=== PATIENT | female | born 1940 | race Caucasian/White ===

== ENCOUNTER 2017-02-05 21:58 | Inpatient (IN) | payer OTHER, MEDICARE ==
--- NOTE | 2017-02-06 01:03 | PDOC ---
History of Present Illness - General Chief Complaint: Cold Symptoms Stated Complaint: FEVER Time Seen by Provider: 02/06/17 00:54 - History of Present Illness Initial Comments: 02/06/17 01:03 CHIEF COMPLAINT: fever, cough HISTORY OF PRESENT ILLNESS: 76 yo F with hx of of ALS, spinal stenosis, HTN, HLD , atrial fibrillation (on Eliquis), s/p aortic valve replacement (bovine valve, 06/07), presents to ED with fever and cough x "a couple weeks but it's getting better." Patient reports that she was sent to ED by her emergency preparedness manager Dr. Villatoro due to her complaints of fever. Patient reports weakness, headache, and "my neck feels stiff." She also reports new immobility of b/l arms secondary to worsening ALS. PAST MEDICAL HISTORY: Denies past medical history FAMILY HISTORY: Denies SOCIAL HISTORY: Lives at home with daughter. Denies tobacco, alcohol, illicit drug use. SURGICAL HISTORY: Denies ALLERGIES: No known drug allergies REVIEW OF SYSTEMS General/Constitutional: Fever at home today, [id number]. Weakness x "a few days." HEENT: Denies change in vision. Denies ear pain or discharge. Denies sore throat. Cardiovascular: Denies chest pain or shortness of breath. Respiratory: Cough x "a couple weeks." Denies wheezing, or hemoptysis. Gastrointestinal: Denies nausea, vomiting, diarrhea. Genitourinary: Denies dysuria, frequency, or change in urination. Musculoskeletal: "I can't move." Skin: Denies rash or easy bruising. Neurologic:Headache today. Denies vertigo, loss of consciousness, or loss of sensation. PHYSICAL EXAM General Appearance: Lying flat, immobile in stretcher. Appropriately dressed. No apparent distress. HEENT: Flushed cheeks. EOMI, PERRLA, normal ENT inspection, normal voice, TMs normal, pharynx normal. No conjunctival pallor. No photophobia, scleral icterus. Neck: No nuchal rigidity. Trachea midline. No tenderness, carotid bruit, stridor , lymphadenopathy, or thyromegaly. Respiratory/Chest: Minimal wheezing to R upper lobe. No chest tenderness, respiratory distress, accessory muscle use. No crackles, rales, rhonchi, stridor , dullness Cardiovascular: RRR. S1, S2. Gastrointestinal/Abdominal: Normal bowel sounds. Abdomen soft, non-distended. No tenderness or rebound tenderness. No organomegaly, pulsatile mass, guarding , hernia, hepatomegaly, splenomegaly. Musculoskeletal/Extremities: Limited mobility to b/l lower extremities and complete immobility to upper extremities b/l secondary to ALS. Integumentary: Appropriate color, dry, warm. No cyanosis, erythema, jaundice or rash Neurologic: nub card tender II-XII intact. Fully oriented, alert. Appropriate mood/affect. Motor strength 5/5. No appreciable EOM palsy, facial droop or sensory deficit. Past History - Past Medical History Allergies/Adverse Reactions: Allergies Allergy/AdvReac Type Severity Reaction Status Date / Time No Known Drug Allergies Allergy Verified 02/05/17 22:07 Home Medications: Ambulatory Orders Amiodarone HCl [Cordarone -] 200 mg PO ASDIR 12/27/15 Apixaban [Eliquis] 5 mg PO BID 12/27/15 Metoprolol Tartrate 50 mg PO BID 12/27/15 Losartan Potassium 100 mg PO DAILY 02/06/17 Anemia: No Asthma: No Cancer: No Cardiac Disorders: Yes (aortic stenosis, VALVE REPLACEMENT, AFIB) CVA: No COPD: No CHF: No Dementia: No Diabetes: No GI Disorders: Yes (HEMORRHOIDS,DIVERTICULOSIS,) Disorders: No HTN: Yes Hypercholesterolemia: Yes Liver Disease: No Seizures: No Thyroid Disease: No Other medical history: ALS - Surgical History Abdominal Surgery: No Appendectomy: No Cardiac Surgery: Yes (Aortic valve replacement) Cholecystectomy: Yes Lung Surgery: No Neurologic Surgery: No Orthopedic Surgery: No - Immunization History Immunization Up to Date: No - Suicide/Smoking/Psychosocial Hx Smoking History: Never smoked Have you smoked in the past 12 months: No Number of Cigarettes Smoked Daily: 0 If you are a former smoker, when did you quit?: 45 YRS AGO Cigars Per Day: 0 Information on smoking cessation initiated: No Hx Alcohol Use: No Drug/Substance Use Hx: No Substance Use Type: None Hx Substance Use Treatment: No *Physical Exam - Vital Signs Last Vital Signs Temp Pulse Resp BP Pulse Ox 98.8 F 95 H 20 148/102 98 02/05/17 22:08 02/05/17 22:08 02/05/17 22:08 02/05/17 22:08 02/05/17 22:08 ED Treatment Course - LABORATORY CBC & Chemistry Diagram: 02/06/17 01:26 02/06/17 01:26 Medical Decision Making - Medical Decision Making 02/06/17 04:10 76 yo F with hx of of ALS, spinal stenosis, HTN, HLD, atrial fibrillation (on Eliquis), s/p aortic valve replacement (bovine valve, 06/07), presents to ED with fever and cough. VS remarkable for rectal temp of 100.0F and HR of 95. -EKG -CBC, CMP, lactic acid, card profile, trop -CXR CXR with patchy infiltrates to perihilar regions, more prominent on R side. Suspicious for pneumonia. WBC 11.4 Bilirubin 2.3 Patient requires inpatient admission for treatment of pneumonia as she is currently immobile. Will require IV antibiotics and likely need chest PT. Will cover with Levaquin 750 mg IVPB Patient's PCP is Dr. Hammond. 02/06/17 06:[address] Alston covering for PCP Manish. Per Dr. Alston, will admit to hospitalist service with their group as pulm consult. Will also place consults for Zenia/Ramirez for ID and Lien for neuro. Discussed case with hospitalist Resident MD Gallegos, who accepts patient to med/ surg for inpatient services. *DC/Admit/Observation/Transfer Diagnosis at time of Disposition: Pneumonia Qualifiers: Pneumonia type: due to unspecified organism Laterality: bilateral Lung location : unspecified part of lung Qualified Code(s): J18.9 - Pneumonia, unspecified organism - Discharge Dispostion Admit: Yes
[2017-02-06] MEDS ORDERED: SODIUM CHLORIDE 0.9% 1000 ML INFUS.BAG IV PRN (01:07)
[2017-02-06 01:35] LABS: BASOPHIL 0.3 % (0-2.0); EOSINOPHIL 0.1 % (0-4.5); MCHC 33.1 g/dl (32.0-36.0); MEAN CELL VOLUME 90.5 fl (80-96); NEUTROPHILS 76.6 % (42.8-82.8); PLATELET COUNT 183 K/MM3 (134-434); RDW 14.5 % (11.6-15.6); WHITE BLOOD COUNT 11.4 K/mm3 (4.0-10.0)
[2017-02-06 01:47] LABS: INR 1.26 (0.82-1.09); PROTHROMBIN TIME (PATIENT) 14.2 SEC (9.98-11.88)
[2017-02-06 01:49] LABS: ACTIVATED PTT 32.1 SECONDS (26.9-34.4)
[2017-02-06 01:57] LABS: ALBUMIN 3.3 g/dl (3.4-5.0); ANION GAP 12 (8-16); BILIRUBIN,TOTAL 2.3 mg/dL (0.2-1.0); CALCIUM 8.1 mg/dL (8.5-10.1); CO2 21 mmol/L (21-32); CREATININE 0.6 mg/dL (0.55-1.02); GLUCOSE,RANDOM 139 mg/dL (74-106); SGOT/AST 45 U/L (15-37); SGPT/ALT 49 U/L (12-78); TOT PROT 6.4 g/dl (6.4-8.2)
[2017-02-06 02:00] LABS: ALK PHOS 84 U/L (45-117); CPK 57 IU/L (26-192); TROPONIN I < 0.02 ng/ml (0.00-0.05)
[2017-02-06] MEDS ORDERED: LEVOFLOXACIN 750 MG IVPB 150 ML IVPB ONE ×2 (02:11→02:26)
--- NOTE | 2017-02-06 02:19 | PDOC ---
*Physical Exam - Vital Signs Last Vital Signs Temp Pulse Resp BP Pulse Ox 98.8 F 95 H 20 148/102 98 02/05/17 22:08 02/05/17 22:08 02/05/17 22:08 02/05/17 22:08 02/05/17 22:08 ED Treatment Course - LABORATORY CBC & Chemistry Diagram: 02/06/17 01:26 02/06/17 01:26 - ADDITIONAL ORDERS Additional order review: Laboratory Results 02/06/17 02/06/17 02/06/17 01:26 01:26 01:26 PT with INR 14.20 H INR 1.26 H PTT (Actin FS) 32.1 Sodium 139 Potassium 3.6 Chloride 106 Carbon Dioxide 21 Anion Gap 12 BUN 12 Creatinine 0.6 Creat Clearance w eGFR > 60 Random Glucose 139 H Lactic Acid 1.8 Calcium 8.1 L Total Bilirubin 2.3 H D AST 45 H D ALT 49 D Alkaline Phosphatase 84 Creatine Kinase 57 Troponin I < 0.02 Total Protein 6.4 Albumin 3.3 L D 02/06/17 01:12 Influenza Types A,B Antigen (JERONIMO) - Final Nasopharyngeal Swab - Final 02/06/17 01:26 RBC 4.67 MCV 90.5 MCHC 33.1 RDW 14.5 MPV 8.0 Neutrophils % 76.6 Lymphocytes % 14.3 D Monocytes % 8.7 Eosinophils % 0.1 Basophils % 0.3 Medical Decision Making - Medical Decision Making 02/06/17 02:18 agree with care from TRENA Garduno *DC/Admit/Observation/Transfer Diagnosis at time of Disposition: Pneumonia
[2017-02-06] MEDS ORDERED: ACETAMINOPHEN 1000 MG/100 ML VIAL (NON FORMULARY) IVPB ONE (02:26)
[2017-02-06] MEDS ORDERED: METOPROLOL TARTRATE 50 MG TABLET (FP) ONE (02:27)
[2017-02-06] MEDS ORDERED: APIXABAN 5 MG TABLET PO STA (02:28)
[2017-02-06] MEDS ORDERED: METOPROLOL TARTRATE 50 MG TABLET (FP) PO ONE (02:29)
[2017-02-06 02:55] LABS: URINE APPEARANCE SLCLOUDY; URINE BILIRUBIN NEGATIVE (NEGATIVE); URINE BLOOD 2+ (NEGATIVE); URINE COLOR YELLOW; URINE GLUCOSE (UA) NEGATIVE (NEGATIVE); URINE KETONE NEGATIVE (NEGATIVE); URINE NITRITE NEGATIVE (NEGATIVE); URINE PROTEIN NEGATIVE (NEGATIVE); URINE UROBILINOGEN NEGATIVE mg/dL (0.2-1.0)
[2017-02-06 03:02] LABS: URINE BACTERIA MANY /hpf (NONE SEEN); URINE MUCUS RARE; URINE RBC 4 /hpf (0-3); URINE WBC 14 /hpf (3-5)
[2017-02-06] MEDS ORDERED: ACETAMINOPHEN INJECTION 100 ML IVPB ONE (03:26)
[2017-02-06] MEDS ORDERED: ACETAMINOPHEN 325 MG TABLET (FP) PO PRN (07:57)
[2017-02-06] MEDS ORDERED: AMIODARONE HCL 200 MG TABLET (FP) PO SCH (08:15)
[2017-02-06] MEDS: LOSARTAN POTASSIUM 100 MG TABLET PO SCH (09:33)
[2017-02-06] MEDS: METOPROLOL TARTRATE 50 MG TABLET (FP) PO SCH ×2 (09:34→21:52)
[2017-02-06 09:43] LABS: URINE LEUK ESTERASE TRACE (NEGATIVE)
--- NOTE | 2017-02-06 09:53 | PN ---
Progress Note, Physician Chief Complaint: ID 76 year old female ALS lives at home S/P AVR 2015 presents for fever 102 and productive couph for about week Denies SOB no travel pets unusual exposures. Sees Dr Joselito Ernandez cardiology at [facility]. Last dental work 5 months ago. - Current Medication List Current Medications: Active Medications Acetaminophen (Tylenol -) 650 mg PO Q4H PRN PRN Reason: FEVER OR PAIN Amiodarone HCl (Cordarone -) 200 mg PO ASDIR CHLOÉ Apixaban (Eliquis -) 5 mg PO BID CHLOÉ Losartan Potassium (Losartan Potassium) 100 mg PO DAILY [facility] Last Admin: 02/06/17 09:33 Dose: Not Given Metoprolol Tartrate (Lopressor -) 50 mg PO BID [facility] Last Admin: 02/06/17 09:34 Dose: Not Given Sodium Chloride (Normal Saline -) 1,000 ml IV Q20M PRN PRN Reason: MAP<65mm Hg OR SBP <90 - Objective Vital Signs: Vital Signs Temperature 98.6 F 02/06/17 07:27 Pulse Rate 73 02/06/17 07:27 Respiratory Rate 16 02/06/17 07:27 Blood Pressure 106/64 02/06/17 07:27 O2 Sat by Pulse Oximetry (%) 96 02/06/17 07:27 Constitutional: Yes: Well Nourished, No Distress Eyes: No: Conjunctiva Clear HENT: Yes: WNL, Atraumatic Neck: Yes: WNL, Supple Cardiovascular: Yes: Murmur, S1, S2 Respiratory: Yes: WNL, Regular, CTA Bilaterally. No: Rales, Rhonchi Gastrointestinal: Yes: Soft. No: Tenderness, Epigastrium Edema: No Labs: INR, PTT INR 1.26 (0.82-1.09) H 02/06/17 01:26 Problem List - Problems (1) Fever Code(s): R50.9 - FEVER, UNSPECIFIED (2) Pneumonia Code(s): J18.9 - PNEUMONIA, UNSPECIFIED ORGANISM Qualifiers: Pneumonia type: due to unspecified organism Laterality: bilateral Lung location: unspecified part of lung Qualified Code(s): J18.9 - Pneumonia , unspecified organism; J18.9 - Pneumonia, unspecified organism (3) History of prosthetic aortic valve Code(s): Z95.2 - PRESENCE OF PROSTHETIC HEART VALVE Assessment/Plan Laboratory Tests 02/06/17 02/06/17 02/06/17 01:26 01:26 02:30 WBC 11.4 H D Hgb 14.0 Hct 42.3 Plt Count 183 Lactic Acid 1.8 Ur Leukocyte Esterase Trace H Urine Bacteria Many Assessment Fever couph ? acute bronchitis vs early PNA Issues of QT discussed re Levoflox Pyuria noted Plan Blood cultures x 2 urine c/s CRP Empiric Ceftriaxone 2 grs daily Zenia BABCOCK
[2017-02-06] MEDS ORDERED: APIXABAN 5 MG TABLET PO SCH (10:00)
[2017-02-06] MEDS ORDERED: AMIODARONE HCL 200 MG TABLET (FP) ONE (10:33)
[2017-02-06] MEDS ORDERED: CEFTRIAXONE 100 ML IVPB ONE (10:33)
[2017-02-06] MEDS: CEFTRIAXONE 2 GM in DEXTROSE 5%-WATER - 100 ML IVPB SCH (10:35)
[2017-02-06] MEDS: AMIODARONE HCL 200 MG TABLET (FP) PO SCH (10:36)
--- NOTE | 2017-02-06 10:37 | HP ---
CHIEF COMPLAINT: fever PCP: HISTORY OF PRESENT ILLNESS: This is a 76 year old female with a significant past medical history of ALS, atrial fibrillation (on eliquis), aortic valve replacement (05/06), who presents to the emergency room with fever 102F, and a productive cough with yellow sputum production x 1 week. Darshan RUIZ, n, v, chest pain, hemoptoysis, palpitations, sob, abdominal pain, dysuria, hematuria. She does admit to one day of loose stools last week that has resolved. Ms. Llamas lives at home with her daughter. She has an aide to help her with adls. She can walk on her own, although unable to lift/move bilateral upper extremities due to ALS. Patient did admit to to neck stiffness, this is not new for her, it comes and goes and she attributes it to her ALS. ER course was notable for: Patient was tachycardic with low grade temp and leukocytosis; CXR was with low inspiratory effort Recent Travel: PAST MEDICAL HISTORY: PAST SURGICAL HISTORY: Social History: Smoking: Alcohol: Drugs: Family History: Allergies No Known Drug Allergies Allergy (Verified 02/05/17 22:07) HOME MEDICATIONS: Home Medications Medication Instructions Recorded Amiodarone HCl [Cordarone -] 200 mg PO ASDIR 12/27/15 Apixaban [Eliquis] 5 mg PO BID 12/27/15 Metoprolol Tartrate 50 mg PO BID 12/27/15 Losartan Potassium 100 mg PO DAILY 02/06/17 REVIEW OF SYSTEMS CONSTITUTIONAL: Absent: fever, chills, diaphoresis, generalized weakness, malaise, loss of appetite, weight change HEENT: Absent: rhinorrhea, nasal congestion, throat pain, throat swelling, difficulty swallowing, mouth swelling, ear pain, eye pain, visual changes CARDIOVASCULAR: Absent: chest pain, syncope, palpitations, irregular heart rate, lightheadedness , peripheral edema RESPIRATORY: Absent: cough, shortness of breath, dyspnea with exertion, orthopnea, wheezing, stridor, hemoptysis GASTROINTESTINAL: Absent: abdominal pain, abdominal distension, nausea, vomiting, diarrhea, constipation, melena, hematochezia GENITOURINARY: Absent: dysuria, frequency, urgency, hesitancy, hematuria, flank pain, genital pain MUSCULOSKELETAL: Absent: myalgia, arthralgia, joint swelling, back pain, neck pain SKIN: Absent: rash, itching, pallor HEMATOLOGIC/IMMUNOLOGIC: Absent: easy bleeding, easy bruising, lymphadenopathy, frequent infections ENDOCRINE: Absent: unexplained weight gain, unexplained weight loss, heat intolerance, cold intolerance NEUROLOGIC: Absent: headache, focal weakness or paresthesias, dizziness, unsteady gait, seizure, mental status changes, bladder or bowel incontinence PSYCHIATRIC: Absent: anxiety, depression, suicidal or homicidal ideation, hallucinations. PHYSICAL EXAMINATION Vital Signs - 24 hr 02/06/17 07:27 Temperature 98.6 F Pulse Rate [ 73 Left] Respiratory 16 Rate Blood Pressure 106/64 [Right Arm] O2 Sat by Pulse 96 Oximetry (%) GENERAL: Awake, alert, and fully oriented, in no acute distress; laying in bed;. HEAD: Normal with no signs of trauma. EYES: Pupils equal, round and reactive to light, extraocular movements intact, sclera anicteric, conjunctiva clear. No lid lag. EARS, NOSE, THROAT: Ears normal, nares patent, oropharynx clear without exudates. Moist mucous membranes. NECK: Normal range of motion, supple without lymphadenopathy, JVD, or masses. no stiffness; kernig negative LUNGS: Breath sounds equal, clear to auscultation bilaterally. No wheezes, and mild LLL crackles. No accessory muscle use. HEART: Regular rate and rhythm, normal S1 and S2 with II/ aortic murmur no radiation, rub or gallop. ABDOMEN: Soft, nontender, not distended, normoactive bowel sounds, no guarding, no rebound, no masses. No hepatomegaly or splenomegaly. MUSCULOSKELETAL: Normal range of motion at all joints. No bony deformities or tenderness. No CVA tenderness. UPPER EXTREMITIES: 2+ pulses, warm, well-perfused. No cyanosis. No clubbing. No peripheral edema. Unable to lift bilateral UE LOWER EXTREMITIES: 2+ pulses, warm, well-perfused. No calf tenderness. No peripheral edema. NEUROLOGICAL: Cranial nerves II-XII intact; shoulder shrug weak Normal speech. AAox3 -no facial droop or asymmetry -Motor: strength/flotation operator of BL upper extremities 0/5; 5/5 strength b/l LE; -Sensory: intact BL UE and LE -Reflexes:Biceps/triceps/brachioradialis 0 reflexes; patellar/achilles 2+ -gait not observed PSYCHIATRIC: Cooperative. Good eye contact. Appropriate mood and affect. SKIN: Warm, dry, normal turgor, fungal rash under left breast noted, normal capillary refill. CBC, BMP 02/06/17 01:26 02/06/17 01:26 Current Medications Generic Name Dose Route Start Last Admin Trade Name Freq PRN Reason Stop Dose Admin Acetaminophen 650 mg 02/06/17 07:57 Tylenol - PO Q4H PRN FEVER OR PAIN Amiodarone HCl 200 mg 02/06/17 10:30 02/06/17 10:36 Cordarone - PO 200 mg DAILY CHLOÉ Administration Apixaban 5 mg 02/06/17 12:00 Eliquis - PO BID CHLOÉ Ceftriaxone Sodium 2 gm/ 100 mls @ 200 mls/hr 02/06/17 11:00 02/06/17 10:35 Dextrose IVPB 200 mls/hr DAILY CHLOÉ Administration Losartan Potassium 100 mg 02/06/17 10:00 02/06/17 09:33 Losartan Potassium PO Not Given DAILY CHLOÉ Metoprolol Tartrate 50 mg 02/06/17 10:00 02/06/17 09:34 Lopressor - PO Not Given BID CHLOÉ Nystatin 1 applic 02/06/17 11:00 Nystop Powder - TP DAILY [facility] ASSESSMENT/PLAN: This is a 76 year old female with a past medical history of atrial fibrillation , ALS, aortic valve replacement, who presented with fever and cough. #sepsis secondary to possible pneumonia; vs bronchitis -IVF, blood cultures, urine antigens for pneumonia and legionella -ceftriaxone 2gm IVPD q daily -aspiration precautions -incentive spirometry -appreciate ID and pulmonary #atrial fibrillation on eliquis -cont eliquis 5mg po bid; will give at 12pm and 12am due to previous dose the night before given late; can give earlier by one hr each day to get back to normal regimen. -rate controlled #HTN: -hold morning dose for now due to hypotension -trend bp -cont home meds as above when adequate #fungal rash under left breast -apply nystatin powder to affected area qd #elevated bilirubin; no current likely current etiology; po -this is chronic -will get direct bili -trend lfts FEN: Fluids: po Electrolytes: wnl Diet:low sodium/reg depending on the bp VTE prophylaxis: on ac Disposiiton: IV antibiotics ; reeval for improvement; med surg Problem List - Problem (1) ALS (amyotrophic lateral sclerosis) Code(s): G12.21 - AMYOTROPHIC LATERAL SCLEROSIS (2) Atrial fibrillation Code(s): I48.91 - UNSPECIFIED ATRIAL FIBRILLATION (3) Fever Code(s): R50.9 - FEVER, UNSPECIFIED (4) History of prosthetic aortic valve Code(s): Z95.2 - PRESENCE OF PROSTHETIC HEART VALVE (5) Pneumonia Code(s): J18.9 - PNEUMONIA, UNSPECIFIED ORGANISM Qualifiers: Pneumonia type: due to unspecified organism Laterality: bilateral Lung location: unspecified part of lung Qualified Code(s): J18.9 - Pneumonia , unspecified organism; J18.9 - Pneumonia, unspecified organism Visit type - Emergency Visit Emergency Visit: Yes ED Registration Date: 02/06/17 Care time: The patient presented to the Emergency Department on the above date and was hospitalized for further evaluation of their emergent condition. - New Patient This patient is new to me today: Yes Date on this admission: 02/06/17 - Critical Care Critical Care patient: No
--- NOTE | 2017-02-06 10:48 | CONS ---
DATE OF CONSULTATION: HISTORY: This is a 76-year-old woman who lives at home with known diagnosis of ALS who presents to the emergency room for a [id number] of productive cough. She was also noted to have fever to 102 on admission. She denied any shaking chills, shortness of breath, hemoptysis, abdominal pain, or urinary complaints. In addition to her ALS, she has a history of an aortic valve replacement at [facility] with a bovine valve in May 2015. She is followed by Dr. Joselito Ernandez, her lead radiologic technologist at [place], who advised her to come to the hospital when she notified him that she had fever. She lives at home. Has no history of exposure to pets or persons with known communicable illness. She has not traveled. She has no history of substance abuse or HIV risk factors. PAST MEDICAL HISTORY: Includes ALS, hypertension, hyperlipidemia, atrial fibrillation, aortic valve replacement. MEDICATIONS: Include amiodarone, Eliquis, metoprolol, losartan. ALLERGIES: None known. SOCIAL HISTORY: Nonsmoker. No history of alcohol or substance abuse. FAMILY HISTORY: Reviewed and noncontributory. REVIEW OF SYSTEMS: Respiratory: Productive cough with sputum. No hemoptysis. Cardiac: No chest pain or palpitations. Positive prosthetic aortic valve. Gastrointestinal: No nausea, vomiting, diarrhea, weight loss. Genitourinary: No dysuria, hematuria, urinary frequency. PHYSICAL EXAMINATION: General: She is a pleasant, alert woman in no acute distress. Vital Signs: Temperature now 98.6, pulse 73, blood pressure 106/64, respirations 16. HEENT: Reveal no conjunctival petechia. Sclerae anicteric. Neck: Supple with no adenopathy. Lungs: Clear to auscultation. Heart: S1, S2. Regular rhythm with a 1/6 to 2/6 systolic murmur heard at the lower sternal border. Abdomen: Soft and nontender without hepatosplenomegaly. Extremities: Without clubbing, cyanosis, or edema. Genitourinary: Reveals an indwelling Claros catheter. LABORATORY DATA: White count 11.4, hemoglobin 14, platelets 183 with a normal differential, BUN 12, creatinine 0.6. Liver enzymes: Bilirubin 2.3. Remainder of enzymes within normal limits. Lactic acid 1.8. Urinalysis with 14 WBCs, 4 RBCs, trace leukocyte esterase. Chest x-ray was reviewed and shows no acute infiltrate seen. ASSESSMENT: A 76-year-old female with amyotrophic lateral sclerosis alert and oriented with background history of prosthetic aortic valve 2016 who presents with what appears to be a respiratory illness with cough and fever. No obvious physical findings or x-ray findings to suggest pneumonia so possibility of acute bronchitis considered. PLAN: At this point, we will not treat her for prostatic valve endocarditis but instead treat her for respiratory pathogens. We will treat with 2 g of ceftriaxone daily pending blood and urine cultures. Obtain a CRP and hopefully she can be switched to oral antibiotics, possibly Ceftin, over the next 48-72 hours. ADDIE MEJIA M.D. [id number]
--- NOTE | 2017-02-06 11:56 | CON.PULM ---
Consult Consult Specialty:: PULMONARY Referred by:: TRENA Garduno Reason for Consultation:: pneumonia - History of Present Illness Chief Complaint: fever History of Present Illness: 76yo female with h/o HTN, atrial fibrillation on anticoagulation, s/p bio-AVR, ALS who presents with fevers x 1 day. She reports a cough productive of yellow sputum for the past week. No chest pain or palpitations. No wheezes. No nausea, vomiting or diarrhea. No sick contacts or recent travel. She does not get the flu shot. She is ambulatory, denies dysuria or hematuria. Febrile to 102 upon presentation. She denies any h/o asthma/COPD, is a never smoker. - History Source History Provided By: Patient, Medical Record Limitations to Obtaining History: No Limitations - Past Medical History Cardio/Vascular: Yes: HTN, Hyperlipdemia - Past Surgical History Past Surgical History: Yes: Cholecystectomy - Alcohol/Substance Use Hx Alcohol Use: No - Smoking History Smoking history: Never smoked Have you smoked in the past 12 months: No Aproximately how many cigarettes per day: 0 If you are a former smoker, when did you quit?: 45 YRS AGO Home Medications - Allergies Allergies/Adverse Reactions: Allergies Allergy/AdvReac Type Severity Reaction Status Date / Time No Known Drug Allergies Allergy Verified 02/05/17 22:07 - Home Medications Home Medications: Ambulatory Orders Amiodarone HCl [Cordarone -] 200 mg PO ASDIR 12/27/15 Apixaban [Eliquis] 5 mg PO BID 12/27/15 Metoprolol Tartrate 50 mg PO BID 12/27/15 Losartan Potassium 100 mg PO DAILY 02/06/17 Review of Systems - Review of Systems Constitutional: reports: Chills, Fever, Weakness Eyes: denies: Recent Change in Vision HENT: denies: Nasal Congestion, Throat Pain Neck: denies: Stiffness, Tenderness Cardiovascular: denies: Chest Pain, Edema, Shortness of Breath Respiratory: reports: Cough. denies: Hemoptysis, Wheezing Gastrointestinal: denies: Abdominal Pain, Diarrhea, Nausea, Vomiting Genitourinary: denies: Dysuria, Hematuria Neurological: denies: Dizziness, Headache Endocrine: denies: Unexplained Weight Loss Physical Exam Vital Sings: Vital Signs Temperature 98.2 F 02/06/17 10:27 Pulse Rate 98 H 02/06/17 10:27 Respiratory Rate 16 02/06/17 10:27 Blood Pressure 109/48 02/06/17 10:27 O2 Sat by Pulse Oximetry (%) 96 02/06/17 10:27 Constitutional: Yes: Calm Eyes: Yes: Conjunctiva Clear, EOM Intact HENT: Yes: Atraumatic, Normocephalic Neck: Yes: Supple, Trachea Midline Cardiovascular: Yes: Regular Rate and Rhythm Respiratory: Yes: Regular, Diminished (decreased breath sounds at the bases) ...Clubbing: No Gastrointestinal: Yes: Normal Bowel Sounds, Soft. No: Tenderness Edema: No Neurological: Yes: Alert, Oriented Imaging - Results Chest X-ray: Report Reviewed, Image Reviewed (bibasilar infiltrates vs atelectasis) Problem List - Problems (1) Pneumonia Code(s): J18.9 - PNEUMONIA, UNSPECIFIED ORGANISM Qualifiers: Pneumonia type: due to unspecified organism Laterality: bilateral Lung location: unspecified part of lung Qualified Code(s): J18.9 - Pneumonia , unspecified organism; J18.9 - Pneumonia, unspecified organism (2) UTI (urinary tract infection) Code(s): N39.0 - URINARY TRACT INFECTION, SITE NOT SPECIFIED (3) Atrial fibrillation Code(s): I48.91 - UNSPECIFIED ATRIAL FIBRILLATION (4) HTN (hypertension) Code(s): I10 - ESSENTIAL (PRIMARY) HYPERTENSION Qualifiers: Hypertension type: essential hypertension Qualified Code(s): I10 - Essential (primary) hypertension; I10 - Essential (primary) hypertension; I10 - Essential (primary) hypertension (5) ALS (amyotrophic lateral sclerosis) Code(s): G12.21 - AMYOTROPHIC LATERAL SCLEROSIS Assessment/Plan r/o Pneumonia r/o UTI HTN Atrial Fibrillation s/p bio-AVR ALS - ID eval appreciated, continue antibiotics - f/u cultures - IVF - aspiration precautions - repeat CXR in AM - rate controlled - continue anticoagulation Thank you for this consult Joselito Conner MD
--- NOTE | 2017-02-06 12:58 | EKG ---
Test Reason : Blood Pressure : / mmHG Vent. Rate : 090 BPM Atrial Rate : 090 BPM P-R Int : 192 ms QRS Dur : 084 ms QT Int : 350 ms P-R-T Axes : 068 012 069 degrees QTc Int : 428 ms POOR DATA QUALITY, INTERPRETATION MAY BE ADVERSELY AFFECTED NORMAL SINUS RHYTHM NONSPECIFIC ST AND T WAVE ABNORMALITY ABNORMAL ECG WHEN COMPARED WITH ECG OF 01-MAR-2015 16:37, NO SIGNIFICANT CHANGE WAS FOUND Confirmed by PHIL ZAMORA MD ([id number]) on 02/06/2017 12:57:48 PM Referred By: Confirmed By:PHIL ZAMORA MD
[2017-02-06] MEDS: NYSTATIN POWDER 100,000 UNITS/GM - 15 GM TOPICAL POWDER TP SCH (13:01)
--- NOTE | 2017-02-06 13:07 | PN ---
Teaching Attending Note Name of Resident: Leslie Rainey ATTENDING PHYSICIAN STATEMENT I saw and evaluated the patient. I reviewed the resident's note and discussed the case with the resident. I agree with the resident's findings and plan as documented. SUBJECTIVE: CC: fever and cough HPI: 76 y/o unfortunate lady with h/o HTN, A fib on eliquis , HLP, recent diagnosis of ALS, spinal stenosis, and Severe s/p Bovine valve replacement who presented with fever and sputum production x 1 week she reported fever 101 at home withcough and greenish sputum production . she denies SOB or chest pain. has no chills. has no ABd pain , N?V or dysuria . has no diarrhea ( one episode of soft stool last week) . denies photophobia , RUIZ or neck rigidity ( she has chronic neck pain ) OBJECTIVE: NAD , pleasant, cooperative , AAOx3 , no neck rigidity No facial droop, MMM, no JVD , no LAP in neck CV: RRR, 2/6 SM at RUSB, and 3/6 SM at LUSB. No radiation to carotids. Lungs ; L base crackles Ext: no edema , or erythema ABd: soft, NT, ND , NL BS . Neuro: No facial droop, EOMI, round equal pupils, Uvula and tongue at mid line . nl facial sensation . Strength : LUE: 0/5 at level of shoulder shrug, shoulder flexion, biceps , triceps, and wrist flexion and extension . slight movement of some hand fingers ( 2/5) RUE : 0/5 at level of shoulder shrug, shoulder flexion, biceps , triceps, and wrist flexion and extension . slight movement of some hand fingers ( 2/5) RLE: 3/5 hip flexion. 3/5 knee flexion and extension , 5/5 ankle dorsiflexion and plantar flexion . LLE: 4/5 hip flexion. 3/5 knee flexion and extension , 5/5 ankle dorsiflexion and plantar flexion Sensation to light touch intact Reflexes : 1+ R knee jerk, 0 L knee jerk, 0 biceps b/l ASSESSMENT AND PLAN: 76 y/o unfortunate lady with h/o HTN, A fib on eliquis , HLP, recent diagnosis of ALS, spinal stenosis, and Severe s/p Bovine valve replacement who presented with fever and sputum production x 1 week 1- fever, sepsis ( fever 101, and tachycardia ) . could be due to PNA ( fever , sputum and crackles on R base , with no infiltrate on Cxray). other possibility could be bronchitis . UTI is a possibility . No meningeal signs - Ceftriaxone ( avoid levaquin due to prolonged QTc ) - follow blood and urine cx - repeat cxray in am - check Urien legionella and pneumococcal - if condition worses, might need a chest CT 2- H/o ALS: chronic, no change in condition - Neuro was consulted in ER 3- H/O A fib: in sinus rhythm now - cont eliquis, q 12 h - cont BB - cont amiodarone 4- HTN: cont BB and ARB 5- Chronically elevated Bili: - will fractionate . - follow LFTs - if needed , will get US HLOC
[2017-02-06] MEDS: APIXABAN 5 MG TABLET PO SCH ×2 (14:54→22:49)
[2017-02-06 17:46] VITALS: BMI 34.9
[2017-02-06] MEDS ORDERED: PT OWN MED DRAWER 7, Y5N ONE (21:49)
--- NOTE | 2017-02-07 08:09 | PN ---
Physical Exam: SUBJECTIVE: Patient seen and examined OBJECTIVE: Vital Signs Period Temp Pulse Resp BP Sys/Lorenzo Pulse Ox Last 24 Hr 98 F-98.8 F 82-98 16-21 105-149/48-78 96-97 GENERAL: The patient is awake, alert, and fully oriented EYES: sclera anicteric, conjunctiva clear. ENT: oropharynx clear without exudates, moist mucous membranes. LUNGS: Fine crackles L lung base HEART: Regular rate and rhythm, S1, S2, grade 3/6 systolic murmur LUSB, non radiating, grade 2/6 systolic murmur RUSB non radiating to carotids ABDOMEN: Obese, Soft, nontender, nondistended, normoactive bowel sounds EXTREMITIES: Mild bilateral pitting pedal edema, 2+ DP pulses, warm NEUROLOGICAL: No facial droop, symmetric face. No tongue or uvula deviation. Shoulder shrug 4/5. Muscle power upper limbs bilaterally 0/5, hyporeflexia, bilateral upper limbs. Lower limbs plantar flexion and extension 5/5 bilaterally. RLE hip flexion 3/5, LLE hip flexion 4/5. Bilateral pedal edema. PSYCH: Normal mood, normal affect. Laboratory Results - last 24 hr 02/06/17 02/06/17 07:15 11:20 C-Reactive Protein 15.5 H Blood Type B POSITIVE Antibody Screen Negative Blood culture- no growth- prelim Urine Ag pending CXR- Better inspiration, previous OHS, no sign of a discrete infiltrate Active Medications Generic Name Dose Route Start Last Admin Trade Name Freq PRN Reason Stop Dose Admin Acetaminophen 650 mg 02/06/17 07:57 Tylenol - PO Q4H PRN FEVER OR PAIN Amiodarone HCl 200 mg 02/06/17 10:30 02/06/17 10:36 Cordarone - PO 200 mg DAILY CHLOÉ Administration Apixaban 5 mg 02/06/17 12:00 02/06/17 22:49 Eliquis - PO 5 mg BID CHLOÉ Administration Ceftriaxone Sodium 2 gm/ 100 mls @ 200 mls/hr 02/06/17 11:00 02/06/17 10:35 Dextrose IVPB 200 mls/hr DAILY CHLOÉ Administration Losartan Potassium 100 mg 02/06/17 10:00 02/06/17 09:33 Losartan Potassium PO Not Given DAILY CHLOÉ Metoprolol Tartrate 50 mg 02/06/17 10:00 02/06/17 21:52 Lopressor - PO 50 mg BID CHLOÉ Administration Nystatin 1 applic 02/06/17 11:00 02/06/17 13:01 Nystop Powder - TP 1 applic DAILY CHLOÉ Administration ASSESSMENT/PLAN: This is a 76 year old female with a past medical history of atrial fibrillation , ALS, aortic valve replacement, who presented with fever and cough and was admiitted for PNA #sepsis secondary to pneumonia -Patient had a Tmax-101, tachycardia and PNA -IVF, - blood cultures- no growth prelim - urine antigens for pneumonia and legionella- pending - Day 2 antibiotics-ceftriaxone 2gm IVPD q daily -aspiration precautions -incentive spirometry - ID- Dr Knutson -pulmonary- - CXR-02/06/17-Congestive changes with weak inspiration -CXR- 02/07/17- Better inspiration, previous OHS (obesity hypoventilation syndrome), no sign of a discrete infiltrate _ #atrial fibrillation on eliquis -cont eliquis 5mg po bid; - will give at 11am and 11pm due to previous dose the night before given late; -Next order to alvarez will be in the am for 10.00am and 10.00pm - can give earlier by one hr each day to get back to normal regimen. -To confirm amiodarone dose- patient received 100mg today not 200mg daily -rate controlled #HTN: -trend bp- -cont home meds -Metoprolol 50mg PO bid -Losartan 100mg bid #Hypokalemia KCL PO 40meq bid Recheck K at 10pm #Constipation Colace 100mg tids PRN #fungal rash under left breast -apply nystatin powder to affected area qd #elevated bilirubin; no current likely current etiology; po -this is chronic -will get direct bili -trend lfts FEN: Fluids: po Electrolytes: wnl Diet:low sodium/reg depending on the bp VTE prophylaxis: on eliquis Disposition: med surg Visit type - Emergency Visit Emergency Visit: Yes ED Registration Date: 02/06/17 Care time: The patient presented to the Emergency Department on the above date and was hospitalized for further evaluation of their emergent condition. - New Patient This patient is new to me today: Yes Date on this admission: 02/07/17 - Critical Care Critical Care patient: No - Discharge Referral Referred to [facility] Med P.C.: No
[2017-02-07 08:42] LABS: BASOPHIL 0.4 % (0-2.0); EOSINOPHIL 0.5 % (0-4.5); MCHC 33.8 g/dl (32.0-36.0); MEAN CELL VOLUME 88.8 fl (80-96); MEAN PLT VOLUME 8.2 fl (7.5-11.1); NEUTROPHILS 74.9 % (42.8-82.8); PLATELET COUNT 151 K/MM3 (134-434); RDW 14.2 % (11.6-15.6); WHITE BLOOD COUNT 6.8 K/mm3 (4.0-10.0)
[2017-02-07 08:52] LABS: ALBUMIN 2.6 g/dl (3.4-5.0); ANION GAP 11 (8-16); BILIRUBIN,TOTAL 1.3 mg/dL (0.2-1.0); CALCIUM 7.7 mg/dL (8.5-10.1); CO2 24 mmol/L (21-32); CREATININE 0.4 mg/dL (0.55-1.02); GLUCOSE,RANDOM 98 mg/dL (74-106); PHOSPHOROUS 2.5 mg/dL (2.5-4.9); SGOT/AST 84 U/L (15-37); SGPT/ALT 112 U/L (12-78); TOT PROT 5.2 g/dl (6.4-8.2)
[2017-02-07 08:53] LABS: ALK PHOS 96 U/L (45-117)
[2017-02-07 09:20] LABS: INR 1.53 (0.82-1.09); PROTHROMBIN TIME (PATIENT) 17.3 SEC (9.98-11.88)
[2017-02-07] MEDS: CEFTRIAXONE 2 GM in DEXTROSE 5%-WATER - 100 ML IVPB SCH ×2 (10:58→11:41)
[2017-02-07] MEDS: APIXABAN 5 MG TABLET PO SCH ×2 (10:59→21:17)
[2017-02-07] MEDS: METOPROLOL TARTRATE 50 MG TABLET (FP) PO SCH ×2 (10:59→21:17)
[2017-02-07] MEDS: LOSARTAN POTASSIUM 100 MG TABLET PO SCH (11:00)
[2017-02-07] MEDS ORDERED: APIXABAN 5 MG TABLET PO ONE (11:00)
[2017-02-07] MEDS: POTASSIUM CHLORIDE TABS 20 MEQ TABLET.ER (FP) PO SCH ×2 (11:00→21:17)
[2017-02-07] MEDS: NYSTATIN POWDER 100,000 UNITS/GM - 15 GM TOPICAL POWDER TP SCH (11:01)
[2017-02-07] MEDS: AMIODARONE HCL 200 MG TABLET (FP) PO SCH ×2 (11:32→11:53)
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
--- NOTE | 2017-02-07 12:27 | PN ---
Progress Note (short form) - Note Progress Note: feels better wants to keep albert in as she is unable to get to the bathroom on her own +cough Vital Signs Period Temp Pulse Resp BP Sys/Lorenzo Pulse Ox Last 24 Hr 98 F-98.8 F 82-94 16-21 116-149/59-78 96-97 cor-rrr lungs clear abd soft,nt ext no edema +albert CBC, BMP 02/07/17 06:00 02/07/17 06:00 Microbiology 02/06/17 07:15 Urine - Urine Clean Catch Urine Culture - Preliminary Lactose Fermenting Neg Bacilli 02/07/17 00:00 Urine For Antigen Detection Legionella Antigen - Final 02/07/17 00:00 Urine For Antigen Detection Streptococcus pneumoniae Antigen (M - Final 02/06/17 01:26 Blood - Peripheral Venous Blood Culture - Preliminary NO GROWTH OBTAINED AFTER 24 HOURS, INCUBATION TO CONTINUE FOR 4 DAYS. 02/06/17 01:26 Blood - Peripheral Venous Blood Culture - Preliminary NO GROWTH OBTAINED AFTER 24 HOURS, INCUBATION TO CONTINUE FOR 4 DAYS. 02/06/17 01:12 Nasopharyngeal Swab Influenza Types A,B Antigen (JERONIMO) - Final 02/06/17 01:12 Nasopharyngeal Swab - Final a/p fever resolved UTI bronchitis continue ceftriaxone for now f/u cultures abnl lfts- consider RUQ US possible ALS bioprosthetic AVR
--- NOTE | 2017-02-07 12:34 | PN ---
Progress Note (short form) - Note Progress Note: PULMONARY VSS/AFEBRILE APPEARS COMFORTABLE OFF O2 NOT DYSPNEIC ANICTERIC CLEAR BREATH SOUNDS S1S2 BS+ B/L FLACCID UPPER EXTREMITIES LABS/MEDS/MICRO REVIEWED r/o UTI HTN Atrial Fibrillation s/p bio-AVR ALS - continue antibiotics - f/u cultures - IVF - aspiration precautions - cxr insp/exhahation - bedside ray/nif/peak flow - rate controlled - continue anticoagulation Girish BROUSSARD MD
[2017-02-07] MEDS ORDERED: PT OWN MED DRAWER 7, Y5N ONE ×2 (14:47→15:51)
--- NOTE | 2017-02-07 15:21 | PN ---
Teaching Attending Note Name of Resident: Autumn Gill ATTENDING PHYSICIAN STATEMENT I saw and evaluated the patient. I reviewed the resident's note and discussed the case with the resident. I agree with the resident's findings and plan as documented. SUBJECTIVE: no fever or chills. has no abd pain . breathing is better , still with productive cough . no more fever OBJECTIVE: NAD, pleasant, cooperative , AAOx3 , no neck rigidity No facial droop, MMM, no JVD , no LAP in neck CV: RRR, 2/6 SM at RUSB, and 3/6 SM at LUSB. No radiation to carotids. Lungs; L base crackles Ext: no edema , or erythema Neuro: No facial droop, EOMI, round equal pupils, Uvula and tongue at mid line . nl facial sensation . NAD , pleasant, cooperative , AAOx3 , no neck rigidity No facial droop, MMM, no JVD , no LAP in neck CV: RRR, 2/6 SM at RUSB, and 3/6 SM at LUSB. No radiation to carotids. Lungs ; L base crackles Ext: no edema , or erythema ABd: soft, NT, ND , NL BS . Neuro: No facial droop, EOMI, round equal pupils, Uvula and tongue at mid line . nl facial sensation . Strength : LUE: 0/5 at level of shoulder shrug, shoulder flexion, biceps , triceps, and wrist flexion and extension . slight movement of some hand fingers RUE : 0/5 at level of shoulder shrug, shoulder flexion, biceps , triceps, and wrist flexion and extension . slight movement of some hand fingers RLE: 3/5 hip flexion. 3/5 knee flexion and extension , 5/5 ankle dorsiflexion and plantar flexion . LLE: 4/5 hip flexion. 3/5 knee flexion and extension , 5/5 ankle dorsiflexion and plantar flexion Sensation to light touch intact Reflexes : 1+ R knee jerk, 0 L knee jerk, 0 biceps b/l ASSESSMENT AND PLAN: 76 y/o unfortunate lady with h/o HTN, A fib on eliquis , HLP, recent diagnosis of ALS, spinal stenosis, and Severe s/p Bovine valve replacement who presented with fever and sputum production x 1 week 1- FEver : due to UTI and possible PNA vs acute bronchitis Urine cx is growing lactose fermentinf G- Rods .resp sx are better - cont CTX - urine legionella and pneumococcal antigen Neg - follow final urine cx 2-h/o LAS: Neuro note reviewed. Possible alternative diagnosis - order MRI of c spine - order : UPEP, SPEP, ESR, CRP, PFTS, cxray, immunoglobuline, ZENOBIA , RF, and anti GM1 - will try to obtain records 3- H/O A fib: in sinus rhythm now - cont eliquis, q 12 h - cont BB - cont amiodarone 4- HTN: cont BB and ARB 5- Chronically elevated Bili: improved. ALt, AST increased probably due to Abx - US HLOC
--- NOTE | 2017-02-08 08:56 | PN ---
Physical Exam: SUBJECTIVE: Patient seen and examined generally feels well. unable to sleep well last night due to hospital setting. cough has improved since admission, feels better since admission. OBJECTIVE: Vital Signs Period Temp Pulse Resp BP Sys/Lorenzo Pulse Ox Last 24 Hr 97.8 F-98.5 F 78-84 18-18 122-134/62-70 95-97 GENERAL: The patient is awake, alert, and fully oriented EYES: uli, eomi ENT: oropharynx clear without exudates, moist mucous membranes., no LAD LUNGS: CTAB HEART: RRR, +systolic murmur, well-healing sternal scar BREAST: rash with erythema under b/l breasts with nystatin powder applied ABDOMEN: Obese, Soft, NT/BD EXTREMITIES: nonpitting b/l edema LE upto midshin, 2+ DP pulses, warm NEUROLOGICAL: symmtrical face, sensation b/l is equal, flaccid b/l ue.b/l dorsi/ plantar flexion 5/5. gait with 2 person assist is stable with short steps. Laboratory Results - last 24 hr 02/07/17 02/07/17 02/07/17 06:00 06:00 06:00 PT with INR 17.30 H INR 1.53 H Sodium 144 Potassium 3.1 L Chloride 109 H Carbon Dioxide 24 Anion Gap 11 BUN 10 Creatinine 0.4 L D Creat Clearance w eGFR > 60 Random Glucose 98 D Calcium 7.7 L Phosphorus 2.5 Magnesium 2.0 Total Bilirubin 1.3 H D Direct Bilirubin 0.4 H AST 84 H D ALT 112 H D Alkaline Phosphatase 96 C-Reactive Protein Total Protein 5.2 L Albumin 2.6 L D 02/07/17 02/07/17 15:30 19:30 PT with INR INR Sodium Potassium 3.9 D Chloride Carbon Dioxide Anion Gap BUN Creatinine Creat Clearance w eGFR Random Glucose Calcium Phosphorus Magnesium Total Bilirubin Direct Bilirubin AST ALT Alkaline Phosphatase C-Reactive Protein 15.6 H D Total Protein Albumin Active Medications Generic Name Dose Route Start Last Admin Trade Name Freq PRN Reason Stop Dose Admin Acetaminophen 650 mg 02/06/17 07:57 Tylenol - PO Q4H PRN FEVER OR PAIN Amiodarone HCl 100 mg 02/07/17 11:46 02/07/17 11:53 Cordarone - PO 100 mg DAILY CHLOÉ Administration Apixaban 5 mg 02/07/17 22:00 02/07/17 21:17 Eliquis - PO 5 mg BID CHLOÉ Administration Ceftriaxone Sodium 2 gm/ 100 mls @ 200 mls/hr 02/06/17 11:00 02/07/17 11:41 Dextrose IVPB 200 mls/hr DAILY CHLOÉ Administration Losartan Potassium 100 mg 02/06/17 10:00 02/07/17 11:00 Losartan Potassium PO 100 mg DAILY CHLOÉ Administration Metoprolol Tartrate 50 mg 02/06/17 10:00 02/07/17 21:17 Lopressor - PO 50 mg BID CHLOÉ Administration Nystatin 1 applic 02/06/17 11:00 02/07/17 11:01 Nystop Powder - TP 1 applic DAILY CHLOÉ Administration Potassium Chloride 40 meq 02/07/17 10:45 02/07/17 21:17 K-Dur - PO 40 meq BID CHLOÉ Administration ASSESSMENT/PLAN: 76 year old woman with ALS, afib on eliquis, bioprosthetic aortic valve, HTN, wo is being treated for UTI and bronchitis. - cleared by pulm and ID for dc home - discussed PT eval of 40 steps with patient, pt declined SNF or rehab placement , she receives at home PT twice a week and has a home health aide, she requests to go home. - pt has albert in place at her request because she does not have a one to one in the hospital for personal care, it will need to be dc'd and void prior to discharge #Sepsis resolved due to UTI- e.coli /bronchitis -ceftriaxone 2gm IVPD q daily (02-06-02/08) - convert to po antibiotics ceftin po 500mg BID for 7 days, tomorrow will be day one (02/09-02/15) #ALS - evaluated by Dr. Emmanuel: suspicious for alternate diagnosis. labs pending, MRI read today, discussed with Dr. Cohen for neurosurgical evaluation. he will see later today - discussed findings with daughter and patient, they are in agreement to wait for Dr. Cohen's assessment. If no further in-hospital intervention is needed, they are ready to be discharged today. - physical therapy #Afib on eliquis; currently in sinus - eliquis 5mg po bid - lopressor 50mg po bid - amiodarone 100mg po daily #HTN: - losartan 100mg po daily #Rash under breasts -apply nystatin powder to affected area daily - daughter requests nystatin at discharge #Abnormal LFT's - suspicious for cefriaxone side effect -this is chronic - U/s negative for liver pathology DVT: on eliquis diet: Na controlled Dispo: pending eval can be discharged today Visit type - Emergency Visit Emergency Visit: No - New Patient This patient is new to me today: Yes Date on this admission: 02/08/17 - Critical Care Critical Care patient: No
[2017-02-08 08:58] LABS: ANION GAP 8 (8-16); CO2 25 mmol/L (21-32)
[2017-02-08 09:05] LABS: ALBUMIN 2.8 g/dl (3.4-5.0); ALK PHOS 106 U/L (45-117); BILIRUBIN,TOTAL 1.3 mg/dL (0.2-1.0); CALCIUM 8.1 mg/dL (8.5-10.1); CREATININE 0.5 mg/dL (0.55-1.02); GLUCOSE,RANDOM 98 mg/dL (74-106); MAGNESIUM 2.2 mg/dL (1.8-2.4); PHOSPHOROUS 2.8 mg/dL (2.5-4.9); SGOT/AST 61 U/L (15-37); SGPT/ALT 111 U/L (12-78); TOT PROT 5.7 g/dl (6.4-8.2)
[2017-02-08] MEDS ORDERED: PT OWN MED DRAWER 7, Y5N ONE (09:19)
[2017-02-08] MEDS: POTASSIUM CHLORIDE TABS 20 MEQ TABLET.ER (FP) PO SCH ×2 (09:28→21:18)
[2017-02-08] MEDS: AMIODARONE HCL 200 MG TABLET (FP) PO SCH (09:29)
[2017-02-08] MEDS: APIXABAN 5 MG TABLET PO SCH ×2 (09:30→21:18)
[2017-02-08] MEDS: METOPROLOL TARTRATE 50 MG TABLET (FP) PO SCH ×2 (09:30→21:18)
[2017-02-08] MEDS: NYSTATIN POWDER 100,000 UNITS/GM - 15 GM TOPICAL POWDER TP SCH (09:31)
[2017-02-08] MEDS: LOSARTAN POTASSIUM 100 MG TABLET PO SCH (09:31)
--- NOTE | 2017-02-08 11:00 | PN ---
Progress Note, Physician History of Present Illness: OOB in chair Reports less cough Temps down Afebrile WBC WNL Claros catheter in place - Current Medication List Current Medications: Active Medications Acetaminophen (Tylenol -) 650 mg PO Q4H PRN PRN Reason: FEVER OR PAIN Amiodarone HCl (Cordarone -) 100 mg PO DAILY [facility] Last Admin: 02/08/17 09:29 Dose: 100 mg Apixaban (Eliquis -) 5 mg PO BID [facility] Last Admin: 02/08/17 09:30 Dose: 5 mg Ceftriaxone Sodium 2 gm/ (Dextrose) 100 mls @ 200 mls/hr IVPB DAILY [facility] Last Admin: 02/07/17 11:41 Dose: 200 mls/hr Losartan Potassium (Losartan Potassium) 100 mg PO DAILY [facility] Last Admin: 02/08/17 09:31 Dose: 100 mg Metoprolol Tartrate (Lopressor -) 50 mg PO BID [facility] Last Admin: 02/08/17 09:30 Dose: 50 mg Nystatin (Nystop Powder -) 1 applic TP DAILY [facility] Last Admin: 02/08/17 09:31 Dose: 1 applic Potassium Chloride (K-Dur -) 40 meq PO BID [facility] Last Admin: 02/08/17 09:28 Dose: 40 meq - Objective Vital Signs: Vital Signs Temperature 98 F 02/08/17 04:53 Pulse Rate 91 H 02/08/17 09:00 Respiratory Rate 18 02/08/17 09:00 Blood Pressure 121/77 02/08/17 09:00 O2 Sat by Pulse Oximetry (%) 97 02/08/17 09:00 Constitutional: Yes: No Distress Eyes: Yes: Conjunctiva Clear Cardiovascular: Yes: Regular Rate and Rhythm, Murmur, S1, S2 Respiratory: Yes: Diminished Gastrointestinal: Yes: Normal Bowel Sounds, Soft, Abdomen, Obese. No: Tenderness Labs: CBC, BMP 02/07/17 06:00 02/08/17 07:30 INR, PTT INR 1.53 (0.82-1.09) H 02/07/17 06:00 Assessment/Plan Bronchitis + Urine c/s E coli S/P AVR ALS Substitute po ceftin 500mg bid x 7d
[2017-02-08] MEDS: CEFTRIAXONE 2 GM in DEXTROSE 5%-WATER - 100 ML IVPB SCH (11:09)
--- NOTE | 2017-02-08 11:29 | PN ---
Progress Note (short form) - Note Progress Note: PULMONARY VSS/AFEBRILE APPEARS COMFORTABLE OFF O2 NOT DYSPNEIC/SUBJECTIVE IMPROVEMENT ANICTERIC CLEAR BREATH SOUNDS S1S2 BS+ B/L FLACCID UPPER EXTREMITIES LABS/MEDS/MICRO REVIEWED PEAK FLOW 240L/M NIF/BEDSIDE RADU PENDING INSP/EXP CXR REVEAL NL EXCURSION OF DIAPHRAGMS UTI HTN Atrial Fibrillation s/p bio-AVR ALS NO OBJECTION TO CONTINUING TREATMENT AN OUTPATIENT CAN HAVE RADU AND RESP MUSCLE TESTING OUTPATIENT Girish BROUSSARD MD
--- NOTE | 2017-02-08 14:08 | PN ---
Teaching Attending Note Name of Resident: Kira Handley ATTENDING PHYSICIAN STATEMENT I saw and evaluated the patient. I reviewed the resident's note and discussed the case with the resident. I agree with the resident's findings and plan as documented. SUBJECTIVE: No fever or chills. has no abd pain , no SOB. still has mild cough. OBJECTIVE: NAD, pleasant, cooperative , AAOx3 No facial droop, MMM, no JVD CV: RRR, 2/6 SM at RUSB, and 3/6 SM at LUSB. No radiation to carotids. Lungs; L base crackles Ext: no edema , or erythema Neuro: No facial droop, EOMI, round equal pupils, Uvula and tongue at mid line . nl facial sensation . Strength: LUE: 0/5 at level of shoulder shrug, shoulder flexion, biceps , triceps, and wrist flexion and extension. slight movement of thumb. RUE: 0/5 at level of shoulder shrug, shoulder flexion, biceps , triceps, and wrist flexion and extension. slight movement of some hand fingers. RLE: 3/5 hip flexion. 3/5 knee flexion and extension , 5/5 ankle dorsiflexion and plantar flexion. LLE: 4/5 hip flexion. 3/5 knee flexion and extension , 5/5 ankle dorsiflexion and plantar flexion. Sensation to light touch intact Reflexes : 1+ R knee jerk, 0 L knee jerk, 0 biceps b/l ASSESSMENT AND PLAN: 76 y/o unfortunate lady with h/o HTN, A fib on eliquis , HLP, recent diagnosis of ALS, spinal stenosis, and Severe s/p Bovine valve replacement who presented with fever and sputum production x 1 week 1- Fever: due to UTI and possible PNA vs acute bronchitis Urine cx reviewed, shepherd sensitive E coli. - change to ceftin to cover both infections. appreciate ID input 2- Upper extremity weakness with H/o ALS: stable neuro exam MRI of spine, reviewed. - Dr. Nguyen notified. - Dr. Cohen consulted and notified. - follow : UPEP, SPEP, CRP, PFTS, immunoglobuline, ZENOBIA , RF, and anti GM1 - d/w patient the possibility to follow with Dr. Emmanuel as out pt , to finish work up started here, but she would like to follow with her neurologist. also d/ w her the need to get old records for neuro review, but she declined. 3- H/O A fib: in sinus rhythm now - cont eliquis, q 12 h - cont BB - cont amiodarone 4- HTN: cont BB and ARB 5- Chronically elevated Bili: improved. ALt, AST increased probably due to Abx - US with no obstruction , possible chronic liver disease. f/u as out pt HLOC
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
--- NOTE | 2017-02-09 04:34 | DS ---
Physical Exam: SUBJECTIVE: Patient seen and examined generally feels well. unable to sleep well last night due to hospital setting. cough has improved since admission, feels better since admission. OBJECTIVE: Vital Signs Period Temp Pulse Resp BP Sys/Lorenzo Pulse Ox Last 24 Hr 97.8 F-98.5 F 78-84 18-18 122-134/62-70 95-97 GENERAL: The patient is awake, alert, and fully oriented EYES: uli, eomi ENT: oropharynx clear without exudates, moist mucous membranes., no LAD LUNGS: CTAB HEART: RRR, +systolic murmur, well-healing sternal scar BREAST: rash with erythema under b/l breasts with nystatin powder applied ABDOMEN: Obese, Soft, NT/BD EXTREMITIES: nonpitting b/l edema LE upto midshin, 2+ DP pulses, warm NEUROLOGICAL: symmtrical face, sensation b/l is equal, flaccid b/l ue.b/l dorsi/ plantar flexion 5/5. gait with 2 person assist is stable with short steps. Laboratory Results - last 24 hr 02/07/17 02/07/17 02/07/17 06:00 06:00 06:00 PT with INR 17.30 H INR 1.53 H Sodium 144 Potassium 3.1 L Chloride 109 H Carbon Dioxide 24 Anion Gap 11 BUN 10 Creatinine 0.4 L D Creat Clearance w eGFR > 60 Random Glucose 98 D Calcium 7.7 L Phosphorus 2.5 Magnesium 2.0 Total Bilirubin 1.3 H D Direct Bilirubin 0.4 H AST 84 H D ALT 112 H D Alkaline Phosphatase 96 C-Reactive Protein Total Protein 5.2 L Albumin 2.6 L D 02/07/17 02/07/17 15:30 19:30 PT with INR INR Sodium Potassium 3.9 D Chloride Carbon Dioxide Anion Gap BUN Creatinine Creat Clearance w eGFR Random Glucose Calcium Phosphorus Magnesium Total Bilirubin Direct Bilirubin AST ALT Alkaline Phosphatase C-Reactive Protein 15.6 H D Total Protein Albumin Active Medications Generic Name Dose Route Start Last Admin Trade Name Freq PRN Reason Stop Dose Admin Acetaminophen 650 mg 02/06/17 07:57 Tylenol - PO Q4H PRN FEVER OR PAIN Amiodarone HCl 100 mg 02/07/17 11:46 02/07/17 11:53 Cordarone - PO 100 mg DAILY CHLOÉ Administration Apixaban 5 mg 02/07/17 22:00 02/07/17 21:17 Eliquis - PO 5 mg BID CHLOÉ Administration Ceftriaxone Sodium 2 gm/ 100 mls @ 200 mls/hr 02/06/17 11:00 02/07/17 11:41 Dextrose IVPB 200 mls/hr DAILY CHLOÉ Administration Losartan Potassium 100 mg 02/06/17 10:00 02/07/17 11:00 Losartan Potassium PO 100 mg DAILY CHLOÉ Administration Metoprolol Tartrate 50 mg 02/06/17 10:00 02/07/17 21:17 Lopressor - PO 50 mg BID CHLOÉ Administration Nystatin 1 applic 02/06/17 11:00 02/07/17 11:01 Nystop Powder - TP 1 applic DAILY CHLOÉ Administration Potassium Chloride 40 meq 02/07/17 10:45 02/07/17 21:17 K-Dur - PO 40 meq BID CHLOÉ Administration Laboratory Tests 02/07/17 02/07/17 02/08/17 15:40 15:45 07:30 Globulin Pending Albumin/Globulin Ratio Pending Dirnv-7-Rfmofosbx Pending Vqlma-0-Sqkurdqax (%) Pending Cdemg-2-Cistzxsix Pending Hzith-3-Ljofnrnrm (%) Pending Beta Globulins Pending Beta Globulins (%) Pending Gamma Globulins Pending Gamma Globulins (%) Pending M-John % Pending Urine Total Protein Pending Urine PEP Interpret Pending IgG Pending IgA Pending IgM Pending IgE Pending YVES M-John Pending Rheumatoid Arth Biomark Pending ZENOBIA Screen Pending Asialo GM1 IgG Ab Pending Asialo GM1 IgM Ab Pending Lyme Screen IgG & IgM Pending Ref Test Comments Pending Microbiology 02/06/17 01:26 Blood - Peripheral Venous Blood Culture - Preliminary NO GROWTH OBTAINED AFTER 72 HOURS, INCUBATION TO CONTINUE FOR 2 DAYS. 02/06/17 01:26 Blood - Peripheral Venous Blood Culture - Preliminary NO GROWTH OBTAINED AFTER 72 HOURS, INCUBATION TO CONTINUE FOR 2 DAYS. 02/06/17 07:15 Urine - Urine Clean Catch Urine Culture - Final Escherichia Coli 02/07/17 00:00 Urine For Antigen Detection Legionella Antigen - Final - NEGATIVE 02/07/17 00:00 Urine For Antigen Detection Streptococcus pneumoniae Antigen (M - Final - NEGATIVE 02/06/17 01:12 Nasopharyngeal Swab Influenza Types A,B Antigen (JERONIMO) - Final - NEGATIVE 02/07 Chest xray: The heart size is within normal limits. Median sternotomy sutures are present. No acute infiltrates or pleural effusions are present. There are increased interstitial markings throughout the lung hartman consistent with chronic lung disease. The inspiration and expiration films obtained demonstrate adequate diaphragmatic motion. Liver Ultrasound: IMPRESSION: Heterogeneous echotexture to the liver but no focal lesions identified. Status post cholecystectomy. MRI impression: Impression: 1. Mild curvature of the cervical thoracic junction convex to the left, mild anterior spondylolisthesis of C7 on T1, T1 on T2, and T2 on T3. Hemangiomas of C7 and T4, degenerative disc disease with anterior osteophytes, and disc protrusions at T1-2 and T2-3, 2. Mild central disc protrusions at C3-4 , C4-5, and C5-C6 and mild disc protrusion to the right of midline at C6-7. 3. Productive changes of the joints of Luschka and facet joint degenerative changes are causing mild left neural foraminal narrowing at C3-4, mild left and moderate right neural foraminal narrowing at C5-6, and moderate left neural foraminal narrowing at C6-7. 4. Left paraspinal soft tissue process in the left anterolateral prevertebral region in the posterior oropharynx unchanged compared to the previous MRI and likely represents a lipoma. 5. Possible lipomatous lesion seen to the right of T3 and T4 which is unchanged compared to the previous MRI however is of uncertain significance and if clinically warranted for further evaluation post gadolinium images could be obtained. HOSPITAL COURSE: Date of Admission:02/06/17 Date of Discharge: 02/09/17 ASSESSMENT/PLAN: 76 year old woman with ALS, afib on eliquis, bioprosthetic aortic valve, HTN, who presented with fever, weakness and cough and was found to have UTI and bronchitis. She was treated with ceftriaxone 2gm IVPB q daily (02-06-02/08) and will need to take oral ceftin po 500mg BID for 7 days (02/09-02/15) to complete the 10-day course of antibiotics. She was evaluated by Dr. Emmanuel (Neurology) who made the following suggestions : IMP: Progressive motor neuronopathy. Very unusual presentation for Classical ALS with arm involvement >>>>legs , and absence of Bulbar or upper motor neuron (UMN) signs. 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 Check CK, SPEP, IPEP, Quantitative immunoglobulins, ESR, CRP, ZENOBIA, RF, Lyme. Anti-GM1 antibody. MRI of Cerival spine. PFT's to include inspiratory and expiratory forces. Inhalation and exhilation chest X-Rays for diaphragmatic excursion. Available labs and imaging outlined above. Pending labs can be obtained by Dr. Ernandez and Dr. Babb through medical records. She was also seen by Dr. Cohen (Neurosurgery) regarding the MRI findings who met with the family and felt no neurosurgical intervention indicated nor recommended. Daughter requested C collar Rx, understanding that muscle atrophy from chronic collar use could further weaken neck muscular control due to disuse. Dr. Cohen provided a prescription for the collar. Physical therapy evaluation showed patient to make it to 40 steps, pt declined SNF or rehab placement, she receives at home PT twice a week and has a home health aide, she requests to go home. Minutes to complete discharge: 46 Discharge Summary Reason For Visit: IMMOBILITY PNEUMONIA Current Active Problems Fever (Acute) Pneumonia (Acute) UTI (urinary tract infection) (Acute) ALS (amyotrophic lateral sclerosis) (Chronic) History of prosthetic aortic valve (Chronic) Condition: Improved - Instructions Diet, Activity, Other Instructions: Please see with your strap setter, Dr. Ernandez and your neurologist Dr. Babb for post-hospital follow-up in one week. There are labs still pending from your hospital stay, your doctors can call [facility] ( medical records ) next week to see if they are available, . To complete the antibiotic duration for your infections, Ceftin 500mg by 1 tablet by mouth twice daily for 7 days. If you develop worsening chest pain, difficulty breathing or any new or persisting symptoms, please return to the hospital. You always can follow with Dr. Emmanuel if you want Referrals: gennaro babb [Other] - 2 Weeks Joselito Ernandez [Non Staff, Medical] - 1 Week Clint Cohen MD [Staff Physician] - 3 Weeks Disposition: VNS/HOME HEALTH CARE - Home Medications Comprehensive Discharge Medication List: Ambulatory Orders Amiodarone HCl [Cordarone -] 100 mg PO ASDIR 12/27/15 Apixaban [Eliquis] 5 mg PO BID 12/27/15 Metoprolol Tartrate 50 mg PO BID 12/27/15 Losartan Potassium 100 mg PO DAILY 02/06/17 Cefuroxime Axetil [Ceftin -] 500 mg PO BID #14 tablet 02/08/17 Nystatin Powder [Nystop Powder -] 1 applic TP DAILY #1 bottle 02/08/17 This patient is new to me today: Yes Date on this admission: 02/08/17 Emergency Visit: No Critical Care patient: No - Discharge Referral Referred to [facility] Med P.C.: No
--- NOTE | 2017-02-09 09:36 | CONS ---
DATE OF CONSULTATION: 02/08/2017 CHIEF COMPLAINT: Neck pain and truncal weakness. HISTORY OF PRESENT ILLNESS: The patient is a 76-year-old right-handed female with history of ALS diagnosed 1-1/2 years ago, atrial fibrillation, on chronic anticoagulation and aortic valve replacement, who presented with fever and a productive cough up to 1-week duration. She was treated for pneumonia after being hospitalized. The patient denied any headache, nausea or vomiting. She does have weakness of the bilateral upper extremities secondary to ALS, which has been stable for about the past year. She has mild lower extremity weakness, but that not progressed. She has no swallowing difficulty. She has an occasional problem with ambulating because of her poor neck posture and truncal. The daughter was at bedside through the consultation and provided some of the history. PAST MEDICAL HISTORY: Significant for ALS, aortic valve replacement, recent pneumonia, and atrial fibrillation (on chronic anticoagulation). MEDICATIONS: Currently include Tylenol, losartan, amiodarone, Ceftin, Eliquis, Lopressor, nystatin power, and potassium chloride replacement. ALLERGIES: There is no known drug allergy. FAMILY HISTORY: Noncontributory. SOCIAL HISTORY: She does not smoke or drink. She lives at home with her daughter. She is retired. REVIEW OF SYSTEMS: Otherwise negative for other major constitutional, head and neck, cardiovascular, pulmonary, gastrointestinal, genitourinary, endocrinological, neurological or psychological problems except for the above. PHYSICAL EXAMINATION: General: She is awake and alert. She is sitting up in a chair. Her daughter was at bedside. Vitals: Temperature 98.3, blood pressure 101/80, pulse rate 85. Oxygen saturation 97% on room air. HEENT: Examination shows her to be normocephalic, atraumatic, anicteric. Neck: Supple, but with slight tenderness to palpation posteriorly. Flexion is 45 degrees. Neck extension is 20 degrees. Heart: Coronary examination demonstrated an irregular rhythm. Respiratory: Lungs are clear bilaterally. Abdomen: Obese but benign. Extremities: Edema of bilateral lower extremities, which is chronic by report. Distal pulses are difficult to appreciate in the lower extremities as a result. Neurologic: She is awake, alert, oriented x3. Her speech is normal. There are no signs of dysarthria. Cranial nerve examination is intact except for mild fasciculation of her tongue. Motor examination 4/5 strength in bilateral lower extremities except for the right iliopsoas, which is 4-/5. Upper extremity strength is 1/5 in general, and she is flaccid. Sensory examination is intact to light touch and vibratory sensation. Deep tendon reflexes are hyporeflexic throughout. There is no pathological long tract sign. Gait was not tested for safety reasons. DIAGNOSTIC STUDIES: Laboratory examination showed white blood cell count initially to be 11.4; it is now 6.8. ESR is 49. INR is 1.53. Serum sodium is 143 and potassium is 3.8. BUN 9, creatinine 0.5. C-reactive protein was 15.6. Urinalysis shows trace leukocyte esterase; there are 4 RBCs and 14 WBCs. Urine culture demonstrated E. coli sensitive to cephalosporin. Blood cultures were negative. Legionella and Strep pneumococcal antigen were both negative. MRI of the cervical spine was compared to the MRI from 2011. It demonstrated multilevel spondylosis and mild degenerative disk disease. There are hemangiomas of the C7 and T4 vertebral bodies. There are broad-based disk bulges at C5-C6 and C6-C7, with uncovertebral joint hypertrophy. There is mild thecal sac impingement. There is no spinal cord impingement. There is mild proximal foraminal stenosis , most noticeable at C5-C6, right greater than left, and at C6-C7, left greater than right. There is myelomalacia and edema of the spinal cord. IMPRESSION: 1. Bilateral upper extremity weakness secondary to amyotrophic lateral sclerosis. 2. Moderate cervical spondylosis and degenerative disk disease with no signs or symptoms of spinal cord impingement. 3. Recent pneumonia. 4. Atrial fibrillation, on chronic anticoagulation. 5. Status post aortic valve replacement with tissue valve. RECOMMENDATIONS: The patient presents with pneumonia and has been treated. She also has a concurrent urinary tract infection with E. coli. Her neurological status has been stable for about 1 year, according to the patient and the daughter. Her cervical spine condition appears also to have progressed very slightly for the past 6 years. There is no spinal cord impingement and no neurosurgical intervention is indicated or recommended. The patient's daughter did request a rigid cervical collar on behalf of the patient. That will be helpful in helping control the pain, but will further weaken the postural control of the neck as well as the truncal musculature, unfortunately. That is a consequence the patient may suffer from. A prescription will be left for the patient prior to her discharge. The C-spine MRI findings were discussed with the patient and daughter at bedside. All questions were answered. Iftikhar MATTSON/[id number] MTDD
[2017-02-09 09:37] VITALS: BP 129/54; PULSE 91; TEMP 97.4
[2017-02-09] MEDS ORDERED: CEFUROXIME AXETIL 500 MG TABLET PO SCH (10:00)
[2017-02-09] MEDS: POTASSIUM CHLORIDE TABS 20 MEQ TABLET.ER (FP) PO SCH (10:56)
[2017-02-09] MEDS: APIXABAN 5 MG TABLET PO SCH (10:56)
[2017-02-09] MEDS: AMIODARONE HCL 200 MG TABLET (FP) PO SCH (10:56)
[2017-02-09] MEDS: LOSARTAN POTASSIUM 100 MG TABLET PO SCH (10:57)
[2017-02-09] MEDS: METOPROLOL TARTRATE 50 MG TABLET (FP) PO SCH (10:57)
[2017-02-09] MEDS: NYSTATIN POWDER 100,000 UNITS/GM - 15 GM TOPICAL POWDER TP SCH (10:58)
--- NOTE | 2017-02-09 12:22 | PN ---
Progress Note (short form) - Note Progress Note: Subjective: nopain , stillhas some cough , no OSB . feels better Objective: Vital Signs: Last Vital Signs Temp Pulse Resp BP Pulse Ox 97.4 F L 91 H 20 129/54 97 02/09/17 09:36 02/09/17 09:36 02/09/17 09:36 02/09/17 09:36 02/08/17 21:00 Laboratory Results - last 24 hr 02/08/17 07:30 ESR 49 H Physical Exam: NAD, pleasant, cooperative , AAOx3 No facial droop, MMM, no JVD CV: RRR, 2/6 SM at RUSB, and 3/6 SM at LUSB. No radiation to carotids. Lungs; R base crackles today Ext: no edema , or erythema Neuro: No facial droop, EOMI, round equal pupils, Uvula and tongue at mid line . nl facial sensation . Strength: LUE: 0/5 at level of shoulder shrug, shoulder flexion, biceps , triceps, and wrist flexion and extension. slight movement of thumb. RUE: 0/5 at level of shoulder shrug, shoulder flexion, biceps , triceps, and wrist flexion and extension. slight movement of some hand fingers. RLE: 3/5 hip flexion. 3/5 knee flexion and extension , 5/5 ankle dorsiflexion and plantar flexion. LLE: 4/5 hip flexion. 3/5 knee flexion and extension , 5/5 ankle dorsiflexion and plantar flexion. Sensation to light touch intact Reflexes : 1+ R knee jerk, 0 L knee jerk, 0 biceps b/l ASSESSMENT AND PLAN: 76 y/o unfortunate lady with h/o HTN, A fib on eliquis , HLP, recent diagnosis of ALS, spinal stenosis, and Severe s/p Bovine valve replacement who presented with fever and sputum production x 1 week 1- Fever: due to UTI and possible PNA vs acute bronchitis Urine cx with shepherd sensitive E coli. - cont cefuroxime after dc x 1 week 2- Upper extremity weakness with H/o ALS: stable neuro exam MRI of spine, was reviewed, by neuro and neuro Sx . No surgical intervention was indicated .patient prefers to follow with her own Neurologist . A disk was printed for her , rest of pending labs to be obtained by neuro (UPEP, SPEP, PFTS , immunoglobuline, ZENOBIA , RF, and anti GM1). a prescription fro a colar was given per her wishes 3- H/O A fib: in sinus rhythm now - cont eliquis, q 12 h - cont BB - cont amiodarone 4- HTN: cont BB and ARB 5- Chronically elevated Bili: improved. ALt, AST increased probably due to Abx - US with no obstruction , possible chronic liver disease. f/u as out pt Home today . aid will be available , so daughter agreed to dc Visit type - Emergency Visit Emergency Visit: Yes ED Registration Date: 02/06/17 Care time: The patient presented to the Emergency Department on the above date and was hospitalized for further evaluation of their emergent condition. - New Patient This patient is new to me today: No - Critical Care Critical Care patient: No - Discharge Referral Referred to [facility] Med P.C.: No
[2017-02-10 00:06] LABS: IGG IMMUNOGLOBULIN 647 mg/dL (700-1600); IGM IMMUNOGLOBULIN 106 mg/dL (26-217); IMMUNOGLOBULIN E 6 IU/mL (0-100)
[2017-02-11 00:09] LABS: ALBUMIN 2.8 g/dL (2.9-4.4); GLOBULIN, TOTAL 2.7 g/dL (2.2-3.9); M-SPIKE Not Observed g/dL (Not Observed); TOTAL PROTEIN 5.5 g/dL (6.0-8.5)
[2017-02-12 16:18] LABS: IgG P18 Absent (.); IgG P23 Absent (.); IgG P28 Absent (.); IgG P30 Absent (.); IgG P39 Absent (.); IgG P41 Present (.); IgG P45 Absent (.); IgG P58 Present (.); IgG P66 Absent (.); IgG P93 Absent (.); IgM P23 Absent (.); IgM P39 Absent (.); IgM P41 Absent (.); LYME IGM WB INTERPRE Negative (.)
== END 2017-02-09 13:59 | disposition home health service (06) | DRG 689 ==
LOC: JER 21:58 → JERBED 02-06 04:13 → UNDOADMIN 02-06 04:50 → J6S 02-06 18:00
PROVIDERS: ADMIT Internal Medicine Pulmonary Disease; ATTEND Internal Medicine
DX: N39.0 Urinary tract infection, site not specified (principal); J18.9 Pneumonia, unspecified organism; G12.21 Amyotrophic lateral sclerosis; I10 Essential (primary) hypertension; E78.5 Hyperlipidemia, unspecified; I48.91 Unspecified atrial fibrillation; Z79.01 Long term (current) use of anticoagulants; Z95.3 Presence of xenogenic heart valve; Z87.891 Personal history of nicotine dependence; R21 Rash and other nonspecific skin eruption; E80.6 Other disorders of bilirubin metabolism; E87.6 Hypokalemia; K59.00 Constipation, unspecified; M48.00 Spinal stenosis, site unspecified; B96.29 Other Escherichia coli [E. coli] as the cause of diseases classified elsewhere
CPT/HCPCS: 36415; 71010-TC; 72141-TC; 76705-TC; 80053; 81003; 81015; 82248; 82550; 82784; 82785; 83516; 83605; 83735; 84100; 84132; 84155; 84156; 84157; 84165; 84484; 85025; 85610; 85651; 85730; 86038; 86140; 86431; 86618; 86850; 86900; 86901; 87040; 87086; 87186; 87804; 87899; 93005; 93010; 94010; 94150; 97116-GP; 97161-GP; 99285-25

== ENCOUNTER 2017-06-02 10:39 | Inpatient (IN) | payer OTHER, MEDICARE ==
--- NOTE | 2017-06-02 11:21 | PDOC ---
History of Present Illness - General History Source: Patient Exam Limitations: No Limitations - History of Present Illness Initial Comments: 06/02/17 12:31 Pt is a 67 yo F with a PMHx of ALS, Spinal stenosis, HTN, HLD, Atrial Fibrillation (on Eliquis), s/p Aortic valve replacement (bovine valve, 06/07) who presents to the ED with lower extremity weakness. As per daughter, patients LE weakness has progressively worsened (R greater than L) over the past month secondary to ALS. Today, aide assisted patient to bathroom however suddenly lost strength in R leg. Aid assisted her down to the floor. Patient denies any injury, pain, head trauma or LOC. Since the incident, the patient has not attempted to stand and presents to the ED for further evaluation. Patient denies chest pain, headache or dizziness. Patient denies fever, chills, abdominal pain, nausea, vomit, diarrhea or constipation. Patient denies dysuria, frequency, urgency or hematuria. Patient denies sick contacts or recent travel. Allergies: NKA Past surgical history: Cholecystectomy and AVR Social history: Former smoker (quit 45 yrs ago) PCP: Dr. Hammond <Jackelin Mahan - Last Filed: 06/02/17 18:32> - General History Source: Patient Exam Limitations: No Limitations <Mónica Sotelo - Last Filed: 06/02/17 19:10> - General Stated Complaint: FALL Time Seen by Provider: 06/02/17 10:56 Past History <Jackelin Mahan - Last Filed: 06/02/17 18:32> - Past Medical History Anemia: No Asthma: No Cancer: No Cardiac Disorders: Yes (aortic stenosis, VALVE REPLACEMENT, AFIB) CVA: No COPD: No CHF: No Dementia: No Diabetes: No GI Disorders: Yes (HEMORRHOIDS,DIVERTICULOSIS,) Disorders: No HTN: Yes Hypercholesterolemia: Yes Liver Disease: No Seizures: No Thyroid Disease: No - Surgical History Abdominal Surgery: No Appendectomy: No Cardiac Surgery: Yes (Aortic valve replacement) Cholecystectomy: Yes Lung Surgery: No Neurologic Surgery: No Orthopedic Surgery: No - Immunization History Immunization Up to Date: No - Suicide/Smoking/Psychosocial Hx Smoking History: Never smoked Have you smoked in the past 12 months: No Number of Cigarettes Smoked Daily: 0 If you are a former smoker, when did you quit?: 45 YRS AGO Cigars Per Day: 0 Hx Alcohol Use: No Drug/Substance Use Hx: No Substance Use Type: None Hx Substance Use Treatment: No <Mónica Sotelo - Last Filed: 06/02/17 19:10> - Past Medical History Allergies/Adverse Reactions: Allergies Allergy/AdvReac Type Severity Reaction Status Date / Time No Known Drug Allergies Allergy Verified 06/02/17 11:23 Home Medications: Ambulatory Orders Amiodarone HCl [Cordarone -] 100 mg PO ASDIR 12/27/15 Apixaban [Eliquis] 5 mg PO BID 12/27/15 Metoprolol Tartrate 50 mg PO BID 12/27/15 Losartan Potassium 100 mg PO DAILY 02/06/17 Cefuroxime Axetil [Ceftin -] 500 mg PO BID #14 tablet 02/08/17 Nystatin Powder [Nystop Powder -] 1 applic TP DAILY #1 bottle 02/08/17 Review of Systems - Review of Systems Able to Perform ROS?: Yes Comments:: 06/02/17 12:38 GENERAL/CONSTITUTIONAL: No fever or chills. No weakness. HEAD, EYES, EARS, NOSE AND THROAT: No change in vision. No ear pain or discharge. No sore throat. GASTROINTESTINAL: No nausea, vomiting, diarrhea or constipation. GENITOURINARY: No dysuria, frequency, or change in urination. CARDIOVASCULAR: No chest pain or shortness of breath. RESPIRATORY: No cough, wheezing, or hemoptysis. MUSCULOSKELETAL: No joint or muscle swelling or pain. No neck or back pain. SKIN: No rash NEUROLOGIC: +Weakness to upper and lower extremities. No headache, vertigo, loss of consciousness, or change in strength/sensation. ENDOCRINE: No increased thirst. No abnormal weight change. HEMATOLOGIC/LYMPHATIC: No anemia, easy bleeding, or history of blood clots. ALLERGIC/IMMUNOLOGIC: No hives or skin allergy. <Jackelin Mahan - Last Filed: 06/02/17 18:32> *Physical Exam - Vital Signs Last Vital Signs Temp Pulse Resp BP Pulse Ox 97.7 F 68 15 137/87 98 06/02/17 11:05 06/02/17 11:55 06/02/17 11:55 06/02/17 11:55 06/02/17 11:05 <Jackelin Mahan - Last Filed: 06/02/17 18:32> - Physical Exam Comments: GENERAL: Awake, alert, and fully oriented, in no acute distress HEAD: No signs of trauma EYES: PERRLA, EOMI, sclera anicteric, conjunctiva clear ENT: Auricles normal inspection, hearing grossly normal, nares patent, oropharynx clear without exudates. Moist mucosa NECK: Normal ROM, supple, no lymphadenopathy, JVD, or masses LUNGS: Breath sounds equal, clear to auscultation bilaterally. No wheezes, and no crackles HEART: Regular rate and rhythm, normal S1 and S2, no murmurs, rubs or gallops ABDOMEN: Soft, nontender, normoactive bowel sounds. No guarding, no rebound. No masses EXTREMITIES: R knee no tenderness, no ecchymosis, no signs of trauma. Limited ROM due to weakness. No edema. No clubbing or cyanosis. No cords, erythema, or tenderness NEUROLOGICAL: Cranial nerves II through XII grossly intact. Normal speech. Strength 0/5 to BUE. L hip 3/5, R hip 1/5. Plantar flexion 5/5 B/L. SKIN: Warm, Dry, normal turgor, no rashes or lesions noted. <Mónica Sotelo - Last Filed: 06/02/17 19:10> Heart Score/ECG Review - ECG Impressions Comment:: EKG 13:37- sinus rhythm 68 bpm with 1st degree AV block <Mónica Sotelo - Last Filed: 06/02/17 19:10> ED Treatment Course - LABORATORY CBC & Chemistry Diagram: 06/02/17 13:13 06/02/17 13:13 <Jackelin Mahan - Last Filed: 06/02/17 18:32> - LABORATORY CBC & Chemistry Diagram: 06/02/17 13:13 06/02/17 13:13 <Mónica Sotelo - Last Filed: 06/02/17 19:10> Medical Decision Making - Medical Decision Making 06/02/17 17:43 Manish ortiz via phone answering service. Awaiting call back. <Jackelin Mahan - Last Filed: 06/02/17 18:32> - Medical Decision Making 06/02/17 18:25 Case d/w Dr. Manish, patient's primary. As per daughter, patient could ambulate with assistance up until today, where she suddenly lost the ability to bear weight on the R leg. She has been unable to ambulate since then. Daughter is concerned that she can no longer assist with ambulation under these circumstances. She has been approved for 24 hr care by medicaid, and was pending the home visit, services were supposed to start in 2 weeks. I have consulted case management to see if it is possible to get services started sooner. As per Dr. Hammond, I will admit to hospitalist service. <Mónica Sotelo - Last Filed: 06/02/17 19:10> *DC/Admit/Observation/Transfer - Attestations Scribe Attestion: 06/02/17 12:34 Documentation prepared by Jackelin Mahan, acting as medical lab tech instructor for Mónica Sotelo MD <Jackelin Mahan - Last Filed: 06/02/17 18:32> - Discharge Dispostion Admit: Yes <Mónica Sotelo - Last Filed: 06/02/17 19:10> Diagnosis at time of Disposition: ALS (amyotrophic lateral sclerosis), Right leg weakness - Discharge Dispostion Condition at time of disposition: Stable - Referrals Referrals: Jeremy Hammond MD [Primary Care Provider] - - Patient Instructions - Post Discharge Activity
[2017-06-02 13:26] LABS: BASO % 0.5 % (0-2.0); EOS % 0.3 % (0-4.5); HEMATOCRIT 41.3 % (32.4-45.2); HEMOGLOBIN 13.6 GM/dL (10.7-15.3); MCH 28.4 pg (25.7-33.7); MCHC 32.8 g/dl (32.0-36.0); MEAN CELL VOLUME 86.6 fl (80-96); MEAN PLT VOLUME 7.8 fl (7.5-11.1); MONO % 6.3 % (3.8-10.2); NEUT % 75.9 % (42.8-82.8); PLATELET COUNT 201 K/MM3 (134-434); RBC 4.77 M/mm3 (3.60-5.2); RDW 15.4 % (11.6-15.6); WHITE BLOOD COUNT 9.2 K/mm3 (4.0-10.0)
[2017-06-02 13:49] LABS: ALBUMIN 3.4 g/dl (3.4-5.0); ANION GAP 9 (8-16); BILIRUBIN,TOTAL 1.1 mg/dL (0.2-1.0); BLOOD UREA NITROGEN 14 mg/dL (7-18); CALCIUM 8.8 mg/dL (8.5-10.1); CHLORIDE 108 mmol/L (98-107); CO2 24 mmol/L (21-32); CREATININE 0.6 mg/dL (0.55-1.02); GLUCOSE,RANDOM 103 mg/dL (74-106); POTASSIUM 3.9 mmol/L (3.5-5.1); SGOT/AST 20 U/L (15-37); SGPT/ALT 24 U/L (12-78); SODIUM 141 mmol/L (136-145); TOT PROT 6.9 g/dl (6.4-8.2)
[2017-06-02 13:51] LABS: ALK PHOS 94 U/L (45-117)
[2017-06-02 17:04] LABS: URINE APPEARANCE CLEAR; URINE BILIRUBIN NEGATIVE (NEGATIVE); URINE BLOOD NEGATIVE (NEGATIVE); URINE COLOR LTYELLOW; URINE GLUCOSE (UA) NEGATIVE (NEGATIVE); URINE KETONE NEGATIVE (NEGATIVE); URINE LEUK ESTERASE NEGATIVE (NEGATIVE); URINE NITRITE NEGATIVE (NEGATIVE); URINE PROTEIN NEGATIVE (NEGATIVE); URINE UROBILINOGEN NEGATIVE mg/dL (0.2-1.0)
--- NOTE | 2017-06-02 19:15 | PN ---
Teaching Attending Note Name of Resident: Noe Grajeda ATTENDING PHYSICIAN STATEMENT I saw and evaluated the patient. I reviewed the resident's note and discussed the case with the resident. I agree with the resident's findings and plan as documented. SUBJECTIVE: 76 yo F with hx. of htn, A-Fib on Eliquis, Hld, Spinal Stenosis, Severe s/p Bovine Aortic Valve, Paraplegic UE who presents with with lower extremity weakness, progressivly worsening R>l. Aid was walking her to the bathroom, when she felt weak in the right leg, Notes that she buckled to her knees, but her daughter was holding her. Denies any prior headaches, dizziness, or lightheadedness. States the right leg has been progressivly getting weak. Denies any fevers or chills. No current shortness of breath, Chest Pain or pressure. OBJECTIVE: Physical: VS: Vital Signs Period Temp Pulse Resp BP Sys/Lorenzo Pulse Ox Last 24 Hr 97.7 F 68-69 15-18 137-148/72-87 98 GEN: NAD, resting in bed, AA0X3 HEENT: NCAT, PERRL, oral mucosa moist CARD: RRR S1, S2 RESP: CTAB ABD: Nsx4, NTD to palpation EXT: Bilateral UE unable to move. MS +3/5 RLE, 4/5 LLE, Pulses intact, NEURO: CN II-XII intact, MS as above, unable to assess reflexes, arms flaccid at sides. CBCD WBC 9.2 K/mm3 (4.0-10.0) D 06/02/17 13:13 RBC 4.77 M/mm3 (3.60-5.2) D 06/02/17 13:13 Hgb 13.6 GM/dL (10.7-15.3) D 06/02/17 13:13 Hct 41.3 % (32.4-45.2) D 06/02/17 13:13 MCV 86.6 fl (80-96) 06/02/17 13:13 MCHC 32.8 g/dl (32.0-36.0) 06/02/17 13:13 RDW 15.4 % (11.6-15.6) 06/02/17 13:13 Plt Count 201 K/MM3 (134-434) D 06/02/17 13:13 MPV 7.8 fl (7.5-11.1) 06/02/17 13:13 CMP Sodium 141 mmol/L (136-145) 06/02/17 13:13 Potassium 3.9 mmol/L (3.5-5.1) 06/02/17 13:13 Chloride 108 mmol/L (98-107) H 06/02/17 13:13 Carbon Dioxide 24 mmol/L (21-32) 06/02/17 13:13 Anion Gap 9 (8-16) 06/02/17 13:13 BUN 14 mg/dL (7-18) 06/02/17 13:13 Creatinine 0.6 mg/dL (0.55-1.02) 06/02/17 13:13 Creat Clearance w eGFR > 60 (>60) 06/02/17 13:13 Random Glucose 103 mg/dL (74-106) 06/02/17 13:13 Calcium 8.8 mg/dL (8.5-10.1) 06/02/17 13:13 Total Bilirubin 1.1 mg/dL (0.2-1.0) H 06/02/17 13:13 AST 20 U/L (15-37) 06/02/17 13:13 ALT 24 U/L (12-78) 06/02/17 13:13 Alkaline Phosphatase 94 U/L (45-117) 06/02/17 13:13 Total Protein 6.9 g/dl (6.4-8.2) 06/02/17 13:13 Albumin 3.4 g/dl (3.4-5.0) 06/02/17 13:13 CARDIAC ENZYMES Creatine Kinase 90 IU/L (26-192) 06/02/17 13:13 Troponin I < 0.02 ng/ml (0.00-0.05) 06/02/17 13:13 Ambulatory Orders Amiodarone HCl [Cordarone -] 100 mg PO ASDIR 12/27/15 Apixaban [Eliquis] 5 mg PO BID 12/27/15 Metoprolol Tartrate 50 mg PO BID 12/27/15 Losartan Potassium 100 mg PO DAILY 02/06/17 Cefuroxime Axetil [Ceftin -] 500 mg PO BID #14 tablet 02/08/17 Nystatin Powder [Nystop Powder -] 1 applic TP DAILY #1 bottle 02/08/17 ASSESSMENT AND PLAN: 76 yo F with hx. of htn, A-Fib on Eliquis, Hld, Spinal Stenosis, Severe s/p Bovine Aortic Valve, ALS (recently dx'd)who presents with LE weakness that has now Progressed 1.) LE Weakness in Setting of ALS? Multifocal Motor Neuropathy - Neuro - B12/Folate - PT/OT - SW Consult, for home help 2.) A-Fib - Rate Controlled - C/W Metoprolol/Amio - C/W Eliquis 3.) HTN - C/W Losartan 4.) Dvt Ppx - On Eliquis Place in Med-Sx
--- NOTE | 2017-06-02 20:24 | HP ---
CHIEF COMPLAINT: PCP: Dr. Mckinney ([facility]), Dr. Hammond HISTORY OF PRESENT ILLNESS: The patient is a 76 yo f w/ PMH ALS, afib on eliquis, HLD who comes into the ED after falling at home. Patient states that she was on her way to the bathroom this evening with the assistance of her daughter when her right leg "gave out" from under her. Her daughter lowered her to the ground slowly, then called EMS for assistance. Patient denies chest pain, SOB, palpitations, dizziness or loss of consciousness. ER course was notable for: (1) troponin negative x1 (2) CT head negative (3) EKG NSR Recent Travel: none PAST MEDICAL HISTORY: ALS HLD HTN PAST SURGICAL HISTORY: Cholecystectomy Aortic valve replacement Social History: Smoking: quit 45 years ago Alcohol: none Drugs: none Family History: non-contributory Allergies No Known Drug Allergies Allergy (Verified 06/02/17 11:23) HOME MEDICATIONS: Home Medications Medication Instructions Recorded Amiodarone HCl [Cordarone -] 100 mg PO ASDIR 12/27/15 Apixaban [Eliquis] 5 mg PO BID 12/27/15 Metoprolol Tartrate 50 mg PO BID 12/27/15 Losartan Potassium 100 mg PO DAILY 02/06/17 Cefuroxime Axetil [Ceftin -] 500 mg PO BID #14 tablet 02/08/17 Nystatin Powder [Nystop Powder -] 1 applic TP DAILY #1 bottle 02/08/17 REVIEW OF SYSTEMS CONSTITUTIONAL: Absent: fever, chills, diaphoresis, generalized weakness, malaise, loss of appetite, weight change HEENT: Absent: rhinorrhea, nasal congestion, throat pain, throat swelling, difficulty swallowing, mouth swelling, ear pain, eye pain, visual changes CARDIOVASCULAR: Absent: chest pain, syncope, palpitations, irregular heart rate, lightheadedness , peripheral edema RESPIRATORY: Absent: cough, shortness of breath, dyspnea with exertion, orthopnea, wheezing, stridor, hemoptysis GASTROINTESTINAL: Absent: abdominal pain, abdominal distension, nausea, vomiting, diarrhea, constipation, melena, hematochezia GENITOURINARY: Absent: dysuria, frequency, urgency, hesitancy, hematuria, flank pain, genital pain MUSCULOSKELETAL: Absent: myalgia, arthralgia, joint swelling, back pain, neck pain SKIN: Absent: rash, itching, pallor HEMATOLOGIC/IMMUNOLOGIC: Absent: easy bleeding, easy bruising, lymphadenopathy, frequent infections ENDOCRINE: Absent: unexplained weight gain, unexplained weight loss, heat intolerance, cold intolerance NEUROLOGIC: Absent: headache, dizziness, seizure, mental status changes, bladder or bowel incontinence PSYCHIATRIC: Absent: anxiety, depression, suicidal or homicidal ideation, hallucinations. PHYSICAL EXAMINATION Vital Signs - 24 hr 06/02/17 06/02/17 11:05 11:55 Temperature 97.7 F Pulse Rate 69 Pulse Rate [ 68 Left Radial] Respiratory 18 15 Rate Blood Pressure 148/72 Blood Pressure 137/87 [Right] O2 Sat by Pulse 98 Oximetry (%) GENERAL: Awake, alert, and fully oriented, in no acute distress. HEAD: Normal with no signs of trauma. EYES: Pupils equal, round and reactive to light, extraocular movements intact, sclera anicteric, conjunctiva clear. No lid lag. LUNGS: Breath sounds equal, clear to auscultation bilaterally. No wheezes, and no crackles. No accessory muscle use. HEART: Regular rate and rhythm, normal S1 and S2 without murmur, rub or gallop. ABDOMEN: Soft, nontender, not distended, normoactive bowel sounds, no guarding, no rebound, no masses. No hepatomegaly or splenomegaly. UPPER EXTREMITIES: 2+ pulses, warm, well-perfused. No cyanosis. No clubbing. No peripheral edema. LOWER EXTREMITIES: 2+ pulses, warm, well-perfused. No calf tenderness. No peripheral edema. NEUROLOGICAL: Cranial nerves II-X intact. Normal speech. SKIN: Warm, dry, normal turgor, no rashes or lesions noted, normal capillary refill. Laboratory Results - last 24 hr 06/02/17 06/02/17 06/02/17 13:13 13:13 17:20 WBC 9.2 D RBC 4.77 D Hgb 13.6 D Hct 41.3 D MCV 86.6 MCH 28.4 MCHC 32.8 RDW 15.4 Plt Count 201 D MPV 7.8 Neutrophils % 75.9 Lymphocytes % 17.0 Monocytes % 6.3 Eosinophils % 0.3 Basophils % 0.5 Sodium 141 Potassium 3.9 Chloride 108 H Carbon Dioxide 24 Anion Gap 9 BUN 14 Creatinine 0.6 Creat Clearance w eGFR > 60 Random Glucose 103 Calcium 8.8 Total Bilirubin 1.1 H AST 20 ALT 24 Alkaline Phosphatase 94 Creatine Kinase 90 Troponin I < 0.02 Total Protein 6.9 Albumin 3.4 Urine Color Ltyellow Urine Appearance Clear Urine pH 5.0 Ur Specific [place] 1.009 Urine Protein Negative Urine Glucose (UA) Negative Urine Ketones Negative Urine Blood Negative Urine Nitrite Negative Urine Bilirubin Negative Urine Urobilinogen Negative Ur Leukocyte Esterase Negative Imaging: CXR: Since the prior study of 02/07/2017, again noted is evidence of median sternotomy with prominent mediastinum and there may be some new atelectatic change in the retrocardiac area. Correlation recommended. Head CT: IMPRESSION: No acute intracranial hemorrhage or acute calvarial fracture. No intracranial mass effects or hydrocephalus. No definite interval change from 12/27/2015 CTA. EKG: NSR, no st segment changes noted ASSESSMENT/PLAN: Patient is a 76 yo who comes into the ED s/p fall at home. Patient has progressive weakness likely secondary to progression of her ALS #LE weakness likely 2/2 progressing ALS -Neuro consulted- Lien -Vit B12/Folate levels -PT ordered -trop negative x1; will rpt now, then in AM #Afib -Currently rate controlled -C/W metoprolol -C/W amiodarone -c/w Eliquis #HTN -currently normotensive -c/w losartan #FEN -No fluids indicated at this time -lytes WNL, will monitor -Full diet #Prophylaxis -DVT: currently on eliquis -GI: not indicated at this time #Dispo -admit to med-surg Problem List - Problem (1) Right leg weakness Code(s): R29.898 - OTH SYMPTOMS AND SIGNS INVOLVING THE MUSCULOSKELETAL SYSTEM (2) ALS (amyotrophic lateral sclerosis) Code(s): G12.21 - AMYOTROPHIC LATERAL SCLEROSIS Visit type - Emergency Visit Emergency Visit: Yes ED Registration Date: 06/02/17 Care time: The patient presented to the Emergency Department on the above date and was hospitalized for further evaluation of their emergent condition. - New Patient This patient is new to me today: Yes Date on this admission: 06/02/17 - Critical Care Critical Care patient: No
[2017-06-02] MEDS ORDERED: AMIODARONE HCL 200 MG TABLET (FP) PO SCH (20:30)
--- NOTE | 2017-06-02 20:39 | HP ---
CHIEF COMPLAINT: R leg weakness PCP: Dr. Hammond HISTORY OF PRESENT ILLNESS: 76 y/o F w/sig PMH ALS (has b/l UE paralysis), Spinal stenosis, HTN, HLD, Atrial Fibrillation (on Eliquis), s/p Aortic bovine valve replacement (2016) presents to the ER after having sudden loss of function in R leg today. She had noticed progressive worsening of her R leg over the last month but today as she was being helped to the bathroom by her daughter she collapsed (was brought down slowly by daughter) due to R leg weakness. She denies any head trauma, CP, SOB, light-headedness, dizziness, palpitations, URI symptoms. According to daughter she did not notice any facial droop or speech slurring or any change in mental status. Pt has not seen her neurologist in 1 year because she feels it is not necessary there is no treatment available to her. ER course was notable for: (1) Head CT, CXR (2) (3) PAST MEDICAL HISTORY: ALS, Spinal stenosis, HTN, HLD, Atrial Fibrillation (on Eliquis), s/p Aortic valve replacement (bovine 06/07) PAST SURGICAL HISTORY: Cholecystectomy, AVR Social History: Smoking: quit 45 years ago Alcohol: denies Drugs: denies Family History: n-c Allergies No Known Drug Allergies Allergy (Verified 06/02/17 11:23) HOME MEDICATIONS: Home Medications Medication Instructions Recorded Amiodarone HCl [Cordarone -] 100 mg PO ASDIR 12/27/15 Apixaban [Eliquis] 5 mg PO BID 12/27/15 Metoprolol Tartrate 50 mg PO BID 12/27/15 Losartan Potassium 100 mg PO DAILY 02/06/17 Cefuroxime Axetil [Ceftin -] 500 mg PO BID #14 tablet 02/08/17 Nystatin Powder [Nystop Powder -] 1 applic TP DAILY #1 bottle 02/08/17 REVIEW OF SYSTEMS CONSTITUTIONAL: Absent: fever, chills HEENT: Absent: rhinorrhea CARDIOVASCULAR: Absent: chest pain, syncope, palpitations, irregular heart rate, lightheadedness , peripheral edema RESPIRATORY: Absent: cough, shortness of breath GASTROINTESTINAL: Absent: abdominal pain GENITOURINARY: Absent: dysuria MUSCULOSKELETAL: + R leg weakness NEUROLOGIC: +unsteady gait Absent: headache, dizziness PHYSICAL EXAMINATION Vital Signs - 24 hr 06/02/17 06/02/17 11:05 11:55 Temperature 97.7 F Pulse Rate 69 Pulse Rate [ 68 Left Radial] Respiratory 18 15 Rate Blood Pressure 148/72 Blood Pressure 137/87 [Right] O2 Sat by Pulse 98 Oximetry (%) GENERAL: Awake, alert, and fully oriented, in no acute distress. HEAD: Normal with no signs of trauma. EYES: extraocular movements intact, sclera anicteric, conjunctiva clear. EARS, NOSE, THROAT: Ears normal, nares patent LUNGS: Breath sounds equal, clear to auscultation bilaterally. HEART: Regular rate and rhythm, normal S1 and S2 ABDOMEN: Soft, nontender, not distended, normoactive bowel sounds. MUSCULOSKELETAL: b/l UE paralysis; RLE can only plantar flex, decreased ROM otherwise. LLE can bend at knee approx 30 degrees, can plantar and dorsiflex LLE foot. LOWER EXTREMITIES: warm, well-perfused. No peripheral edema. NEUROLOGICAL: Normal speech. Sensation to light touch intact in face, b/l LE. PSYCHIATRIC: Cooperative. Good eye contact. Appropriate mood and affect. SKIN: Warm, dry Laboratory Results - last 24 hr 06/02/17 06/02/17 06/02/17 13:13 13:13 17:20 WBC 9.2 D RBC 4.77 D Hgb 13.6 D Hct 41.3 D MCV 86.6 MCH 28.4 MCHC 32.8 RDW 15.4 Plt Count 201 D MPV 7.8 Neutrophils % 75.9 Lymphocytes % 17.0 Monocytes % 6.3 Eosinophils % 0.3 Basophils % 0.5 Sodium 141 Potassium 3.9 Chloride 108 H Carbon Dioxide 24 Anion Gap 9 BUN 14 Creatinine 0.6 Creat Clearance w eGFR > 60 Random Glucose 103 Calcium 8.8 Total Bilirubin 1.1 H AST 20 ALT 24 Alkaline Phosphatase 94 Creatine Kinase 90 Troponin I < 0.02 Total Protein 6.9 Albumin 3.4 Urine Color Ltyellow Urine Appearance Clear Urine pH 5.0 Ur Specific [place] 1.009 Urine Protein Negative Urine Glucose (UA) Negative Urine Ketones Negative Urine Blood Negative Urine Nitrite Negative Urine Bilirubin Negative Urine Urobilinogen Negative Ur Leukocyte Esterase Negative Imaging: CXR: Since the prior study of 02/07/2017, again noted is evidence of median sternotomy with prominent mediastinum and there may be some new atelectatic change in the retrocardiac area. Correlation recommended. Head CT: IMPRESSION: No acute intracranial hemorrhage or acute calvarial fracture. No intracranial mass effects or hydrocephalus. No definite interval change from 12/27/2015 CTA. EKG: NSR, no st segment changes noted ASSESSMENT/PLAN: 76 y/o F w/sig PMH ALS (has b/l UE paralysis), Spinal stenosis, HTN, HLD, Atrial Fibrillation (on Eliquis), s/p Aortic bovine valve replacement (2016) presents to the ER after having sudden loss of function in R leg today. -RLE weakness likely secondary to progressive ALS -Neuro consulted -PT -check folate, B12 -Hx of Afib -in NSR as per EKG currently -c/w amio and eliquis for AC -HTN -c/w losartan -DVT ppx -pt currently on eliquis -Dispo: Admit to m/s Visit type - Emergency Visit Emergency Visit: Yes ED Registration Date: 06/02/17 Care time: The patient presented to the Emergency Department on the above date and was hospitalized for further evaluation of their emergent condition. - New Patient This patient is new to me today: Yes Date on this admission: 06/02/17 - Critical Care Critical Care patient: No
[2017-06-02] MEDS ORDERED: METOPROLOL TARTRATE 50 MG TABLET (FP) ONE (22:23)
[2017-06-02] MEDS: METOPROLOL TARTRATE 50 MG TABLET (FP) PO SCH (22:58)
[2017-06-02] MEDS: APIXABAN 5 MG TABLET PO SCH (22:58)
[2017-06-03 02:54] VITALS: BMI 35.1
[2017-06-03 07:29] LABS: BASO % 0.4 % (0-2.0); EOS % 0.4 % (0-4.5); HEMATOCRIT 37.9 % (32.4-45.2); HEMOGLOBIN 12.6 GM/dL (10.7-15.3); LYMPH % 32.3 % (8-40); MCH 28.4 pg (25.7-33.7); MCHC 33.2 g/dl (32.0-36.0); MEAN CELL VOLUME 85.5 fl (80-96); MEAN PLT VOLUME 7.8 fl (7.5-11.1); NEUT % 58.9 % (42.8-82.8); PLATELET COUNT 178 K/MM3 (134-434); RBC 4.43 M/mm3 (3.60-5.2); RDW 15.4 % (11.6-15.6); WHITE BLOOD COUNT 6.2 K/mm3 (4.0-10.0)
[2017-06-03 07:56] LABS: CHLORIDE 110 mmol/L (98-107); POTASSIUM 3.7 mmol/L (3.5-5.1); SODIUM 139 mmol/L (136-145)
[2017-06-03 08:08] LABS: ALK PHOS 82 U/L (45-117); ANION GAP 5 (8-16); BILIRUBIN,TOTAL 1.3 mg/dL (0.2-1.0); BLOOD UREA NITROGEN 12 mg/dL (7-18); CALCIUM 8.1 mg/dL (8.5-10.1); CO2 24 mmol/L (21-32); CREATININE 0.6 mg/dL (0.55-1.02); GLUCOSE,RANDOM 93 mg/dL (74-106); MAGNESIUM 1.9 mg/dL (1.8-2.4); PHOSPHOROUS 3.5 mg/dL (2.5-4.9); SGOT/AST 15 U/L (15-37); SGPT/ALT 21 U/L (12-78)
[2017-06-03 08:14] LABS: INR 1.34 (0.82-1.09); PROTHROMBIN TIME (PATIENT) 15.1 SEC (9.98-11.88)
[2017-06-03 08:16] LABS: ACTIVATED PTT 29.1 SECONDS (26.9-34.4)
[2017-06-03] MEDS ORDERED: PT OWN MED DRAWER 7, Y5N ONE (09:39)
[2017-06-03] MEDS ORDERED: LOSARTAN POTASSIUM 100 MG TABLET PO SCH (10:00)
[2017-06-03] MEDS: METOPROLOL TARTRATE 50 MG TABLET (FP) PO SCH ×2 (11:17→21:32)
[2017-06-03] MEDS: LOSARTAN POTASSIUM 50 MG TABLET (FP) PO SCH (11:18)
[2017-06-03] MEDS: AMIODARONE HCL 200 MG TABLET (FP) PO SCH (11:26)
[2017-06-03] MEDS: APIXABAN 5 MG TABLET PO SCH ×2 (11:26→21:32)
--- NOTE | 2017-06-03 12:30 | CON.PULM ---
Consult Consult Specialty:: Pulmonary Reason for Consultation:: Abnormal CXR - History of Present Illness History of Present Illness: 76 y.o. F with pmh of ALS, afib on eliquis, spinal stenosis, Aortic bovine valve replacement, and HLD who comes into the ED after falling at home 2/2 to sudden loss of function in R leg. Patient has had worsening of right leg function over last month and collapsed yesterday while walking to the bathroom. Patient states she was helped to the floor and had a soft fall. Patient denies head trauma, CP, SOB, light-headedness, dizziness, palpitations. Patient denies cough, sob, difficulty breathing, wheezing, hemoptysis. Patient has not received Flu or pneumonia vaccines (Does not want) - History Source History Provided By: Patient Limitations to Obtaining History: No Limitations - Past Medical History Cardio/Vascular: Yes: HTN, Hyperlipdemia - Past Surgical History Past Surgical History: Yes: Cholecystectomy - Alcohol/Substance Use Hx Alcohol Use: No - Smoking History Smoking history: Former smoker Have you smoked in the past 12 months: No Aproximately how many cigarettes per day: 0 If you are a former smoker, when did you quit?: 45 YRS AGO <Robi Parikh - Last Filed: 06/03/17 12:39> Home Medications <Robi Parikh - Last Filed: 06/03/17 12:39> <Loc Arguello - Last Filed: 06/03/17 14:32> - Allergies Allergies/Adverse Reactions: Allergies Allergy/AdvReac Type Severity Reaction Status Date / Time No Known Drug Allergies Allergy Verified 06/02/17 11:23 - Home Medications Home Medications: Ambulatory Orders Amiodarone HCl [Cordarone -] 100 mg PO ASDIR 12/27/15 Apixaban [Eliquis] 5 mg PO BID 12/27/15 Metoprolol Tartrate 50 mg PO BID 12/27/15 Losartan Potassium 100 mg PO DAILY 02/06/17 Cefuroxime Axetil [Ceftin -] 500 mg PO BID #14 tablet 02/08/17 Nystatin Powder [Nystop Powder -] 1 applic TP DAILY #1 bottle 02/08/17 Review of Systems - Review of Systems Constitutional: denies: Chills, Fever Eyes: reports: No Symptoms HENT: reports: No Symptoms Neck: reports: No Symptoms Cardiovascular: reports: No Symptoms Respiratory: reports: No Symptoms Gastrointestinal: reports: No Symptoms Neurological: reports: Unsteady Gait, Weakness (Right leg) <Robi Parikh - Last Filed: 06/03/17 12:39> Physical Exam Vital Sings: Vital Signs Temperature 98.9 F 06/03/17 02:39 Pulse Rate 72 06/03/17 02:39 Respiratory Rate 18 06/03/17 02:39 Blood Pressure 126/66 06/03/17 02:39 O2 Sat by Pulse Oximetry (%) 96 06/03/17 02:39 GENERAL: Awake, alert, and fully oriented, in no acute distress. HEAD: Normal with no signs of trauma. EYES: Extraocular movements intact, sclera anicteric, conjunctiva clear. EARS, NOSE, THROAT: Ears normal, nares patent LUNGS: Breath sounds equal, clear to auscultation bilaterally. HEART: Regular rate and rhythm, normal S1 and S2 ABDOMEN: Soft, nontender, not distended, normoactive bowel sounds. MUSCULOSKELETAL: Bilateral upper extremity paralysis, RLE +plantar flexion. Decreased dorsal flexion (3/5), Decresed right hip strength (4/5), LLE (5/5 strength) LOWER EXTREMITIES: warm, well-perfused. No peripheral edema. NEUROLOGICAL: Normal speech. Sensation to light touch intact in face, b/l LE. PSYCHIATRIC: Cooperative. Good eye contact. Appropriate mood and affect. SKIN: Warm, dry Labs: CBC, [facility] 06/03/17 06:00 06/03/17 06:00 <Robi Parikh - Last Filed: 06/03/17 12:39> Vital Sings: Vital Signs Temperature 97.9 F 06/03/17 13:41 Pulse Rate 74 06/03/17 13:41 Respiratory Rate 20 06/03/17 13:41 Blood Pressure 122/55 06/03/17 13:41 O2 Sat by Pulse Oximetry (%) 96 06/03/17 02:39 Labs: CBC, BMP 06/03/17 06:00 06/03/17 06:00 <Loc Arguello - Last Filed: 06/03/17 14:32> Assessment/Plan 76 y.o. F with pmh of ALS, afib on eliquis, spinal stenosis, Aortic bovine valve replacement, and HLD who comes into the ED after falling at home 2/2 to sudden loss of function in R leg found to have abnormal CXR #Abnormal CXR, RLL interstitial disease -Outpatient PFTs -O2 as needed -Nebs prn -Recommend immunizations <Robi Parikh - Last Filed: 06/03/17 12:39> IMP: No new or acute findings on CXR (may be a slight component of atelectasis). On review of old CXRs, there are chronic bases at the lung bases. No clinical indication for infectious process. PLAN: Monitor off ABX Incentive Spirometry as able PT VTE prophylaxis Will follow Dr Arguello <Loc Arguello - Last Filed: 06/03/17 14:32>
--- NOTE | 2017-06-03 15:18 | PN ---
Physical Exam: SUBJECTIVE: Patient seen and examined at bedside. No current complaints. Seen with daughter at bedside. OBJECTIVE: Vital Signs Period Temp Pulse Resp BP Sys/Lorenzo Pulse Ox Last 24 Hr 97.9 F-98.9 F 72-83 16-20 107-126/52-66 95-96 GENERAL: The patient is awake, alert, and fully oriented, in no acute distress. HEAD: Normal with no signs of trauma. EYES: PERRL, extraocular movements intact, sclera anicteric, conjunctiva clear. No ptosis. ENT: Ears normal, nares patent, oropharynx clear without exudates, moist mucous membranes. NECK: restricted ROM on neck rotation, more to the R than the left. LUNGS: Breath sounds equal, clear to auscultation bilaterally, no wheezes, no crackles, no accessory muscle use. HEART: Regular rate and rhythm, S1, S2, systolic murmur noted on exam ABDOMEN: obese, Soft, nontender, nondistended, normoactive bowel sounds, no guarding, no rebound, no hepatosplenomegaly, no masses. EXTREMITIES: 2+ pulses, warm, well-perfused, no edema. R leg significantly larger than the left NEUROLOGICAL: CN II-X and XII intact, CN XI not intact. 0/5 motor strength in b/ l upper extremities. L thigh 2/5 strength in hip flexion, 2/5 in knee flexion, 5 /5 in foot dorsiflextion. RLE 1/5 in hip flexion, 1/5 in knee flexion, 2/5 in foot dorsiflexion. PSYCH: Normal mood, normal affect. SKIN: Warm, dry, normal turgor, no rashes or lesions noted Laboratory Results - last 24 hr 06/02/17 06/02/17 06/03/17 17:20 21:50 06:00 WBC 6.2 D RBC 4.43 Hgb 12.6 Hct 37.9 MCV 85.5 MCH 28.4 MCHC 33.2 RDW 15.4 Plt Count 178 MPV 7.8 Neutrophils % 58.9 D Lymphocytes % 32.3 D Monocytes % 8.0 Eosinophils % 0.4 Basophils % 0.4 PT with INR INR PTT (Actin FS) Sodium Potassium Chloride Carbon Dioxide Anion Gap BUN Creatinine Creat Clearance w eGFR Random Glucose Calcium Phosphorus Magnesium Total Bilirubin AST ALT Alkaline Phosphatase Troponin I < 0.02 Total Protein Albumin Urine Color Ltyellow Urine Appearance Clear Urine pH 5.0 Ur Specific [place] 1.009 Urine Protein Negative Urine Glucose (UA) Negative Urine Ketones Negative Urine Blood Negative Urine Nitrite Negative Urine Bilirubin Negative Urine Urobilinogen Negative Ur Leukocyte Esterase Negative 06/03/17 06/03/17 06:00 06:00 WBC RBC Hgb Hct MCV MCH MCHC RDW Plt Count MPV Neutrophils % Lymphocytes % Monocytes % Eosinophils % Basophils % PT with INR 15.10 H INR 1.34 H PTT (Actin FS) 29.1 Sodium 139 Potassium 3.7 Chloride 110 H Carbon Dioxide 24 Anion Gap 5 L BUN 12 Creatinine 0.6 Creat Clearance w eGFR > 60 Random Glucose 93 Calcium 8.1 L Phosphorus 3.5 Magnesium 1.9 Total Bilirubin 1.3 H AST 15 ALT 21 Alkaline Phosphatase 82 Troponin I < 0.02 Total Protein 6.0 L Albumin 3.0 L Urine Color Urine Appearance Urine pH Ur Specific [place] Urine Protein Urine Glucose (UA) Urine Ketones Urine Blood Urine Nitrite Urine Bilirubin Urine Urobilinogen Ur Leukocyte Esterase Active Medications Generic Name Dose Route Start Last Admin Trade Name Freq PRN Reason Stop Dose Admin Amiodarone HCl 100 mg 06/03/17 10:00 06/03/17 11:26 Cordarone - PO 100 mg DAILY CHLOÉ Administration Apixaban 5 mg 06/02/17 22:00 06/03/17 11:26 Eliquis - PO 5 mg BID CHLOÉ Administration Losartan Potassium 100 mg 06/03/17 11:00 06/03/17 11:18 Cozaar - PO 100 mg DAILY CHLOÉ Administration Metoprolol Tartrate 50 mg 06/02/17 22:00 06/03/17 11:17 Lopressor - PO 50 mg BID CHLOÉ Administration ASSESSMENT/PLAN: 76 year old female with a past medical history of ALS, atrial fibrillation, admitted to the hospital for progressive weakness 2/2 ALS #Progressive Weakness: likely ALS progression -appreciate neurology consultation Dr. Emmanuel -physical therapy -for MRI purposes, patient had valve replaced in 2016 with "cow valve" according to her #Atrial Fibrillation: rate controlled -continue metoprolol tartrate 50 PO BID -continue eliquis 5mg PO BID -continue amiodarone 100mg PO QD #Hypertension: controlled -continue losartan 100mg PO QD #FEN: no standing fluids replete lytes in AM regular diet #Prophylaxis: -Pt is on eliquis #Disposition: -continue to monitor on med-surg -dispo planning Visit type - Emergency Visit Emergency Visit: No - New Patient This patient is new to me today: No - Critical Care Critical Care patient: No
--- NOTE | 2017-06-03 16:31 | PN ---
Teaching Attending Note Name of Resident: Vincenzo Graham ATTENDING PHYSICIAN STATEMENT I saw and evaluated the patient. I reviewed the resident's note and discussed the case with the resident. I agree with the resident's findings and plan as documented. SUBJECTIVE: no fever or chills. has progressive weakness of LE. no difficulty swallowing , no slurred speech. did not pass out but ripped while walking and was lowered to the floor OBJECTIVE: NAD,AAOx3 MMM, no JVD CV: RRR, 2/6 SM at RUSB, and 3/6 SM at LUSB. Lungs; CTAB Ext: no edema , or erythema ( R LE circumference > L , chronic at base line per pt ) . unstagable ulcer on R heel Neuro: No facial droop, EOMI, round equal pupils, tongue at mid line . nl facial sensation . sensation to light touch intact all over the body Strength: LUE: 0/5 at level of shoulder shrug, shoulder flexion, biceps , triceps, and wrist flexion and extension. not able to move fingers RUE: 0/5 at level of shoulder shrug, shoulder flexion, biceps , triceps, and wrist flexion and extension. not able to move fingers RLE: 1/5 hip flexion. 2/5 knee flexion and extension , 2-3/5 ankle dorsiflexion and 3-4 plantar flexion. LLE: 3/5 hip flexion. 2/5 knee flexion and extension , 5/5 ankle dorsiflexion and plantar flexion. Reflexes : 0 R knee jerk, 0 L knee jerk, 0 biceps b/l ASSESSMENT AND PLAN: 76 y/o unfortunate lady with h/o HTN, A fib on eliquis , HLP, ALS, spinal stenosis, and Severe s/p Bovine valve replacement who presented from home after a mechanical fall and progressive weakness. 1- Progressive weakness. diagnosed with ALS by out patient neurologist. - daughter to provide his number fro records. - neuro exam is worse compared to last admission . probably due to disease progression - w/u last admission included Neg lyme western blot , MRI of C spine with hemangiomas in C and T cord, disc bulge and facet joint etiology. Nl Joan, No M spike . - to be seen by neurpo - Physical therapy - PFTS as outpt - no compromise of speech/swallow /breathing 2- H/O A fib: - cont eliquis , metoprolol and amiodarone 3- HTN: cont BB and losartan dispo : SW to arrange prolonged VNS /aid services
--- NOTE | 2017-06-03 16:46 | EKG ---
Test Reason : Blood Pressure : / mmHG Vent. Rate : 068 BPM Atrial Rate : 068 BPM P-R Int : 226 ms QRS Dur : 080 ms QT Int : 406 ms P-R-T Axes : 075 010 050 degrees QTc Int : 431 ms SINUS RHYTHM WITH 1ST DEGREE A-V BLOCK OTHERWISE NORMAL ECG WHEN COMPARED WITH ECG OF 06-FEB-2017 01:34, CA INTERVAL HAS INCREASED Confirmed by MD Quita, Celestine ([id number]) on 06/03/2017 4:46:04 PM Referred By: Confirmed By:Celestine Devlin MD
--- NOTE | 2017-06-03 18:35 | CONSULT ---
Consult - text type - Consultation Consultation Note: NEUROLOGY CONSULTATION is greatly appreciated: Events reviewed and patient examined with her daughter, Marlee, at the bedside who ides with the history. Please also review my note from last January's hospitalization. PMH sig for HTN, ASHD, AFib on apixaban, amiodarone, metoprolol, and losartan. Patient and her daughter reiterate that her deterioration has continued to occur in a stepwise fashion with multiple, sudden increases in weakness "including yesterday when she suddenly developed increased weakness in the right leg" which buckled after many months of stable neurological functioning. Still no problem, whatsoever, with speech and swallowing in spite of the development of a floppy head and weakness of head turning. Hasn't been to the [facility] in more than 1 1/2 years. Last fall blood work showed a marked elevation in CRP (15.5 mg %) and a moderate elevation in ESR. Now CK= 90 IU EXAM: MS/Speech: Normal CN II-XII normal aside from neck flexion and extension. Normal tongue mov'ts and gag. No tongue atrophy or fasiculations. Motor: No arm or hand mov'ts but NO OBVIOUS ATROPHY and no fasiculations. Areflexic in the arms. Elevates both legs against gravity. Left knee ext 5/5. Left ankle DF, PF, Inv. and ever are 5/5. Right knee ext 5/5. Right ankle DF/Eversion are 3/5 BUT inversion and plantar flexion are 5/5. Areflexic in the legs. Downgoing toes. 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 The absence of atrophy in paralyzed muscles suggests a predominantly demyelinating process. Yesterday's deterioration suggests a new Right Peroneal mononeuropathy. SUGGEST: Check CRP, ESR, ZENOBIA, RF, Lyme, SSA, SSB, SPEP, IPEP, Quantitative immunoglobulins and light chains. Anti-GM1 antibody. Review prior EMG/NCS Update EMG/NCS now of the right arm and leg with segmental peroneal conductions. I would also strongly recommend LP under Fluroscopic guidance for CSF protein and oligoclonal bands. PM&R evaluation and Rx after EMG/NCS Thank you very much, Erick Emmanuel MD
--- NOTE | 2017-06-04 07:46 | PN ---
<Vincenzo Graham - Last Filed: 06/04/17 07:48> Physical Exam: SUBJECTIVE: Patient seen and examined at bedside. Patient denies any new complaints. Overnight nurse reported patient had pain on the dorsum of her R foot, which resolved after they raised the foot on a pillow. Patient has a albert in place. OBJECTIVE: Vital Signs Period Temp Pulse Resp BP Sys/Lorenzo Pulse Ox Last 24 Hr 97.6 F-98.2 F 70-86 20-20 110-125/55-66 96-96 GENERAL: The patient is awake, alert, and fully oriented, in no acute distress. HEAD: Normal with no signs of trauma. EYES: PERRL, extraocular movements intact, sclera anicteric, conjunctiva clear. No ptosis. ENT: Ears normal, nares patent, oropharynx clear without exudates, moist mucous membranes. NECK: restricted ROM on neck rotation, more to the R than the left. LUNGS: Breath sounds equal, clear to auscultation bilaterally, no wheezes, no crackles, no accessory muscle use. HEART: Regular rate and rhythm, S1, S2, systolic murmur noted on exam ABDOMEN: obese, Soft, nontender, nondistended, normoactive bowel sounds, no guarding, no rebound, no hepatosplenomegaly, no masses. EXTREMITIES: 2+ pulses, warm, well-perfused, no edema. R leg significantly larger than the left NEUROLOGICAL: CN II-X and XII intact, CN XI not intact. 0/5 motor strength in b/ l upper extremities. L thigh 2/5 strength in hip flexion, 2/5 in knee flexion, 5 /5 in foot dorsiflextion. RLE 1/5 in hip flexion, 1/5 in knee flexion, 2/5 in foot dorsiflexion. PSYCH: Normal mood, normal affect. UA: albert in place - day 2 SKIN: Warm, dry, normal turgor, no rashes or lesions noted Laboratory Results - last 24 hr 06/03/17 06/03/17 06/03/17 06:00 06:00 06:00 WBC 6.2 D RBC 4.43 Hgb 12.6 Hct 37.9 MCV 85.5 MCH 28.4 MCHC 33.2 RDW 15.4 Plt Count 178 MPV 7.8 Neutrophils % 58.9 D Lymphocytes % 32.3 D Monocytes % 8.0 Eosinophils % 0.4 Basophils % 0.4 PT with INR 15.10 H INR 1.34 H PTT (Actin FS) 29.1 Sodium 139 Potassium 3.7 Chloride 110 H Carbon Dioxide 24 Anion Gap 5 L BUN 12 Creatinine 0.6 Creat Clearance w eGFR > 60 Random Glucose 93 Calcium 8.1 L Phosphorus 3.5 Magnesium 1.9 Total Bilirubin 1.3 H AST 15 ALT 21 Alkaline Phosphatase 82 Troponin I < 0.02 Total Protein 6.0 L Albumin 3.0 L Active Medications Generic Name Dose Route Start Last Admin Trade Name Freq PRN Reason Stop Dose Admin Amiodarone HCl 100 mg 06/03/17 10:00 06/03/17 11:26 Cordarone - PO 100 mg DAILY HCLOÉ Administration Apixaban 5 mg 06/02/17 22:00 06/03/17 21:32 Eliquis - PO 5 mg BID CHLOÉ Administration Losartan Potassium 100 mg 06/03/17 11:00 06/03/17 11:18 Cozaar - PO 100 mg DAILY CHLOÉ Administration Metoprolol Tartrate 50 mg 06/02/17 22:00 06/03/17 21:32 Lopressor - PO 50 mg BID CHLOÉ Administration ASSESSMENT/PLAN: 76 year old female with a past medical history of ALS, atrial fibrillation, admitted to the hospital for evaluation of progressive weakness #Progressive Weakness: unlikely ALS per Dr. Emmanuel as it is more peripheral, predominantly motor weakness--> more similar to a demyelinating neuropathy -appreciate neurology consultation Dr. Emmanuel -CRP, ESR, ZENOBIA, RF, Lyme, SSA, SSB, SPEP, IPEP, immunoglobulins, Anti-GM1 -PMR consult Dr. Dumas for EMG/NCS and now of R arm and leg -physical therapy -for MRI purposes, patient had valve replaced in 2016 with "cow valve" according to her #Atrial Fibrillation: rate controlled -continue metoprolol tartrate 50 PO BID -continue eliquis 5mg PO BID -continue amiodarone 100mg PO QD #Hypertension: controlled -continue losartan 100mg PO QD #FEN: no standing fluids replete lytes in AM regular diet #Prophylaxis: -Pt is on eliquis #Disposition: -continue to monitor on med-surg -dispo planning Visit type - Emergency Visit Emergency Visit: No - New Patient This patient is new to me today: No - Critical Care Critical Care patient: No <Becca Melgoza - Last Filed: 06/04/17 15:26> Physical Exam: Agree with the resident's note. Discussed with Dr. Emmanuel, as per discussion patient needs further w/u since patient does not typical ALS presentation. Also will Discuss with the family the possibilty of LP.
[2017-06-04 08:28] LABS: ANION GAP 9 (8-16); BLOOD UREA NITROGEN 15 mg/dL (7-18); CALCIUM 8.4 mg/dL (8.5-10.1); CHLORIDE 107 mmol/L (98-107); CO2 25 mmol/L (21-32); CREATININE 0.6 mg/dL (0.55-1.02); GLUCOSE,RANDOM 95 mg/dL (74-106); MAGNESIUM 1.8 mg/dL (1.8-2.4); PHOSPHOROUS 3.3 mg/dL (2.5-4.9); POTASSIUM 3.7 mmol/L (3.5-5.1); SODIUM 141 mmol/L (136-145)
--- NOTE | 2017-06-04 08:50 | PN ---
Teaching Attending Note Name of Resident: Vincenzo Graham ATTENDING PHYSICIAN STATEMENT I saw and evaluated the patient. I reviewed the resident's note and discussed the case with the resident. I agree with the resident's findings and plan as documented. SUBJECTIVE: OBJECTIVE: Vital Signs Temperature 98.0 F 06/04/17 06:05 Pulse Rate 70 06/04/17 06:05 Respiratory Rate 20 06/04/17 06:05 Blood Pressure 125/66 06/04/17 06:05 O2 Sat by Pulse Oximetry (%) 96 06/03/17 21:00 CBCD WBC 6.2 K/mm3 (4.0-10.0) D 06/03/17 06:00 RBC 4.43 M/mm3 (3.60-5.2) 06/03/17 06:00 Hgb 12.6 GM/dL (10.7-15.3) 06/03/17 06:00 Hct 37.9 % (32.4-45.2) 06/03/17 06:00 MCV 85.5 fl (80-96) 06/03/17 06:00 MCHC 33.2 g/dl (32.0-36.0) 06/03/17 06:00 RDW 15.4 % (11.6-15.6) 06/03/17 06:00 Plt Count 178 K/MM3 (134-434) 06/03/17 06:00 MPV 7.8 fl (7.5-11.1) 06/03/17 06:00 CMP Sodium 139 mmol/L (136-145) 06/03/17 06:00 Potassium 3.7 mmol/L (3.5-5.1) 06/03/17 06:00 Chloride 110 mmol/L (98-107) H 06/03/17 06:00 Carbon Dioxide 24 mmol/L (21-32) 06/03/17 06:00 Anion Gap 5 (8-16) L 06/03/17 06:00 BUN 12 mg/dL (7-18) 06/03/17 06:00 Creatinine 0.6 mg/dL (0.55-1.02) 06/03/17 06:00 Creat Clearance w eGFR > 60 (>60) 06/03/17 06:00 Random Glucose 93 mg/dL (74-106) 06/03/17 06:00 Calcium 8.1 mg/dL (8.5-10.1) L 06/03/17 06:00 Total Bilirubin 1.3 mg/dL (0.2-1.0) H 06/03/17 06:00 AST 15 U/L (15-37) 06/03/17 06:00 ALT 21 U/L (12-78) 06/03/17 06:00 Alkaline Phosphatase 82 U/L (45-117) 06/03/17 06:00 Total Protein 6.0 g/dl (6.4-8.2) L 06/03/17 06:00 Albumin 3.0 g/dl (3.4-5.0) L 06/03/17 06:00 CARDIAC ENZYMES Creatine Kinase 90 IU/L (26-192) 06/02/17 13:13 Troponin I < 0.02 ng/ml (0.00-0.05) 06/03/17 06:00 Current Medications Generic Name Dose Route Start Last Admin Trade Name Freq PRN Reason Stop Dose Admin Amiodarone HCl 100 mg 06/03/17 10:00 06/03/17 11:26 Cordarone - PO 100 mg DAILY CHLOÉ Administration Apixaban 5 mg 06/02/17 22:00 06/03/17 21:32 Eliquis - PO 5 mg BID CHLOÉ Administration Losartan Potassium 100 mg 06/03/17 11:00 06/03/17 11:18 Cozaar - PO 100 mg DAILY CHLOÉ Administration Metoprolol Tartrate 50 mg 06/02/17 22:00 06/03/17 21:32 Lopressor - PO 50 mg BID CHLOÉ Administration NAD,AAOx3 MMM, no JVD CV: RRR, 2/6 SM at RUSB, and 3/6 SM at LUSB. Lungs; CTAB Ext: no edema , or erythema ( R LE circumference > L , chronic at base line per pt ) . unstagable ulcer on R heel Neuro: No facial droop, EOMI, round equal pupils, tongue at mid line . nl facial sensation . sensation to light touch intact all over the body Strength: LUE: 0/5 at level of shoulder shrug, shoulder flexion, biceps , triceps, and wrist flexion and extension. not able to move fingers RUE: 0/5 at level of shoulder shrug, shoulder flexion, biceps , triceps, and wrist flexion and extension. not able to move fingers RLE: 1/5 hip flexion. 2/5 knee flexion and extension , 2-3/5 ankle dorsiflexion and 3-4 plantar flexion. LLE: 3/5 hip flexion. 2/5 knee flexion and extension , 5/5 ankle dorsiflexion and plantar flexion. Reflexes : 0 R knee jerk, 0 L knee jerk, 0 biceps b/l ASSESSMENT AND PLAN: 76 y/o unfortunate lady with h/o HTN, A fib on eliquis , HLP, ALS, spinal stenosis, and Severe s/p Bovine valve replacement who presented from home after a mechanical fall and progressive weakness. # Progressive weakness. diagnosed with ALS by out patient neurologist. - daughter to provide his number for records. - neuro exam is worse compared to last admission . probably due to disease progression - w/u last admission included Neg lyme western blot , MRI of C spine with hemangiomas in C and T cord, disc bulge and facet joint etiology. Nl Joan, No M spike . - to be seen by neurpo - Physical therapy - PFTS as outpt - no compromise of speech/swallow /breathing # H/O A fib: cont eliquis , metoprolol and amiodarone # HTN: cont BB and losartan dispo : SW to arrange prolonged VNS /aid services
[2017-06-04] MEDS ORDERED: POTASSIUM CHLORIDE TABS 20 MEQ TABLET.ER (FP) PO ONE (08:57)
[2017-06-04 09:18] LABS: HEMATOCRIT 40.8 % (32.4-45.2); HEMOGLOBIN 13.4 GM/dL (10.7-15.3); MCH 28.3 pg (25.7-33.7); MCHC 32.9 g/dl (32.0-36.0); MEAN CELL VOLUME 86.1 fl (80-96); MEAN PLT VOLUME 8.2 fl (7.5-11.1); PLATELET COUNT 165 K/MM3 (134-434); RBC 4.74 M/mm3 (3.60-5.2); RDW 15.5 % (11.6-15.6); WHITE BLOOD COUNT 10.9 K/mm3 (4.0-10.0)
[2017-06-04] MEDS: METOPROLOL TARTRATE 50 MG TABLET (FP) PO SCH ×2 (10:26→21:10)
[2017-06-04] MEDS: LOSARTAN POTASSIUM 50 MG TABLET (FP) PO SCH (10:26)
[2017-06-04] MEDS: AMIODARONE HCL 200 MG TABLET (FP) PO SCH (10:26)
[2017-06-04] MEDS: APIXABAN 5 MG TABLET PO SCH ×2 (10:27→21:09)
--- NOTE | 2017-06-04 15:06 | CONS ---
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 Patient has had progressive symptoms over the last 1-1/2 to 2 years starting with her upper limbs. Her upper limbs have progressed to the point where she can move her distal left upper limb only with strength of 1/5 but otherwise has flaccid paralysis of both upper limbs. She was able to ambulate with a forward-flexed posture and 1- to 2-person assist for short distances. Again, she has undergone multiple EMGs, 2 of which were reviewed, 1 dated May 18, 2015, and the other dated July 22, 2016, including workup at [facility]. Per the family, a diagnosis of mononeuropathy multiplex was considered at one point, but for the most part she has been told she has ALS despite having very few to no fasciculations noted on her electrodiagnostic studies or observed. Patient again recently had her right leg give out on her and was lowered to the floor. She did not suffer any injuries but was brought to [facility] for further evaluation. She underwent a CT of the head which showed no acute intracranial pathology and no change from December 27, 2015. She also underwent blood work which showed WBCs 9.2, hemoglobin 13.6, platelet count 201, slightly elevated INR of 1.34. Her chemistry was normal, sodium 141, potassium 3.9, chloride 108, BUN 14, creatinine 0.6. Repeat blood work was stable. Her albumin, however, is slightly low at 3.0 as of June 03. Patient had an ultrasound of the right lower extremity which showed no evidence of deep venous thrombosis, but she states during last night she started to get tingling and now some pain distally in her lower limbs. She was noted by Neurology on admission to have no upper motor neuron signs and also some weakness in right dorsiflexion and eversion of the foot but otherwise fairly good motor power in the lower extremities. Patient herself feels very weak in her lower extremities. Other than the tingling, she has no sensory symptoms in her upper limbs. She has no difficulty swallowing or chewing and no speech abnormality. Again, she can move just the distal aspect of her left upper limb but for the most part is plegic in the upper extremities. REVIEW OF PAST MEDICAL AND SURGICAL HISTORY: Again, a history of ALS, hyperlipidemia, hypertension, atrial fibrillation, on Eliquis, cholecystectomy and aortic valve replacement. SOCIAL HISTORY: Lives with her daughter. Again, was ambulating short distances. She lives in a single-level home and has a home health aide 12 hours, 7 days a week. CURRENT FUNCTION: Bedrest. REVIEW OF SYSTEMS: No lightheadedness, dizziness. No blurry vision, dull vision. No nausea, vomiting, difficulty swallowing, difficulty chewing. No speech abnormalities. No dysarthria. No word-finding difficulties. No chest pain, shortness of breath. No fever, chills. No bowel, bladder complaints and she does feel weak in the lower extremities, some tingling in her lower extremities and pain involving the distal aspect of her right more than left lower extremity which is new. She has very little movement in the upper extremities but no sensory symptoms. No skin rash, but she apparently was noted to have discoloration at her distal right heel and has a bandage on at this time. PHYSICAL EXAMINATION:General: Very friendly elderly woman seen lying in bed. She is in no acute distress. She is awake, alert and fully cooperative. HEENT: She is normocephalic and atraumatic. Extraocular muscles appear intact. Neck: She has difficulty controlling her neck as her head flops. Extremities: There is some edema in the distal lower extremities. No isolated calf tenderness, but she is diffusely tender in the right more than the left foot with some right heel discoloration. Neuromuscular: She is awake, alert, fully oriented x3. Cranial nerves II-XII are grossly intact. She has decreased tone throughout the upper extremities with just 1/5 movement in her pinky and thumb as well as slight ability to move her arm, again mostly distally at 1/5. She has atrophy of the upper extremities distally but little to no atrophy in the lower extremities. It is difficult to examine her distal lower extremities at this time because she has so much pain when she moves her feet but much better strength at least to antigravity in the distal lower extremities compared to the upper extremities, again somewhat limited by pain. She has normal sensation to pinprick and light touch throughout the upper and lower extremities and patient is areflexic. Toes appear downgoing. Results of EMG, nerve conduction studies: Please refer to report for details. Patient's studies of the right upper and right lower extremity were compared to previous studies dated July 22, 2016, and May 18, 2015. OVERALL IMPRESSION: 1. 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 2. No slowing or conduction block at the right fibular head but cannot rule out concurrent peroneal neuropathy with no response of the right superficial peroneal sensory, although this was notably absent on previous study, July 22, 2016. Patient's amplitude to the right tibialis anterior is low but only 20% lower than previous study and patient has normal sural sensory study. 3. Probable some degree of right carpal tunnel syndrome with delayed sensory distal latency of the median nerve at the wrist of the right upper extremity compared to normal radial distal latency at the wrist. 4. Deficits in mobility and activities of daily living. 5. 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 PLAN/SUGGESTION: 1. Patient to follow up with Dr. Emmanuel. 2. Compared to previous study, July 22, 2016, some loss of right peroneal motor amplitude to the tibialis anterior was noted, about 20%. 3. Compared to previous study, May 18, 2015, significant loss of motor amplitude much more than sensory amplitude in the right upper and right lower limb nerve conduction with much more abundant muscle membrane instability but no fasciculations. 4. Physical therapy once pain controlled. 5. Skin precaution. 6. DVT prophylaxis. Patient is already on Eliquis. No further DVT prophylaxis needed. 7. Monitor heel wound. 8. Monitor blood work. 9. Monitor bowels. Thank you very much for this referral. ANAMARIA ALSTON M.D. [id number]
[2017-06-05 06:06] LABS: IGA IMMUNOGLOBULIN 267 mg/dL (64-422); IGM IMMUNOGLOBULIN 106 mg/dL (26-217)
[2017-06-05 07:35] LABS: HEMATOCRIT 37.6 % (32.4-45.2); HEMOGLOBIN 12.4 GM/dL (10.7-15.3); MCH 28.2 pg (25.7-33.7); MEAN CELL VOLUME 85.6 fl (80-96); MEAN PLT VOLUME 8.3 fl (7.5-11.1); PLATELET COUNT 165 K/MM3 (134-434); RDW 15.5 % (11.6-15.6); WHITE BLOOD COUNT 7.7 K/mm3 (4.0-10.0)
[2017-06-05 07:56] LABS: CHLORIDE 106 mmol/L (98-107); SODIUM 139 mmol/L (136-145)
[2017-06-05 08:00] LABS: ANION GAP 8 (8-16); BLOOD UREA NITROGEN 14 mg/dL (7-18); CALCIUM 8.2 mg/dL (8.5-10.1); CO2 25 mmol/L (21-32); CREATININE 0.5 mg/dL (0.55-1.02); GLUCOSE,RANDOM 116 mg/dL (74-106)
[2017-06-05] MEDS: APIXABAN 5 MG TABLET PO SCH (11:02)
[2017-06-05] MEDS ORDERED: PT OWN MED DRAWER 7, Y5N ONE (11:37)
[2017-06-05] MEDS: LOSARTAN POTASSIUM 50 MG TABLET (FP) PO SCH (11:40)
[2017-06-05] MEDS: AMIODARONE HCL 200 MG TABLET (FP) PO SCH (11:41)
[2017-06-05] MEDS: METOPROLOL TARTRATE 50 MG TABLET (FP) PO SCH ×2 (11:41→21:45)
--- NOTE | 2017-06-05 12:04 | PN ---
Progress Note (short form) - Note Progress Note: Resting in NAD on RA. No acute events overnight. No CP or SOB. GENERAL: Awake, alert, no acute distress. HEAD: Normal with no signs of trauma. EYES: Extraocular movements intact, sclera anicteric, conjunctiva clear. EARS, NOSE, THROAT: Ears normal, nares patent LUNGS: Breath sounds equal, clear to auscultation bilaterally. HEART: Regular rate and rhythm, normal S1 and S2 ABDOMEN: Soft, nontender, not distended, normoactive bowel sounds. MUSCULOSKELETAL: Bilateral upper extremity paralysis, RLE +plantar flexion. Decreased dorsal flexion (3/5), Decresed right hip strength (4/5), LLE (5/5 strength) LOWER EXTREMITIES: warm, well-perfused. No peripheral edema. NEUROLOGICAL: Normal speech. Sensation to light touch intact in face, b/l LE. PSYCHIATRIC: Cooperative. Good eye contact. Appropriate mood and affect. SKIN: Warm, dry Labs: Laboratory Results - last 24 hr 06/04/17 06/04/17 06/04/17 06:00 06:00 08:50 WBC RBC Hgb Hct MCV MCH MCHC RDW Plt Count MPV Sodium Potassium Chloride Carbon Dioxide Anion Gap BUN Creatinine Random Glucose Calcium C-Reactive Protein 3.8 H TSH 2.79 Free T4 1.43 IgG 939 IgA 267 IgM 106 Rheumatoid Factor < 10.0 Rheumatoid Arth Biomark < 10.0 06/04/17 06/05/17 06/05/17 08:50 06:00 06:00 WBC 7.7 RBC 4.40 Hgb 12.4 Hct 37.6 MCV 85.6 MCH 28.2 MCHC 33.0 RDW 15.5 Plt Count 165 MPV 8.3 Sodium 139 Potassium 4.0 Chloride 106 Carbon Dioxide 25 Anion Gap 8 BUN 14 Creatinine 0.5 L Random Glucose 116 H Calcium 8.2 L C-Reactive Protein TSH Free T4 IgG 943 IgA IgM Rheumatoid Factor Rheumatoid Arth Biomark Assessment/Plan 76 y.o. F with pmh of ALS, afib on eliquis, spinal stenosis, Aortic bovine valve replacement, and HLD who comes into the ED after falling at home 2/2 to sudden loss of function in R leg Chronic changes on CXR +/- minimal atelectasis PLAN: Monitor off ABX Incentive Spirometry as able PT VTE prophylaxis D/C planning to SNF in progress Dr Arguello
[2017-06-05] MEDS ORDERED: POLYETHYLENE GLYCOL 3350 119 GM BTL PO SCH (14:45)
--- NOTE | 2017-06-05 15:06 | PN ---
<Vincenzo Graham - Last Filed: 06/05/17 15:07> Physical Exam: SUBJECTIVE: Patient seen and examined at bedside. Patient states she has some mild pain continued from yesterday on the dorsum of her R foot. Denies chest pain, SOB, nausea, vomiting, diarrhea. OBJECTIVE: Vital Signs Period Temp Pulse Resp BP Sys/Lorenzo Pulse Ox Last 24 Hr 97 F-98.4 F 71-96 18-20 110-153/58-81 96 GENERAL: The patient is awake, alert, and fully oriented, in no acute distress. HEAD: Normal with no signs of trauma. EYES: PERRL, extraocular movements intact, sclera anicteric, conjunctiva clear. No ptosis. ENT: Ears normal, nares patent, oropharynx clear without exudates, moist mucous membranes. NECK: restricted ROM on neck rotation, more to the R than the left. LUNGS: Breath sounds equal, clear to auscultation bilaterally, no wheezes, no crackles, no accessory muscle use. HEART: Regular rate and rhythm, S1, S2, systolic murmur noted on exam ABDOMEN: obese, Soft, nontender, nondistended, normoactive bowel sounds, no guarding, no rebound, no hepatosplenomegaly, no masses. EXTREMITIES: 2+ pulses, warm, well-perfused, no edema. R leg significantly larger than the left NEUROLOGICAL: CN II-X and XII intact, CN XI not intact. 0/5 motor strength in b/ l upper extremities. L thigh 2/5 strength in hip flexion, 2/5 in knee flexion, 5 /5 in foot dorsiflextion. RLE 1/5 in hip flexion, 1/5 in knee flexion, 2/5 in foot dorsiflexion. PSYCH: Normal mood, normal affect. UA: albert in place - day 3 SKIN: Warm, dry, normal turgor, no rashes or lesions noted Laboratory Results - last 24 hr 06/04/17 06/04/17 06/04/17 06:00 08:50 08:50 WBC RBC Hgb Hct MCV MCH MCHC RDW Plt Count MPV Sodium Potassium Chloride Carbon Dioxide Anion Gap BUN Creatinine Random Glucose Calcium TSH 2.79 Free T4 1.43 IgG 939 943 IgA 267 IgM 106 Rheumatoid Arth Biomark < 10.0 06/05/17 06/05/17 06:00 06:00 WBC 7.7 RBC 4.40 Hgb 12.4 Hct 37.6 MCV 85.6 MCH 28.2 MCHC 33.0 RDW 15.5 Plt Count 165 MPV 8.3 Sodium 139 Potassium 4.0 Chloride 106 Carbon Dioxide 25 Anion Gap 8 BUN 14 Creatinine 0.5 L Random Glucose 116 H Calcium 8.2 L TSH Free T4 IgG IgA IgM Rheumatoid Arth Biomark Active Medications Generic Name Dose Route Start Last Admin Trade Name Fernando PRN Reason Stop Dose Admin Amiodarone HCl 100 mg 06/05/17 10:00 06/05/17 11:41 Cordarone - PO 100 mg Q2D [facility] Administration Apixaban 5 mg 06/02/17 22:00 06/05/17 11:02 Eliquis - PO Not Given BID [facility] Losartan Potassium 100 mg 06/03/17 11:00 06/05/17 11:40 Cozaar - PO 100 mg DAILY [facility] Administration Metoprolol Tartrate 50 mg 06/02/17 22:00 06/05/17 11:41 Lopressor - PO 50 mg BID [facility] Administration Polyethylene Glycol 17 gm 06/05/17 14:45 Miralax (For Daily Use) - PO DAILY [facility] ASSESSMENT/PLAN: 76 year old female with a past medical history of ALS, atrial fibrillation, admitted to the hospital for evaluation of progressive weakness #Progressive Weakness: unlikely ALS per Dr. Emmanuel as it is more peripheral, predominantly motor weakness--> more similar to a demyelinating neuropathy -appreciate neurology consultation Dr. Emmanuel -f/u CRP, ESR, ZENOBIA, RF, Lyme, SSA, SSB, SPEP, IPEP, immunoglobulins, Anti-GM1 -PMR consult Dr. 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 Family refuses albert removal. Discussed the risks of prolonged albetr placement with family, including risk of catheter association infection. Family understood the risks and even so, refused to have albert removed, despite patient capable of urinating spontaneously. #Atrial Fibrillation: rate controlled -continue metoprolol tartrate 50 PO BID -continue eliquis 5mg PO BID -continue amiodarone 100mg PO QD #Hypertension: controlled -continue losartan 100mg PO QD #FEN: no standing fluids replete lytes in AM regular diet #Prophylaxis: -Pt is on eliquis #Disposition: -continue to monitor on med-surg -dispo planning Visit type - Emergency Visit Emergency Visit: No - New Patient This patient is new to me today: No - Critical Care Critical Care patient: No <Becca Melgoza - Last Filed: 06/05/17 21:44> Physical Exam: Patient seen and examined with the resident. Discussed with , will order LP US guided ; as per Dr. Emmanuel , will need CSF for Protein, Glucose, VDRL, Cell counts, differential, Cultures, Gram stain, AFP, mariza ink, IgG, Oligoclonal bands and serum for oligoclonal bands. OK to D/C once stable post LP, will review the results and discuss with the patient.
--- NOTE | 2017-06-05 16:47 | PN ---
Progress Note (short form) - Note Progress Note: NEUROLOGY FOLLOW-UP: Events reviewed and discussed with Dr. CROW. Dr. Dumas's consult and electrodiagnostic study reviewed and greatly appreciated. 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 Unusual features for ALS include the absence of fasiculations and normal motor unit morphology (as opposed to more typical giant motor units). Patient agrees to LP by Dr. Alfaro under X Ray guidance. Please send CSF for: Protein, Glucose, VDRL Cell counts, differential Cultures, Gram stain, AFP, mariza ink IgG Oligoclonal bands. Please send serum for oligoclonal bands. OK to D/C once stable after the LP. I will review the CSF results and outstanding labs when they become available. Thank you very much, Erick Emmanuel MD
[2017-06-05] MEDS: POLYETHYLENE GLYCOL 3350 119 GM BTL PO SCH (21:45)
[2017-06-06] MEDS: POLYETHYLENE GLYCOL 3350 119 GM BTL PO SCH ×2 (10:26→22:01)
[2017-06-06] MEDS: METOPROLOL TARTRATE 50 MG TABLET (FP) PO SCH ×2 (13:14→21:37)
[2017-06-06] MEDS: LOSARTAN POTASSIUM 50 MG TABLET (FP) PO SCH ×2 (13:14→15:58)
[2017-06-06 14:50] LABS: CSF APPEARANCE CLEAR; CSF COLOR COLORLESS
--- NOTE | 2017-06-06 15:32 | DS ---
Physical Exam: SUBJECTIVE: Patient seen and examined at bedside. Patient has reduced pain in her dorsum of the right foot. Otherwise, no overnight events and no complaints. Patient had a bowel movement after an enema this morning. Patient is clinically stable. She is tolerating oral diet. She is having bowel movements OBJECTIVE: Vital Signs Period Temp Pulse Resp BP Sys/Lorenzo Pulse Ox Last 24 Hr 98 F-98.7 F 84-95 20-20 113-132/60-68 98-98 PHYSICAL EXAM GENERAL: The patient is awake, alert, and fully oriented, in no acute distress. HEAD: Normal with no signs of trauma. EYES: PERRL, extraocular movements intact, sclera anicteric, conjunctiva clear. No ptosis. ENT: Ears normal, nares patent, oropharynx clear without exudates, moist mucous membranes. NECK: restricted ROM on neck rotation, more to the R than the left. LUNGS: Breath sounds equal, clear to auscultation bilaterally, no wheezes, no crackles, no accessory muscle use. HEART: Regular rate and rhythm, S1, S2, systolic murmur noted on exam ABDOMEN: obese, Soft, nontender, nondistended, normoactive bowel sounds, no guarding, no rebound, no hepatosplenomegaly, no masses. EXTREMITIES: 2+ pulses, warm, well-perfused, no edema. R leg significantly larger than the left NEUROLOGICAL: CN II-X and XII intact, CN XI not intact. 0/5 motor strength in b/ l upper extremities. L thigh 2/5 strength in hip flexion, 2/5 in knee flexion, 5 /5 in foot dorsiflextion. RLE 1/5 in hip flexion, 1/5 in knee flexion, 2/5 in foot dorsiflexion. PSYCH: Normal mood, normal affect. UA: albert in place - day 3 SKIN: Warm, dry, normal turgor, no rashes or lesions noted LABS Laboratory Results - last 24 hr 06/04/17 06/06/17 06/06/17 08:50 06:12 12:15 Other Cells # Cancelled CSF Appearance Cancelled CSF Color Cancelled CSF WBC Cancelled CSF RBC Cancelled CSF Neutrophils Cancelled CSF Lymphocytes Cancelled CSF Monocytes Cancelled CSF Eosinophils Cancelled CSF Basophils Cancelled CSF Macrophages Cancelled CSF Plasma Cells Cancelled CSF Diff Comment Cancelled CSF Comment Cancelled CSF Glucose CSF Total Protein CSF Toxoplasma IgG Ab Cancelled ZENOBIA Screen Negative 06/06/17 06/06/17 06/06/17 12:15 12:15 14:15 Other Cells # CSF Appearance Clear CSF Color Colorless CSF WBC 2 CSF RBC 23.00 CSF Neutrophils No Result Required. CSF Lymphocytes CSF Monocytes CSF Eosinophils CSF Basophils CSF Macrophages CSF Plasma Cells CSF Diff Comment CSF Comment CSF Glucose 80 CSF Total Protein 54 H CSF Toxoplasma IgG Ab ZENOBIA Screen IMAGING: CT Brain 06/02: No acute intracranial hemorrhage or acute calvarial fracture. No intracranial mass effects or hydrocephalus. No definite interval change from 10/2015 CTA. CXR 06/02: Since the prior study of 02/07/2017, again noted is evidence of median sternotomy with prominent mediastinum and there may be some new atelectatic change in the retrocardiac area. Correlation recommended. US duplex R leg 06/03: No DVT is identified involving the right leg. Please see above. HOSPITAL COURSE: Date of Admission:06/04/17 76 year old female with a past medical history of alleged ALS, atrial fibrillation, arrived to the hospital s/p her R leg buckling under her while ambulating. She has a history of progressive weakness previously attributed to ALS. Patient admitted to the hospital for evaluation of progressive weakness. In the ED, patient had a albert placed due to immobility. Patient's family has since adamantly refused albert removal every day of admission, understanding the risks of catheter associated UTIs. Neurology was consulted- as per Dr. Emmanuel, patient may have more of a peripheral, predominantly motor weakness similar to a demyelinating neuropathy. Patient had numerous labs drawn: -CRP, ESR, ZENOBIA, RF, Lyme, SSA, SSB, SPEP, IPEP, immunoglobulins, Anti-GM1 Dr. 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 No slowing or conduction block at fibular head but cannot rule out concurrent peroneal neuropathy with no response in R superficial peroneal sensory but nearly normal sural sensory. 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 Patient got a lumbar puncture to test CSF for Protein, Glucose, VDRL, Cell counts, differential,Cultures, Gram stain, AFP, mariza ink, IgG, and Oligoclonal bands. Oligoclonal bands from serum were also sent. Patient was cleared by neurology for discharge once these tests were done. Results can be followed as an outpatient. Patient was discharged on 06/06/17 to SNF with instructions to follow with Dr. Emmanuel as an outpatient. Date of Discharge: 06/06/17 Minutes to complete discharge: 35 <Vincenzo Graham - Last Filed: 06/06/17 15:51> Physical Exam: Agree with the resident's note. Patient will folow up with neurologist once the labs are bck. CBCD WBC 7.7 K/mm3 (4.0-10.0) 06/05/17 06:00 RBC 4.40 M/mm3 (3.60-5.2) 06/05/17 06:00 Hgb 12.4 GM/dL (10.7-15.3) 06/05/17 06:00 Hct 37.6 % (32.4-45.2) 06/05/17 06:00 MCV 85.6 fl (80-96) 06/05/17 06:00 MCHC 33.0 g/dl (32.0-36.0) 06/05/17 06:00 RDW 15.5 % (11.6-15.6) 06/05/17 06:00 Plt Count 165 K/MM3 (134-434) 06/05/17 06:00 MPV 8.3 fl (7.5-11.1) 06/05/17 06:00 CMP Sodium 139 mmol/L (136-145) 06/05/17 06:00 Potassium 4.0 mmol/L (3.5-5.1) 06/05/17 06:00 Chloride 106 mmol/L (98-107) 06/05/17 06:00 Carbon Dioxide 25 mmol/L (21-32) 06/05/17 06:00 Anion Gap 8 (8-16) 06/05/17 06:00 BUN 14 mg/dL (7-18) 06/05/17 06:00 Creatinine 0.5 mg/dL (0.55-1.02) L 06/05/17 06:00 Creat Clearance w eGFR > 60 (>60) 06/03/17 06:00 Random Glucose 116 mg/dL (74-106) H 06/05/17 06:00 Calcium 8.2 mg/dL (8.5-10.1) L 06/05/17 06:00 Total Bilirubin 1.3 mg/dL (0.2-1.0) H 06/03/17 06:00 AST 15 U/L (15-37) 06/03/17 06:00 ALT 21 U/L (12-78) 06/03/17 06:00 Alkaline Phosphatase 82 U/L (45-117) 06/03/17 06:00 Total Protein 6.0 g/dl (6.4-8.2) L 06/03/17 06:00 Albumin 3.0 g/dl (3.4-5.0) L 06/03/17 06:00 CARDIAC ENZYMES Creatine Kinase 90 IU/L (26-192) 06/02/17 13:13 Troponin I < 0.02 ng/ml (0.00-0.05) 06/03/17 06:00 Current Medications Generic Name Dose Route Start Last Admin Trade Name Freq PRN Reason Stop Dose Admin Amiodarone HCl 100 mg 06/05/17 10:00 06/05/17 11:41 Cordarone - PO 100 mg Q2D [facility] Administration Apixaban 5 mg 06/02/17 22:00 06/05/17 11:02 Eliquis - PO Not Given BID [facility] Losartan Potassium 100 mg 06/03/17 11:00 06/06/17 15:58 Cozaar - PO 100 mg DAILY [facility] Administration Metoprolol Tartrate 50 mg 06/02/17 22:00 06/06/17 13:14 Lopressor - PO Not Given BID [facility] Polyethylene Glycol 17 gm 06/05/17 22:00 06/06/17 10:26 Miralax (For Daily Use) - PO Not Given BID [facility] Home Medications Medication Instructions Recorded Amiodarone HCl [Cordarone -] 100 mg PO ASDIR 12/27/15 Apixaban [Eliquis] 5 mg PO BID 12/27/15 Metoprolol Tartrate 50 mg PO BID 12/27/15 Losartan Potassium 100 mg PO DAILY 02/06/17 Cefuroxime Axetil [Ceftin -] 500 mg PO BID #14 tablet 02/08/17 Nystatin Powder [Nystop Powder -] 1 applic TP DAILY #1 bottle 02/08/17 <Becca Melgoza - Last Filed: 06/06/17 16:14> Discharge Summary Reason For Visit: AMYOTROOPHIC LATERAL SCLEROSIS Current Active Problems Right leg weakness (Acute) ALS (amyotrophic lateral sclerosis) (Chronic) - Home Medications Comprehensive Discharge Medication List: Ambulatory Orders Amiodarone HCl [Cordarone -] 100 mg PO ASDIR 12/27/15 Apixaban [Eliquis] 5 mg PO BID 12/27/15 Metoprolol Tartrate 50 mg PO BID 12/27/15 Losartan Potassium 100 mg PO DAILY 02/06/17 Cefuroxime Axetil [Ceftin -] 500 mg PO BID #14 tablet 02/08/17 Nystatin Powder [Nystop Powder -] 1 applic TP DAILY #1 bottle 02/08/17 <Vincenzo Graham - Last Filed: 06/06/17 15:51> Current Active Problems Right leg weakness (Acute) ALS (amyotrophic lateral sclerosis) (Chronic) - Home Medications Comprehensive Discharge Medication List: Ambulatory Orders Amiodarone HCl [Cordarone -] 100 mg PO ASDIR 12/27/15 Apixaban [Eliquis] 5 mg PO BID 12/27/15 Metoprolol Tartrate 50 mg PO BID 12/27/15 Losartan Potassium 100 mg PO DAILY 02/06/17 Cefuroxime Axetil [Ceftin -] 500 mg PO BID #14 tablet 02/08/17 Nystatin Powder [Nystop Powder -] 1 applic TP DAILY #1 bottle 02/08/17 <Becca Melgoza - Last Filed: 06/06/17 16:14> Condition: Stable - Instructions Diet, Activity, Other Instructions: You were admitted to the hospital for progressive neurological weakness. You were worked for immunologic and rheumatologic causes for the disease. You had both blood tests and cerebrospinal fluid tests performed to determine the etiology. You will need to follow with the neurologist Dr. Emmanuel when the results return. Medical Recommendations: -Please make an appointment with Dr. Emmanuel (Neurology) within 2 weeks of discharge -Please make an appointment with your primary care physician within 1 week of discharge, Dr. Hammond If you experience further significant weakness, fall, instability, please return to the emergency department. Referrals: Jeremy Hammond MD [Primary Care Provider] - 1 Week Erick Emmanuel MD [Staff Physician] - 1 Week Disposition: [facility] This patient is new to me today: No Emergency Visit: No Critical Care patient: No - Discharge Referral [facility]erred to [facility] Med P.C.: No <Vincenzo Graham - Last Filed: 06/06/17 15:51>
[2017-06-06] MEDS ORDERED: METOPROLOL TARTRATE 50 MG TABLET (FP) PO ONE (19:45)
--- NOTE | 2017-06-07 11:34 | PN ---
Progress Note (short form) - Note Progress Note: Resting in NAD on RA. No acute events overnight. No CP or SOB. Intake & Output 06/04/17 06/05/17 06/06/17 06/07/17 23:59 23:59 23:59 23:59 Intake Total 1200 520 540 240 Output Total 1150 1500 700 Balance 50 -980 -160 240 Last Vital Signs Temp Pulse Resp BP Pulse Ox 97.9 F 76 18 97/50 96 06/07/17 06:34 06/07/17 06:34 06/07/17 06:34 06/07/17 06:34 06/06/17 21:00 Active Medications Amiodarone HCl (Cordarone -) 100 mg PO Q2D [facility] Last Admin: 06/05/17 11:41 Dose: 100 mg Apixaban (Eliquis -) 5 mg PO BID [facility] Last Admin: 06/05/17 11:02 Dose: Not Given Losartan Potassium (Cozaar -) 100 mg PO DAILY [facility] Last Admin: 06/06/17 15:58 Dose: 100 mg Metoprolol Tartrate (Lopressor -) 50 mg PO BID [facility] Last Admin: 06/06/17 21:37 Dose: Not Given Polyethylene Glycol (Miralax (For Daily Use) -) 17 gm PO BID [facility] Last Admin: 06/06/17 22:01 Dose: 17 gm GENERAL: Awake, alert, no acute distress. HEAD: Normal with no signs of trauma. EYES: Extraocular movements intact, sclera anicteric, conjunctiva clear. EARS, NOSE, THROAT: Ears normal, nares patent LUNGS: Breath sounds equal, clear to auscultation bilaterally. HEART: Regular rate and rhythm, normal S1 and S2 ABDOMEN: Soft, nontender, not distended, normoactive bowel sounds. MUSCULOSKELETAL: Bilateral upper extremity paralysis, RLE +plantar flexion. Decreased dorsal flexion (3/5), Decresed right hip strength (4/5), LLE (5/5 strength) LOWER EXTREMITIES: warm, well-perfused. No peripheral edema. NEUROLOGICAL: Normal speech. Sensation to light touch intact in face, b/l LE. PSYCHIATRIC: Cooperative. Good eye contact. Appropriate mood and affect. SKIN: Warm, dry Labs: Laboratory Results - last 24 hr 06/04/17 06/06/17 06/06/17 08:50 06:12 12:15 Other Cells # Cancelled CSF Appearance Cancelled CSF Color Cancelled CSF WBC Cancelled CSF RBC Cancelled CSF Neutrophils Cancelled CSF Lymphocytes Cancelled CSF Monocytes Cancelled CSF Eosinophils Cancelled CSF Basophils Cancelled CSF Macrophages Cancelled CSF Plasma Cells Cancelled CSF Diff Comment Cancelled CSF Comment Cancelled CSF Glucose CSF Total Protein CSF Toxoplasma IgG Ab Cancelled Lyme Screen IgG & IgM 1.65 H Lyme IgM (Western Blot) Negative 06/06/17 06/06/17 06/06/17 12:15 12:15 14:15 Other Cells # CSF Appearance Clear CSF Color Colorless CSF WBC 2 CSF RBC 23.00 CSF Neutrophils No Result Required. CSF Lymphocytes CSF Monocytes CSF Eosinophils CSF Basophils CSF Macrophages CSF Plasma Cells CSF Diff Comment CSF Comment CSF Glucose 80 CSF Total Protein 54 H CSF Toxoplasma IgG Ab Lyme Screen IgG & IgM Lyme IgM (Western Blot) Assessment/Plan 76 y.o. F with pmh of ALS, afib on eliquis, spinal stenosis, Aortic bovine valve replacement, and HLD who comes into the ED after falling at home 2/2 to sudden loss of function in R leg Chronic changes on CXR +/- minimal atelectasis PLAN: Off ABX PT VTE prophylaxis D/C planning to SNF in progress Dr Arguello
--- NOTE | 2017-06-07 12:13 | EKG ---
Test Reason : Blood Pressure : / mmHG Vent. Rate : 105 BPM Atrial Rate : 105 BPM P-R Int : 212 ms QRS Dur : 082 ms QT Int : 334 ms P-R-T Axes : 066 026 056 degrees QTc Int : 441 ms SINUS TACHYCARDIA WITH 1ST DEGREE A-V BLOCK WITH PREMATURE ATRIAL COMPLEXES OTHERWISE NORMAL ECG WHEN COMPARED WITH ECG OF 02-JUN-2017 13:35, PREMATURE ATRIAL COMPLEXES ARE NOW PRESENT VENT. RATE HAS INCREASED BY 37 BPM Confirmed by PHIL ZAMORA MD ([id number]) on 06/07/2017 12:13:15 PM Referred By: Confirmed By:PHIL ZAMORA MD
[2017-06-07] MEDS: METOPROLOL TARTRATE 50 MG TABLET (FP) PO SCH ×2 (12:31→22:50)
[2017-06-07] MEDS ORDERED: PT OWN MED DRAWER 7, Y5N ONE ×2 (12:47→20:40)
[2017-06-07] MEDS: AMIODARONE HCL 200 MG TABLET (FP) PO SCH (12:52)
[2017-06-07] MEDS: LOSARTAN POTASSIUM 50 MG TABLET (FP) PO SCH (12:52)
[2017-06-07] MEDS: POLYETHYLENE GLYCOL 3350 119 GM BTL PO SCH ×2 (12:54→22:50)
[2017-06-07] MEDS: APIXABAN 5 MG TABLET PO SCH ×2 (12:54→22:50)
--- NOTE | 2017-06-07 22:20 | PN ---
Physical Exam: SUBJECTIVE: Patient seen and examined Patient is feeling better with no acute distress. OBJECTIVE: Vital Signs Temperature 98.1 F 06/07/17 18:00 Pulse Rate 99 H 06/07/17 18:00 Respiratory Rate 18 06/07/17 18:00 Blood Pressure 128/62 06/07/17 18:00 O2 Sat by Pulse Oximetry (%) 96 06/06/17 21:00 GENERAL: The patient is awake, alert, and fully oriented, in no acute distress, very pleasant lady. HEAD: Normal with no signs of trauma. EYES: PERRL, extraocular movements intact, sclera anicteric, conjunctiva clear. ENT: Ears normal, oropharynx clear without exudates, moist mucous membranes. NECK: restricted ROM of the neck . LUNGS: Breath sounds equal, clear to auscultation bilaterally, no wheezes, no crackles, no accessory muscle use. HEART: Regular rate and rhythm, S1, S2 positive, SHEKHAR 2/6 ABDOMEN: obese, Soft, nontender, nondistended, normoactive bowel sounds, no guarding, no rebound, no masses. EXTREMITIES: 2+ pulses, warm, well-perfused, no edema. NEUROLOGICAL: CN II-X and XII intact, CN XI not intact. 0/5 motor strength in b/ l upper extremities. L thigh 2/5 strength in hip flexion, 2/5 in knee flexion, 5 /5 in foot dorsiflextion. RLE 1/5 in hip flexion, 1/5 in knee flexion, 2/5 in foot dorsiflexion. PSYCH: Normal mood, normal affect. SKIN: Warm, dry, normal turgor, no rashes or lesions noted Active Medications Generic Name Dose Route Start Last Admin Trade Name Freq PRN Reason Stop Dose Admin Amiodarone HCl 100 mg 06/05/17 10:00 06/07/17 12:52 Cordarone - PO 100 mg Q2D [facility] Administration Apixaban 5 mg 06/02/17 22:00 06/07/17 12:54 Eliquis - PO 5 mg BID [facility] Administration Losartan Potassium 100 mg 06/03/17 11:00 06/07/17 12:52 Cozaar - PO 100 mg DAILY [facility] Administration Metoprolol Tartrate 50 mg 06/02/17 22:00 06/07/17 12:31 Lopressor - PO Not Given BID [facility] Polyethylene Glycol 17 gm 06/05/17 22:00 06/07/17 12:54 Miralax (For Daily Use) - PO 17 gm BID [facility] Administration Home Medications Medication Instructions Recorded Amiodarone HCl [Cordarone -] 100 mg PO ASDIR 12/27/15 Apixaban [Eliquis] 5 mg PO BID 12/27/15 Metoprolol Tartrate 50 mg PO BID 12/27/15 Losartan Potassium 100 mg PO DAILY 02/06/17 Cefuroxime Axetil [Ceftin -] 500 mg PO BID #14 tablet 02/08/17 Nystatin Powder [Nystop Powder -] 1 applic TP DAILY #1 bottle 02/08/17 ASSESSMENT/PLAN: 76 year old female with a past medical history of ALS, atrial fibrillation, admitted to the hospital for evaluation of progressive weakness #Progressive Weakness: unlikely ALS as per Dr. Emmanuel as it is more peripheral , predominantly motor weakness--> more similar to a demyelinating neuropathy appreciate neurology consultation Dr. Emmanuel. f/u CRP, ESR, ZENOBIA, RF, Lyme, SSA , SSB, SPEP, IPEP, immunoglobulins, Anti-GM1 still pending physical therapy continue. #Atrial Fibrillation: rate controlled on metoprolol tartrate , eliquis 5mg PO BID, amiodarone #Hypertension: controlled continue losartan #DVT Px: eliquis waiting for bed availibility Visit type - Emergency Visit Emergency Visit: Yes ED Registration Date: 06/04/17 Care time: The patient presented to the Emergency Department on the above date and was hospitalized for further evaluation of their emergent condition. - New Patient This patient is new to me today: No - Critical Care Critical Care patient: No - Discharge Referral Referred to [facility] Med P.C.: No
[2017-06-08] MEDS: POLYETHYLENE GLYCOL 3350 119 GM BTL PO SCH ×3 (10:16→21:37)
[2017-06-08] MEDS: LOSARTAN POTASSIUM 50 MG TABLET (FP) PO SCH (10:16)
[2017-06-08] MEDS: APIXABAN 5 MG TABLET PO SCH ×2 (10:16→21:28)
[2017-06-08] MEDS: METOPROLOL TARTRATE 50 MG TABLET (FP) PO SCH ×2 (10:16→21:28)
--- NOTE | 2017-06-08 10:17 | PN ---
Physical Exam: SUBJECTIVE: Patient seen and examined She has no complains, comfortable, lying in bed. OBJECTIVE: Vital Signs Temperature 97.8 F 06/08/17 10:13 Pulse Rate 85 06/08/17 10:13 Respiratory Rate 18 06/08/17 10:13 Blood Pressure 107/62 06/08/17 10:13 O2 Sat by Pulse Oximetry (%) 99 06/07/17 23:20 GENERAL: The patient is awake, alert, and fully oriented, in no acute distress, very pleasant lady. HEAD: Normal with no signs of trauma. EYES: PERRL, extraocular movements intact, sclera anicteric, conjunctiva clear. ENT: Ears normal, oropharynx clear without exudates, moist mucous membranes. NECK: restricted ROM of the neck . LUNGS: Breath sounds equal, clear to auscultation bilaterally, no wheezes, no crackles, no accessory muscle use. HEART: Regular rate and rhythm, S1, S2 positive, SHEKHAR 2/6 ABDOMEN: obese, Soft, nontender, nondistended, normoactive bowel sounds, no guarding, no rebound, no masses. EXTREMITIES: 2+ pulses, warm, well-perfused, no edema. NEUROLOGICAL: CN II-X and XII intact, CN XI not intact. 0/5 motor strength in b/ l upper extremities. L thigh 2/5 strength in hip flexion, 2/5 in knee flexion, 5 /5 in foot dorsiflextion. RLE 1/5 in hip flexion, 1/5 in knee flexion, 2/5 in foot dorsiflexion. PSYCH: Normal mood, normal affect. SKIN: Warm, dry, normal turgor, no rashes or lesions noted Active Medications Generic Name Dose Route Start Last Admin Trade Name Freq PRN Reason Stop Dose Admin Amiodarone HCl 100 mg 06/05/17 10:00 06/07/17 12:52 Cordarone - PO 100 mg Q2D CHLOÉ Administration Apixaban 5 mg 06/02/17 22:00 06/07/17 22:50 Eliquis - PO 5 mg BID CHLOÉ Administration Losartan Potassium 100 mg 06/03/17 11:00 06/07/17 12:52 Cozaar - PO 100 mg DAILY CHLOÉ Administration Metoprolol Tartrate 50 mg 06/02/17 22:00 06/07/17 22:50 Lopressor - PO 50 mg BID CHLOÉ Administration Polyethylene Glycol 17 gm 06/05/17 22:00 06/07/17 22:50 Miralax (For Daily Use) - PO 17 gm BID CHLOÉ Administration Home Medications Medication Instructions Recorded Amiodarone HCl [Cordarone -] 100 mg PO ASDIR 12/27/15 Apixaban [Eliquis] 5 mg PO BID 12/27/15 Metoprolol Tartrate 50 mg PO BID 12/27/15 Losartan Potassium 100 mg PO DAILY 02/06/17 Cefuroxime Axetil [Ceftin -] 500 mg PO BID #14 tablet 02/08/17 Nystatin Powder [Nystop Powder -] 1 applic TP DAILY #1 bottle 02/08/17 ASSESSMENT/PLAN: Patient is 76 year old female with a past medical history of ALS, atrial fibrillation, admitted to the hospital for evaluation of progressive weakness #Progressive Weakness: unlikely ALS as per Dr. Emmanuel as it is more peripheral , predominantly motor weakness--> more similar to a demyelinating neuropathy. f /u CRP, ESR, ZENOBIA, RF, Lyme, SSA, SSB, SPEP, IPEP, immunoglobulins, Anti-GM1 still pending , continue physical therapy . #Atrial Fibrillation: rate controlled on metoprolol tartrate , eliquis 5mg PO BID, amiodarone #Hypertension: controlled continue losartan #DVT Px: eliquis waiting for rehab bed Visit type - Emergency Visit Emergency Visit: Yes ED Registration Date: 06/04/17 Care time: The patient presented to the Emergency Department on the above date and was hospitalized for further evaluation of their emergent condition. - New Patient This patient is new to me today: No - Critical Care Critical Care patient: No - Discharge Referral Referred to [facility] No
--- NOTE | 2017-06-08 11:28 | PN ---
Progress Note (short form) - Note Progress Note: Resting in NAD on RA. No acute events overnight. No CP or SOB. Intake & Output 06/04/17 06/05/17 06/06/17 06/07/17 23:59 23:59 23:59 23:59 Intake Total 1200 520 540 240 Output Total 1150 1500 700 Balance 50 -980 -160 240 Last Vital Signs Temp Pulse Resp BP Pulse Ox 97.9 F 76 18 97/50 96 06/07/17 06:34 06/07/17 06:34 06/07/17 06:34 06/07/17 06:34 06/06/17 21:00 Active Medications Amiodarone HCl (Cordarone -) 100 mg PO Q2D [facility] Last Admin: 06/05/17 11:41 Dose: 100 mg Apixaban (Eliquis -) 5 mg PO BID [facility] Last Admin: 06/05/17 11:02 Dose: Not Given Losartan Potassium (Cozaar -) 100 mg PO DAILY [facility] Last Admin: 06/06/17 15:58 Dose: 100 mg Metoprolol Tartrate (Lopressor -) 50 mg PO BID [facility] Last Admin: 06/06/17 21:37 Dose: Not Given Polyethylene Glycol (Miralax (For Daily Use) -) 17 gm PO BID [facility] Last Admin: 06/06/17 22:01 Dose: 17 gm GENERAL: Awake, alert, no acute distress. HEAD: Normal with no signs of trauma. EYES: Extraocular movements intact, sclera anicteric, conjunctiva clear. EARS, NOSE, THROAT: Ears normal, nares patent LUNGS: Breath sounds equal, clear to auscultation bilaterally. HEART: Regular rate and rhythm, normal S1 and S2 ABDOMEN: Soft, nontender, not distended, normoactive bowel sounds. MUSCULOSKELETAL: Bilateral upper extremity paralysis, RLE +plantar flexion. Decreased dorsal flexion (3/5), Decresed right hip strength (4/5), LLE (5/5 strength) LOWER EXTREMITIES: warm, well-perfused. No peripheral edema. NEUROLOGICAL: Normal speech. Sensation to light touch intact in face, b/l LE. PSYCHIATRIC: Cooperative. Good eye contact. Appropriate mood and affect. SKIN: Warm, dry Labs: Laboratory Results - last 24 hr 06/04/17 06/06/17 06/06/17 08:50 06:12 12:15 Other Cells # Cancelled CSF Appearance Cancelled CSF Color Cancelled CSF WBC Cancelled CSF RBC Cancelled CSF Neutrophils Cancelled CSF Lymphocytes Cancelled CSF Monocytes Cancelled CSF Eosinophils Cancelled CSF Basophils Cancelled CSF Macrophages Cancelled CSF Plasma Cells Cancelled CSF Diff Comment Cancelled CSF Comment Cancelled CSF Glucose CSF Total Protein CSF Toxoplasma IgG Ab Cancelled Lyme Screen IgG & IgM 1.65 H Lyme IgM (Western Blot) Negative 06/06/17 06/06/17 06/06/17 12:15 12:15 14:15 Other Cells # CSF Appearance Clear CSF Color Colorless CSF WBC 2 CSF RBC 23.00 CSF Neutrophils No Result Required. CSF Lymphocytes CSF Monocytes CSF Eosinophils CSF Basophils CSF Macrophages CSF Plasma Cells CSF Diff Comment CSF Comment CSF Glucose 80 CSF Total Protein 54 H CSF Toxoplasma IgG Ab Lyme Screen IgG & IgM Lyme IgM (Western Blot) Assessment/Plan 76 y.o. F with pmh of ALS, afib on eliquis, spinal stenosis, Aortic bovine valve replacement, and HLD who comes into the ED after falling at home 2/2 to sudden loss of function in R leg Chronic changes on CXR +/- minimal atelectasis PLAN: Off ABX PT VTE prophylaxis D/C planning to SNF in progress Dr Arguello
[2017-06-09] MEDS: LOSARTAN POTASSIUM 50 MG TABLET (FP) PO SCH (09:48)
[2017-06-09] MEDS: APIXABAN 5 MG TABLET PO SCH (09:49)
[2017-06-09] MEDS: METOPROLOL TARTRATE 50 MG TABLET (FP) PO SCH (09:49)
[2017-06-09] MEDS: AMIODARONE HCL 200 MG TABLET (FP) PO SCH (09:49)
[2017-06-09] MEDS: POLYETHYLENE GLYCOL 3350 119 GM BTL PO SCH (09:55)
[2017-06-09 15:10] VITALS: BP 125/72; PULSE 72; TEMP 98.1
--- NOTE | 2017-06-09 16:22 | DS ---
Physical Exam: SUBJECTIVE: Patient seen and examined Patient is comfortable with no acute distress. OBJECTIVE: Vital Signs Temperature 98.1 F 06/09/17 15:06 Pulse Rate 72 06/09/17 15:06 Respiratory Rate 20 06/09/17 15:06 Blood Pressure 125/72 06/09/17 15:06 O2 Sat by Pulse Oximetry (%) 97 06/08/17 21:00 PHYSICAL EXAM GENERAL: The patient is awake, alert, and fully oriented, in no acute distress. HEAD: Normal with no signs of trauma. EYES: PERRL, extraocular movements intact, sclera anicteric, conjunctiva clear. No ptosis. ENT: Ears normal, nares patent, oropharynx clear without exudates, moist mucous membranes. NECK: restricted ROM on neck rotation, more to the R than the left. LUNGS: Breath sounds equal, clear to auscultation bilaterally, no wheezes, no crackles, no accessory muscle use. HEART: Regular rate and rhythm, S1, S2, systolic murmur noted on exam ABDOMEN: obese, Soft, nontender, nondistended, normoactive bowel sounds, no guarding, no rebound, no hepatosplenomegaly, no masses. EXTREMITIES: 2+ pulses, warm, well-perfused, no edema. R leg significantly larger than the left NEUROLOGICAL: CN II-X and XII intact, CN XI not intact. 0/5 motor strength in b/ l upper extremities. L thigh 2/5 strength in hip flexion, 2/5 in knee flexion, 5 /5 in foot dorsiflextion. RLE 1/5 in hip flexion, 1/5 in knee flexion, 2/5 in foot dorsiflexion. PSYCH: Normal mood, normal affect. UA: albert in place - day 3 SKIN: Warm, dry, normal turgor, no rashes or lesions noted LABS CBCD WBC 7.7 K/mm3 (4.0-10.0) 06/05/17 06:00 RBC 4.40 M/mm3 (3.60-5.2) 06/05/17 06:00 Hgb 12.4 GM/dL (10.7-15.3) 06/05/17 06:00 Hct 37.6 % (32.4-45.2) 06/05/17 06:00 MCV 85.6 fl (80-96) 06/05/17 06:00 MCHC 33.0 g/dl (32.0-36.0) 06/05/17 06:00 RDW 15.5 % (11.6-15.6) 06/05/17 06:00 Plt Count 165 K/MM3 (134-434) 06/05/17 06:00 MPV 8.3 fl (7.5-11.1) 06/05/17 06:00 CMP Sodium 139 mmol/L (136-145) 06/05/17 06:00 Potassium 4.0 mmol/L (3.5-5.1) 06/05/17 06:00 Chloride 106 mmol/L (98-107) 06/05/17 06:00 Carbon Dioxide 25 mmol/L (21-32) 06/05/17 06:00 Anion Gap 8 (8-16) 06/05/17 06:00 BUN 14 mg/dL (7-18) 06/05/17 06:00 Creatinine 0.5 mg/dL (0.55-1.02) L 06/05/17 06:00 Creat Clearance w eGFR > 60 (>60) 06/03/17 06:00 Random Glucose 116 mg/dL (74-106) H 06/05/17 06:00 Calcium 8.2 mg/dL (8.5-10.1) L 06/05/17 06:00 Total Bilirubin 1.3 mg/dL (0.2-1.0) H 06/03/17 06:00 AST 15 U/L (15-37) 06/03/17 06:00 ALT 21 U/L (12-78) 06/03/17 06:00 Alkaline Phosphatase 82 U/L (45-117) 06/03/17 06:00 Total Protein 6.0 g/dl (6.4-8.2) L 06/03/17 06:00 Albumin 3.0 g/dl (3.4-5.0) L 06/03/17 06:00 CARDIAC ENZYMES Creatine Kinase 90 IU/L (26-192) 06/02/17 13:13 Troponin I < 0.02 ng/ml (0.00-0.05) 06/03/17 06:00 Current Medications Generic Name Dose Route Start Last Admin Trade Name Freq PRN Reason Stop Dose Admin Amiodarone HCl 100 mg 06/05/17 10:00 06/09/17 09:49 Cordarone - PO 100 mg Q2D CHLOÉ Administration Apixaban 5 mg 06/02/17 22:00 06/09/17 09:49 Eliquis - PO 5 mg BID CHLOÉ Administration Losartan Potassium 100 mg 06/03/17 11:00 06/09/17 09:48 Cozaar - PO 100 mg DAILY CHLOÉ Administration Metoprolol Tartrate 50 mg 06/02/17 22:00 06/09/17 09:49 Lopressor - PO 50 mg BID CHLOÉ Administration Polyethylene Glycol 17 gm 06/05/17 22:00 06/09/17 09:55 Miralax (For Daily Use) - PO Not Given BID [facility] Home Medications Medication Instructions Recorded Amiodarone HCl [Cordarone -] 100 mg PO ASDIR 12/27/15 Apixaban [Eliquis] 5 mg PO BID 12/27/15 Metoprolol Tartrate 50 mg PO BID 12/27/15 Losartan Potassium 100 mg PO DAILY 02/06/17 Cefuroxime Axetil [Ceftin -] 500 mg PO BID #14 tablet 02/08/17 Nystatin Powder [Nystop Powder -] 1 applic TP DAILY #1 bottle 02/08/17 Laboratory Tests 06/04/17 06/04/17 06/05/17 06:00 08:50 10:10 CSF Appearance CSF Color CSF WBC CSF RBC CSF Neutrophils CSF Glucose CSF Total Protein CSF Myelin Basic Protein Ser Oligoclonal Bands CSF VDRL CSF Lyme Disease DNA CSF CMV IgG Ab IgG 939 IgA 267 IgM 106 IgE Pending YVES M-John Pending Rheumatoid Factor < 10.0 Rheumatoid Arth Biomark < 10.0 ZENOBIA Screen Negative Asialo GM1 IgG Ab Pending Asialo GM1 IgM Ab Pending GD1a IgG Antibody Pending GD1a IgM Antibody Pending GD1b IgG Antibody Pending GD1b IgM Antibody Pending Lyme Screen IgG & IgM 1.65 H Lyme IgM (Western Blot) Negative Toxoplasma IgG Ab Toxoplasma IgG Quant Toxoplasma Comment Serology Comments Pending 06/06/17 06/06/17 06/06/17 06:12 12:15 12:15 CSF Appearance CSF Color CSF WBC CSF RBC CSF Neutrophils CSF Glucose 80 CSF Total Protein CSF Myelin Basic Protein Pending Ser Oligoclonal Bands Pending CSF VDRL Pending CSF Lyme Disease DNA Pending CSF CMV IgG Ab Pending IgG IgA IgM IgE YVES M-John Rheumatoid Factor Rheumatoid Arth Biomark ZENOBIA Screen Asialo GM1 IgG Ab Asialo GM1 IgM Ab GD1a IgG Antibody GD1a IgM Antibody GD1b IgG Antibody GD1b IgM Antibody Lyme Screen IgG & IgM Lyme IgM (Western Blot) Toxoplasma IgG Ab Pending Toxoplasma IgG Quant Pending Toxoplasma Comment Pending Serology Comments 06/06/17 06/06/17 12:15 14:15 CSF Appearance Clear CSF Color Colorless CSF WBC 2 CSF RBC 23.00 CSF Neutrophils No Result Required. CSF Glucose CSF Total Protein 54 H CSF Myelin Basic Protein Ser Oligoclonal Bands CSF VDRL CSF Lyme Disease DNA CSF CMV IgG Ab IgG IgA IgM IgE YVES M-John Rheumatoid Factor Rheumatoid Arth Biomark ZENOBIA Screen Asialo GM1 IgG Ab Asialo GM1 IgM Ab GD1a IgG Antibody GD1a IgM Antibody GD1b IgG Antibody GD1b IgM Antibody Lyme Screen IgG & IgM Lyme IgM (Western Blot) Toxoplasma IgG Ab Toxoplasma IgG Quant Toxoplasma Comment Serology Comments IMAGING: CT Brain 06/02: No acute intracranial hemorrhage or acute calvarial fracture. No intracranial mass effects or hydrocephalus. No definite interval change from 10/2015 CTA. CXR 06/02: Since the prior study of 02/07/2017, again noted is evidence of median sternotomy with prominent mediastinum and there may be some new atelectatic change in the retrocardiac area. Correlation recommended. US duplex R leg 06/03: No DVT is identified involving the right leg. Please see above. Hospital course: Date of Admission:06/04/17 Date of Discharge: 06/09/17 Patient is a 76 year old female with a past medical history of alleged ALS, atrial fibrillation, arrived to the hospital s/p her R leg buckling under her while ambulating. She has a history of progressive weakness previously attributed to ALS. Patient admitted to the hospital for evaluation of progressive weakness. In the ED, patient had a albert placed due to immobility. Patient's family has since adamantly refused albert removal every day of admission, understanding the risks of catheter associated UTIs. Neurology was consulted- as per Dr. Emmanuel, patient may have more of a peripheral, predominantly motor weakness similar to a demyelinating neuropathy. Patient had numerous labs drawn: -CRP, ESR, ZENOBIA, RF, Lyme, SSA, SSB, SPEP, IPEP, immunoglobulins, Anti-GM1 Dr. 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 No slowing or conduction block at fibular head but cannot rule out concurrent peroneal neuropathy with no response in R superficial peroneal sensory but nearly normal sural sensory. 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 Patient got a lumbar puncture to test CSF for Protein, Glucose, VDRL, Cell counts, differential,Cultures, Gram stain, AFP, mariza ink, IgG, and Oligoclonal bands. Oligoclonal bands from serum were also sent. Patient was cleared by neurology for discharge once these tests were done. Results can be followed as an outpatient. Patient was discharged on 06/09/17 to SNF with instructions to follow with Dr. Emmanuel as an outpatient. Minutes to complete discharge: 40 Discharge Summary Reason For Visit: AMYOTROOPHIC LATERAL SCLEROSIS Current Active Problems Right leg weakness (Acute) ALS (amyotrophic lateral sclerosis) (Chronic) Condition: Stable - Instructions Diet, Activity, Other Instructions: You were admitted to the hospital for progressive neurological weakness. You were worked for immunologic and rheumatologic causes for the disease. You had both blood tests and cerebrospinal fluid tests performed to determine the etiology. You will need to follow with the neurologist Dr. Emmanuel when the results return. Medical Recommendations: -Please make an appointment with Dr. Emmanuel (Neurology) within 1 week of discharge -Please make an appointment with your primary care physician within 1 week of discharge, Dr. Hammond If you experience further significant weakness, fall, instability, please return to the emergency department. Referrals: Jeremy Hammond MD [Primary Care Provider] - 1 Week Erick Emmanuel MD [Staff Physician] - 1 Week Disposition: [facility] F[facility]ILITY - Home Medications Comprehensive Discharge Medication List: Ambulatory Orders Amiodarone HCl [Cordarone -] 100 mg PO ASDIR 12/27/15 Apixaban [Eliquis] 5 mg PO BID 12/27/15 Metoprolol Tartrate 50 mg PO BID 12/27/15 Losartan Potassium 100 mg PO DAILY 02/06/17 Cefuroxime Axetil [Ceftin -] 500 mg PO BID #14 tablet 02/08/17 Nystatin Powder [Nystop Powder -] 1 applic TP DAILY #1 bottle 02/08/17 This patient is new to me today: No Emergency Visit: Yes ED Registration Date: 06/04/17 Care time: The patient presented to the Emergency Department on the above date and was hospitalized for further evaluation of their emergent condition. Critical Care patient: No - Discharge Referral Referred to [facility] No
[2017-06-12 00:11] LABS: MYELIN BASIC PROTEIN,CSF 3.8 ng/mL (0.0-1.2)
[2017-06-12 16:25] LABS: CMV IgG CSF < 0.20 U/mL (.)
== END 2017-06-09 17:45 | DRG 74 ==
LOC: JER 10:39 → JERBED 18:52 → J7W 06-03 02:18 → OBSVTOIN 06-04 18:39
PROVIDERS: ADMIT Internal Medicine; ATTEND Internal Medicine
PROC: 009U3ZX Drainage of Spinal Canal, Percutaneous Approach, Diagnostic (ICD-10-PCS; principal; 2017-06-06)
DX: G57.91 Unspecified mononeuropathy of right lower limb (principal); G12.21 Amyotrophic lateral sclerosis; J98.11 Atelectasis; I48.91 Unspecified atrial fibrillation; I10 Essential (primary) hypertension; E78.5 Hyperlipidemia, unspecified; M48.00 Spinal stenosis, site unspecified; Z87.891 Personal history of nicotine dependence
CPT/HCPCS: 36415; 62272; 70450-TC; 71045-TC-FY; 80048; 80053; 81003; 82550; 82784; 82785; 82945; 83516; 83520; 83735; 83873; 83916; 84100; 84155; 84157; 84165; 84439; 84443; 84484; 85025; 85027; 85610; 85651; 85730; 86038; 86140; 86431; 86592; 86618; 86644; 86777; 86778; 87070; 87086; 87205; 87476; 87529; 89050; 93005; 93010; 93971-TC; 97116-GP; 97161-GP; 99285-25; G0378

== ENCOUNTER 2017-12-28 08:32 | Inpatient (IN) | payer OTHER, MEDICARE ==
--- NOTE | 2017-12-28 08:43 | PDOC ---
History of Present Illness - General Chief Complaint: Weakness Stated Complaint: IV PORT REPLACEMENT - History of Present Illness Initial Comments: 12/28/17 08:38 76 yo f w/ PMH HTN, HLD, ALS (wheelchair and bed bound), and A-fib on eliquis who presents to ED for progressive dysphagia, and weakness. Here for admission for port placement for IVIG therapy. Patient daughter at bedside to assist in report. Per daughter patient has been in respite care for the past two weeks for general decline in motor tasks, swallowing, and worsening ALS progression. discharged from respite care today. Patient was sent to ED for Port placement in order to receive IVIG immunosupressive therapy in late stage ALS treatment. Per daughter patient has been having difficulty with swallowing over the past two weeks, with choking, and gagging on liquids and solids. She has baseline motor function in distal lower extremities, and absent motor function in upper extremities. Last BM yesterday without difficulty or BPR. Patient denies N/V, F,C, CP, SOB, urinary complaints, abdominal pain, diarrhea, constipation, lightheadedness, sensory changes. PMHx: as noted above Surgical: Aortic valve replacement, Cholecystectomy ROS: as noted SHx: Smoking Cessation 45 years ago Allergies: NKDA Past History - Past Medical History Allergies/Adverse Reactions: Allergies Allergy/AdvReac Type Severity Reaction Status Date / Time No Known Drug Allergies Allergy Verified 12/28/17 08:36 Home Medications: Ambulatory Orders Acetaminophen [Tylenol -] 500 mg PO Q4H 12/28/17 Apixaban [Eliquis] 5 mg PO BID 12/28/17 Docusate Sodium [Colace -] 240 mg PO DAILY 12/28/17 Losartan Potassium 50 mg PO DAILY 12/28/17 Metoprolol Tartrate 50 mg PO DAILY 12/28/17 Anemia: No Asthma: No Cancer: No Cardiac Disorders: Yes (aortic stenosis, VALVE REPLACEMENT, AFIB) CVA: No COPD: No CHF: No Dementia: No Diabetes: No GI Disorders: Yes (HEMORRHOIDS,DIVERTICULOSIS,) Disorders: No HTN: Yes Hypercholesterolemia: Yes Liver Disease: No Seizures: No Thyroid Disease: No - Surgical History Abdominal Surgery: No Appendectomy: No Cardiac Surgery: Yes (Aortic valve replacement) Cholecystectomy: Yes Lung Surgery: No Neurologic Surgery: No Orthopedic Surgery: No - Immunization History Immunization Up to Date: No - Suicide/Smoking/Psychosocial Hx Smoking History: Former smoker Have you smoked in the past 12 months: No Number of Cigarettes Smoked Daily: 0 If you are a former smoker, when did you quit?: 45 YRS AGO Cigars Per Day: 0 Hx Alcohol Use: No Drug/Substance Use Hx: No Substance Use Type: None Hx Substance Use Treatment: No Review of Systems - Review of Systems Comments:: 12/28/17 08:43 GENERAL/CONSTITUTIONAL: No fever or chills. No weakness. HEAD, EYES, EARS, NOSE AND THROAT: + Difficulty swallowing. No change in vision. No ear pain or discharge. No sore throat. CARDIOVASCULAR: No chest pain or shortness of breath RESPIRATORY: No cough, wheezing, or hemoptysis. GASTROINTESTINAL: No nausea, vomiting, diarrhea or constipation. GENITOURINARY: No dysuria, frequency, or change in urination. MUSCULOSKELETAL: No joint or muscle swelling or pain. No neck or back pain. SKIN: No rash NEUROLOGIC: + Change in strength. No headache, vertigo, loss of consciousness, or change in sensation. ENDOCRINE: No increased thirst. No abnormal weight change HEMATOLOGIC/LYMPHATIC: No anemia, easy bleeding, or history of blood clots. ALLERGIC/IMMUNOLOGIC: No hives or skin allergy. *Physical Exam - Physical Exam Comments: 12/28/17 08:43 GENERAL: Awake, alert, and fully oriented, in no acute distress HEAD: No signs of trauma, normocephalic, atraumatic EYES: PERRLA, EOMI, sclera anicteric, conjunctiva clear ENT: Hearing grossly normal, nares patent, oropharynx clear without exudates. Moist mucosa NECK: Normal ROM, supple, no lymphadenopathy, JVD, or masses LUNGS: No distress, speaks full sentences, clear to auscultation bilaterally HEART: Regular rate and rhythm, normal S1 and S2, no murmurs, rubs or gallops, peripheral pulses normal and equal bilaterally. ABDOMEN: Soft, nontender, normoactive bowel sounds. No guarding, no rebound. No masses. Neg CVA ttp. EXTREMITIES : BL 1 + pitting edmea. DP, and PT pulses intact and symmetric. Normal inspection, Normal range of motion. No clubbing or cyanosis. NEUROLOGICAL: Cranial nerves II through XII grossly intact. Normal speech. BL UE 0/5, BL LE 1/5. Sensation intact. SKIN: Warm, Dry, normal turgor, no rashes or lesions noted ED Treatment Course - LABORATORY CBC & Chemistry Diagram: 12/28/17 09:30 12/28/17 09:30 Medical Decision Making - Medical Decision Making 12/28/17 08:45 76 yo f w/ PMH HTN, HLD, ALS (wheelchair and bed bound), A-fib on eliquis who presents to ED with progressive dysphagia, and weakness. Patient referred to ED following discharge from respite care by PMD for admission for IV Port placement in order to receive immunotherapy/IVIG. VSS, AF. Patient with likely transfer dysphagia 2/2 neuromuscular disease. ED Course: CBC,CMP EKG, CXR 12/28/17 08:50 12/28/17 10:34 CBC,CMP: Unremarkable CXR: No acute pathology 12/28/17 10:35 Patient admitted to med/surg Dr. Hammond. Consult placed to Lien Mcgill Kozicky *DC/Admit/Observation/Transfer Diagnosis at time of Disposition: Weakness Dysphagia Qualifiers: Dysphagia type: unspecified Qualified Code(s): R13.10 - Dysphagia, unspecified - Discharge Dispostion Condition at time of disposition: Stable Decision to Admit order: Yes - Referrals Referrals: Jeremy Hammond MD [Primary Care Provider] - - Patient Instructions - Post Discharge Activity
--- NOTE | 2017-12-28 08:48 | PDOC ---
Attending Attestation - Resident Resident Name: George Wills - ED Attending Attestation I have performed the following: I have examined & evaluated the patient, The case was reviewed & discussed with the resident, I agree w/resident's findings & plan, Exceptions are as noted - HPI HPI: 12/28/17 09:39 77yo female with hx of ALS presents from Respit care for admission for IVIG - Physicial Exam PE: 12/28/17 09:42 Gen: awake, bedbound, nad heart: +s1s2 irreg irreg lungs: cta b/l abd: soft, nt/nd +bs ext: able to move shoulder girdle, wiggles toes, at baseline neuromsk function neuro: at baseline MS and neuromuscular function - Medical Decision Making 12/28/17 08:48 I, Dr. Doreen Glasgow, DO, attest that this document has been prepared under my direction and personally reviewed by me in its entirety. I further attest, that it accurately reflects all work, treatment, procedures and medical decision -making performed by me. 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 Prieto -[facility] Dr. Royal Adams -Neuro: Dr. Randolph -also with constipation which is new and worsening -no f/c, no cp/sob, no abd pain, no n/v -pt able to move shoulder girdle and wiggle LE -paresthesias to LE -will send labs, will discuss with Dr. Prieto 12/28/17 10:[address] Prieto who requests admission to Dr. Dent - states he will talk with noel, requests consult to rivera randolph patel and himself 12/28/17 10:[address] Dent who accepts pt to service Heart Score/ECG Review - ECG Intrepretation Comment:: 12/28/17 09:37 afib at 99, nl axis, pvc, no acute st/t wave findings
[2017-12-28 09:45] LABS: BASO % 1.1 % (0-2.0); EOS % 0.4 % (0-4.5); HEMATOCRIT 49.7 % (32.4-45.2); HEMOGLOBIN 16.7 GM/dL (10.7-15.3); LYMPH % 30.9 % (8-40); MCH 28.9 pg (25.7-33.7); MCHC 33.6 g/dl (32.0-36.0); MEAN PLT VOLUME 8.5 fl (7.5-11.1); MONO % 8.5 % (3.8-10.2); NEUT % 59.1 % (42.8-82.8); PLATELET COUNT 180 K/MM3 (134-434); RBC 5.78 M/mm3 (3.60-5.2); RDW 15.1 % (11.6-15.6); WHITE BLOOD COUNT 4.9 K/mm3 (4.0-10.0)
[2017-12-28 10:00] LABS: INR 1.44 (0.83-1.09); PROTHROMBIN TIME (PATIENT) 16.3 SEC (9.7-13.0)
[2017-12-28 10:05] LABS: ALBUMIN 3.3 g/dl (3.4-5.0); ANION GAP 11 MMOL/L (8-16); BLOOD UREA NITROGEN 7 mg/dL (7-18); CALCIUM 8.9 mg/dL (8.5-10.1); CHLORIDE 105 mmol/L (98-107); CO2 25 mmol/L (21-32); GLUCOSE,RANDOM 109 mg/dL (74-106); POTASSIUM 3.9 mmol/L (3.5-5.1); SODIUM 141 mmol/L (136-145)
[2017-12-28 10:07] LABS: CREATININE 0.3 mg/dL (0.55-1.02); SGOT/AST 18 U/L (15-37); SGPT/ALT 17 U/L (12-78)
[2017-12-28 10:08] LABS: ALK PHOS 75 U/L (45-117); BILIRUBIN,TOTAL 1.2 mg/dL (0.2-1.0); TOT PROT 6.6 g/dl (6.4-8.2)
--- NOTE | 2017-12-28 12:08 | HP ---
Admitting History and Physical - Admission History of Present Illness: 76 yo f w/ PMH HTN, HLD, ALS (wheelchair and bed bound), and A-fib on eliquis who presents to ED for progressive dysphagia, and weakness. Here for admission for port placement for IVIG therapy. Patient daughters at bedside. Per daughter patient has been in respite care for the past two weeks for general decline in motor tasks, swallowing, and worsening ALS progression. discharged from respite care today. Patient was sent to ED for Port placement in order to receive IVIG immunosupressive therapy and possible steroids in late stage ALS treatment. Per daughter patient has been having difficulty with swallowing over the past two weeks, with choking, and gagging on liquids and solids. 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 NEUROPATHY) Cardiovascular: Yes: AFIB, HTN, Hyperlipdemia - Past Surgical History Past Surgical History: Yes: Cholecystectomy, Valve Replacement (AORTIC) - Smoking History Smoking history: Former smoker Have you smoked in the past 12 months: No Aproximately how many cigarettes per day: 0 If you are a former smoker, when did you quit?: 45 YRS AGO - Alcohol/Substance Use Hx Alcohol Use: No Home Medications - Allergies Allergies/Adverse Reactions: Allergies Allergy/AdvReac Type Severity Reaction Status Date / Time No Known Drug Allergies Allergy Verified 12/28/17 08:36 - Home Medications Home Medications: Ambulatory Orders Acetaminophen [Tylenol -] 500 mg PO Q4H 12/28/17 Apixaban [Eliquis] 5 mg PO BID 12/28/17 Docusate Sodium [Colace -] 240 mg PO DAILY 12/28/17 Losartan Potassium 50 mg PO DAILY 12/28/17 Metoprolol Tartrate 50 mg PO DAILY 12/28/17 Review of Systems - Review of Systems Constitutional: reports: Weakness HENT: reports: Difficult Swallowing Cardiovascular: denies: Chest Pain Gastrointestinal: denies: Abdominal Pain Neurological: reports: Pre-Existing Deficit, Weakness, Other (PROGRESSIVE WEAKNES) Physical Examination Vital Signs: Vital Signs Temperature 97.4 F L 12/28/17 08:37 Pulse Rate 59 L 12/28/17 08:37 Respiratory Rate 16 12/28/17 08:37 Blood Pressure 118/77 12/28/17 08:37 O2 Sat by Pulse Oximetry (%) 97 12/28/17 09:53 Cardiovascular: Yes: Pulse Irregular, S1, S2 Respiratory: Yes: Regular, CTA Bilaterally Gastrointestinal: Yes: Normal Bowel Sounds, Soft Edema: Yes Edema: LLE: Trace, RLE: Trace Neurological: Yes: Alert, Oriented, Pre-Existing Deficit, Weakness, Other ( UNABLE TO MOVE EXTREMETIES SOME MOVEMENT OF SHOULDERS--LIMITED) Labs: CBC, BMP 12/28/17 09:30 12/28/17 09:30 Problem List - Problems (1) ALS (amyotrophic lateral sclerosis) Assessment/Plan: AND AUTOIMMUNE NEUROPATHY FOR LINE PLACEMENT FOR IVIG AND POSSIBLE IV STEROIDS NEUROLOGY CONSULT Code(s): G12.21 - AMYOTROPHIC LATERAL SCLEROSIS (2) Dysphagia Assessment/Plan: -SWALLOW EVAL Code(s): R13.10 - DYSPHAGIA, UNSPECIFIED Qualifiers: Dysphagia type: unspecified Qualified Code(s): R13.10 - Dysphagia, unspecified (3) HTN (hypertension) Assessment/Plan: Vital Signs Temp 97.4 F L 12/28/17 08:37 Pulse 59 L 12/28/17 08:37 Resp 16 12/28/17 08:37 BP 118/77 12/28/17 08:37 Pulse Ox 97 12/28/17 09:53 Code(s): I10 - ESSENTIAL (PRIMARY) HYPERTENSION Qualifiers: Hypertension type: essential hypertension Qualified Code(s): I10 - Essential (primary) hypertension (4) Atrial fibrillation Assessment/Plan: -ELIQUIS--HOLD FOR PROCEDURE -METOPROLOL -EKG Code(s): I48.91 - UNSPECIFIED ATRIAL FIBRILLATION
[2017-12-28] MEDS ORDERED: METOPROLOL TARTRATE 50 MG TABLET (FP) PO SCH (12:15)
[2017-12-28 13:01] LABS: URINE APPEARANCE CLOUDY; URINE BILIRUBIN NEGATIVE (<2.0 mg/dL); URINE COLOR YELLOW; URINE GLUCOSE (UA) NEGATIVE (NEGATIVE); URINE KETONE NEGATIVE (NEGATIVE); URINE NITRITE POSITIVE (NEGATIVE); URINE PROTEIN NEGATIVE (NEGATIVE); URINE UROBILINOGEN NEGATIVE mg/dL (0.2-1.0)
[2017-12-28 13:03] LABS: URINE LEUK ESTERASE 2+ (NEGATIVE)
[2017-12-28] MEDS: ACETAMINOPHEN 500 MG TABLET (FP) PO SCH ×3 (13:11→20:35)
[2017-12-28 13:18] LABS: URINE BACTERIA RARE /hpf (NONE SEEN)
--- NOTE | 2017-12-28 15:46 | CON.PULM ---
Consult Consult Specialty:: PULMONARY Referred by:: AYDEE Reason for Consultation:: RISK FOR ASPIRATION PNEUMONIA - History of Present Illness Chief Complaint: DIFFICULTY SWALLOWING History of Present Illness: 76 yo f w/ PMH HTN, HLD, ALS (wheelchair and bed bound), and A-fib on eliquis who presents to ED for progressive dysphagia, and weakness. Here for admission for port placement for IVIG therapy. Patient daughter at bedside to assist in report. Per daughter patient has been in respite care for the past two weeks for general decline in motor tasks, swallowing, and worsening ALS progression. discharged from respite care today. Patient was sent to ED for Port placement in order to receive IVIG immunosupressive therapy in late stage ALS treatment. Per daughter patient has been having difficulty with swallowing over the past two weeks, with choking, and gagging on liquids and solids. She has baseline motor function in distal lower extremities, and absent motor function in upper extremities. Last BM yesterday without difficulty or BPR. 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 NEUROPATHY) Cardio/Vascular: Yes: AFIB, HTN, Hyperlipdemia - Past Surgical History Past Surgical History: Yes: Cholecystectomy, Valve Replacement (AORTIC) - Alcohol/Substance Use Hx Alcohol Use: No - Smoking History Smoking history: Former smoker Have you smoked in the past 12 months: No Aproximately how many cigarettes per day: 0 If you are a former smoker, when did you quit?: 45 YRS AGO - Social History Usual Living Arrangement: With Child ADL: Family Assistance Place of : [facility] History of Recent Travel: No Home Medications - Allergies Allergies/Adverse Reactions: Allergies Allergy/AdvReac Type Severity Reaction Status Date / Time No Known Drug Allergies Allergy Verified 12/28/17 08:36 - Home Medications Home Medications: Ambulatory Orders Acetaminophen [Tylenol -] 1,000 mg PO Q8H PRN 12/28/17 Apixaban [Eliquis] 5 mg PO BID 12/28/17 Docusate Sodium [Colace -] 240 mg PO DAILY 12/28/17 Losartan Potassium 50 mg PO DAILY 12/28/17 Metoprolol Tartrate 50 mg PO BID 12/28/17 Family Disease History - Family Disease History Family History: Unremarkable Review of Systems - Review of Systems Constitutional: reports: Unintentional Wgt. Loss Eyes: reports: No Symptoms HENT: reports: Difficult Swallowing Neck: reports: Decreased ROM Cardiovascular: reports: No Symptoms Respiratory: reports: Cough Gastrointestinal: reports: Constipation Genitourinary: reports: No Symptoms Breasts: reports: No Symptoms Reported Musculoskeletal: reports: Muscle Weakness Neurological: reports: Pre-Existing Deficit Endocrine: reports: No Symptoms Hematology/Lymphatic: reports: No Symptoms Psychiatric: reports: Depression Physical Exam Vital Sings: Vital Signs Temperature 97.8 F 12/28/17 13:07 Pulse Rate 85 12/28/17 13:07 Respiratory Rate 18 12/28/17 13:07 Blood Pressure 105/68 12/28/17 13:07 O2 Sat by Pulse Oximetry (%) 95 12/28/17 13:07 Constitutional: Yes: Calm Eyes: Yes: Conjunctiva Clear HENT: Yes: Normocephalic Neck: Yes: Trachea Midline Cardiovascular: Yes: Regular Rate and Rhythm Respiratory: Yes: Diminished (AT BASES) Gastrointestinal: Yes: Abdomen, Obese Edema: LUE: 1+, RUE: 1+, LLE: 1+, RLE: 1+ Integumentary: Yes: WNL Neurological: Yes: Alert, Pre-Existing Deficit, Weakness ...Motor Strength: LUE, LLE, RUE, RLE ( 0/4 UPPER 1/4 LOWER) Labs: CBC, BMP 12/28/17 09:30 12/28/17 09:30 REST REVIEWED Imaging - Results X-ray: Report Reviewed, Image Reviewed Problem List - Problems (1) Dysphagia Code(s): R13.10 - DYSPHAGIA, UNSPECIFIED Qualifiers: Dysphagia type: unspecified Qualified Code(s): R13.10 - Dysphagia, unspecified (2) Weakness Code(s): R53.1 - WEAKNESS (3) Aortic stenosis Code(s): Q25.3 - SUPRAVALVULAR AORTIC STENOSIS (4) HTN (hypertension) Code(s): I10 - ESSENTIAL (PRIMARY) HYPERTENSION Qualifiers: Hypertension type: essential hypertension Qualified Code(s): I10 - Essential (primary) hypertension (5) ALS (amyotrophic lateral sclerosis) Code(s): G12.21 - AMYOTROPHIC LATERAL SCLEROSIS (6) History of prosthetic aortic valve Code(s): Z95.2 - PRESENCE OF PROSTHETIC HEART VALVE (7) Atrial fibrillation Code(s): I48.91 - UNSPECIFIED ATRIAL FIBRILLATION Assessment/Plan A DEFINITIVE NEUROMUSCULAR DIAGNOSIS HAS YET TO BE NAMED PER FAMILY PREVIOUS IVIG WITH MINIMAL BENEFIT PROGRESSIVE MUSCLE WEAKNESS CONTINUES MINIMAL TO MODERATE DYSHAGIA NOTED PATIENT IS ADMITTED TO EVALUATE SWALLOW AND CONSIDERATION FOR PEG TUBE PLACEMENT /CHRONIC CONSTIPATION PORT PLACEMENT FOR IVIG NEURO RE-EVAL FAMILY WANTS PATIENT HOME AFTER HOSPITAL STAY. Girish BROUSSARD MD
[2017-12-28] MEDS ORDERED: APIXABAN 5 MG TABLET PO SCH (22:00)
[2017-12-29] MEDS: ACETAMINOPHEN 500 MG TABLET (FP) PO SCH ×6 (00:24→21:20)
--- NOTE | 2017-12-29 09:22 | CONSULT ---
Consult - text type - Consultation Consultation Note: Neurology History of Present Illness: Covering for Dr. Emmanuel 76 yo f w/ PMH HTN, HLD, ALS (wheelchair and bed bound), and A-fib on eliquis who presents to ED for progressive dysphagia, and weakness. Reportedly here for admission for port placement for IVIG therapy.Reportedly with general decline in motor tasks, swallowing, and worsening ALS progression. Reportedly with similar admissions previously and would get IVIG immunosupressive therapy and possible steroids. Seems ALS has progressive to include dysphagia. 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 NEUROPATHY) Cardiovascular: Yes: AFIB, HTN, Hyperlipdemia - Past Surgical History Past Surgical History: Yes: Cholecystectomy, Valve Replacement (AORTIC) - Smoking History Smoking history: Former smoker Have you smoked in the past 12 months: No Aproximately how many cigarettes per day: 0 If you are a former smoker, when did you quit?: 45 YRS AGO - Alcohol/Substance Use Hx Alcohol Use: No Home Medications - Allergies Allergies/Adverse Reactions: Allergies Allergy/AdvReac Type Severity Reaction Status Date / Time No Known Drug Allergies Allergy Verified 12/28/17 08:36 - Home Medications Home Medications: Ambulatory Orders Acetaminophen [Tylenol -] 500 mg PO Q4H 12/28/17 Apixaban [Eliquis] 5 mg PO BID 12/28/17 Docusate Sodium [Colace -] 240 mg PO DAILY 12/28/17 Losartan Potassium 50 mg PO DAILY 12/28/17 Metoprolol Tartrate 50 mg PO DAILY 12/28/17 Review of Systems - Review of Systems Constitutional: reports: Weakness HENT: reports: Difficult Swallowing Cardiovascular: denies: Chest Pain Gastrointestinal: denies: Abdominal Pain Neurological: reports: Pre-Existing Deficit, Weakness, Other (PROGRESSIVE WEAKNES) Physical Examination Vital Signs: Vital Signs Temperature 97.4 F L 12/28/17 08:37 Pulse Rate 59 L 12/28/17 08:37 Respiratory Rate 16 12/28/17 08:37 Blood Pressure 118/77 12/28/17 08:37 O2 Sat by Pulse Oximetry (%) 97 12/28/17 09:53 Cardiovascular: Yes: Pulse Irregular, S1, S2 Respiratory: Yes: Regular, CTA Bilaterally Gastrointestinal: Yes: Normal Bowel Sounds, Soft Edema: Yes Edema: LLE: Trace, RLE: Trace Neurological: Awake, alert, communicative, follows commands, 1/5 in LE, 0-1/5 in UE, sensory intact to PP, gait deferred CBCD WBC 4.9 K/mm3 (4.0-10.0) 12/28/17 09:30 RBC 5.78 M/mm3 (3.60-5.2) H 12/28/17 09:30 Hgb 16.7 GM/dL (10.7-15.3) H 12/28/17 09:30 Hct 49.7 % (32.4-45.2) H D 12/28/17 09:30 MCV 86.0 fl (80-96) 12/28/17 09:30 MCHC 33.6 g/dl (32.0-36.0) 12/28/17 09:30 RDW 15.1 % (11.6-15.6) 12/28/17 09:30 Plt Count 180 K/MM3 (134-434) 12/28/17 09:30 MPV 8.5 fl (7.5-11.1) 12/28/17 09:30 CMP Sodium 141 mmol/L (136-145) 12/28/17 09:30 Potassium 3.9 mmol/L (3.5-5.1) 12/28/17 09:30 Chloride 105 mmol/L (98-107) 12/28/17 09:30 Carbon Dioxide 25 mmol/L (21-32) 12/28/17 09:30 Anion Gap 11 MMOL/L (8-16) 12/28/17 09:30 BUN 7 mg/dL (7-18) 12/28/17 09:30 Creatinine 0.3 mg/dL (0.55-1.02) L 12/28/17 09:30 Creat Clearance w eGFR > 60 (>60) 12/28/17 09:30 Random Glucose 109 mg/dL (74-106) H 12/28/17 09:30 Calcium 8.9 mg/dL (8.5-10.1) 12/28/17 09:30 Total Bilirubin 1.2 mg/dL (0.2-1.0) H 12/28/17 09:30 AST 18 U/L (15-37) 12/28/17 09:30 ALT 17 U/L (12-78) 12/28/17 09:30 Alkaline Phosphatase 75 U/L (45-117) 12/28/17 09:30 Total Protein 6.6 g/dl (6.4-8.2) 12/28/17 09:30 Albumin 3.3 g/dl (3.4-5.0) L 12/28/17 09:30 Plan 76 yo f w/ PMH HTN, HLD, ALS (wheelchair and bed bound), and A-fib on eliquis who presents to ED for progressive dysphagia, and weakness. Reportedly here for admission for port placement for IVIG therapy.Reportedly with general decline in motor tasks, swallowing, and worsening ALS progression. Reportedly with similar admissions previously and would get IVIG immunosupressive therapy and possible steroids. Seems ALS has progressive to include dysphagia. Would continue with this mgmt though unclear if will yield any benefit consider chronic progressive decline. Speech/swallow eval. PT as tolerated. Monitor BP, maintain normotensive range. On Eliquis for Afib, likely to be held if having procedure.
[2017-12-29] MEDS: LOSARTAN POTASSIUM 50 MG TABLET (FP) PO SCH (09:47)
[2017-12-29] MEDS: DOCUSATE SODIUM 100 MG CAPSULE (FP) PO SCH (09:47)
--- NOTE | 2017-12-29 10:13 | CONSULT ---
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 NEUROPATHY) Cardiovascular: Yes: AFIB, HTN, Hyperlipdemia - Past Surgical History Past Surgical History: Yes: Cholecystectomy, Valve Replacement (AORTIC) - Smoking History Smoking history: Former smoker Have you smoked in the past 12 months: No Aproximately how many cigarettes per day: 0 If you are a former smoker, when did you quit?: 45 YRS AGO - Alcohol/Substance Use Hx Alcohol Use: No - Social History ADL: Family Assistance History of Recent Travel: No History - Admission Reason For Visit: AMYOTROPHIC LAATERAL SCLEROSIS - Hearing Hearing: Normal Hearing Aide: No Speech Evaluation - Communication Primary Language: NORWEGI[place] Communication: Yes: Within Normal Limits Oral Expression Ability: Yes: No Impairment - Speech Production Apraxia: No Able to Make Needs Known: Yes: WNL Intelligibility: Yes: WNL - Speech Characteristics Voice Loudness: Normal Voice Pitch: Yes: Normal Voice Phonatory-based Quality: Yes: Normal Speech Pattern: Normal Nasal Resonance: Normal Articulation: Yes: Precise Dysfluency: Yes: Tonic Rate of Speech: Intact Voice Comment: WNL with adequate vocal quality - Language/Auditory Comprehension Follows: Yes: 1 Stage Simple Commands (WFL), 2 Stage Simple Commands (WFL within physical ability), Complex Commands (difficult secondary to reduced motor skills. WFL cognitively) Observation: Able to respond to yes/no queries: Yes, Yes/No Confusion: No, Comprehends Conversational Speech: Yes, Benefits from Slow Speech: No, Benefits from Repetiton: No - Language/Verbal Expression Able to Respond to Simple Queries: Yes: WNL Able to Communicate Wants and Needs: Yes: WNL Functional Communication Status: Yes: WNL Aware of Errors: Yes Attempts to Correct Errors: Yes Use of Gestures: No Written Expression: pt unable secondary to reduced motor skills. 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 Memory: Yes: WNL Short Term Memory: Yes: WNL - Swallow Evaluation/Bedside Assessment Current Nutritional Intake: NPO Oral Secretions: Yes: WFL Tracheostomy Present: No Patient on Ventilator: No Dentition: Yes: Adequate Facial Symmetry at Rest: Symmetrical Facial Symmetry on Retraction: Symmetrical Facial Movement: Controlled Sensation: Normal Facial Comment: WFL for speech and swallowing purposes Jaw Position: Closed at Rest Against Resistance Opening: Normal Against Resistance Closing: Normal Pucker Lips: Normal Smile: Normal Lips, Comment: WFL for speech and swallowing purposes Lingual Movement: Normal Lingual Speed of Movement: Normal Lingual Movement Strgth Against Opposition: Normal Lingual Movement Characteristics: Normal Lingual Comment: WFL for speech and swallowing purposes Soft Palate Description: Normal Color, Normal Arch Hard Palate Description: Normal Color, Normal Arch Gag Reflex: Weak Bite Reflex: Present Laryngeal Elevation: WFL Laryngeal Movement: Able to Palpate Needs Assistance: Yes Rate of Intake: Slow/Holding Bolus Size: Small Sensation: Bite Reflex Labial Seal: WFL Chewing: WFL Oral Prep Time: WFL A-P Transit: WFL Timing of Swallow: WFL Odynophagia: Pharyngeal Coughing/Throat Clear: No Change in Voice: No Other Findings/Remarks: 77 yo female seen at bedside by CHUCKING MACHINE SET UP OPERATOR for swallow eval to r/o dysphagia. Pt presents as verbal, A&Ox3 cooperative. PMH includes ALS with reduced movement of all extremities, sudden decrease in swallow (past month) skills, A-fib, and HTN. Daughter present for this session and served as historian. Pt requires total assistance for ADL and eating. Pt has reduced airway protection, with weak cough but vocal quality is WNL. Pt reports that she prefers soft solids now secondary to fear of choking. Pt given po trials of puree and soft chewable solids with total assistance revealed good acceptance, increased mastication with good bolus formation. Pharyngeal swallow appears timely with no evidence of aspiration at this time. PO trials of thin liquids via cup and straw were unremarkable for dysphagia and / or aspiration at this time. Dr Valderrama also attended this session and spoke with pt and daughter re: PEG for nutritional support and medication. Recommendations - Speech Evaluation, Impression/Plan Impression: 77 year old female presents with mild to moderate s/s of alejandro- pharyngeal dysphagia with no evidence of aspiration at this time. Speech is WFL Alf Goals: tolerate the least restrictive diet w/o s/s of dysphagia. Short Term Goals: tolerate puree and thin liquids with out s/s of dysphagia Recommended Frequency for Therapy: Follow Up PRN - Dysphagia Impressions/Plan Swallowing Skills: Impaired Dysphagia Impressions: Minimal Impairment, Risk of Aspiration *Silent aspiration: cannot be R/O at bedside Dysphagia Treatment Plan: Small Bites, Safe Rate, 1/2 tsp. at a time, Elevate HOB during feed, Other (offer liquids for every 1-2 bites of solids for liquid washdown.) Dysphagia Evaluation Summary: Trial puree and thin liquids with total assistance as tolerated. Crush meds with applesauce and/or pureed. Observe standard aspiration precautions. Results given verbally to frankie, cant gang sawyer Angela and Dr. Valderrama. CHUCKING MACHINE SET UP OPERATOR to follow up for diet tolerance and possible upgrade to minced diet. Recommendations: GI Consult (secondary to PEG placement.) - Recommendations Diet Consistency: Dysphagia Pureed Medication Administration: Crushed with applesauce Liquids: Thin Liquids
--- NOTE | 2017-12-29 10:35 | EKG ---
Test Reason : Blood Pressure : / mmHG Vent. Rate : 099 BPM Atrial Rate : 340 BPM P-R Int : 000 ms QRS Dur : 080 ms QT Int : 340 ms P-R-T Axes : 000 038 078 degrees QTc Int : 436 ms ATRIAL FLUTTER WITH VARIABLE A-V BLOCK WITH PREMATURE VENTRICULAR OR ABERRANTLY CONDUCTED COMPLEXES ABNORMAL ECG WHEN COMPARED WITH ECG OF 06-JUN-2017 19:17, ATRIAL FLUTTER HAS REPLACED SINUS RHYTHM Confirmed by GAGAN BABCOCK, PABLO ([id number]) on 12/29/2017 10:35:13 AM Referred By: Confirmed By:PABLO FARAH MD
--- NOTE | 2017-12-29 11:28 | PN ---
Progress Note (short form) - Note Progress Note: PULMONARY Bedside swallow eval without signs of aspiration. Still feels very anxious about swallowing solid foods. Vital Signs Period Temp Pulse Resp BP Sys/Lorenzo Pulse Ox Last 24 Hr 97.8 F-98.7 F 85-114 18-20 105-128/68-90 94-97 Gen: NAD at rest Heart: tachycardic, irregular Lung: decreased breath sounds at the bases Abd: soft, nontender Ext: no edema CBC, BMP 12/28/17 09:30 12/28/17 09:30 Active Medications Acetaminophen (Tylenol -) 500 mg PO Q4H [facility] Last Admin: 12/29/17 09:47 Dose: 500 mg Apixaban (Eliquis -) 5 mg PO BID [facility] Docusate Sodium (Colace -) 300 mg PO DAILY [facility] Last Admin: 12/29/17 09:47 Dose: 300 mg Losartan Potassium (Cozaar -) 50 mg PO DAILY [facility] Last Admin: 12/29/17 09:47 Dose: 50 mg Metoprolol Tartrate (Lopressor -) 50 mg PO DAILY [facility] Last Admin: 12/28/17 13:10 Dose: Not Given A/P ALS Atrial Fibrillation HTN Hyperlipidemia Constipation - rate control - holding anticoagulation for possible port placement - GI eval, pt and family wondering if her neurologic disease contributing to her constipation - aspiration precautions - DVT prophylaxis
--- NOTE | 2017-12-29 11:45 | CONSULT ---
Consultation: REQUESTING PROVIDER: CONSULT REQUEST: We have been asked to medically evaluate this patient for IVIG therapy. HISTORY OF PRESENT ILLNESS: Patient is able to provide history, two daughters at bed side assisted with the history. Patient is a 76 year old female with a history of ALS (hasn't had definitive diagnosis) with worsening symptoms-mainly difficulty swallowing since a week. As per the patient, she started having motor symptoms about 27 months ago, has been worsening since. Has been following up with Dr. Emmanuel as outpatient. Also reports last bowel movement was 4 days ago (has noticed in decreasing bowel movements, never had any h/o constipation). Has been quadriplegic for the past year. Bladder habit normal. Due to dysphagia, fears to choking hence has limited her food intake to thin liquids. Daughter mentions that she received IVIG at home for 4 months (last dose 2 months ago). PAST MEDICAL HISTORY: ALS (hasn't had definitive diagnosis); Atrial fibrillation s/p failed cardioversion now on Eliquis; HTN PAST SURGICAL HISTORY:Cholecystectomy ;Aortic valve replacement; Bunectomy Social History: Lives with her daughter at home. Smoking: quit 45 years ago Alcohol: none Drugs: none Family History: non-contributory ALLERGIES: NKDA REVIEW OF SYSTEMS: CONSTITUTIONAL: Absent: fever, chills, diaphoresis, generalized weakness, malaise, loss of appetite, weight change HEENT: Absent: rhinorrhea, nasal congestion, throat pain, throat swelling, difficulty swallowing, mouth swelling, ear pain, eye pain, visual changes CARDIOVASCULAR: Absent: chest pain, syncope, palpitations, irregular heart rate, lightheadedness , peripheral edema RESPIRATORY: Absent: cough, shortness of breath, dyspnea with exertion, orthopnea, wheezing, stridor, hemoptysis GASTROINTESTINAL: Absent: abdominal pain, abdominal distension, nausea, vomiting, diarrhea, constipation, melena, hematochezia GENITOURINARY: Absent: dysuria, frequency, urgency, hesitancy, hematuria, flank pain, genital pain MUSCULOSKELETAL: Absent: myalgia, arthralgia, joint swelling, back pain, neck pain SKIN: Absent: rash, itching, pallor HEMATOLOGIC/IMMUNOLOGIC: Absent: easy bleeding, easy bruising, lymphadenopathy, frequent infections ENDOCRINE: Absent: unexplained weight gain, unexplained weight loss, heat intolerance, cold intolerance NEUROLOGIC: Absent: headache, focal weakness or paresthesias, dizziness, unsteady gait, seizure, mental status changes, bladder or bowel incontinence PSYCHIATRIC: Absent: anxiety, depression, suicidal or homicidal ideation, hallucinations. PHYSICAL EXAMINATION Vital Signs - 24 hr 12/28/17 12/28/17 12/28/17 13:07 18:33 19:36 Temperature 97.8 F 98.6 F Pulse Rate Pulse Rate [ 85 114 H Apical] Respiratory 18 18 Rate Blood Pressure Blood Pressure 105/68 128/89 [Right Arm] O2 Sat by Pulse 95 94 L 97 Oximetry (%) 12/28/17 12/28/17 12/29/17 22:00 22:05 06:14 Temperature 98.7 F 98.2 F Pulse Rate 90 95 H Pulse Rate [ Apical] Respiratory 18 20 Rate Blood Pressure 122/74 122/73 Blood Pressure [Right Arm] O2 Sat by Pulse 96 Oximetry (%) 12/29/17 10:00 Temperature 97.8 F Pulse Rate 100 H Pulse Rate [ Apical] Respiratory 20 Rate Blood Pressure 120/90 Blood Pressure [Right Arm] O2 Sat by Pulse 96 Oximetry (%) GENERAL: Elderly female, lying in bed, Awake, alert, and fully oriented, in no acute distress. HEAD: Normal with no signs of trauma. EYES: EOM intact, no pallor or icterus. EARS, NOSE, THROAT: Ears normal. Moist mucous membranes. NECK: Supple. LUNGS: Breath sounds equal, clear to auscultation bilaterally. No wheezes, and no crackles. No accessory muscle use. HEART: Irregularly irregular rate and rhythm, normal S1 and S2 without murmur. ABDOMEN: Soft, nontender, no organomegaly. NEUROLOGICAL: No facial droop, EOM intact, pupils b/l equal and reacting to light. Sensation intact. Tongue midline. Normal speech. Power: Left Upper Ext: 0/5 Right Upper Ext: 0/5 Right lower ext: 1/5 only able to wiggle toes Left lower ext: 2/5 able to lift the foot PSYCHIATRIC: Cooperative. Good eye contact. Appropriate mood and affect. SKIN: Warm, dry, normal turgor, no rashes or lesions noted. Laboratory Results - last 24 hr 12/28/17 12/28/17 12/28/17 09:30 12:35 12:45 Sodium 141 Potassium 3.9 Chloride 105 Carbon Dioxide 25 Anion Gap 11 BUN 7 Creatinine 0.3 L Creat Clearance w eGFR > 60 Random Glucose 109 H Calcium 8.9 Total Bilirubin 1.2 H AST 18 ALT 17 Alkaline Phosphatase 75 Total Protein 6.6 Albumin 3.3 L TSH 3.53 Cancelled Free T4 1.36 Cancelled Urine Color Yellow Urine Appearance Cloudy Urine pH 5.0 Ur Specific [place]cox 1.010 Urine Protein Negative Urine Glucose (UA) Negative Urine Ketones Negative Urine Blood 1+ H Urine Nitrite Positive Urine Bilirubin Negative Urine Urobilinogen Negative Ur Leukocyte Esterase 2+ H Urine WBC (Auto) 43 Urine RBC (Auto) <1 Urine Bacteria Rare Active Medications Generic Name Dose Route Start Last Admin Trade Name Freq PRN Reason Stop Dose Admin Acetaminophen 500 mg 12/28/17 12:15 12/29/17 09:47 Tylenol - PO 500 mg Q4H CHLOÉ Administration Apixaban 5 mg 12/28/17 22:00 Eliquis - PO BID CHLOÉ Docusate Sodium 300 mg 12/29/17 10:00 12/29/17 09:47 Colace - PO 300 mg DAILY CHLOÉ Administration Losartan Potassium 50 mg 12/29/17 10:00 12/29/17 09:47 Cozaar - PO 50 mg DAILY CHLOÉ Administration Metoprolol Tartrate 50 mg 12/29/17 12:15 Lopressor - PO DAILY CHLOÉ Patient is a 76 year old female with a history of ALS (hasn't had definitive diagnosis) with worsening symptoms-mainly difficulty swallowing since a week. ASSESSMENT Worsening ALS Hypertension Atrial fibrillation on eliquis PLAN: Worsening ALS As per the note, she is here at [facility] for IVIG. Discussed with Dr. Vega regarding the IVIG, as per neurology. IVIG can be given peripherally as well if it is for a short period of time. Plan explained to the patient and family. They verbalized understanding. Case discussed with Dr. Mtz. Dispo: We will continue to follow the patient. Thank you for this consultative opportunity.
[2017-12-29] MEDS: METOPROLOL TARTRATE 50 MG TABLET (FP) PO SCH (12:17)
--- NOTE | 2017-12-29 14:53 | CON.GI ---
Consult Consult Specialty:: Gastroenterology Referred by:: Dr. Dent Reason for Consultation:: Dysphagia - History of Present Illness Chief Complaint: Not eating adequately History of Present Illness: 77F presents with c/o not eating adequately. She denies any trouble with swallowing thin liquids. Her problem with solids is that she is afraid to swallow them and becomes too fatigued to chew adequately. She has never had anything get stuck or had to regurgitate. Her daughters tell me that she is eating minimal amounts for breakfast and lunch and skips lunch. She was seen by the swallowing therapist who found no oropharyngeal problems or any propensity to aspirate. She has a neuromuscular disorder which she tells me is felt to be autoimmune and has denied a unified diagnosis despite having sought at least 7 opinions. She was diagnosed as ALS by some of the consultants. She has failed to respond to IVIG. She lost the ability to ambulate 5 months ago. She has constipation since this disorder began. Her daughters are at the bedside and provided much of the data. She did have a colonoscopy with Dr Greenwood in 2013 which led to removal of hyperplastic descending and transverse colon polyps and which revealed diverticulosis and a lipomatous ileocecal valve. 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: Other (ALS type AUTOIMMUNE NEUROPATHY) Cardio/Vascular: Yes: AFIB, Aortic Stenosis (s/p bovine AVR 05/06 [facility] [place]), HTN, Hyperlipdemia Gastrointestinal: Yes: Constipation, Diverticulosis, Other (hyperplastic colon polyps) Hepatobiliary: Yes: Cholelithiasis (s/p lap choly) Psych: Yes: Anxiety - Past Surgical History Past Surgical History: Yes: Cholecystectomy, Colonoscopy (colon polyps removed 2013), Valve Replacement (bovine AVR 05/06) - Alcohol/Substance Use Hx Alcohol Use: No History of Substance Use: reports: None - Smoking History Smoking history: Former smoker Have you smoked in the past 12 months: No Aproximately how many cigarettes per day: 0 If you are a former smoker, when did you quit?: 45 YRS AGO - Social History Usual Living Arrangement: With Child ADL: Family Assistance Place of : [facility] History of Recent Travel: No Home Medications - Allergies Allergies/Adverse Reactions: Allergies Allergy/AdvReac Type Severity Reaction Status Date / Time No Known Drug Allergies Allergy Verified 12/28/17 08:36 - Home Medications Home Medications: Ambulatory Orders Acetaminophen [Tylenol -] 1,000 mg PO Q8H PRN 12/28/17 Apixaban [Eliquis] 5 mg PO BID 12/28/17 Docusate Sodium [Colace -] 240 mg PO DAILY 12/28/17 Losartan Potassium 50 mg PO DAILY 12/28/17 Metoprolol Tartrate 50 mg PO BID 12/28/17 Family Disease History - Family Disease History Family Disease History: Diabetes: Sister (COPD), CA: Mother ( 90 cholangiocarcinoma), Other: Father ( 67 COPD) Review of Systems - Review of Systems Constitutional: reports: Lethargy, Loss of Appetite, Unintentional Wgt. Loss, Weakness Eyes: reports: Blind Spots HENT: reports: Difficult Swallowing (due to insufficient chewing) Neck: reports: No Symptoms Cardiovascular: reports: No Symptoms Respiratory: reports: No Symptoms Gastrointestinal: reports: Constipation Physical Exam-GI Vital Signs: Vital Signs Temperature 97.8 F 12/29/17 10:00 Pulse Rate 100 H 12/29/17 10:00 Respiratory Rate 20 12/29/17 10:00 Blood Pressure 120/90 12/29/17 10:00 O2 Sat by Pulse Oximetry (%) 96 12/29/17 10:00 CBC,CMP WBC 4.9 K/mm3 (4.0-10.0) 12/28/17 09:30 RBC 5.78 M/mm3 (3.60-5.2) H 12/28/17 09:30 Hgb 16.7 GM/dL (10.7-15.3) H 12/28/17 09:30 Hct 49.7 % (32.4-45.2) H D 12/28/17 09:30 MCV 86.0 fl (80-96) 12/28/17 09:30 MCH 28.9 pg (25.7-33.7) 12/28/17 09:30 MCHC 33.6 g/dl (32.0-36.0) 12/28/17 09:30 RDW 15.1 % (11.6-15.6) 12/28/17 09:30 Plt Count 180 K/MM3 (134-434) 12/28/17 09:30 MPV 8.5 fl (7.5-11.1) 12/28/17 09:30 Absolute Neuts (auto) 2.9 K/mm3 (1.5-8.0) 12/28/17 09:30 Neutrophils % 59.1 % (42.8-82.8) 12/28/17 09:30 Lymphocytes % 30.9 % (8-40) 12/28/17 09:30 Monocytes % 8.5 % (3.8-10.2) 12/28/17 09:30 Eosinophils % 0.4 % (0-4.5) 12/28/17 09:30 Basophils % 1.1 % (0-2.0) 12/28/17 09:30 Nucleated RBC % 0 % (0-0) 12/28/17 09:30 Sodium 141 mmol/L (136-145) 12/28/17 09:30 Potassium 3.9 mmol/L (3.5-5.1) 12/28/17 09:30 Chloride 105 mmol/L (98-107) 12/28/17 09:30 Carbon Dioxide 25 mmol/L (21-32) 12/28/17 09:30 Anion Gap 11 MMOL/L (8-16) 12/28/17 09:30 BUN 7 mg/dL (7-18) 12/28/17 09:30 Creatinine 0.3 mg/dL (0.55-1.02) L 12/28/17 09:30 Creat Clearance w eGFR > 60 (>60) 12/28/17 09:30 Random Glucose 109 mg/dL (74-106) H 12/28/17 09:30 Calcium 8.9 mg/dL (8.5-10.1) 12/28/17 09:30 Total Bilirubin 1.2 mg/dL (0.2-1.0) H 12/28/17 09:30 AST 18 U/L (15-37) 12/28/17 09:30 ALT 17 U/L (12-78) 12/28/17 09:30 Alkaline Phosphatase 75 U/L (45-117) 12/28/17 09:30 Total Protein 6.6 g/dl (6.4-8.2) 12/28/17 09:30 Albumin 3.3 g/dl (3.4-5.0) L 12/28/17 09:30 TSH Cancelled 12/28/17 12:45 Free T4 Cancelled 12/28/17 12:45 Current Medications Generic Name Dose Route Start Last Admin Trade Name Fernando PRN Reason Stop Dose Admin Acetaminophen 500 mg 12/28/17 12:15 12/29/17 14:26 Tylenol - PO Not Given Q4H CHLOÉ Apixaban 5 mg 12/28/17 22:00 Eliquis - PO BID CHLOÉ Docusate Sodium 300 mg 12/29/17 10:00 12/29/17 09:47 Colace - PO 300 mg DAILY CHLOÉ Administration Losartan Potassium 50 mg 12/29/17 10:00 12/29/17 09:47 Cozaar - PO 50 mg DAILY CHLOÉ Administration Metoprolol Tartrate 50 mg 12/29/17 12:15 12/29/17 12:17 Lopressor - PO 50 mg DAILY CHLOÉ Administration Constitutional: Yes: Anxious Eyes: Yes: Conjunctiva Clear HENT: Yes: Normocephalic Neck: Yes: Trachea Midline Cardiovascular: Yes: Regular Rate and Rhythm, Other (healed median sternotomy incision) Respiratory: Yes: CTA Bilaterally Gastrointestinal Inspection: Yes: Scars (healed lap choly incisions) ...Auscultate: Yes: Normoactive Bowel Sounds ...Palpate: Yes: Soft, Other (nontender) ...Rectal Exam: Yes: Guaiac Negative (full of semihard brown feces) Neurological: Yes: Alert, Oriented Labs: CBC, BMP 12/28/17 09:30 12/28/17 09:30 INR, PTT INR 1.44 (0.83-1.09) H 12/28/17 09:30 Problem List - Problems (1) Dysphagia Assessment/Plan: Teena does not appear to have oropharyngeal or esophageal dysphagia. Her problem appears to be the challenge of chewing adequately. I explained to her and her daughters that she has not reached the stage where she needs a feeding tube. I have advised a chopped diet to minimize her chewing ( puree is not appealing to her) and emphasized the need to prioritize the healthier and more nutritious foods before eating the starches. I suspect that there is a component of depression and perhaps a mood elevating drug would help to stimulate her appetite. In response to the daughters questions I did discuss the risks of the PEG procedure, in particular the need for anesthesia and risks of compromising her airway with the endoscope. If a feeding tube is needed it may be best to have IR place it. Code(s): R13.10 - DYSPHAGIA, UNSPECIFIED Qualifiers: Dysphagia type: oral phase Qualified Code(s): R13.11 - Dysphagia, oral phase (2) Constipation by delayed colonic transit Assessment/Plan: I advised increasing the fiber in Teena's diet by chopping up fruit, vegetables and legumes and also advised Miralax BID. Code(s): K59.01 - SLOW TRANSIT CONSTIPATION (3) Colon polyp, hyperplastic Code(s): K63.5 - POLYP OF COLON Qualifiers: Colon location: descending Qualified Code(s): K63.5 - Polyp of colon (4) Diverticulosis Code(s): K57.90 - DVRTCLOS OF INTEST, PART UNSP, W/O PERF OR ABSCESS W/O BLEED Qualifiers: Diverticulosis site: diverticulosis of large intestine (5) ALS (amyotrophic lateral sclerosis) Code(s): G12.21 - AMYOTROPHIC LATERAL SCLEROSIS (6) History of prosthetic aortic valve Code(s): Z95.2 - PRESENCE OF PROSTHETIC HEART VALVE (7) Atrial fibrillation Code(s): I48.91 - UNSPECIFIED ATRIAL FIBRILLATION Assessment/Plan Chopped diet Miralax
--- NOTE | 2017-12-29 15:15 | PN ---
Progress Note, Physician Chief Complaint: EVENTS NOTED AND REVIEWED PATIENT IN BED H/O ALS AND DYSPHAGIA DAUGHTER BEDSIDE WITH COMPLETE MEDICAL HISTORY - Current Medication List Current Medications: Active Medications Acetaminophen (Tylenol -) 500 mg PO Q4H [facility] Last Admin: 12/29/17 14:26 Dose: Not Given Apixaban (Eliquis -) 5 mg PO BID [facility] Docusate Sodium (Colace -) 300 mg PO DAILY [facility] Last Admin: 12/29/17 09:47 Dose: 300 mg Losartan Potassium (Cozaar -) 50 mg PO DAILY [facility] Last Admin: 12/29/17 09:47 Dose: 50 mg Metoprolol Tartrate (Lopressor -) 50 mg PO DAILY [facility] Last Admin: 12/29/17 12:17 Dose: 50 mg - Objective Vital Signs: Vital Signs Temperature 97.8 F 12/29/17 10:00 Pulse Rate 100 H 12/29/17 10:00 Respiratory Rate 20 12/29/17 10:00 Blood Pressure 120/90 12/29/17 10:00 O2 Sat by Pulse Oximetry (%) 96 12/29/17 10:00 Constitutional: Yes: Mild Distress Eyes: Yes: WNL HENT: Yes: WNL Neck: Yes: WNL Cardiovascular: Yes: Pulse Irregular Respiratory: Yes: WNL Gastrointestinal: Yes: WNL Genitourinary: Yes: Incontinence Musculoskeletal: Yes: Muscle Weakness Extremities: Yes: Other Edema: Yes Edema: LLE: Trace, RLE: Trace Peripheral Pulses WNL: Yes Integumentary: Yes: WNL Wound/Incision: Yes: Open to air Neurological: Yes: Loss of Sensation, Pre-Existing Deficit, Weakness, Other ...Motor Strength: LUE, LLE, RUE, RLE Psychiatric: Yes: WNL Labs: CBC, BMP 12/28/17 09:30 12/28/17 09:30 INR, PTT INR 1.44 (0.83-1.09) H 12/28/17 09:30 Problem List - Problems (1) Dysphagia Code(s): R13.10 - DYSPHAGIA, UNSPECIFIED Qualifiers: Dysphagia type: unspecified Qualified Code(s): R13.10 - Dysphagia, unspecified (2) Weakness Code(s): R53.1 - WEAKNESS (3) Aortic stenosis Code(s): Q25.3 - SUPRAVALVULAR AORTIC STENOSIS (4) HTN (hypertension) Code(s): I10 - ESSENTIAL (PRIMARY) HYPERTENSION Qualifiers: Hypertension type: essential hypertension Qualified Code(s): I10 - Essential (primary) hypertension (5) ALS (amyotrophic lateral sclerosis) Code(s): G12.21 - AMYOTROPHIC LATERAL SCLEROSIS (6) History of prosthetic aortic valve Code(s): Z95.2 - PRESENCE OF PROSTHETIC HEART VALVE (7) Atrial fibrillation Code(s): I48.91 - UNSPECIFIED ATRIAL FIBRILLATION Assessment/Plan SCHEDULING IV ACCESS WITH DR CHRIS SOTO SX DR ALEJANDRO/JB TO COORDINATE IV IMMUNOGLOBULIN THERAPY DVT PROPHYLAXIS AND AFIB AC ELIQUIS SWALLOW EVAL AND POSSIBLE GTUBE FOR DYSPHAGIA PT EVAL OOB TO CHAIR
[2017-12-29 16:42] LABS: HEMATOCRIT 45.3 % (32.4-45.2); HEMOGLOBIN 15.2 GM/dL (10.7-15.3); MCH 29.1 pg (25.7-33.7); MCHC 33.7 g/dl (32.0-36.0); MEAN CELL VOLUME 86.4 fl (80-96); MEAN PLT VOLUME 8.7 fl (7.5-11.1); PLATELET COUNT 190 K/MM3 (134-434); RBC 5.24 M/mm3 (3.60-5.2); RDW 15.1 % (11.6-15.6); WHITE BLOOD COUNT 5.7 K/mm3 (4.0-10.0)
[2017-12-29 17:16] LABS: INR 1.07 (0.83-1.09); PROTHROMBIN TIME (PATIENT) 12.1 SEC (9.7-13.0)
[2017-12-29 17:19] LABS: ACTIVATED PTT 31.6 SECONDS (25.2-36.5)
[2017-12-29] MEDS ORDERED: ACETAMINOPHEN 325 MG TABLET (FP) PO PRN (20:09)
[2017-12-29] MEDS ORDERED: diphenhydrAMINE HCL 25 MG CAPSULE (FP) PO PRN (20:10)
--- NOTE | 2017-12-29 23:00 | CONSULT ---
Consult - text type - Consultation Consultation Note: Patient sen and examined 76 yo f w/ PMH HTN, HLD, ALS (wheelchair and bed bound), and A-fib on eliquis who presents to ED for progressive dysphagia, and weakness. Here for admission for port placement for IVIG therapy. Per daughter patient has been having difficulty with swallowing over the past two weeks, with choking, and gagging on liquids and solids. She has baseline motor function in distal lower extremities, and absent motor function in upper extremities. Patient denies N/V, F,C, CP, SOB, urinary complaints, abdominal pain, diarrhea, constipation, lightheadedness, sensory changes. PMHx: as noted above Surgical: Aortic valve replacement, Cholecystectomy SHx: Smoking Cessation 45 years ago Allergies: NKDA Allergies/Adverse Reactions: Allergies Allergy/AdvReac Type Severity Reaction Status Date / Time No Known Drug Allergies Allergy Verified 12/28/17 08:36 Home Medications: Ambulatory Orders Acetaminophen [Tylenol -] 500 mg PO Q4H 12/28/17 Apixaban [Eliquis] 5 mg PO BID 12/28/17 Docusate Sodium [Colace -] 240 mg PO DAILY 12/28/17 Losartan Potassium 50 mg PO DAILY 12/28/17 Metoprolol Tartrate 50 mg PO DAILY 12/28/17 PMH Cardiac Disorders: Yes (aortic stenosis, VALVE REPLACEMENT, AFIB) HTN: Yes Hypercholesterolemia: Yes ? ALS - Surgical History Cardiac Surgery: Yes (Aortic valve replacement) Cholecystectomy: Yes - Suicide/Smoking/Psychosocial Hx Smoking History: Former smoker Vital Signs Temperature 97.8 F 12/29/17 10:00 Pulse Rate 100 H 12/29/17 10:00 Respiratory Rate 20 12/29/17 10:00 Blood Pressure 120/90 12/29/17 10:00 O2 Sat by Pulse Oximetry (%) 96 12/29/17 10:00 HEENT-Nl Cor: RSR, No murmurs, No gallops Lungs: Clear to P&A Abd: Soft, Normal bowel sounds, No organomegaly Ext:No significant edema A/P 77 y/o female with presumed ALS, ? worsening dysphagia, here for possible PEG/ port placement for terminal supervisor IVIG discussed with covering neurologist IVIG could be given peripherally Would need to consider port placement if terminal supervisor IVIG is planned Awaiting final neurology recommendations prior to coordinating port/PEG [facility] on hold discussed with primary team
[2017-12-30] MEDS: ACETAMINOPHEN 500 MG TABLET (FP) PO SCH ×4 (01:22→12:49)
[2017-12-30 07:39] LABS: INR 1.04 (0.83-1.09); PROTHROMBIN TIME (PATIENT) 11.8 SEC (9.7-13.0)
[2017-12-30 07:41] LABS: HEMATOCRIT 47.2 % (32.4-45.2); HEMOGLOBIN 15.2 GM/dL (10.7-15.3); MCHC 32.2 g/dl (32.0-36.0); MEAN PLT VOLUME 8.6 fl (7.5-11.1); PLATELET COUNT 168 K/MM3 (134-434); RBC 5.43 M/mm3 (3.60-5.2); RDW 15.1 % (11.6-15.6); WHITE BLOOD COUNT 4.6 K/mm3 (4.0-10.0)
[2017-12-30 07:42] LABS: ACTIVATED PTT 30.8 SECONDS (25.2-36.5)
--- NOTE | 2017-12-30 08:43 | PN ---
Progress Note, Physician - Current Medication List Current Medications: Active Medications Acetaminophen (Tylenol -) 500 mg PO Q4H [facility] Last Admin: 12/30/17 05:41 Dose: Not Given Acetaminophen (Tylenol -) 650 mg PO DAILY PRN PRN Reason: IF NEEDED FOR IVIG RXN Apixaban (Eliquis -) 5 mg PO BID [facility] Diphenhydramine HCl (Benadryl -) 25 mg PO DAILY PRN PRN Reason: IF NEEDED FOR IVIG RXN Docusate Sodium (Colace -) 300 mg PO DAILY [facility] Last Admin: 12/29/17 09:47 Dose: 300 mg Immune Globulin (Gamunex-C) 60 gm in 600 mls @ 100 mls/hr IVPB DAILY [facility] Stop: 12/31/17 15:59 Losartan Potassium (Cozaar -) 50 mg PO DAILY [facility] Last Admin: 12/29/17 09:47 Dose: 50 mg Metoprolol Tartrate (Lopressor -) 50 mg PO DAILY [facility] Last Admin: 12/29/17 12:17 Dose: 50 mg - Objective Vital Signs: Vital Signs Temperature 97.7 F 12/30/17 06:00 Pulse Rate 122 H 12/30/17 06:00 Respiratory Rate 20 12/30/17 06:00 Blood Pressure 108/67 12/30/17 06:00 O2 Sat by Pulse Oximetry (%) 96 12/29/17 22:00 Cardiovascular: Yes: S1, S2 Respiratory: Yes: Regular, CTA Bilaterally Gastrointestinal: Yes: Normal Bowel Sounds, Soft Labs: CBC, BMP 12/30/17 06:20 12/28/17 09:30 INR, PTT INR 1.04 (0.83-1.09) 12/30/17 06:20 Fibrinogen 401.0 mg/dL (238-498) 12/30/17 06:20 Problem List - Problems (1) ALS (amyotrophic lateral sclerosis) Assessment/Plan: AND AUTOIMMUNE NEUROPATHY FOR LINE PLACEMENT FOR IVIG AND POSSIBLE IV STEROIDS NEUROLOGY CONSULT --D/W DR ZUÑIGA WILL START RX Code(s): G12.21 - AMYOTROPHIC LATERAL SCLEROSIS (2) Dysphagia Assessment/Plan: -SWALLOW EVAL Code(s): R13.10 - DYSPHAGIA, UNSPECIFIED Qualifiers: Dysphagia type: oral phase Qualified Code(s): R13.11 - Dysphagia, oral phase (3) HTN (hypertension) Assessment/Plan: Vital Signs Temp 97.4 F L 12/28/17 08:37 Pulse 59 L 12/28/17 08:37 Resp 16 12/28/17 08:37 BP 118/77 12/28/17 08:37 Pulse Ox 97 12/28/17 09:53 Code(s): I10 - ESSENTIAL (PRIMARY) HYPERTENSION Qualifiers: Hypertension type: essential hypertension Qualified Code(s): I10 - Essential (primary) hypertension (4) Atrial fibrillation Assessment/Plan: -ELIQUIS--resume -METOPROLOL -EKG Code(s): I48.91 - UNSPECIFIED ATRIAL FIBRILLATION
--- NOTE | 2017-12-30 09:15 | PN ---
Progress Note (short form) - Note Progress Note: Neurology History of Present Illness: Covering for Dr. Emmanuel 76 yo f w/ PMH HTN, HLD, ALS (wheelchair and bed bound), and A-fib on eliquis who presents to ED for progressive dysphagia, and weakness. Reportedly here for admission for IVIG therapy. Reportedly with general decline in motor tasks, swallowing, and worsening ALS progression. Reportedly with similar admissions previously and would get IVIG immunosupressive therapy and possible steroids. Seems ALS has progressive to include dysphagia. Discussed with Heme yesterday, also conferred with Dr. Emmanuel via messaging. IVIG started 60mg daily for 2 days. No need for port, can be peripherally placed. Being considered for PEG as well. GI consulted. Discussed with PCP last night as well. Active Medications Acetaminophen (Tylenol -) 500 mg PO Q4H [facility] Last Admin: 12/30/17 05:41 Dose: Not Given Acetaminophen (Tylenol -) 650 mg PO DAILY PRN PRN Reason: IF NEEDED FOR IVIG RXN Apixaban (Eliquis -) 5 mg PO BID [facility] Diphenhydramine HCl (Benadryl -) 25 mg PO DAILY PRN PRN Reason: IF NEEDED FOR IVIG RXN Docusate Sodium (Colace -) 300 mg PO DAILY [facility] Last Admin: 12/29/17 09:47 Dose: 300 mg Immune Globulin (Gamunex-C) 60 gm in 600 mls @ 100 mls/hr IVPB DAILY [facility] Stop: 12/31/17 15:59 Losartan Potassium (Cozaar -) 50 mg PO DAILY [facility] Last Admin: 12/29/17 09:47 Dose: 50 mg Metoprolol Tartrate (Lopressor -) 50 mg PO DAILY [facility] Last Admin: 12/29/17 12:17 Dose: 50 mg Physical Examination Vital Signs: Vital Signs Temperature 97.7 F 12/30/17 06:00 Pulse Rate 122 H 12/30/17 06:00 Respiratory Rate 20 12/30/17 06:00 Blood Pressure 108/67 12/30/17 06:00 O2 Sat by Pulse Oximetry (%) 96 12/29/17 22:00 Cardiovascular: Yes: Pulse Irregular, S1, S2 Respiratory: Yes: Regular, CTA Bilaterally Gastrointestinal: Yes: Normal Bowel Sounds, Soft Edema: Yes Edema: LLE: Trace, RLE: Trace Neurological: Awake, alert, communicative, follows commands, 1/5 in LE, 0-1/5 in UE, sensory intact to PP, gait deferred CBCD WBC 4.6 K/mm3 (4.0-10.0) 12/30/17 06:20 RBC 5.43 M/mm3 (3.60-5.2) H 12/30/17 06:20 Hgb 15.2 GM/dL (10.7-15.3) 12/30/17 06:20 Hct 47.2 % (32.4-45.2) H 12/30/17 06:20 MCV 87.0 fl (80-96) 12/30/17 06:20 MCHC 32.2 g/dl (32.0-36.0) 12/30/17 06:20 RDW 15.1 % (11.6-15.6) 12/30/17 06:20 Plt Count 168 K/MM3 (134-434) 12/30/17 06:20 MPV 8.6 fl (7.5-11.1) 12/30/17 06:20 CMP Sodium 141 mmol/L (136-145) 12/28/17 09:30 Potassium 3.9 mmol/L (3.5-5.1) 12/28/17 09:30 Chloride 105 mmol/L (98-107) 12/28/17 09:30 Carbon Dioxide 25 mmol/L (21-32) 12/28/17 09:30 Anion Gap 11 MMOL/L (8-16) 12/28/17 09:30 BUN 7 mg/dL (7-18) 12/28/17 09:30 Creatinine 0.3 mg/dL (0.55-1.02) L 12/28/17 09:30 Creat Clearance w eGFR > 60 (>60) 12/28/17 09:30 Random Glucose 109 mg/dL (74-106) H 12/28/17 09:30 Calcium 8.9 mg/dL (8.5-10.1) 12/28/17 09:30 Total Bilirubin 1.2 mg/dL (0.2-1.0) H 12/28/17 09:30 AST 18 U/L (15-37) 12/28/17 09:30 ALT 17 U/L (12-78) 12/28/17 09:30 Alkaline Phosphatase 75 U/L (45-117) 12/28/17 09:30 Total Protein 6.6 g/dl (6.4-8.2) 12/28/17 09:30 Albumin 3.3 g/dl (3.4-5.0) L 12/28/17 09:30 Plan 76 yo f w/ PMH HTN, HLD, ALS (wheelchair and bed bound), and A-fib on eliquis who presents to ED for progressive dysphagia, and weakness. Reportedly here for admission for port placement for IVIG therapy.Reportedly with general decline in motor tasks, swallowing, and worsening ALS progression. Reportedly with similar admissions previously and would get IVIG immunosupressive therapy and possible steroids. Seems ALS has progressive to include dysphagia. Would continue with this mgmt though unclear if will yield any benefit consider chronic progressive decline. Speech/swallow eval. PT as tolerated. Monitor BP, maintain normotensive range. On Eliquis for Afib. IVIG ordered, premedication with benadryl and tylenol ordered overnight if needed.
[2017-12-30] MEDS: DOCUSATE SODIUM 100 MG CAPSULE (FP) PO SCH (10:11)
[2017-12-30] MEDS: METOPROLOL TARTRATE 50 MG TABLET (FP) PO SCH (10:11)
[2017-12-30] MEDS: LOSARTAN POTASSIUM 50 MG TABLET (FP) PO SCH (10:11)
--- NOTE | 2017-12-30 10:43 | SPA.PREOP ---
- PRE-OP NOTE Dx: Progression of ALS Planned Procedure: Port placement Surgeon: Jewel Adams Consent: To be obtained by surgeon after risks, benefits and alternatives explained to the patient. Last Vital Signs Temp Pulse Resp BP Pulse Ox 97.7 F 122 H 20 108/67 96 12/30/17 06:00 12/30/17 06:00 12/30/17 06:00 12/30/17 06:00 12/29/17 22:00 Lab Results WBC 4.6 K/mm3 (4.0-10.0) 12/30/17 06:20 RBC 5.43 M/mm3 (3.60-5.2) H 12/30/17 06:20 Hgb 15.2 GM/dL (10.7-15.3) 12/30/17 06:20 Hct 47.2 % (32.4-45.2) H 12/30/17 06:20 MCV 87.0 fl (80-96) 12/30/17 06:20 MCHC 32.2 g/dl (32.0-36.0) 12/30/17 06:20 RDW 15.1 % (11.6-15.6) 12/30/17 06:20 Plt Count 168 K/MM3 (134-434) 12/30/17 06:20 Sodium 141 mmol/L (136-145) 12/28/17 09:30 Potassium 3.9 mmol/L (3.5-5.1) 12/28/17 09:30 Chloride 105 mmol/L (98-107) 12/28/17 09:30 Carbon Dioxide 25 mmol/L (21-32) 12/28/17 09:30 Anion Gap 11 MMOL/L (8-16) 12/28/17 09:30 BUN 7 mg/dL (7-18) 12/28/17 09:30 Creatinine 0.3 mg/dL (0.55-1.02) L 12/28/17 09:30 Random Glucose 109 mg/dL (74-106) H 12/28/17 09:30 Calcium 8.9 mg/dL (8.5-10.1) 12/28/17 09:30 Blood Type B POSITIVE 12/28/17 09:30 Antibody Screen Negative 12/28/17 09:30 INR 1.04 (0.83-1.09) 12/30/17 06:20 - ASSESSMENT/PLAN Problem List - Problems (1) ALS (amyotrophic lateral sclerosis) Assessment/Plan: 1. NPO after midnight except PO meds 2. GI/DVT PPX 3. Medical optimization / clearance 4. Hibiclens body wash Code(s): G12.21 - AMYOTROPHIC LATERAL SCLEROSIS Visit type - Case Type Case Type: ED Admission - New patient This patient is new to me today: Yes Date on this admission: 12/30/17
--- NOTE | 2017-12-30 11:54 | PN ---
Progress Note, Physician Chief Complaint: ALS - Current Medication List Current Medications: Active Medications Acetaminophen (Tylenol -) 500 mg PO Q4H [facility] Last Admin: 12/30/17 09:50 Dose: Not Given Acetaminophen (Tylenol -) 650 mg PO DAILY PRN PRN Reason: IF NEEDED FOR IVIG RXN Apixaban (Eliquis -) 5 mg PO BID [facility] Chlorhexidine Gluconate (Hibiclens For Decolonization -) 1 applic TP HS [facility] Diphenhydramine HCl (Benadryl -) 25 mg PO DAILY PRN PRN Reason: IF NEEDED FOR IVIG RXN Docusate Sodium (Colace -) 300 mg PO DAILY [facility] Last Admin: 12/30/17 10:11 Dose: 300 mg Immune Globulin (Gamunex-C) 60 gm in 600 mls @ 100 mls/hr IVPB DAILY [facility] Stop: 12/31/17 15:59 Losartan Potassium (Cozaar -) 50 mg PO DAILY [facility] Last Admin: 12/30/17 10:11 Dose: 50 mg Metoprolol Tartrate (Lopressor -) 50 mg PO DAILY [facility] Last Admin: 12/30/17 10:11 Dose: 50 mg - Objective Vital Signs: Vital Signs Temperature 97.9 F 12/30/17 09:04 Pulse Rate 88 12/30/17 09:04 Respiratory Rate 20 12/30/17 09:04 Blood Pressure 118/68 12/30/17 09:04 O2 Sat by Pulse Oximetry (%) 96 12/29/17 22:00 Constitutional: Yes: Well Nourished, No Distress, Calm Cardiovascular: Yes: Regular Rate and Rhythm Gastrointestinal: Yes: Normal Bowel Sounds, Soft Musculoskeletal: Yes: Muscle Weakness Neurological: Yes: Alert, Oriented Psychiatric: Yes: Alert, Oriented Labs: CBC, BMP 12/30/17 06:20 12/28/17 09:30 INR, PTT INR 1.04 (0.83-1.09) 12/30/17 06:20 Fibrinogen 401.0 mg/dL (238-498) 12/30/17 06:20 Problem List - Problems (1) Functional quadriplegia Code(s): R53.2 - FUNCTIONAL QUADRIPLEGIA (2) Motor neuron disease Assessment/Plan: -Neurology on board -IVIg monthly -[place] [place]s): G12.20 - MOTOR NEURON DISEASE, UNSPECIFIED (3) UTI (urinary tract infection) Assessment/Plan: -On IV abx UC: Microbiology 12/28/17 12:24 Urine - Urine [place] Urine Culture - Final Escherichia Coli Code(s): N39.0 - URINARY TRACT INFECTION, SITE NOT SPECIFIED (4) Atrial fibrillation Assessment/Plan: -Chronic -Restart eliquis when hempdynamicaly stable Code(s): I48.91 - UNSPECIFIED ATRIAL FIBRILLATION Assessment/Plan see problem list
[2017-12-30] MEDS ORDERED: CEFUROXIME AXETIL 500 MG TABLET PO SCH (12:00)
[2017-12-30 15:03] VITALS: BMI 30.6
[2017-12-30] MEDS: IMMUNE GLOB,GAM CAPRYLATE(IGG) 60 GM/600 ML VIA IVPB SCH (15:24)
[2017-12-30] MEDS ORDERED: diphenhydrAMINE HCL 25 MG CAPSULE (FP) PO PRN (16:11)
[2017-12-30] MEDS ORDERED: CEFTRIAXONE 1 GM in DEXTROSE 5%-WATER - 100 ML IVPB SCH (16:45)
--- NOTE | 2017-12-30 16:58 | PN ---
Progress Note, [employer] - Note Progress Note: 77 yo seem at bedside as follow up to swallow eval with recommendations for dysphagia puree and thin liquids. Pt is consuming about 50% of meal at this time. Reportedly scheduled for PEG procedure to assist with medication, nutritional support and hydration. Continue current diet as tolerated. Observe standard aspiration precautions. [employer] to follow up.
--- NOTE | 2017-12-30 18:01 | PN ---
Physical Exam: SUBJECTIVE: Patient seen and examined at bed side this morning. Denies chest pain, sob, cough, palpitation, abdominal pain, nausea or vomiting. Hasn't had Bowel movement since 5 days. No acute overnight events. OBJECTIVE: Vital Signs Period Temp Pulse Resp BP Sys/Lorenzo Pulse Ox Last 24 Hr 97.7 F-98.3 F 70-123 20-20 108-138/62-82 96-96 GENERAL: Elderly female, lying in bed, Awake, alert, and fully oriented, in no acute distress. HEAD: Normal with no signs of trauma. EYES: EOM intact, no pallor or icterus. EARS, NOSE, THROAT: Ears normal. Moist mucous membranes. NECK: Supple. LUNGS: Breath sounds equal, clear to auscultation bilaterally. No wheezes, and no crackles. No accessory muscle use. HEART: Irregularly irregular rate and rhythm, normal S1 and S2 without murmur. ABDOMEN: Soft, nontender, no organomegaly. NEUROLOGICAL: No facial droop, EOM intact, pupils b/l equal and reacting to light. Sensation intact. Tongue midline. Normal speech. Power: Left Upper Ext: 0/5 Right Upper Ext: 0/5 Right lower ext: 1/5 only able to wiggle toes Left lower ext: 2/5 able to lift the foot PSYCHIATRIC: Cooperative. Good eye contact. Appropriate mood and affect. SKIN: Warm, dry, normal turgor, no rashes or lesions noted. Laboratory Results - last 24 hr 12/30/17 12/30/17 12/30/17 06:20 06:20 06:20 WBC 4.6 RBC 5.43 H Hgb 15.2 Hct 47.2 H MCV 87.0 MCH 28.0 MCHC 32.2 RDW 15.1 Plt Count 168 MPV 8.6 PT with INR 11.80 INR 1.04 PTT (Actin FS) 30.8 Fibrinogen 401.0 Active Medications Generic Name Dose Route Start Last Admin Trade Name Freq PRN Reason Stop Dose Admin Acetaminophen 650 mg 12/30/17 16:10 Tylenol - PO Q4H PRN FEVER Chlorhexidine Gluconate 1 applic 12/30/17 22:00 Hibiclens For Decolonization - TP HS [facility] Diphenhydramine HCl 25 mg 12/30/17 16:11 Benadryl - PO DAILY PRN before IVIG treatment Docusate Sodium 300 mg 12/29/17 10:00 12/30/17 10:11 Colace - PO 300 mg DAILY [facility] Administration Heparin Sodium (Porcine) 5,000 unit 12/30/17 22:00 Heparin - SQ BID [facility] Immune Globulin 60 gm in 600 mls @ 100 mls/hr 12/30/17 10:00 12/30/17 15:24 Gamunex-C IVPB 12/31/17 15:59 84 mls/hr DAILY [facility] Administration Ceftriaxone Sodium 1 gm/ 50 mls @ 100 mls/hr 12/30/17 17:45 Dextrose IVPB DAILY [facility] Protocol Losartan Potassium 50 mg 12/29/17 10:00 12/30/17 10:11 Cozaar - PO 50 mg DAILY [facility] Administration Metoprolol Tartrate 50 mg 12/29/17 12:15 12/30/17 10:11 Lopressor - PO 50 mg DAILY [facility] Administration Patient is a 76 year old female with a history of ALS (hasn't had definitive diagnosis) with worsening symptoms-mainly difficulty swallowing since a week. ASSESSMENT Worsening ALS Hypertension Atrial fibrillation on eliquis PLAN: Worsening ALS As per the note, she is here at [facility] for IVIG. Discussed with Dr. Vega regarding the IVIG, as per neurology. IVIG can be given peripherally as well if it is for a short period of time. Plan explained to the patient and family. They verbalized understanding. Case discussed with Dr. Mtz. Dispo: We will continue to follow the patient. Thank you for this consultative opportunity. Visit type - Emergency Visit Emergency Visit: Yes ED Registration Date: 12/28/17 Care time: The patient presented to the Emergency Department on the above date and was hospitalized for further evaluation of their emergent condition. - New Patient This patient is new to me today: No - Critical Care Critical Care patient: No
--- NOTE | 2017-12-30 18:06 | PN ---
GI Progress Note Subjective: GI NOte: Has been trying chopped diet. She tells me that she has been eating about 50%. Encouraged to drink Ensure after meals. No dysphagia, choking or vomiting. - Objective Vital Signs: Vital Signs Temperature 97.7 F 12/30/17 15:45 Pulse Rate 123 H 12/30/17 15:45 Respiratory Rate 20 12/30/17 15:45 Blood Pressure 129/67 12/30/17 15:45 O2 Sat by Pulse Oximetry (%) 96 12/29/17 22:00 Laboratory Tests 12/28/17 09:30 Albumin 3.3 L Constitutional: No Distress ...Auscultate: Yes: Normoactive Bowel Sounds ...Palpate: Yes: Soft, Other (nontender) Labs: CBC, BMP 12/30/17 06:20 12/28/17 09:30 INR, PTT INR 1.04 (0.83-1.09) 12/30/17 06:20 Fibrinogen 401.0 mg/dL (238-498) 12/30/17 06:20 Problem List - Problems (1) Dysphagia Assessment/Plan: No dysphagia. Problem is ability to chew adequately due to her neurological condition. Will try to defer G tube insertion for as long as is possible which is Teena's wish. Will institute calorie count. Emphasized need to eat protein and the Ensure. Code(s): R13.10 - DYSPHAGIA, UNSPECIFIED Qualifiers: Qualified Code(s): R13.11 - Dysphagia, oral phase (2) Constipation by delayed colonic transit Code(s): K59.01 - SLOW TRANSIT CONSTIPATION (3) Colon polyp, hyperplastic Code(s): K63.5 - POLYP OF COLON Qualifiers: Qualified Code(s): K63.5 - Polyp of colon (4) Diverticulosis Code(s): K57.90 - DVRTCLOS OF INTEST, PART UNSP, W/O PERF OR ABSCESS W/O BLEED (5) ALS (amyotrophic lateral sclerosis) Code(s): G12.21 - AMYOTROPHIC LATERAL SCLEROSIS (6) History of prosthetic aortic valve Code(s): Z95.2 - PRESENCE OF PROSTHETIC HEART VALVE (7) Atrial fibrillation Code(s): I48.91 - UNSPECIFIED ATRIAL FIBRILLATION
[2017-12-30] MEDS: ACETAMINOPHEN 325 MG TABLET (FP) PO PRN (18:43)
[2017-12-30] MEDS: CEFTRIAXONE 1 GM in DEXTROSE 5%-WATER - 50 ML IVPB SCH (20:05)
[2017-12-30] MEDS ORDERED: DEXTROSE 5%-WATER - 50 ML IVPB ONE (20:06)
[2017-12-30] MEDS ORDERED: cefTRIAXone SODIUM 1 GM VIAL ONE (20:06)
[2017-12-30] MEDS: HEPARIN NA (PORCINE) 5,000 UNITS/ML 1ML VIAL SQ SCH (21:52)
[2017-12-30] MEDS: POLYETHYLENE GLYCOL 3350 119 GM BTL PO SCH (21:52)
[2017-12-31] MEDS: CHLORHEXIDINE GLUCONATE 4% CLEANSER FOR DECOLONIZATION TP SCH ×2 (02:14→22:27)
[2017-12-31] MEDS: POLYETHYLENE GLYCOL 3350 119 GM BTL PO SCH ×3 (06:22→22:28)
[2017-12-31 06:58] LABS: BASO % 1.4 % (0-2.0); EOS % 0.9 % (0-4.5); HEMATOCRIT 42.4 % (32.4-45.2); HEMOGLOBIN 14.2 GM/dL (10.7-15.3); LYMPH % 25.7 % (8-40); MCH 28.7 pg (25.7-33.7); MCHC 33.5 g/dl (32.0-36.0); MEAN CELL VOLUME 85.5 fl (80-96); MEAN PLT VOLUME 8.2 fl (7.5-11.1); PLATELET COUNT 122 K/MM3 (134-434); RBC 4.97 M/mm3 (3.60-5.2); RDW 14.9 % (11.6-15.6); WHITE BLOOD COUNT 2.1 K/mm3 (4.0-10.0)
[2017-12-31 08:01] LABS: CHLORIDE 105 mmol/L (98-107); POTASSIUM 3.9 mmol/L (3.5-5.1); SODIUM 138 mmol/L (136-145)
[2017-12-31 08:12] LABS: ALBUMIN 2.6 g/dl (3.4-5.0); ALK PHOS 57 U/L (45-117); ANION GAP 9 MMOL/L (8-16); BILIRUBIN,TOTAL 1.2 mg/dL (0.2-1.0); BLOOD UREA NITROGEN 13 mg/dL (7-18); CALCIUM 8.5 mg/dL (8.5-10.1); CO2 24 mmol/L (21-32); CREATININE 0.2 mg/dL (0.55-1.02); GLUCOSE,RANDOM 102 mg/dL (74-106); SGOT/AST 31 U/L (15-37); SGPT/ALT 23 U/L (12-78); TOT PROT 7.3 g/dl (6.4-8.2)
--- NOTE | 2017-12-31 09:18 | PN ---
Progress Note, Physician History of Present Illness: Events noted Port in am on IVIG - Current Medication List Current Medications: Active Medications Acetaminophen (Tylenol -) 650 mg PO Q4H PRN PRN Reason: FEVER Last Admin: 12/30/17 18:43 Dose: 650 mg Chlorhexidine Gluconate (Hibiclens For Decolonization -) 1 applic TP HS [facility] Last Admin: 12/31/17 02:14 Dose: Not Given Diphenhydramine HCl (Benadryl -) 25 mg PO DAILY PRN PRN Reason: before IVIG treatment Docusate Sodium (Colace -) 300 mg PO DAILY [facility] Last Admin: 12/30/17 10:11 Dose: 300 mg Heparin Sodium (Porcine) (Heparin -) 5,000 unit SQ BID [facility] Last Admin: 12/30/17 21:52 Dose: 5,000 unit Immune Globulin (Gamunex-C) 60 gm in 600 mls @ 100 mls/hr IVPB DAILY [facility] Stop: 12/31/17 15:59 Last Admin: 12/30/17 15:24 Dose: 84 mls/hr Ceftriaxone Sodium 1 gm/ (Dextrose) 50 mls @ 100 mls/hr IVPB DAILY [facility]; Protocol Last Admin: 12/30/17 20:05 Dose: 100 mls/hr Losartan Potassium (Cozaar -) 50 mg PO DAILY [facility] Last Admin: 12/30/17 10:11 Dose: 50 mg Metoprolol Tartrate (Lopressor -) 50 mg PO DAILY [facility] Last Admin: 12/30/17 10:11 Dose: 50 mg Polyethylene Glycol (Miralax (For Daily Use) -) 17 gm PO TID [facility] Last Admin: 12/31/17 06:22 Dose: 17 gm - Objective Vital Signs: Vital Signs Temperature 97.5 F L 12/31/17 06:26 Pulse Rate 108 H 12/31/17 06:26 Respiratory Rate 20 12/31/17 06:26 Blood Pressure 110/60 12/31/17 06:26 O2 Sat by Pulse Oximetry (%) 99 12/30/17 21:00 Cardiovascular: Yes: S1, S2 Respiratory: Yes: Regular, CTA Bilaterally Gastrointestinal: Yes: Normal Bowel Sounds, Soft Labs: CBC, BMP 12/31/17 06:15 12/31/17 06:15 INR, PTT INR 1.04 (0.83-1.09) 12/30/17 06:20 Fibrinogen 401.0 mg/dL (238-498) 12/30/17 06:20 Problem List - Problems (1) ALS (amyotrophic lateral sclerosis) Assessment/Plan: AND AUTOIMMUNE NEUROPATHY FOR LINE PLACEMENT FOR IVIG AND POSSIBLE IV STEROIDS NEUROLOGY CONSULT --D/W DR ZUÑIGA WILL START RX Code(s): G12.21 - AMYOTROPHIC LATERAL SCLEROSIS (2) Dysphagia Assessment/Plan: -SWALLOW EVAL -GI noted--will hold off on peg Code(s): R13.10 - DYSPHAGIA, UNSPECIFIED Qualifiers: Dysphagia type: oral phase Qualified Code(s): R13.11 - Dysphagia, oral phase (3) HTN (hypertension) Assessment/Plan: Monitor Vital Signs Period Temp Pulse Resp BP Sys/Lorenzo Pulse Ox Last 24 Hr 97.5 F-97.8 F 108-123 20-20 98-129/57-67 99 Code(s): I10 - ESSENTIAL (PRIMARY) HYPERTENSION Qualifiers: Hypertension type: essential hypertension Qualified Code(s): I10 - Essential (primary) hypertension (4) Atrial fibrillation Assessment/Plan: -ELIQUIS--resume -METOPROLOL -EKG Code(s): I48.91 - UNSPECIFIED ATRIAL FIBRILLATION (5) Leukopenia Assessment/Plan: -Hem on board -Follow labs Code(s): D72.819 - DECREASED WHITE BLOOD CELL COUNT, UNSPECIFIED
[2017-12-31] MEDS ORDERED: PT OWN MED DRAWER 7, Y5N ONE (10:15)
[2017-12-31] MEDS ORDERED: cefTRIAXone SODIUM 1 GM VIAL ONE (10:16)
[2017-12-31] MEDS ORDERED: DEXTROSE 5%-WATER - 50 ML IVPB ONE (10:16)
[2017-12-31] MEDS: HEPARIN NA (PORCINE) 5,000 UNITS/ML 1ML VIAL SQ SCH ×2 (10:21→22:25)
[2017-12-31] MEDS: METOPROLOL TARTRATE 50 MG TABLET (FP) PO SCH ×2 (10:21→22:27)
[2017-12-31] MEDS: DOCUSATE SODIUM 100 MG CAPSULE (FP) PO SCH (10:21)
[2017-12-31] MEDS: CEFTRIAXONE 1 GM in DEXTROSE 5%-WATER - 50 ML IVPB SCH (10:21)
[2017-12-31] MEDS: LOSARTAN POTASSIUM 50 MG TABLET (FP) PO SCH (10:21)
--- NOTE | 2017-12-31 11:51 | EKG ---
Test Reason : Blood Pressure : / mmHG Vent. Rate : 144 BPM Atrial Rate : 352 BPM P-R Int : 000 ms QRS Dur : 088 ms QT Int : 274 ms P-R-T Axes : 000 023 195 degrees QTc Int : 424 ms ATRIAL FLUTTER WITH VARIABLE A-V BLOCK NONSPECIFIC ST AND T WAVE ABNORMALITY ABNORMAL ECG WHEN COMPARED WITH ECG OF 28-DEC-2017 09:01, NONSPECIFIC T WAVE ABNORMALITY NOW EVIDENT IN INFERIOR LEADS NONSPECIFIC T WAVE ABNORMALITY NOW EVIDENT IN ANTEROLATERAL LEADS Confirmed by DEANDRE OBREGON MD ([id number]) on 12/31/2017 11:51:23 AM Referred By: MAGO HARTLEY DR Confirmed By:DEANDRE OBREGON MD
--- NOTE | 2017-12-31 12:33 | PN ---
Progress Note, [employer] - Note Progress Note: Per admission note: 76 yo f w/ PMH HTN, HLD, ALS (wheelchair and bed bound), and A-fib on eliquis who presents to ED for progressive dysphagia, and weakness. Here for admission for port placement for IVIG therapy. Patient daughters at bedside. Per daughter patient has been in respite care for the past two weeks for general decline in motor tasks, swallowing, and worsening ALS progression. discharged from respite care today. Patient was sent to ED for Port placement in order to receive IVIG immunosupressive therapy and possible steroids in late stage ALS treatment. Per daughter patient has been having difficulty with swallowing over the past two weeks, with choking, and gagging on liquids and solids. Case reviewed with GI. Dys chopped/thin liquid ordered. Selected Entries 12/29/17 12/30/17 12/30/17 19:07 06:00 09:04 Breakfast Lunch Supper 75% Temperature 97.7 F 97.9 F 12/30/17 12/30/17 12/30/17 11:51 15:45 22:08 Breakfast 50% Lunch 50% Supper Temperature 97.7 F 97.8 F 12/31/17 06:26 Breakfast Lunch Supper Temperature 97.5 F L Laboratory Tests 12/31/17 06:15 WBC 2.1 L Pt reports feel of choking. Daughters report pt choked once on pills, but that she chews indefinitely on soup and puree and spits out tiny pieces in her mouth. They deny any cognitive decline/dementia/h/o PNA/Bronchitis/choking on liquids.They say she has ongoing depression. She is hardly eating anything, although she premorbidly loved food. Daughters have had 6 consults regarding ALS , which has been questioned but is presumed at this point. No Bulbar symptoms at this time. Speech production is normal, with alejandro-peripheral cursory evaluation (-). No fasciculations, articulatory weakness or asymmetry, thrush. IMP: r/o depression adversely affecting po intake. 3 oz water test is negative. I suspect swallowing function is WNL with normal speech, no bulbar symptoms, good tolerance of water. REC: consider anti-depressant/appetite stimulant MBS to visualize swallowing function, with pt and daughters observing study and education on the results. Pt being transferred to telemetry presently-MBS when medically stable. Additionally, family educated on availability of computer, controlled by eye gaze, for use of environmental controls (tv,bed,lights, phone calls/skype, email writing,internet etc) Assess as out pt at [facility] for augmentative communication.
--- NOTE | 2017-12-31 14:45 | PATH ---
Surgical Pathology Report Patient Name: THIEN GARCIA [facility]. Rec. #: [id number] /Age/Gender: 1940 (Age: 77) / F Account: [id number] Location: [address] [place] [address] Taken: 12/29/2017 Received: 12/30/2017 Reported: 12/31/2017 Physicians: Bibi Ferrera M.D. Specimen(s) Received 2 GREEN TOPS Clinical History .ALS, polycythemia Final Diagnosis COMPREHENSIVE FLOW PANEL: INTERPRETATION: IN THE SAMPLE ANALYZED, THERE IS NO EVIDENCE OF B OR T-CELL PROLIFERATIVE DISORDERS OR INCREASE BLASTS. COMMENT: CORRELATION WITH MOLECULAR/FISH STUDIES (BCR/ABL1, JAK2, CALR) IS SUGGESTED IN ORDER TO ASSESS FOR PERIPHERAL BLOOD INVOLVEMENT BY A MYELOPROLIFERATIVE PROCESS. ADDITIONAL TESTS: CYTOGENETICS, FISH ELECTRONICALLY SIGNED BY: SARIAH SMITH Viability: 99% Phenotype: In the sample analyzed there is a mixed population of granulocytes, monocytes, and lymphoid cells. CD34+ myeloblasts are less than 0.1%. Granulocytes are 56% of total cells. Monocytes are 6% of total cells. There is no overt abnormal myeloid antigen expression. The B-cells (1.5% of total) appear polytypic. The T-cells (29% of total) show no shepherd T-cell antigenic deletion. COMPREHENSIVE FLOW PANEL performed and interpreted at [facility] [place], [place]. See [facility] report ([id number]) for details. Electronically Signed Kenneth Ontiveros M.D. Addendum Reported: 01/01/2018 Addendum Diagnosis MYELOPROLIFERATIVE NEOPLASM FISH PANEL performed and interpreted at [facility] [place], [place] ([id number]) shows the following: INTERPRETATION: No BCR/ABL1 t(9;22) translocation is detected. COMMENT: Correlation with cytogenetic study ([id number]) is recommended. One multiplex probe stain procedure was performed. See [facility] report ([id number]) for additional details. Kenneth Ontiveros M.D. Addendum Reported: 01/05/2018 Addendum Diagnosis JAK2 (V617F) MUTATION ANALYSIS BY PCR performed and interpreted at [facility] [place], [place] ([id number]) shows the following: RESULTS: Only the wild-type JAK2 sequence was detected. INTERPRETATION: Negative for JAK2 (V617F) Mutation. COMMENT: The acquired somatic V617F Jak2 mutation has been found in a majority of patients with Polycythemia Vera (PV) (>90%), and 30-50% of patients with either essential thrombocythemia (ET) and/or myelofibrosis (MF) according to literature. The mutation is not detected in normal individuals. However, a negative result does not exclude the presence of the V617F mutation at a level below the limit of detection for this assay. Final diagnosis requires correlation with other clinical and laboratory data. See [facility] report ([id number]) for additional details. Kenneth Ontiveros M.D. Addendum Reported: 01/06/2018 Addendum Diagnosis CYTOGENETIC KARYOTYPE ANALYSIS RESULTS: Tissue Culture Failure INTERPRETATION: This unstimulated peripheral blood specimen did not produce any analyzable metaphase cells and, therefore, chromosome analysis is not possible. A bone marrow aspirate, when clinically appropriate, is recommended. See [facility] report ([id number]) for additional details. Kenneth Ontiveros M.D. Addendum Reported: 01/06/2018 Addendum Diagnosis JAK2 Exon 12 & 13 Mutation Analysis performed and interpreted at [facility] [place], [place] ([id number]) shows the following: RESULTS: JAK2 Exon 12 Mutation: NOT DETECTED JAK2 Exon 13 Mutation: NOT DETECTED INTERPRETATION: Negative for JAK2 (Exon 12 & 13) Mutations. COMMENT: Several different JAK2 mutations have been described in exon 12 (and less commonly in exon 13) in cases of polycythemia cera that lack the V617F JAK2 mutation. JAK2 mutations are not detected in normal individuals. The presence of an Exon 12 or 13 mutation represents an acquired/somatic mutation associated with a hematopoietic neoplasm or possibly a rare normal sequence polymorphism. A negative result does not exclude the presence of an Exon 12 or 13 mutation at a level below the limit of detection for this assay. Correlation with clinical and morphologic features is recommended to interpret its significance. See [facility] report for additional details. Kenneth Ontiveros M.D. Addendum Reported: 01/09/2018 Addendum Diagnosis Calreticulin (CALR) performed and interpreted at [facility] [place], [place] ([id number]) shows the following: RESULTS: No mutation was detected in exon 9 of calreticulin gene (CALR) by PCR fragment analysis. INTERPRETATION: CALR MUTATION (exon 9): Not Detected. COMMENT: Among the JAK2 V617F negative MPNs, CALR mutations are detected in 67% of those with ET and 88% of those with PMF and are much less commonly seen in other hematopoietic neoplasms. CALR mutations are mutually exclusive with JAK2 or MPL mutations. CALR mutation testing also has prognostic value since CALR mutations are associated with longer survival and fewer thrombotic events as compared to JAK2 mutations. Mutations in CALR outside of this exon will not be detected by this assay. Absence of detectable CALR mutation does not exclude the diagnosis of essential thrombocythemia (ET) or primary myelofibrosis (PMF). See [facility] report ([id number]) for additional details. Kenneth Ontiveros M.D. Gross Description Received are 2 green top tubes of blood which are sent to [facility]. 12/30/2017 [facility]12/30/2017
[2017-12-31] MEDS: ACETAMINOPHEN 325 MG TABLET (FP) PO PRN (15:30)
[2017-12-31] MEDS: IMMUNE GLOB,GAM CAPRYLATE(IGG) 60 GM/600 ML VIA IVPB SCH (16:05)
[2017-12-31] MEDS ORDERED: LOSARTAN POTASSIUM 50 MG TABLET (FP) PO SCH (16:29)
[2017-12-31] MEDS ORDERED: METOPROLOL TARTRATE 50 MG TABLET (FP) PO SCH (16:30)
--- NOTE | 2017-12-31 16:37 | CON.CARD ---
Consult Consult Specialty:: Cardiology Referred by:: Dr. Dent Reason for Consultation:: tachycardia - History of Present Illness Chief Complaint: weakness and dysphagia History of Present Illness: 77 year old woman with pmh HTN, HLD, ALS (wheelchair and bed bound), A-fib on metoprolol and eliquis admitted with weakness fatigue, dysphagia planned for port placement for IVIG therapy. Pt noted to be tachycardic with afib with RVR. Noted to be on Lopressor daily dosing here but she takes BID at home confirmed by pts daughter. pt was seen and examined today in nad. denies chest pain, sob, or palpitations. 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) - Alcohol/Substance Use Hx Alcohol Use: No History of Substance Use: reports: None - Smoking History Smoking history: Former smoker Have you smoked in the past 12 months: No Aproximately how many cigarettes per day: 0 If you are a former smoker, when did you quit?: 45 YRS AGO - Social History Usual Living Arrangement: With Child ADL: Family Assistance History of Recent Travel: No Home Medications - Allergies Allergies/Adverse Reactions: Allergies Allergy/AdvReac Type Severity Reaction Status Date / Time No Known Drug Allergies Allergy Verified 12/28/17 08:36 - Home Medications Home Medications: Ambulatory Orders Acetaminophen [Tylenol -] 1,000 mg PO Q8H PRN 12/28/17 Apixaban [Eliquis] 5 mg PO BID 12/28/17 Docusate Sodium [Colace -] 240 mg PO DAILY 12/28/17 Losartan Potassium 50 mg PO DAILY 12/28/17 Metoprolol Tartrate 50 mg PO BID 12/28/17 Family Disease History - Family Disease History Family Disease History: Diabetes: Sister (COPD), CA: Mother ( 90 cholangiocarcinoma), Other: Father ( 67 COPD) Review of Systems - Review of Systems Constitutional: reports: Lethargy, Weakness. denies: No Symptoms, Chills, Diaphoresis, Fever, Loss of Appetite, Malaise, Night Sweats, Unintentional Wgt. Loss, Other Eyes: denies: No Symptoms, Blind Spots, Blurred Vision, Double Vision, Eye Pain , Floaters, Photophobia, Recent Change in Vision, Other HENT: reports: Difficult Swallowing. denies: No Symptoms, Ear Discharge, Ear Pain, Epistaxis, Gingival Bleeding, Hearing Loss, Mouth Swelling, Nasal Congestion, Ocular Prosthesis, Throat Pain, Toothache, Ringing in Ears, Other Neck: denies: No Symptoms, Decreased ROM, Lumps, Pain on Movement, Stiffness, Swollen Glands, Tenderness, Other Cardiovascular: denies: No Symptoms, Chest Pain, Edema, Palpitations, Shortness of Breath, Other Respiratory: denies: No Symptoms, Cough, Exercise Intolerance, Hemoptysis, Orthopnea, PND, Snoring, SOB, SOB on Exertion, Wheezing, Other Gastrointestinal: denies: No Symptoms, Abdominal Pain, Bloating, Constipation, Diarrhea, Dysphagia, Indigestion, Melena, Nausea, Rectal Bleeding, Vomiting, Vomiting Blood, Other Genitourinary: denies: No Symptoms, Burning, Discharge, Dysuria, Flank Pain, Frequency, Hematuria, Incontinence, Lesions, Menses, Pain, Testicular Mass, Testicular Pain, Testicular Swelling, Urgency, Vaginal Bleeding, Other Breasts: denies: No Symptoms Reported, See HPI, Breast Implants, Discharge from Nipple, Lumps, Pain, Skin Changes, Other Musculoskeletal: denies: No Symptoms, Back Pain, Crepitus, Decreased ROM, Extremity Pain, Joint Pain, Joint Swelling, Muscle Pain, Muscle Cramps, Muscle Weakness, Other Integumentary: denies: No Symptoms, Blister, Bruising, Change in Color, Eczema, Erythema, Incision, Lesions, Lump, Pallor, Pruritis, Rash, Wound, Other Neurological: reports: Pre-Existing Deficit, Weakness. denies: No Symptoms, Change in LOC, Change in Speech, Confusion, Dizziness, Headache, Incoordination , Numbness, Parasthesia, Seizure, Syncope, Tremors, Unsteady Gait, Other Endocrine: denies: No Symptoms, Excessive Sweating, Flushing, Increased Hunger, Increased Thirst, Intolerance to Cold, Intolerance to Heat, Unexplained Weight Gain, Unexplained Weight Loss, Other Hematology/Lymphatic: denies: No Symptoms, Easily Bruised, Excessive Bleeding, Swollen Glands, Other Psychiatric: denies: No Symptoms, Altered Sleep Pattern, Anxiety, Depression, Hallucinations, Panic, Paranoia, Suicidal, Other - Risk Factors Known Risk Factors: Yes: Physical Inactivity Vital Signs: Vital Signs Temperature 97.6 F 12/31/17 14:13 Pulse Rate 109 H 12/31/17 14:13 Respiratory Rate 18 12/31/17 14:13 Blood Pressure 99/37 12/31/17 14:13 O2 Sat by Pulse Oximetry (%) 99 12/31/17 09:00 Constitutional: Yes: No Distress, Calm Eyes: Yes: Conjunctiva Clear, EOM Intact, PERRL HENT: Yes: Atraumatic, Normocephalic Neck: Yes: Supple, Trachea Midline Respiratory: Yes: Regular, CTA Bilaterally. No: Rales, Rhonchi, Wheezes Gastrointestinal: Yes: Normal Bowel Sounds, Soft. No: Distention, Tenderness Cardiovascular: Yes: Tachycardia, Pulse Irregular. No: Regular Rate and Rhythm , Bradycardia, Gallop, Rub, Varicosities JVD: No Carotid Bruit: No PMI: Non-Displaced Heart Sounds: Yes: S1, S2. No: Split S2, S3, S4, Clicks, Gallop, Rub, Bruit Murmur: No: Systolic Murmur, Diastolic Murmur Musculoskeletal: Yes: Muscle Weakness Edema: Yes Edema: LLE: Trace, RLE: Trace Peripheral Pulses WNL: Yes Peripheral Pulses: 2+ Left Doralis Pedis, 2+ Right Dorsalis Pedis Neurological: Yes: Alert, Oriented, Pre-Existing Deficit, Weakness Psychiatric: Yes: Alert, Oriented - Other Data Labs, Other Data: CBC, BMP 12/31/17 06:15 12/31/17 06:15 INR, PTT INR 1.04 (0.83-1.09) 12/30/17 06:20 Fibrinogen 401.0 mg/dL (238-498) 12/30/17 06:20 ekg-afib 144bpm Imaging - Results Chest X-ray: Report Reviewed, Image Reviewed EKG: Report Reviewed, Image Reviewed Other: Report Reviewed, Image Reviewed (tele-AF with rvr) Assessment/Plan 77 year old woman with pmh HTN, HLD, ALS (wheelchair and bed bound), A-fib on metoprolol and eliquis admitted with weakness fatigue, dysphagia planned for port placement for IVIG therapy. Pt noted to be tachycardic with afib with RVR. Noted to be on Lopressor daily dosing here but she takes BID at home confirmed by pts daughter. Chronic AFib-with RVR -increase Lopressor to home dose of 50mg bid -if HR still above goal would uptitrate Lopressor as needed -if BP does not tolerate increase Lopressor dose would then stop Losartan to allow adequate BP room to increase Lopressor. -resume eliquis when safe to do so post procedure No other inpatient cardiac work up needed at this point. Please call with any additional questions.
[2018-01-01] MEDS: POLYETHYLENE GLYCOL 3350 119 GM BTL PO SCH ×3 (05:49→22:29)
[2018-01-01 06:25] LABS: BASO % 1.5 % (0-2.0); EOS % 1.3 % (0-4.5); HEMOGLOBIN 13.8 GM/dL (10.7-15.3); LYMPH % 30.3 % (8-40); MCH 28.8 pg (25.7-33.7); MCHC 33.6 g/dl (32.0-36.0); MEAN CELL VOLUME 85.7 fl (80-96); MONO % 14.2 % (3.8-10.2); NEUT % 52.7 % (42.8-82.8); PLATELET COUNT 121 K/MM3 (134-434); RBC 4.78 M/mm3 (3.60-5.2); RDW 14.9 % (11.6-15.6); WHITE BLOOD COUNT 2.2 K/mm3 (4.0-10.0)
[2018-01-01 07:05] LABS: CHLORIDE 104 mmol/L (98-107); POTASSIUM 4.3 mmol/L (3.5-5.1); SODIUM 136 mmol/L (136-145)
[2018-01-01 07:15] LABS: ALBUMIN 2.5 g/dl (3.4-5.0); ALK PHOS 63 U/L (45-117); ANION GAP 6 MMOL/L (8-16); BILIRUBIN,TOTAL 1.1 mg/dL (0.2-1.0); BLOOD UREA NITROGEN 14 mg/dL (7-18); CALCIUM 8.1 mg/dL (8.5-10.1); CO2 26 mmol/L (21-32); CREATININE 0.3 mg/dL (0.55-1.02); GLUCOSE,RANDOM 103 mg/dL (74-106); SGOT/AST 35 U/L (15-37); SGPT/ALT 26 U/L (13-61); TOT PROT 8.7 g/dl (6.4-8.2)
[2018-01-01] MEDS ORDERED: DEXTROSE 5%-WATER - 50 ML IVPB ONE (09:57)
[2018-01-01] MEDS ORDERED: cefTRIAXone SODIUM 1 GM VIAL ONE (09:57)
[2018-01-01] MEDS: DOCUSATE SODIUM 100 MG CAPSULE (FP) PO SCH (10:10)
[2018-01-01] MEDS: METOPROLOL TARTRATE 50 MG TABLET (FP) PO SCH ×2 (10:31→22:29)
[2018-01-01] MEDS: CEFTRIAXONE 1 GM in DEXTROSE 5%-WATER - 50 ML IVPB SCH (10:31)
[2018-01-01] MEDS: HEPARIN NA (PORCINE) 5,000 UNITS/ML 1ML VIAL SQ SCH (10:34)
--- NOTE | 2018-01-01 11:16 | PN ---
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 Pt tolerated scrambled eggs and hot cereal yesterday am. Pt and family would like MBS done before discharge. Suggest MBS on 01/02 if medically stable. Pt would like scrambled eggs and hot cereal for dinner.
--- NOTE | 2018-01-01 12:53 | PN ---
Progress Note (short form) - Note Progress Note: NEUROLOGY FOLLOW-UP: Dr. Vega's coverage consultation and follow-up are greatly appreciated. 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 When weakness spread to the right leg, about 2 years ago, it had the appearance of the sudden onset of footdrop due to peroneal mononeuropathy. Since CSF protein was slightly elevated we began IVIg Rx which the family believes is "helping her hold her head up." However, during the course to treatment weakness has spread to neck flexors, neck extensors and is progressing in both legs. Home infusion became difficult (September-October) due to access issues. Now patient notes some dysphagia for solids. Work-up in progress. Now, Pt is s/p IVIg 60 gm on 12/29 and 12/30 which were well tolerated via a right antebrachial IV. For portal placement later today. CANDICE: Obese. Neck supple. NEURO: Awake alert. MS/speech: Normal CN normal except neck flexion and extension are 2/5. Gag OK. No tongue atrophy No arm movements. Hip flexion 3/5 on the left and 2/5 on the right. Knee extension is 3 /5 B/L. Anle DF 0/5 on the right 3/5 on the left. Plantar flexion 4+/5 Areflexic. Plantars are silent Normal sensory except decreased vib and touch right foot. IMP: MND- Brachial amyotrophic Diplegia (progressing). Right peroneal mononeuropathy. Suggest: Proceed with portal placement for out patient IVIg. PT eval. Continue swallowing eval and Rx. Thank you very much, Erick Emmanuel MD
[2018-01-01] MEDS ORDERED: LIDOCAINE HCL 2% (20ML MULTI-DOSE VIAL) NR ONE ×2 (13:55→15:06)
[2018-01-01] MEDS ORDERED: MIDAZOLAM HCL 2 MG/2 ML SINGLE DOSE VIAL ONE (14:28)
[2018-01-01] MEDS ORDERED: ceFAZolin SODIUM 1 GM VIAL IVPB ONE (14:50)
[2018-01-01] MEDS ORDERED: LIDOCAINE HCL 2% (50ML VIAL) INF ONE (15:26)
--- NOTE | 2018-01-01 16:07 | OP ---
Operative Note - Note: Operative Date: 01/01/18 Pre-Operative Diagnosis: ALS, dyspagia Operation: Insertion of portacath Post-Operative Diagnosis: Same as Pre-op Surgeon: Jewel Adams Anesthesia: Fractional Estimated Blood Loss (mls): 50 Operative Report Dictated: Yes
[2018-01-01] MEDS ORDERED: diphenhydrAMINE HCL 25 MG CAPSULE (FP) PO PRN (16:34)
[2018-01-01] MEDS ORDERED: ACETAMINOPHEN 325 MG TABLET (FP) PO PRN (16:34)
--- NOTE | 2018-01-01 21:46 | PN ---
GI Progress Note Subjective: GI NOte: Teena has promised me that she will overcome her fear of swallowing an inadequately chewed food bolus tomorrow and eat more. She wants to stay on the chopped diet - Objective Vital Signs: Vital Signs Temperature 98 F 01/01/18 17:50 Pulse Rate 120 H 01/01/18 17:50 Respiratory Rate 20 01/01/18 17:50 Blood Pressure 128/84 01/01/18 17:50 O2 Sat by Pulse Oximetry (%) 96 01/01/18 17:55 Constitutional: Anxious ...Auscultate: Yes: Normoactive Bowel Sounds ...Palpate: Yes: Soft, Other (nontender) Labs: CBC, BMP 01/01/18 05:30 01/01/18 05:30 INR, PTT INR 1.04 (0.83-1.09) 12/30/17 06:20 Fibrinogen 401.0 mg/dL (238-498) 12/30/17 06:20 Problem List - Problems (1) Dysphagia Assessment/Plan: Hope to see Teena overcome the fear of swallowing an inadequately chewed food bolus. Calorie count in progress. Code(s): R13.10 - DYSPHAGIA, UNSPECIFIED Qualifiers: Dysphagia type: oral phase Qualified Code(s): R13.11 - Dysphagia, oral phase (2) Constipation by delayed colonic transit Code(s): K59.01 - SLOW TRANSIT CONSTIPATION (3) Colon polyp, hyperplastic Code(s): K63.5 - POLYP OF COLON Qualifiers: Colon location: descending Qualified Code(s): K63.5 - Polyp of colon (4) Diverticulosis Code(s): K57.90 - DVRTCLOS OF INTEST, PART UNSP, W/O PERF OR ABSCESS W/O BLEED Qualifiers: Diverticulosis site: diverticulosis of large intestine (5) ALS (amyotrophic lateral sclerosis) Code(s): G12.21 - AMYOTROPHIC LATERAL SCLEROSIS (6) History of prosthetic aortic valve Code(s): Z95.2 - PRESENCE OF PROSTHETIC HEART VALVE (7) Atrial fibrillation Code(s): I48.91 - UNSPECIFIED ATRIAL FIBRILLATION
--- NOTE | 2018-01-01 21:54 | PN ---
Progress Note, Physician Chief Complaint: ALS History of Present Illness: NAD Daughters at bedside Going for Portacath insertion to receive IVIg on monthly basis under Neurology care Some trouble swallowing, Seen by GI, no G tube recommended at this time Also seen by Speech pathology, MBS ordered - Current Medication List Current Medications: Active Medications Acetaminophen (Tylenol -) 650 mg PO Q4H PRN PRN Reason: FEVER Docusate Sodium (Colace -) 300 mg PO DAILY [facility] Heparin Sodium (Porcine) (Heparin -) 5,000 unit SQ BID [facility] Ceftriaxone Sodium 1 gm/ (Dextrose) 50 mls @ 100 mls/hr IVPB DAILY [facility]; Protocol Losartan Potassium (Cozaar -) 50 mg PO DAILY [facility] Metoprolol Tartrate (Lopressor -) 50 mg PO BID [facility] Polyethylene Glycol (Miralax (For Daily Use) -) 17 gm PO TID [facility] - Objective Vital Signs: Vital Signs Temperature 98 F 01/01/18 17:50 Pulse Rate 120 H 01/01/18 17:50 Respiratory Rate 20 01/01/18 17:50 Blood Pressure 128/84 01/01/18 17:50 O2 Sat by Pulse Oximetry (%) 96 01/01/18 17:55 Constitutional: Yes: Well Nourished, No Distress, Calm Cardiovascular: Yes: Regular Rate and Rhythm Respiratory: Yes: Regular Gastrointestinal: Yes: Normal Bowel Sounds, Soft Musculoskeletal: Yes: Muscle Weakness Neurological: Yes: Alert, Oriented Psychiatric: Yes: Alert, Oriented Labs: CBC, BMP 01/01/18 05:30 01/01/18 05:30 INR, PTT INR 1.04 (0.83-1.09) 12/30/17 06:20 Fibrinogen 401.0 mg/dL (238-498) 12/30/17 06:20 Problem List - Problems (1) Dysphagia Assessment/Plan: -Seen by Speech pathology -MBS for tomorrow -monitor for any aspiration Code(s): R13.10 - DYSPHAGIA, UNSPECIFIED Qualifiers: Dysphagia type: oral phase Qualified Code(s): R13.11 - Dysphagia, oral phase (2) Weakness Assessment/Plan: -Neurology on board -Receiving IVIg -talk about steroids? Code(s): R53.1 - WEAKNESS (3) UTI (urinary tract infection) Assessment/Plan: -On IV abx UC: Microbiology 09/09/18 12:24 Urine - Urine [facility]os Urine Culture - Final Escherichia Coli Code(s): N39.0 - URINARY TRACT INFECTION, SITE NOT SPECIFIED (4) Atrial fibrillation Assessment/Plan: -Chronic -Restart eliquis when hempdynamicaly stable Code(s): I48.91 - UNSPECIFIED ATRIAL FIBRILLATION (5) Motor neuron disease Assessment/Plan: -Neurology on board -IVIg monthly -[place] [place] Code(s): G12.20 - MOTOR NEURON DISEASE, UNSPECIFIED Assessment/Plan see problem list
[2018-01-01] MEDS ORDERED: HEPARIN NA (PORCINE) 5,000 UNITS/ML 1ML VIAL SQ SCH (22:00)
[2018-01-01] MEDS ORDERED: CHLORHEXIDINE GLUCONATE 4% CLEANSER FOR DECOLONIZATION TP SCH (22:00)
[2018-01-01] MEDS: APIXABAN 5 MG TABLET PO SCH (22:29)
[2018-01-02] MEDS: POLYETHYLENE GLYCOL 3350 119 GM BTL PO SCH ×4 (06:40→22:52)
[2018-01-02 06:55] LABS: BASO % 1.5 % (0-2.0); EOS % 0.7 % (0-4.5); HEMATOCRIT 39.9 % (32.4-45.2); HEMOGLOBIN 13.4 GM/dL (10.7-15.3); MCH 28.6 pg (25.7-33.7); MCHC 33.6 g/dl (32.0-36.0); MEAN CELL VOLUME 85.1 fl (80-96); MEAN PLT VOLUME 8.8 fl (7.5-11.1); MONO % 17.6 % (3.8-10.2); NEUT % 44.2 % (42.8-82.8); PLATELET COUNT 119 K/MM3 (134-434); RBC 4.69 M/mm3 (3.60-5.2); RDW 14.7 % (11.6-15.6); WHITE BLOOD COUNT 2.4 K/mm3 (4.0-10.0)
[2018-01-02 07:33] LABS: CHLORIDE 107 mmol/L (98-107); POTASSIUM 4.2 mmol/L (3.5-5.1); SODIUM 141 mmol/L (136-145)
[2018-01-02 07:38] LABS: ALBUMIN 2.6 g/dl (3.4-5.0); ALK PHOS 61 U/L (45-117); ANION GAP 9 MMOL/L (8-16); BILIRUBIN,TOTAL 1.3 mg/dL (0.2-1.0); BLOOD UREA NITROGEN 10 mg/dL (7-18); CALCIUM 8.3 mg/dL (8.5-10.1); CO2 25 mmol/L (21-32); CREATININE 0.2 mg/dL (0.55-1.3); GLUCOSE,RANDOM 99 mg/dL (74-106); SGOT/AST 22 U/L (15-37); SGPT/ALT 22 U/L (13-61); TOT PROT 7.8 g/dl (6.4-8.2)
--- NOTE | 2018-01-02 08:24 | PN ---
Progress Note (short form) - Note Progress Note: Anesthesia Post op Pt seen and examined S;Alert and awake comfortable O: Vital Signs Temperature 98.3 F 01/02/18 06:00 Pulse Rate 108 H 01/02/18 06:00 Respiratory Rate 01/02/18 06:00 Blood Pressure 121/73 01/02/18 06:00 O2 Sat by Pulse Oximetry (%) 96 01/01/18 21:00 CBC, BMP 01/02/18 05:30 01/02/18 05:30 A/P Current Active Problems Colon polyp, hyperplastic (Acute) Constipation by delayed colonic transit (Acute) Diverticulosis (Acute) Dysphagia (Acute) Leukopenia (Acute) Motor neuron disease (Acute) Weakness (Acute) s/p Portacath Placement Doing well post op Continue current care Vincenzo Soto MD
--- NOTE | 2018-01-02 10:04 | PN ---
Progress Note (short form) - Note Progress Note: surgery POD #1 Insertion of portacath patient seen and examined at bedside with no complaints. Patient denies any pain, fever, chills, N/V chest pain or SOB. She is tolerating her diet. Vital Signs Temp 98.3 F 01/02/18 06:00 Pulse 108 H 01/02/18 06:00 Resp 18 01/02/18 06:00 BP 121/73 01/02/18 06:00 Pulse Ox 96 01/01/18 21:00 Intake & Output 01/01/18 01/01/18 01/02/18 11:59 23:59 11:59 Intake Total 610 900 250 Output Total 700 350 Balance -90 550 250 Intake: IV 610 900 immune globulin ivpb 600 ringers lactate 200 saline lock 10 Oral 250 Output: Urine 700 350 Claros 700 200 Other: Voiding Method Indwelling Catheter Indwelling Catheter Bowel Movement Yes Yes # Bowel Movements 1 CBC, BMP 01/02/18 05:30 01/02/18 05:30 PE: A&Ox3, NAD unlabored resp on RA incision sites, c/d/i with steri strips, surrounding tissues intact with no active d/c, no tracking erythema or edema, port palpable. Problem List - Problems (1) Port-A-Cath in place Assessment/Plan: POD #1 portacath insertion doing well 1) Ok to use portacath. 2) Reconsult surgery PRN Code(s): Z95.828 - PRESENCE OF OTHER VASCULAR IMPLANTS AND GRAFTS
[2018-01-02] MEDS ORDERED: cefTRIAXone SODIUM 1 GM VIAL ONE (10:39)
[2018-01-02] MEDS ORDERED: DEXTROSE 5%-WATER - 50 ML IVPB ONE (10:40)
[2018-01-02] MEDS: LOSARTAN POTASSIUM 50 MG TABLET (FP) PO SCH (10:54)
[2018-01-02] MEDS: DOCUSATE SODIUM 100 MG CAPSULE (FP) PO SCH (10:54)
[2018-01-02] MEDS: METOPROLOL TARTRATE 50 MG TABLET (FP) PO SCH ×2 (10:54→22:52)
[2018-01-02] MEDS: CEFTRIAXONE 1 GM in DEXTROSE 5%-WATER - 50 ML IVPB SCH (10:55)
[2018-01-02] MEDS ORDERED: PT OWN MED DRAWER 7, Y5N ONE (10:57)
[2018-01-02] MEDS: APIXABAN 5 MG TABLET PO SCH ×2 (10:58→22:52)
--- NOTE | 2018-01-02 13:47 | DS ---
Physical Examination Vital Signs: Vital Signs Temperature 97.2 F L 01/02/18 10:50 Pulse Rate 121 H 01/02/18 10:50 Respiratory Rate 20 01/02/18 10:50 Blood Pressure 119/63 01/02/18 10:50 O2 Sat by Pulse Oximetry (%) 96 01/01/18 21:00 Constitutional: Yes: Calm Cardiovascular: Yes: Regular Rate and Rhythm, S1, S2 Respiratory: Yes: CTA Bilaterally Gastrointestinal: Yes: Normal Bowel Sounds, Soft Extremities: Yes: Other Edema: No Neurological: Yes: Alert, Oriented, Weakness (of extremties) Labs: CBC, BMP 01/02/18 05:30 01/02/18 05:30 Discharge Summary Reason For Visit: AMYOTROPHIC LAATERAL SCLEROSIS Current Active Problems Colon polyp, hyperplastic (Acute) Constipation by delayed colonic transit (Acute) Diverticulosis (Acute) Dysphagia (Acute) Leukopenia (Acute) Motor neuron disease (Acute) Port-A-Cath in place (Acute) Weakness (Acute) Hospital Course: - Admission History of Present Illness: 76 yo f w/ PMH HTN, HLD, ALS (wheelchair and bed bound), and A-fib on eliquis who presents to ED for progressive dysphagia, and weakness. Here for admission for port placement for IVIG therapy. Patient daughters at bedside. Per daughter patient has been in respite care for the past two weeks for general decline in motor tasks, swallowing, and worsening ALS progression. discharged from respite care today. Patient was sent to ED for Port placement in order to receive IVIG immunosupressive therapy and possible steroids in late stage ALS treatment. Per daughter patient has been having difficulty with swallowing over the past two weeks, with choking, and gagging on liquids and solids. 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 (ALS AND AUTOIMMUNE NEUROPATHY) Cardiovascular: Yes: AFIB, HTN, Hyperlipdemia - Past Surgical History Past Surgical History: Yes: Cholecystectomy, Valve Replacement (AORTIC) - Smoking History Smoking history: Former smoker Have you smoked in the past 12 months: No Aproximately how many cigarettes per day: 0 If you are a former smoker, when did you quit?: 45 YRS AGO patient seen in hospital cardiology and neurology got port placed for IVIG for outpatient home infusion company eliquis restarted for afib swallow kirsty alcantar getting barium swallow done weakness of extremites, needs help with ADLS Condition: Stable - Instructions Referrals: Jeremy Hammond MD [Primary Care Provider] - Disposition: VNS/HOME HEALTH CARE - Home Medications Comprehensive Discharge Medication List: Ambulatory Orders Acetaminophen [Tylenol -] 1,000 mg PO Q8H PRN 12/28/17 Apixaban [Eliquis] 5 mg PO BID 12/28/17 Docusate Sodium [Colace -] 240 mg PO DAILY 12/28/17 Losartan Potassium 50 mg PO DAILY 12/28/17 Metoprolol Tartrate 50 mg PO BID 12/28/17
--- NOTE | 2018-01-02 14:04 | PN ---
Progress Note (short form) - Note Progress Note: PULMONARY VSS/AFEBRILE NO COMPLAINTS ANICTERIC GOOD B/L BREATH SOUNDS S1S2 BS+ SOFT TRACE EDEMA B/L MEDS/NOTES/IMAGES REVIEWED NEURO CONSULT REVIEWED/DISCUSSED CASE WITH DR MUHAMMAD PRESENTLY UNDERGOING IVIG ACCESS PLACED E COLI UTI TREATED CONTINUE CURRENT TREATMENT NO EVIDENCE TO SUPPORT TRIAL OF STEROIDS Girish BROUSSARD MD Problem List - Problems (1) Dysphagia Code(s): R13.10 - DYSPHAGIA, UNSPECIFIED Qualifiers: Dysphagia type: oral phase Qualified Code(s): R13.11 - Dysphagia, oral phase (2) Weakness Code(s): R53.1 - WEAKNESS (3) Aortic stenosis Code(s): Q25.3 - SUPRAVALVULAR AORTIC STENOSIS (4) HTN (hypertension) Code(s): I10 - ESSENTIAL (PRIMARY) HYPERTENSION Qualifiers: Hypertension type: essential hypertension Qualified Code(s): I10 - Essential (primary) hypertension (5) ALS (amyotrophic lateral sclerosis) Code(s): G12.21 - AMYOTROPHIC LATERAL SCLEROSIS (6) History of prosthetic aortic valve Code(s): Z95.2 - PRESENCE OF PROSTHETIC HEART VALVE (7) Atrial fibrillation Code(s): I48.91 - UNSPECIFIED ATRIAL FIBRILLATION
--- NOTE | 2018-01-02 17:37 | PN ---
GI Progress Note Subjective: G NOte: Elated after seeing a normal swallowing MBS study. With confidence in swallowing restored she ate a quesadilla with vigor. Wants to stay on current diet - Objective Vital Signs: Vital Signs Temperature 98.3 F 01/02/18 14:57 Pulse Rate 122 H 01/02/18 14:57 Respiratory Rate 20 01/02/18 14:57 Blood Pressure 132/85 01/02/18 14:57 O2 Sat by Pulse Oximetry (%) 96 01/01/18 21:00 Constitutional: Calm ...Auscultate: Yes: Normoactive Bowel Sounds ...Palpate: Yes: Soft, Other (nontender) Labs: CBC, BMP 01/02/18 05:30 01/02/18 05:30 INR, PTT INR 1.04 (0.83-1.09) 12/30/17 06:20 Fibrinogen 401.0 mg/dL (238-498) 12/30/17 06:20 Problem List - Problems (1) Dysphagia Assessment/Plan: Normal MBS. Encouraged to eat more. Code(s): R13.10 - DYSPHAGIA, UNSPECIFIED Qualifiers: Qualified Code(s): R13.11 - Dysphagia, oral phase (2) Constipation by delayed colonic transit Code(s): K59.01 - SLOW TRANSIT CONSTIPATION (3) Colon polyp, hyperplastic Code(s): K63.5 - POLYP OF COLON Qualifiers: Qualified Code(s): K63.5 - Polyp of colon (4) Diverticulosis Code(s): K57.90 - DVRTCLOS OF INTEST, PART UNSP, W/O PERF OR ABSCESS W/O BLEED (5) ALS (amyotrophic lateral sclerosis) Code(s): G12.21 - AMYOTROPHIC LATERAL SCLEROSIS (6) History of prosthetic aortic valve Code(s): Z95.2 - PRESENCE OF PROSTHETIC HEART VALVE (7) Atrial fibrillation Code(s): I48.91 - UNSPECIFIED ATRIAL FIBRILLATION
--- NOTE | 2018-01-02 17:39 | PN ---
Progress Note, Physician Chief Complaint: Patient appears comfortable. She reports no palpitation, chest pain or SOB. History of Present Illness: 77 year old woman with pmh HTN, HLD, ALS (wheelchair and bed bound), A-fib on metoprolol and eliquis admitted with weakness fatigue, dysphagia planned for port placement for IVIG therapy. Pt noted to be tachycardic with afib with RVR. She had speech and swallow evaluation. - Current Medication List Current Medications: Active Medications Acetaminophen (Tylenol -) 650 mg PO Q4H PRN PRN Reason: FEVER Apixaban (Eliquis -) 5 mg PO BID [facility] Last Admin: 01/02/18 10:58 Dose: 5 mg Cephalexin HCl (Keflex -) 500 mg PO BID [facility] Stop: 01/09/18 21:59 Docusate Sodium (Colace -) 300 mg PO DAILY [facility] Last Admin: 01/02/18 10:54 Dose: 300 mg Ceftriaxone Sodium 1 gm/ (Dextrose) 50 mls @ 100 mls/hr IVPB DAILY [facility]; Protocol Last Admin: 01/02/18 10:55 Dose: 100 mls/hr Losartan Potassium (Cozaar -) 50 mg PO DAILY [facility] Last Admin: 01/02/18 10:54 Dose: 50 mg Metoprolol Tartrate (Lopressor -) 50 mg PO BID [facility] Last Admin: 01/02/18 10:54 Dose: 50 mg Polyethylene Glycol (Miralax (For Daily Use) -) 17 gm PO TID [facility] Last Admin: 01/02/18 15:48 Dose: 17 gm - Objective Vital Signs: Vital Signs Temperature 98.3 F 01/02/18 14:57 Pulse Rate 122 H 01/02/18 14:57 Respiratory Rate 20 01/02/18 14:57 Blood Pressure 132/85 01/02/18 14:57 O2 Sat by Pulse Oximetry (%) 96 01/01/18 21:00 General: Well developed. Obese. No acute distress. Head: Normocephalic. Atraumatic, Eyes: PERRLA, EOMI. Sclerae anicteric. Conjunctivae clear. Neck: Supple. No JVD. No bruits. Heart: Normal S1, S2: Irregularly irregular rhythm and tachycardia. No murmur. No gallop or rub. Lungs: Symmetrical air entry. Clear to auscultation. No crackle. No wheezing or rhonchi. Abdomen: Soft. Bowel sound positive. Non tender. No masses. Extremities: No edema. No clubbing or cyanosis. PD 2+, equal bilaterally. Neuro: Intact, no focal findings. AAO X3. Labs: CBC, BMP 01/02/18 05:30 01/02/18 05:30 INR, PTT INR 1.04 (0.83-1.09) 12/30/17 06:20 Fibrinogen 401.0 mg/dL (238-498) 12/30/17 06:20 Assessment/Plan 77 year old woman with pmh HTN, HLD, ALS (wheelchair and bed bound), A-fib on metoprolol and eliquis admitted with weakness fatigue, dysphagia planned for port placement for IVIG therapy. Pt noted to be tachycardic with afib with RVR. She had speech and swallow evaluation. Chronic AFib-with RVR -increase Lopressor to 100mg bid for better heart rate control. -if HR still above goal would add digoxin -if BP does not tolerate increase Lopressor dose would then stop Losartan to allow adequate BP room to increase Lopressor. -cont eliquis No other inpatient cardiac work up needed at this point. Please call with any additional questions.
[2018-01-02] MEDS: CEPHALEXIN MONOHYDRATE 500 MG CAPSULE (UD) PO SCH (22:52)
[2018-01-03] MEDS: POLYETHYLENE GLYCOL 3350 119 GM BTL PO SCH ×3 (05:59→21:52)
[2018-01-03] MEDS ORDERED: cefTRIAXone SODIUM 1 GM VIAL ONE (10:31)
[2018-01-03] MEDS ORDERED: DEXTROSE 5%-WATER - 50 ML IVPB ONE (10:32)
[2018-01-03] MEDS: LOSARTAN POTASSIUM 50 MG TABLET (FP) PO SCH (10:37)
[2018-01-03] MEDS: APIXABAN 5 MG TABLET PO SCH ×2 (10:37→21:52)
[2018-01-03] MEDS: DOCUSATE SODIUM 100 MG CAPSULE (FP) PO SCH (10:37)
[2018-01-03] MEDS: METOPROLOL TARTRATE 50 MG TABLET (FP) PO SCH ×2 (10:37→21:52)
[2018-01-03] MEDS: CEPHALEXIN MONOHYDRATE 500 MG CAPSULE (UD) PO SCH ×2 (10:37→21:52)
--- NOTE | 2018-01-03 12:12 | PN ---
Progress Note (short form) - Note Progress Note: Overall better. No acute events overnight. No CP or SOB. Intake & Output 12/31/17 01/01/18 01/02/18 01/03/18 23:59 23:59 23:59 23:59 Intake Total 790 1510 1050 100 Output Total 900 1050 600 400 Balance -110 460 450 -300 Last Vital Signs Temp Pulse Resp BP Pulse Ox 98.3 F 115 H 20 137/82 96 01/03/18 08:47 01/03/18 08:47 01/03/18 08:47 01/03/18 08:47 01/02/18 21:00 Active Medications Acetaminophen (Tylenol -) 650 mg PO Q4H PRN PRN Reason: FEVER Apixaban (Eliquis -) 5 mg PO BID [facility] Last Admin: 01/03/18 10:37 Dose: 5 mg Cephalexin HCl (Keflex -) 500 mg PO BID [facility] Stop: 01/09/18 21:59 Last Admin: 01/03/18 10:37 Dose: 500 mg Docusate Sodium (Colace -) 300 mg PO DAILY [facility] Last Admin: 01/03/18 10:37 Dose: Not Given Ceftriaxone Sodium 1 gm/ (Dextrose) 50 mls @ 100 mls/hr IVPB DAILY [facility]; Protocol Last Admin: 01/02/18 10:55 Dose: 100 mls/hr Losartan Potassium (Cozaar -) 50 mg PO DAILY [facility] Last Admin: 01/03/18 10:37 Dose: 50 mg Metoprolol Tartrate (Lopressor -) 50 mg PO BID [facility] Last Admin: 01/03/18 10:37 Dose: 50 mg Polyethylene Glycol (Miralax (For Daily Use) -) 17 gm PO TID [facility] Last Admin: 01/03/18 05:59 Dose: Not Given Gen: NAD at rest Heart: tachycardic, irregular Lung: decreased breath sounds at the bases Abd: soft, nontender Ext: no edema A/P ALS Atrial Fibrillation HTN Hyperlipidemia Constipation GI workup ongoing O2 as needed Eliquis Aspiration precautions Dr Arguello
[2018-01-03] MEDS: CEFTRIAXONE 1 GM in DEXTROSE 5%-WATER - 50 ML IVPB SCH (12:57)
--- NOTE | 2018-01-03 15:53 | PN ---
Progress Note, Physician Chief Complaint: AWAKE ALERT NAD - Current Medication List Current Medications: Active Medications Acetaminophen (Tylenol -) 650 mg PO Q4H PRN PRN Reason: FEVER Apixaban (Eliquis -) 5 mg PO BID [facility] Last Admin: 01/03/18 10:37 Dose: 5 mg Cephalexin HCl (Keflex -) 500 mg PO BID [facility] Stop: 01/09/18 21:59 Last Admin: 01/03/18 10:37 Dose: 500 mg Docusate Sodium (Colace -) 300 mg PO DAILY [facility] Last Admin: 01/03/18 10:37 Dose: Not Given Losartan Potassium (Cozaar -) 50 mg PO DAILY [facility] Last Admin: 01/03/18 10:37 Dose: 50 mg Metoprolol Tartrate (Lopressor -) 50 mg PO BID [facility] Last Admin: 01/03/18 10:37 Dose: 50 mg Polyethylene Glycol (Miralax (For Daily Use) -) 17 gm PO TID [facility] Last Admin: 01/03/18 14:23 Dose: Not Given - Objective Vital Signs: Vital Signs Temperature 98.4 F 01/03/18 14:22 Pulse Rate 122 H 01/03/18 14:22 Respiratory Rate 19 01/03/18 14:22 Blood Pressure 92/60 01/03/18 14:22 O2 Sat by Pulse Oximetry (%) 96 01/02/18 21:00 Constitutional: Yes: No Distress Eyes: Yes: WNL HENT: Yes: WNL Neck: Yes: WNL Cardiovascular: Yes: WNL Respiratory: Yes: WNL Gastrointestinal: Yes: WNL Genitourinary: Yes: Incontinence Musculoskeletal: Yes: Muscle Weakness Extremities: Yes: WNL Edema: Yes Edema: LLE: Trace, RLE: Trace Peripheral Pulses WNL: Yes Integumentary: Yes: WNL Wound/Incision: Yes: Clean/Dry Neurological: Yes: Loss of Sensation, Pre-Existing Deficit, Weakness ...Motor Strength: LLE, RLE Psychiatric: Yes: Other Labs: CBC, BMP 01/02/18 05:30 01/02/18 05:30 INR, PTT INR 1.04 (0.83-1.09) 12/30/17 06:20 Fibrinogen 401.0 mg/dL (238-498) 12/30/17 06:20 Problem List - Problems (1) Dysphagia Code(s): R13.10 - DYSPHAGIA, UNSPECIFIED Qualifiers: Dysphagia type: oral phase Qualified Code(s): R13.11 - Dysphagia, oral phase (2) Weakness Code(s): R53.1 - WEAKNESS (3) Aortic stenosis Code(s): Q25.3 - SUPRAVALVULAR AORTIC STENOSIS (4) HTN (hypertension) Code(s): I10 - ESSENTIAL (PRIMARY) HYPERTENSION Qualifiers: Hypertension type: essential hypertension Qualified Code(s): I10 - Essential (primary) hypertension (5) ALS (amyotrophic lateral sclerosis) Code(s): G12.21 - AMYOTROPHIC LATERAL SCLEROSIS (6) History of prosthetic aortic valve Code(s): Z95.2 - PRESENCE OF PROSTHETIC HEART VALVE (7) Atrial fibrillation Code(s): I48.91 - UNSPECIFIED ATRIAL FIBRILLATION Assessment/Plan PORT PLACED AWAITING DISCHARGE CONTINUE TO MONITOR VS AND LABS
[2018-01-03] MEDS ORDERED: PT OWN MED DRAWER 7, Y5N ONE (22:19)
[2018-01-04] MEDS: POLYETHYLENE GLYCOL 3350 119 GM BTL PO SCH ×3 (06:42→21:29)
[2018-01-04] MEDS: DOCUSATE SODIUM 100 MG CAPSULE (FP) PO SCH (10:51)
[2018-01-04] MEDS: CEPHALEXIN MONOHYDRATE 500 MG CAPSULE (UD) PO SCH ×2 (10:57→21:29)
[2018-01-04] MEDS: APIXABAN 5 MG TABLET PO SCH ×2 (10:57→21:29)
[2018-01-04] MEDS: METOPROLOL TARTRATE 50 MG TABLET (FP) PO SCH ×2 (10:57→21:29)
[2018-01-04] MEDS: LOSARTAN POTASSIUM 50 MG TABLET (FP) PO SCH (10:57)
--- NOTE | 2018-01-04 11:25 | PN ---
Progress Note, Physician Chief Complaint: AWAKE ALERT DENIES CHEST PAIN - Current Medication List Current Medications: Active Medications Acetaminophen (Tylenol -) 650 mg PO Q4H PRN PRN Reason: FEVER Apixaban (Eliquis -) 5 mg PO BID [facility] Last Admin: 01/04/18 10:57 Dose: 5 mg Cephalexin HCl (Keflex -) 500 mg PO BID [facility] Stop: 01/09/18 21:59 Last Admin: 01/04/18 10:57 Dose: 500 mg Docusate Sodium (Colace -) 300 mg PO DAILY [facility] Last Admin: 01/04/18 10:51 Dose: Not Given Losartan Potassium (Cozaar -) 50 mg PO DAILY [facility] Last Admin: 01/04/18 10:57 Dose: 50 mg Metoprolol Tartrate (Lopressor -) 50 mg PO BID [facility] Last Admin: 01/04/18 10:57 Dose: 50 mg Polyethylene Glycol (Miralax (For Daily Use) -) 17 gm PO TID [facility] Last Admin: 01/04/18 06:42 Dose: Not Given - Objective Vital Signs: Vital Signs Temperature 97.5 F L 01/04/18 06:00 Pulse Rate 107 H 01/04/18 06:00 Respiratory Rate 20 01/04/18 06:00 Blood Pressure 104/62 01/04/18 06:00 O2 Sat by Pulse Oximetry (%) 97 01/03/18 21:00 Constitutional: Yes: No Distress Eyes: Yes: WNL HENT: Yes: WNL Neck: Yes: WNL Cardiovascular: Yes: WNL Respiratory: Yes: On Nasal O2 Genitourinary: Yes: Incontinence Musculoskeletal: Yes: Muscle Weakness Extremities: Yes: Other Edema: Yes Edema: LLE: Trace, RLE: Trace Peripheral Pulses WNL: Yes Integumentary: Yes: WNL Wound/Incision: Yes: Clean/Dry Neurological: Yes: Pre-Existing Deficit, Weakness Psychiatric: Yes: WNL Labs: CBC, BMP 01/02/18 05:30 01/02/18 05:30 INR, PTT INR 1.04 (0.83-1.09) 12/30/17 06:20 Fibrinogen 401.0 mg/dL (238-498) 12/30/17 06:20 Problem List - Problems (1) Dysphagia Code(s): R13.10 - DYSPHAGIA, UNSPECIFIED Qualifiers: Dysphagia type: oral phase Qualified Code(s): R13.11 - Dysphagia, oral phase (2) Weakness Code(s): R53.1 - WEAKNESS (3) Aortic stenosis Code(s): Q25.3 - SUPRAVALVULAR AORTIC STENOSIS (4) HTN (hypertension) Code(s): I10 - ESSENTIAL (PRIMARY) HYPERTENSION Qualifiers: Hypertension type: essential hypertension Qualified Code(s): I10 - Essential (primary) hypertension (5) ALS (amyotrophic lateral sclerosis) Code(s): G12.21 - AMYOTROPHIC LATERAL SCLEROSIS (6) History of prosthetic aortic valve Code(s): Z95.2 - PRESENCE OF PROSTHETIC HEART VALVE (7) Atrial fibrillation Code(s): I48.91 - UNSPECIFIED ATRIAL FIBRILLATION Assessment/Plan PORT PLACED AWAITING DISCHARGE CONTINUE TO MONITOR VS AND LABS
--- NOTE | 2018-01-04 11:35 | PN ---
Progress Note (short form) - Note Progress Note: Overall better. No acute events overnight. No CP or SOB. Intake & Output 01/01/18 01/02/18 01/03/18 01/04/18 23:59 23:59 23:59 23:59 Intake Total 1510 1050 350 Output Total 9205 277 6347 300 Balance 460 450 -700 -300 Last Vital Signs Temp Pulse Resp BP Pulse Ox 97.5 F L 107 H 20 104/62 97 01/04/18 06:00 01/04/18 06:00 01/04/18 06:00 01/04/18 06:00 01/03/18 21:00 Active Medications Acetaminophen (Tylenol -) 650 mg PO Q4H PRN PRN Reason: FEVER Apixaban (Eliquis -) 5 mg PO BID [facility] Last Admin: 01/04/18 10:57 Dose: 5 mg Cephalexin HCl (Keflex -) 500 mg PO BID [facility] Stop: 01/09/18 21:59 Last Admin: 01/04/18 10:57 Dose: 500 mg Docusate Sodium (Colace -) 300 mg PO DAILY [facility] Last Admin: 01/04/18 10:51 Dose: Not Given Losartan Potassium (Cozaar -) 50 mg PO DAILY [facility] Last Admin: 01/04/18 10:57 Dose: 50 mg Metoprolol Tartrate (Lopressor -) 50 mg PO BID [facility] Last Admin: 01/04/18 10:57 Dose: 50 mg Polyethylene Glycol (Miralax (For Daily Use) -) 17 gm PO TID [facility] Last Admin: 01/04/18 06:42 Dose: Not Given Gen: NAD at rest Heart: irregular Lung: decreased breath sounds at the bases Abd: soft, nontender Ext: no edema A/P ALS Atrial Fibrillation HTN Hyperlipidemia Constipation GI workup ongoing O2 as needed Eliquis Aspiration precautions Dr Arguello
[2018-01-04] MEDS ORDERED: PT OWN MED DRAWER 7, Y5N ONE (21:00)
[2018-01-05] MEDS: POLYETHYLENE GLYCOL 3350 119 GM BTL PO SCH ×2 (06:13→14:10)
[2018-01-05] MEDS ORDERED: PT OWN MED DRAWER 7, Y5N ONE (09:31)
[2018-01-05] MEDS: APIXABAN 5 MG TABLET PO SCH (09:44)
[2018-01-05] MEDS: LOSARTAN POTASSIUM 50 MG TABLET (FP) PO SCH (09:44)
[2018-01-05] MEDS: CEPHALEXIN MONOHYDRATE 500 MG CAPSULE (UD) PO SCH (09:44)
[2018-01-05] MEDS: DOCUSATE SODIUM 100 MG CAPSULE (FP) PO SCH (09:44)
[2018-01-05] MEDS: METOPROLOL TARTRATE 50 MG TABLET (FP) PO SCH (09:44)
--- NOTE | 2018-01-05 11:51 | DS ---
Physical Examination Vital Signs: Vital Signs Temperature 97.5 F L 01/05/18 06:00 Pulse Rate 93 H 01/05/18 06:00 Respiratory Rate 20 01/05/18 06:00 Blood Pressure 111/72 01/05/18 06:00 O2 Sat by Pulse Oximetry (%) 96 01/04/18 21:00 Findings/Remarks: 76 yo f w/ PMH HTN, HLD, ALS (wheelchair and bed bound), and A-fib on eliquis who presents to ED for progressive dysphagia, and weakness. Here for admission for port placement for IVIG therapy. Patient daughters at bedside. Per daughter patient has been in respite care for the past two weeks for general decline in motor tasks, swallowing, and worsening ALS progression. discharged from respite care today. Patient was sent to ED for Port placement in order to receive IVIG immunosupressive therapy and possible steroids in late stage ALS treatment. Per daughter patient has been having difficulty with swallowing over the past two weeks, with choking, and gagging on liquids and solids. Constitutional: Yes: Well Nourished, No Distress, Calm Cardiovascular: Yes: Regular Rate and Rhythm Respiratory: Yes: Regular Gastrointestinal: Yes: Normal Bowel Sounds, Soft Musculoskeletal: Yes: Muscle Weakness Neurological: Yes: Alert, Oriented Psychiatric: Yes: Alert, Oriented Labs: CBC, BMP 01/02/18 05:30 01/02/18 05:30 Discharge Summary Reason For Visit: AMYOTROPHIC LAATERAL SCLEROSIS Current Active Problems Colon polyp, hyperplastic (Acute) Constipation by delayed colonic transit (Acute) Diverticulosis (Acute) Dysphagia (Acute) Leukopenia (Acute) Motor neuron disease (Acute) Port-A-Cath in place (Acute) Weakness (Acute) Condition: Stable - Instructions Referrals: Jeremy Hammond MD [Primary Care Provider] - Erick Emmanuel MD [Staff Physician] - Disposition: [facility]/HOME HEALTH CARE - Home Medications Comprehensive Discharge Medication List: Ambulatory Orders Acetaminophen [Tylenol .Extra-Strength -] 1,000 mg PO Q8H PRN 12/28/17 Apixaban [Eliquis] 5 mg PO BID 12/28/17 Losartan Potassium 50 mg PO DAILY 12/28/17 Metoprolol Tartrate 50 mg PO BID 12/28/17 Docusate Sodium [Colace -] 300 mg PO DAILY #30 tab 01/02/18
--- NOTE | 2018-01-05 11:53 | PN ---
Progress Note, SKETCH MAKER - Note Progress Note: Selected Entries 01/02/18 01/02/18 01/02/18 14:57 18:21 22:00 Breakfast 75% Lunch 25% Supper 50% 50% Temperature 01/03/18 01/03/18 01/04/18 11:53 18:30 06:00 Breakfast 50% Lunch Supper 50% Temperature 97.5 F L 01/04/18 01/04/18 01/04/18 10:00 11:08 15:24 Breakfast 50% Lunch 25% Supper Temperature 97.9 F 01/04/18 01/04/18 01/05/18 18:42 23:20 06:00 Breakfast Lunch Supper 50% Temperature 97.8 F 97.5 F L Laboratory Tests 01/02/18 05:30 WBC 2.4 L Pt is on a chopped diet. Appetite good.Tolerating diet without difficulty. Reviewed with staff. Rec: Reg diet as tolerated. Menu selection.
[2018-01-05 12:02] VITALS: BP 130/88; PULSE 99; TEMP 97.8
--- NOTE | 2018-01-05 12:35 | PN ---
GI Progress Note Subjective: GI NOte: Eating has improved. NOw has confidence to eat a soft diet. - Objective Vital Signs: Vital Signs Temperature 97.8 F 01/05/18 09:00 Pulse Rate 99 H 01/05/18 09:00 Respiratory Rate 20 01/05/18 09:00 Blood Pressure 130/88 01/05/18 09:00 O2 Sat by Pulse Oximetry (%) 96 01/04/18 21:00 ...Auscultate: Yes: Normoactive Bowel Sounds ...Palpate: Yes: Soft, Other (nontender) Labs: CBC, BMP 01/02/18 05:30 01/02/18 05:30 INR, PTT INR 1.04 (0.83-1.09) 12/30/17 06:20 Fibrinogen 401.0 mg/dL (238-498) 12/30/17 06:20 Problem List - Problems (1) Dysphagia Assessment/Plan: Anticipate discharge Code(s): R13.10 - DYSPHAGIA, UNSPECIFIED Qualifiers: Dysphagia type: oral phase Qualified Code(s): R13.11 - Dysphagia, oral phase (2) Constipation by delayed colonic transit Code(s): K59.01 - SLOW TRANSIT CONSTIPATION (3) Colon polyp, hyperplastic Code(s): K63.5 - POLYP OF COLON Qualifiers: Colon location: descending Qualified Code(s): K63.5 - Polyp of colon (4) Diverticulosis Code(s): K57.90 - DVRTCLOS OF INTEST, PART UNSP, W/O PERF OR ABSCESS W/O BLEED Qualifiers: Diverticulosis site: diverticulosis of large intestine (5) ALS (amyotrophic lateral sclerosis) Code(s): G12.21 - AMYOTROPHIC LATERAL SCLEROSIS (6) History of prosthetic aortic valve Code(s): Z95.2 - PRESENCE OF PROSTHETIC HEART VALVE (7) Atrial fibrillation Code(s): I48.91 - UNSPECIFIED ATRIAL FIBRILLATION
== END 2018-01-05 14:41 | disposition home health service (06) | DRG 56 ==
LOC: JER 08:32 → JERBED 10:10 → J8W 19:59 → J5S 12-29 19:51 → J4S 12-31 12:23 → J4W 12-31 21:55 → J5S 01-01 17:32
PROVIDERS: ADMIT Family Medicine; ATTEND Family Medicine
PROC: 02HV33Z Insertion of Infusion Device into Superior Vena Cava, Percutaneous Approach (ICD-10-PCS; principal; 2018-01-01 13:30)
DX: G12.21 Amyotrophic lateral sclerosis (principal); R53.2 Functional quadriplegia; N39.0 Urinary tract infection, site not specified; I10 Essential (primary) hypertension; E78.5 Hyperlipidemia, unspecified; Z99.3 Dependence on wheelchair; Z79.01 Long term (current) use of anticoagulants; Z95.2 Presence of prosthetic heart valve; Z87.891 Personal history of nicotine dependence; Z74.01 Bed confinement status; K59.00 Constipation, unspecified; K59.01 Slow transit constipation; R13.11 Dysphagia, oral phase; I48.2 Chronic atrial fibrillation; E66.9 Obesity, unspecified; G58.9 Mononeuropathy, unspecified; G12.20 Motor neuron disease, unspecified; K57.90 Diverticulosis of intestine, part unspecified, without perforation or abscess without bleeding; Z68.30 Body mass index [BMI] 30.0-30.9, adult; G57.81 Other specified mononeuropathies of right lower limb
CPT/HCPCS: 36415; 71045-TC-FY; 74230-TC-FY; 76000-TC-FY; 80053; 81003; 81015; 82668; 84439; 84443; 85025; 85027; 85384; 85610; 85730; 86850; 86900; 86901; 87086; 87186; 88300-TC; 92611-GN; 93005; 93010; 94760; 97161-GP; 99285-25; J1561; J1644

== ENCOUNTER 2018-03-16 10:27 | Inpatient (IN) | payer OTHER, MEDICARE ==
--- NOTE | 2018-03-16 12:37 | PDOC ---
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 Ms De Santiago lives with her daughter along with a 24 hr/day aide. Per her daughter, Ms De Santiago has been slowly declining over the past several months. She has lost about 30lb at home due to poor PO intake over the past 2-3 months, but the daughters noticed a more rapid decline over the past 1-2 weeks. She has had difficulty taking in even 500-600 calories recently, and yesterday she was not even able to swallow her medications in applesauce. Ms De Santiago also reports increased difficulty breathing. She has told her daughters that her "diaphragm feels tight" recently as well. Her daughter reports that they use an incentive spirometer at home. Previously, she was able to get volumes of 800-1000cc but this has decreased to around 250cc over the past week. They have noticed that she gets short of breath while talking, which has never happened before. Ms De Santiago and her daughters all deny any recent fevers, chills, nausea, vomiting, change in bowel or urinary habits, rash, skin breakdown, or ulcers. Past History - Past Medical History Allergies/Adverse Reactions: Allergies Allergy/AdvReac Type Severity Reaction Status Date / Time No Known Drug Allergies Allergy Verified 03/16/18 11:35 Home Medications: Ambulatory Orders Acetaminophen [Tylenol .Extra-Strength -] 1,000 mg PO Q8H PRN 12/28/17 Apixaban [Eliquis] 5 mg PO BID 12/28/17 Losartan Potassium 50 mg PO DAILY 12/28/17 Metoprolol Tartrate 50 mg PO BID 12/28/17 Amoxicillin - [Amoxicillin 500mg Capsule -] 1,000 mg PO ONCE #2 capsule Apixaban [Eliquis -] 5 mg PO BID tablet 01/05/18 Docusate Sodium [Colace -] 300 mg PO DAILY #30 tab 01/05/18 Docusate Sodium [Colace -] 300 mg PO DAILY #90 capsule 01/05/18 Polyethylene Glycol 3350 [Miralax 119 gm Btl -] 17 gm PO TID #1 bottle 01/05/18 Anemia: No Asthma: No Cancer: No Cardiac Disorders: Yes (aortic stenosis, VALVE REPLACEMENT, AFIB) CVA: No COPD: No CHF: No DVT: No Dementia: No Diabetes: No GI Disorders: Yes (HEMORRHOIDS,DIVERTICULOSIS,) Disorders: No HTN: Yes Hypercholesterolemia: Yes Liver Disease: No Seizures: No Thyroid Disease: No Other medical history: ALS - Surgical History Abdominal Surgery: No Appendectomy: No Cardiac Surgery: Yes (Aortic valve replacement) Cholecystectomy: Yes Lung Surgery: No Neurologic Surgery: No Orthopedic Surgery: No - Immunization History Immunization Up to Date: Yes - Suicide/Smoking/Psychosocial Hx Smoking History: Never smoked Have you smoked in the past 12 months: No Number of Cigarettes Smoked Daily: 0 If you are a former smoker, when did you quit?: 45 YRS AGO Cigars Per Day: 0 Information on smoking cessation initiated: No Hx Alcohol Use: No Drug/Substance Use Hx: No Substance Use Type: None Hx Substance Use Treatment: No Review of Systems - Review of Systems Comments:: General: No fevers, no chills, no malaise. +loss of appetite, +loss of 30lb in 2 -3 months HEENT: No changes in vision, no changes in hearing, no congestion, no sore throat CV: No chest pain, no palpitations. +a-fib, +aortic replacement Pulm: +SOB. No cough, no wheezing. Difficulty clearing sputum. GI: No nausea or vomiting, no change in bowel habits, no melena : No frequency, no urgency, no dysuria Musc: No back pain, no joint swelling, no recent injury Skin: No rash, no lesions, no erythema Endo: No excessive thirst, no heat/cold intolerance Heme: No unusual bruising or bleeding, no swollen glands Neuro: +ALS, +quadriplegia Vasc: No claudication Psych: No recent change in mood, no SI or HI *Physical Exam - Vital Signs Last Vital Signs Temp Pulse Resp BP Pulse Ox 98.0 F 108 H 18 99/76 97 03/16/18 11:28 03/16/18 11:28 03/16/18 11:28 03/16/18 11:28 03/16/18 11:28 - Physical Exam Comments: General: Comfortable, no acute distress HEENT: PERRL, EOMI, mouth dry, voice normal Cards: Irregularly irregular, tachycardic 110-130 Chest: Well-healed mid-sternal scar c/w prior valve replacement. Port palpable on upper right chest wall Pulm: Conversational dypnea, speaks 2-3 words at a time. Anteriorly clear, posterior exam deferred Abd: Soft, nontender, nondistended : Diapered Ext: BLE swelling w/o pitting. Able to wiggle toes. Otherwise cannot move extremities. 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 - Denies any infectious symptoms. No obvious focal deficits apart from her chronic medical conditions on exam - EKG obtained on arrival; shows known a-fib - CBC, CMP, mag, phos, trop, coags ordered to evaluate for abnormalities causing her worsening symptoms, though they are most likely due to functional decline consistent with her known ALS diagnosis - CXR to r/o effusion, atalectasis, pneumonia causing worsening SOB - Will call respiratory to check NIF - Tachycardic and mildly hypotensive with dry mouth. Given low PO intake, likely mildly dehydrated. 1L NS bolus ordered - Per family discussion, would like to know what needs to be done to care for her at home. Discussed that they will be able to discuss future care with social work v palliative if/once admitted. If not admitted, will have ED social work discuss with the family but will most likely admit due to failure to thrive at home. 03/16/18 13:09 - Labs sent - Per family and pt request and given quadriplegia, bety to be placed 03/16/18 14:12 - CXR reviewed. No focal abnormalities. Similar to previous xrays - Labs completed. No concerning abnormalities - UA pending - Call placed to respiratory to check NIFs. No answer. Will call again. 03/16/18 14:32 - UA negative - Call placed to Dr Valderrama for admission. Waiting for return call. 03/16/18 15:00 - Spoke to Dr Valderrama. Will admit to med/surg. Requesting a CT chest/abd, ordered - Per Dr Valderrama, will order consult for Dr Quintanilla. - NIFs completed by respiratory, are -8 to 10. As sats are normal, will hold off on respiratory support e.g. bipap for now Seen and discussed with Dr Pablo. Abby Capone PGY1 *DC/Admit/Observation/Transfer Diagnosis at time of Disposition: Failure to thrive, Shortness of breath - Discharge Dispostion Decision to Admit order: Yes - Referrals Referrals: Jeremy Hammond MD [Primary Care Provider] - - Patient Instructions - Post Discharge Activity
[2018-03-16] MEDS ORDERED: SODIUM CHLORIDE 0.9% 500 ML INFUS.BAG IV ONE (12:39)
[2018-03-16 13:27] LABS: EOS % 0.2 % (0-4.5); HEMATOCRIT 45.2 % (32.4-45.2); HEMOGLOBIN 15.8 GM/dL (10.7-15.3); LYMPH % 22.1 % (8-40); MCH 30.3 pg (25.7-33.7); MCHC 34.8 g/dl (32.0-36.0); MEAN CELL VOLUME 86.9 fl (80-96); MEAN PLT VOLUME 9.5 fl (7.5-11.1); MONO % 8.6 % (3.8-10.2); NEUT % 68.1 % (42.8-82.8); PLATELET COUNT 182 K/MM3 (134-434); RBC 5.21 M/mm3 (3.60-5.2); WHITE BLOOD COUNT 6.6 K/mm3 (4.0-10.0)
--- NOTE | 2018-03-16 13:29 | EKG ---
Test Reason : Blood Pressure : / mmHG Vent. Rate : 092 BPM Atrial Rate : 110 BPM P-R Int : 000 ms QRS Dur : 082 ms QT Int : 336 ms P-R-T Axes : 000 036 074 degrees QTc Int : 415 ms ATRIAL FIBRILLATION ABNORMAL ECG WHEN COMPARED WITH ECG OF 31-DEC-2017 09:36, ATRIAL FIBRILLATION HAS REPLACED ATRIAL FLUTTER VENT. RATE HAS DECREASED BY 52 BPM Confirmed by PABLO FARAH MD ([id number]) on 03/16/2018 1:29:32 PM Referred By: Confirmed By:PABLO FARAH MD
[2018-03-16 13:51] LABS: ALBUMIN 3.1 g/dl (3.4-5.0); ALK PHOS 74 U/L (45-117); ANION GAP 9 MMOL/L (8-16); BILIRUBIN,TOTAL 1.4 mg/dL (0.2-1); BLOOD UREA NITROGEN 10 mg/dL (7-18); CALCIUM 8.6 mg/dL (8.5-10.1); CHLORIDE 98 mmol/L (98-107); CO2 27 mmol/L (21-32); CREATININE 0.2 mg/dL (0.55-1.3); GLUCOSE,RANDOM 94 mg/dL (74-106); PHOSPHOROUS 4.2 mg/dL (2.5-4.9); POTASSIUM 4.4 mmol/L (3.5-5.1); SGOT/AST 31 U/L (15-37); SGPT/ALT 25 U/L (13-61); SODIUM 134 mmol/L (136-145); TOT PROT 6.6 g/dl (6.4-8.2)
[2018-03-16 14:07] LABS: INR 1.23 (0.83-1.09); PROTHROMBIN TIME (PATIENT) 14.6 SEC (9.7-13.0)
[2018-03-16 14:10] LABS: ACTIVATED PTT 28.6 SECONDS (25.2-36.5)
[2018-03-16 14:12] LABS: URINE APPEARANCE CLEAR; URINE BILIRUBIN NEGATIVE (<2.0 mg/dL); URINE COLOR YELLOW; URINE GLUCOSE (UA) NEGATIVE (NEGATIVE); URINE KETONE TRACE (NEGATIVE); URINE LEUK ESTERASE NEGATIVE (NEGATIVE); URINE NITRITE NEGATIVE (NEGATIVE); URINE PROTEIN NEGATIVE (NEGATIVE)
--- NOTE | 2018-03-16 15:04 | PDOC ---
Attending Attestation - Resident Resident Name: Abby Capone - ED Attending Attestation I have performed the following: I have examined & evaluated the patient, The case was reviewed & discussed with the resident, I agree w/resident's findings & plan, Exceptions are as noted - HPI HPI: 03/16/18 15:11 The patient is a 77 year old female, with a past medical history of PMH HTN, HLD, ALS (wheelchair and bed bound), Afib (on eliquis), Aortic stenosis (s/p aortic valve replacement) who presents to the emergency department with 1 week of decreased PO intake and worsening shortness of breath. As per patients family, she has not been able to take her PO medications due to weakness. Family also notes that she normally can blow between 800-1000 on her incentive spirometer but now can only do 200-300. Family denies any recent fever or chills. Allergies: NKDA Past surgical history: Aortic valve replacement (Bovine valve, 06/07), Cholecystectomy. Social history: Former smoker (Quit 45 years ago). Primary Care Physician: Dr. Hammond - Physicial Exam PE: 03/16/18 15:16 GENERAL: Awake, alert, in no acute distress. HEAD: No signs of trauma EYES: PERRLA, EOMI, sclera anicteric, conjunctiva clear ENT: Auricles normal inspection, hearing grossly normal, nares patent, oropharynx clear without exudates. Moist mucosa NECK: Nontender, no stepoffs, Normal ROM, supple, no lymphadenopathy, JVD, or masses LUNGS: Breath sounds equal, clear to auscultation bilaterally. No wheezes, and no crackles HEART: Regular rate and rhythm, normal S1 and S2, no murmurs, rubs or gallops ABDOMEN: Soft, nontender, normoactive bowel sounds. No guarding, no rebound. No masses EXTREMITIES: Normal range of motion, no edema. No clubbing or cyanosis. No cords, erythema, or tenderness SKIN: Warm, Dry, normal turgor, no rashes or lesions noted. - Critical Care Time Total Critical Care Time: 60 Critical Care Statement: The care of this patient involved high complexity decision making to prevent further life threatening deterioration of the patient 's condition and/or to evaluate & treat vital organ system(s) failure or risk of failure. - Medical Decision Making 03/16/18 15:17 77 F with poor PO and worsening SOB. Likely failure to thrive 2/2 progression of ALS. Pt with no signs of respiratory distress at this time, normal O2 sat. Will evaluate for infectious process. - Labs - CXR, UA - NIF - IVF - Admit 03/16/18 15:18 Labs wnl CXR unremarkable Pt's NIF is -10. However, pt is maintaining normal O2 sat. Will continue to monitor, start BiPAP if needed Pt admitted to Dr. Valderrama. Dr. Emmanuel consulted 03/16/18 17:53 I had long discussion with family regarding goals of care. Family would like feeding tube placed during this admission. However, pt remains DNR/DNI. With regard to BiPAP, they are amenable to it, though pt has some reservations, as she is unfamiliar with it.
[2018-03-16] MEDS ORDERED: ACETAMINOPHEN 325 MG TABLET (FP) PO PRN (16:08)
[2018-03-16] MEDS: SODIUM CHLORIDE 1,000 ML IV SCH (17:20)
[2018-03-16] MEDS ORDERED: MELATONIN 5 MG TABLETS PO ONE (18:37)
[2018-03-16] MEDS: MELATONIN 5 MG TABLETS PO SCH (22:53)
[2018-03-16] MEDS: METOPROLOL TARTRATE 50 MG TABLET (FP) PO SCH (22:53)
[2018-03-16] MEDS: APIXABAN 5 MG TABLET PO SCH (22:53)
[2018-03-17] MEDS: SODIUM CHLORIDE 1,000 ML IV SCH ×3 (06:05→17:58)
[2018-03-17] MEDS: APIXABAN 5 MG TABLET PO SCH ×2 (10:06→21:42)
[2018-03-17] MEDS: METOPROLOL TARTRATE 50 MG TABLET (FP) PO SCH ×2 (10:07→21:42)
[2018-03-17] MEDS: LOSARTAN POTASSIUM 50 MG TABLET (FP) PO SCH (10:07)
--- NOTE | 2018-03-17 11:01 | CONSULT ---
Admitting History and Physical - Primary Care Physician PCP: Bozena Valderrama - Admission History of Present Illness: Per EMR: The patient is a 77 year old female, with a past medical history of PMH HTN, HLD, ALS (wheelchair and bed bound), Afib (on eliquis), Aortic stenosis (s/p aortic valve replacement) who presents to the emergency department with 1 week of decreased PO intake and worsening shortness of breath. As per patients family, she has not been able to take her PO medications due to weakness. Family also notes that she normally can blow between 800-1000 on her incentive spirometer but now can only do 200-300. Family denies any recent fever or chills. Selected Entries 03/17/18 06:00 Temperature 98.7 F Laboratory Tests 03/16/18 13:00 WBC 6.6 Known to me from recent admission. 12/31/17 Sp path notes- Pt reports feel of choking. Daughters report pt choked once on pills, but that she chews indefinitely on soup and puree and spits out tiny pieces in her mouth. They deny any cognitive decline/dementia/h/o PNA/ Bronchitis/choking on liquids.They say she has ongoing depression. She is hardly eating anything, although she premorbidly loved food. Daughters have had 6 consults regarding ALS, which has been questioned but is presumed at this point. No Bulbar symptoms at this time. Speech production is normal, with alejandro-peripheral cursory evaluation (-). No fasciculations, articulatory weakness or asymmetry, thrush. IMP: r/o depression adversely affecting po intake. 3 oz water test is negative. I suspect swallowing function is WNL with normal speech, no bulbar symptoms, good tolerance of water. REC: consider anti-depressant/appetite stimulant MBS to visualize swallowing function, with pt and daughters observing study and education on the results. Pt being transferred to telemetry presently-MBS when medically stable. Additionally, family educated on availability of computer, controlled by eye gaze, for use of environmental controls (tv,bed,lights, phone calls/skype, email writing,internet etc) Assess as out pt at [facility] for augmentative communication. 01/02/18 MBS-NORMAL swallowing function 01/05/18 Speech Pathyology note Pt is on a chopped diet. Appetite good.Tolerating diet without difficulty. Reviewed with staff. Rec: Reg diet as tolerated. Menu selection. - Past Medical History HYDROMETEOROLOGIST: Yes: Other (ALS type AUTOIMMUNE NEUROPATHY) Cardiovascular: Yes: AFIB, Aortic Stenosis (s/p bovine AVR 05/06 [facility] [place]), HTN, Hyperlipdemia Gastrointestinal: Yes: Constipation, Diverticulosis, Other (hyperplastic colon polyps) Hepatobiliary: Yes: Cholelithiasis (s/p lap choly) ...: No Psych: Yes: Anxiety - Past Surgical History Past Surgical History: Yes: Cholecystectomy, Colonoscopy (colon polyps removed 2013), Valve Replacement (bovine AVR 05/06) - Advance Directives Advance Directives: Yes: Health Care Proxy, DNR, MOLST - Smoking History Smoking history: Never smoked Have you smoked in the past 12 months: No Aproximately how many cigarettes per day: 0 If you are a former smoker, when did you quit?: 45 YRS AGO - Alcohol/Substance Use Hx Alcohol Use: No History of Substance Use: reports: None - Social History ADL: Family Assistance History of Recent Travel: No History - Admission Reason For Visit: AMYOTROPHIC LATERAL SCLEROSIS,SOB,FAILUTRE TO THRI - Diagnostics X-ray: Report Reviewed (infiltrate? r/o aspiration vs related to impaired respiratory function) - General Mental Status: Alert and Oriented, Awake and Alert, Able to Follow Commands Attention: Intact - Hearing Hearing: Normal Hearing Aide: No With Patient: No Speech Evaluation - Communication Primary Language: BENGALI Communication: Yes: Within Normal Limits Oral Expression Ability: Yes: Mild Impairment - Speech Production Apraxia: No Able to Make Needs Known: Yes: WNL Intelligibility: Yes: WNL - Speech Characteristics Voice Loudness: Mildly Soft/Quiet Voice Pitch: Yes: Mildly High Speech Pattern: Normal Speech Clarity: < 100% Nasal Resonance: Normal Articulation: Yes: Precise Rate of Speech: Intact - Language/Auditory Comprehension Observation: Comprehends Conversational Speech: Yes - Language/Verbal Expression Able to Communicate Wants and Needs: Yes: WNL Functional Communication Status: Yes: WNL - Memory/Perception assisted Memory: Yes: WNL Short Term Memory: Yes: WNL - Swallow Evaluation/Bedside Assessment Current Nutritional Intake: NPO Oral Secretions: Yes: WFL Facial Symmetry at Rest: Symmetrical Facial Symmetry on Retraction: Symmetrical Facial Movement: Controlled Sensation: Normal Against Resistance Opening: Normal Against Resistance Closing: Normal Pucker Lips: Normal Smile: Normal Lingual Movement: Normal, Symmetric Lingual Speed of Movement: Normal Lingual Movement Characteristics: Normal Laryngeal Movement: Able to Palpate Labial Seal: WFL A-P Transit: WFL Timing of Swallow: Delayed Coughing/Throat Clear: No ((-) 3 oz water test.) Change in Voice: No Recommendations - Speech Evaluation, Impression/Plan Impression: Upon review of recent h/x with pt's daughter, they were aggressive, insisting that it takes 4 hours to drink 1 Ensure, and she "can't swallow", with 25 lb loss. They said "the throat muscles are the first to go in ALS." I attempted to educate them on variety of types and symptoms of ALS, but they disagreed with my information. I could not find oral fasciculations or bulbar symptoms. Swallow seems delayed but fairly brisk. No difficulty with 3 oz water test, with rapid drinking.Silent aspiration can noyt be r/o at bedside.Pt did report stasis of puree in the back of her mouth, needing water to wash it down. I could not assess this objectively at bedside. Pt is fully dependent in all ADL. She is fed by family. I believe pt's swallowing is functional. A repeat MBS would objectively assess this. The possibility of aspiration is present with admission for SOB and (+) cxr. Possibility related to deteriorating pulmonary function sec to Motor Neuron Disease.However, daughters insist on PEG insertion, Per daughters, she lost 25 lb. If so, PEG may be necessary to maintain nutritional status at this time. Reviewed with PNP. - Disposition Discharge to: Home with Assist, [facility] (Consider PEG insertion to supplement PO intake/Rehab by speech pathologist at [place] for increased PO intake), To be Determined - Dysphagia Impressions/Plan Dysphagia Impressions: Mild Impairment, Ongoing Evaluation *Silent aspiration: cannot be R/O at bedside Dysphagia Treatment Plan: Small Bites, Chin Tuck/Down, Safe Rate, 1/2 tsp. at a time Recommendations: Neuro Consult, Palliative Care (Consider speaking to pt alone regarding feeding practices at home? Subjective severity of difficulty swallowing? NH placement?), Modified Barium Swallow (recommended to r/o aspiration with CXR results. Family refusing.), Other (PEG insertion per family request. r/o protein calorie malnutrition due to weight loss.) - Recommendations Diet Consistency: Dysphagia Pureed (thinned out with gravy), Other (Suggest staff feed pt. Alternate puree withy thin liquid via straw.) Medication Administration: Crushed with applesauce Liquids: Thin Liquids Supplement: Ensure
--- NOTE | 2018-03-17 11:36 | HP ---
Admitting History and Physical - Primary Care Physician PCP: Bozena Valderrama - Admission Chief Complaint: SOB. 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 Ms De Santiago lives with her daughter along with a 24 hr/day aide. Per her daughter, Ms De Santiago has been slowly declining over the past several months. She has lost about 30lb at home due to poor PO intake over the past 2-3 months, but the daughters noticed a more rapid decline over the past 1-2 weeks. She has had difficulty taking in even 500-600 calories recently, and yesterday she was not even able to swallow her medications in applesauce. Ms De Santiago also reports increased difficulty breathing. She has told her daughters that her "diaphragm feels tight" recently as well. Her daughter reports that they use an incentive spirometer at home. Previously, she was able to get volumes of 800-1000cc but this has decreased to around 250cc over the past week. They have noticed that she gets short of breath while talking, which has never happened before. Ms De Santiago and her daughters all deny any recent fevers, chills, nausea, vomiting, change in bowel or urinary habits, rash, skin breakdown, or ulcers. History Source: Patient, Family Member, Medical Record Limitations to Obtaining History: No Limitations - Past Medical History RES COUNSELOR: Yes: Other (ALS type AUTOIMMUNE NEUROPATHY) Cardiovascular: Yes: AFIB, Aortic Stenosis (s/p bovine AVR 05/06 [facility]), HTN, Hyperlipdemia Gastrointestinal: Yes: Constipation, Diverticulosis, Other (hyperplastic colon polyps) Hepatobiliary: Yes: Cholelithiasis (s/p lap choly) ...: No Psych: Yes: Anxiety - Past Surgical History Past Surgical History: Yes: Cholecystectomy, Colonoscopy (colon polyps removed 2013), Valve Replacement (bovine AVR 05/06) - Advance Directives Advance Directives: Yes: Health Care Proxy, DNR, MOLST - Smoking History Smoking history: Never smoked Have you smoked in the past 12 months: No Aproximately how many cigarettes per day: 0 If you are a former smoker, when did you quit?: 45 YRS AGO - Alcohol/Substance Use Hx Alcohol Use: No History of Substance Use: reports: None - Social History ADL: Family Assistance History of Recent Travel: No Home Medications - Allergies Allergies/Adverse Reactions: Allergies Allergy/AdvReac Type Severity Reaction Status Date / Time No Known Drug Allergies Allergy Verified 03/16/18 11:35 - Home Medications Home Medications: Ambulatory Orders Acetaminophen [Tylenol .Extra-Strength -] 1,000 mg PO Q8H PRN 12/28/17 Apixaban [Eliquis] 5 mg PO BID 12/28/17 Losartan Potassium 50 mg PO DAILY 12/28/17 Metoprolol Tartrate 50 mg PO BID 12/28/17 Amoxicillin - [Amoxicillin 500mg Capsule -] 1,000 mg PO ONCE #2 capsule Apixaban [Eliquis -] 5 mg PO BID tablet 01/05/18 Docusate Sodium [Colace -] 300 mg PO DAILY #30 tab 01/05/18 Docusate Sodium [Colace -] 300 mg PO DAILY #90 capsule 01/05/18 Polyethylene Glycol 3350 [Miralax 119 gm Btl -] 17 gm PO TID #1 bottle 01/05/18 Family Disease History - Family Disease History Family Disease History: Diabetes: Sister (COPD), CA: Mother ( 90 cholangiocarcinoma), Other: Father ( 67 COPD) Review of Systems Findings/Remarks: NAD Breathing Shallow feels SOB, but maintaining Spo2 Neurology and Pulmonary consult ordered Daughters at bedside - Review of Systems Constitutional: reports: Weakness Eyes: reports: No Symptoms HENT: reports: Difficult Swallowing Neck: reports: No Symptoms Cardiovascular: reports: No Symptoms Respiratory: reports: SOB Gastrointestinal: reports: Dysphagia Genitourinary: reports: No Symptoms Breasts: reports: No Symptoms Reported Musculoskeletal: reports: No Symptoms Integumentary: reports: No Symptoms Neurological: reports: Weakness Endocrine: reports: No Symptoms Hematology/Lymphatic: reports: No Symptoms Psychiatric: reports: No Symptoms Physical Examination Vital Signs: Vital Signs Temperature 98.7 F 03/17/18 06:00 Pulse Rate 104 H 03/17/18 06:00 Respiratory Rate 20 03/17/18 06:00 Blood Pressure 107/72 03/17/18 06:00 O2 Sat by Pulse Oximetry (%) 96 03/17/18 00:04 Constitutional: Yes: Well Nourished, No Distress, Anxious Cardiovascular: Yes: Regular Rate and Rhythm Respiratory: Yes: Diminished, SOB, Other (shallow) Gastrointestinal: Yes: Normal Bowel Sounds, Soft Musculoskeletal: Yes: Muscle Weakness Edema: No Peripheral Pulses WNL: Yes Neurological: Yes: Alert, Oriented Psychiatric: Yes: Alert, Oriented Labs: CBC, BMP 03/16/18 13:00 03/16/18 13:00 Imaging - Results Chest X-ray: Report Reviewed Problem List - Problems (1) Failure to thrive Assessment/Plan: -GI consult for PEG -Seen by Speech Therapy Code(s): FZH8282 - (2) Shortness of breath Assessment/Plan: -Pulmonary consult -Trial of BIPAP -Bronchodilators -Nasal O2 PRN to keep Spo2>90% -CT chest reviewed- RLL atelectasis Code(s): R06.02 - SHORTNESS OF BREATH (3) Functional quadriplegia Code(s): R53.2 - FUNCTIONAL QUADRIPLEGIA (4) ALS (amyotrophic lateral sclerosis) Assessment/Plan: -Neurology consult -Palliative car consult Code(s): G12.21 - AMYOTROPHIC LATERAL SCLEROSIS (5) Atrial fibrillation Assessment/Plan: -chronic, controlled -On Eliquis BID -Cardiology consult Code(s): I48.91 - UNSPECIFIED ATRIAL FIBRILLATION Assessment/Plan see problem list
[2018-03-17] MEDS: ALBUTEROL SO4 2.5/IPRATROPIUM 0.5 INH SOL 3 ML VIAL.NEB. NEB SCH ×3 (13:25→20:54)
--- NOTE | 2018-03-17 14:01 | CON.PULM ---
Consult Consult Specialty:: PULM/CCM Referred by:: PMAndrew Reason for Consultation:: SOB - History of Present Illness Chief Complaint: SOB / poor PO intake History of Present Illness: 77 F, progressive MND-Brachial Amyotrophic Diplegia, AFib, h/o aortic valve replacement, HTN, and HLD. According to the daughters rapid decline over the past 6 weeks. Apparent 30 pound weight loss due to poor oral intake. Patient also reports progressive difficulty in breathing. She describes it the feeling as if her "diaphragm feels tight". Noted a significant decline in her ability to use an Incentive Spirometer from almost 1000cc to 250cc. No fever or chills. No night sweats or hemoptysis. 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 (ALS type AUTOIMMUNE NEUROPATHY) Cardio/Vascular: Yes: AFIB, Aortic Stenosis (s/p bovine AVR 05/06 [facility] [place] HTN, Hyperlipdemia Gastrointestinal: Yes: Constipation, Diverticulosis, Other (hyperplastic colon polyps) Hepatobiliary: Yes: Cholelithiasis (s/p lap choly) ...: No Psych: Yes: Anxiety - Past Surgical History Past Surgical History: Yes: Cholecystectomy, Colonoscopy (colon polyps removed 2013), Valve Replacement (bovine AVR 05/06) - Alcohol/Substance Use Hx Alcohol Use: No History of Substance Use: reports: None - Smoking History Smoking history: Never smoked Have you smoked in the past 12 months: No Aproximately how many cigarettes per day: 0 If you are a former smoker, when did you quit?: 45 YRS AGO - Social History Usual Living Arrangement: With Child ADL: Family Assistance History of Recent Travel: No Home Medications - Allergies Allergies/Adverse Reactions: Allergies Allergy/AdvReac Type Severity Reaction Status Date / Time No Known Drug Allergies Allergy Verified 03/16/18 11:35 - Home Medications Home Medications: Ambulatory Orders Acetaminophen [Tylenol .Extra-Strength -] 1,000 mg PO Q8H PRN 12/28/17 Apixaban [Eliquis] 5 mg PO BID 12/28/17 Losartan Potassium 50 mg PO DAILY 12/28/17 Metoprolol Tartrate 50 mg PO BID 12/28/17 Amoxicillin - [Amoxicillin 500mg Capsule -] 1,000 mg PO ONCE #2 capsule Apixaban [Eliquis -] 5 mg PO BID tablet 01/05/18 Docusate Sodium [Colace -] 300 mg PO DAILY #30 tab 01/05/18 Docusate Sodium [Colace -] 300 mg PO DAILY #90 capsule 01/05/18 Polyethylene Glycol 3350 [Miralax 119 gm Btl -] 17 gm PO TID #1 bottle 01/05/18 Family Disease History - Family Disease History Family Disease History: Diabetes: Sister (COPD), CA: Mother ( 90 cholangiocarcinoma), Other: Father ( 67 COPD) Physical Exam Vital Sings: Vital Signs Temperature 98.7 F 03/17/18 06:00 Pulse Rate 104 H 03/17/18 06:00 Respiratory Rate 20 03/17/18 06:00 Blood Pressure 107/72 03/17/18 06:00 O2 Sat by Pulse Oximetry (%) 92 L 03/17/18 09:00 Constitutional: Yes: Anxious Eyes: Yes: Conjunctiva Clear, EOM Intact HENT: Yes: Atraumatic, Normocephalic Neck: Yes: Supple, Trachea Midline Cardiovascular: Yes: Pulse Irregular Respiratory: Yes: Diminished, On Nasal O2, Rhonchi. No: Accessory Muscle Use, Rales, Stridor, Tachypnea, Wheezes ...Clubbing: No Gastrointestinal: Yes: Normal Bowel Sounds, Soft Musculoskeletal: Yes: WNL Extremities: Yes: Other (muscle wasting ) Edema: No Peripheral Pulses WNL: Yes Integumentary: Yes: WNL Neurological: Yes: WNL, Alert, Oriented, Pre-Existing Deficit Psychiatric: Yes: WNL, Alert, Oriented Labs: CBC, BMP 03/16/18 13:00 03/16/18 13:00 Imaging - Results Chest X-ray: Report Reviewed, Image Reviewed Cat Scan: Report Reviewed, Image Reviewed Problem List - Problems (1) Atelectasis Code(s): J98.11 - ATELECTASIS (2) Nodule of apex of right lung Code(s): R91.1 - SOLITARY PULMONARY NODULE (3) Failure to thrive Code(s): HIB4047 - (4) Shortness of breath Code(s): R06.02 - SHORTNESS OF BREATH (5) Aortic stenosis Code(s): Q25.3 - SUPRAVALVULAR AORTIC STENOSIS (6) Dysphagia Code(s): R13.10 - DYSPHAGIA, UNSPECIFIED Qualifiers: Dysphagia type: oral phase Qualified Code(s): R13.11 - Dysphagia, oral phase (7) Functional quadriplegia Code(s): R53.2 - FUNCTIONAL QUADRIPLEGIA (8) HTN (hypertension) Code(s): I10 - ESSENTIAL (PRIMARY) HYPERTENSION Qualifiers: Hypertension type: essential hypertension Qualified Code(s): I10 - Essential (primary) hypertension (9) Hypercholesteremia Code(s): E78.0 - PURE HYPERCHOLESTEROLEMIA * DO NOT USE * (10) ALS (amyotrophic lateral sclerosis) Code(s): G12.21 - AMYOTROPHIC LATERAL SCLEROSIS (11) History of prosthetic aortic valve Code(s): Z95.2 - PRESENCE OF PROSTHETIC HEART VALVE (12) Atrial fibrillation Code(s): I48.91 - UNSPECIFIED ATRIAL FIBRILLATION Assessment/Plan ABG Check NIF O2 as needed Discussed with patient and daughters at the bedside the apparent progressive nature of her condition. The patient and daughters would Not want intubation and mechanical ventilation but are willing to accept Non-invasive modalities. Will attempt to order a Trilogy depending on results of her ABG. Would monitor off ABX for now Incentive Spirometry Neuro evaluation: (?) role of IVIG in this setting Incentive Spirometry Described RUL 0.7 x 0.5 anterior segment nodule may be atelectasis. Given her overall condition, follow up appears less necessary Patient and family are requesting a social work and Palliative Care evaluation Will follow Dr Arguello
[2018-03-17 14:39] LABS: ARTERIAL BLOOD GAS BASE EXCESS -0.7 meq/l (-2-2); ARTERIAL BLOOD GAS PCO2 37.1 mmHg (35-45); ARTERIAL BLOOD GAS PO2 78.3 mmHg (70-100); ARTERIAL BLOOD GAS pH 7.41 (7.35-7.45)
[2018-03-17 14:43] LABS: ALLENS TEST POSITIVE
[2018-03-17] MEDS ORDERED: METOPROLOL TARTRATE 5 MG/5 ML VIAL IVPB STA (15:25)
--- NOTE | 2018-03-17 16:27 | EKG ---
Test Reason : Blood Pressure : / mmHG Vent. Rate : 133 BPM Atrial Rate : 468 BPM P-R Int : 000 ms QRS Dur : 084 ms QT Int : 322 ms P-R-T Axes : 000 040 045 degrees QTc Int : 479 ms ATRIAL FIBRILLATION WITH RAPID VENTRICULAR RESPONSE WITH PREMATURE VENTRICULAR OR ABERRANTLY CONDUCTED COMPLEXES NONSPECIFIC T WAVE ABNORMALITY ABNORMAL ECG WHEN COMPARED WITH ECG OF 16-MAR-2018 11:35, NON-SPECIFIC CHANGE IN ST SEGMENT IN ANTERIOR LEADS NONSPECIFIC T WAVE ABNORMALITY NOW EVIDENT IN INFERIOR LEADS NONSPECIFIC T WAVE ABNORMALITY, WORSE IN LATERAL LEADS Confirmed by MD Saúl, Negrito ([id number]) on 03/17/2018 4:27:35 PM Referred By: GUALBERTO GALINDO Confirmed By:Negrito Hays MD
--- NOTE | 2018-03-17 16:53 | CON.ID ---
Consult Consult Specialty:: infectious disease Referred by:: noel Reason for Consultation:: possible pneumonia - History of Present Illness Chief Complaint: sob History of Present Illness: 77 yo female with progressive MND-Brachial Amyotrophic Diplegia, s/p bio AVR, history of afib, now confined to bed, monthly IVIG, admitted with 10 days of worsening breathing- feels chest is constricted and cannot get a good breath no cough no fevers no vomiting weight loss of 25 pounds imaging chest/abd/pelvis in ED- no clear infiltrate-pulmonary consult noted no sick contacts - History Source History Provided By: Patient, Family Member - Past Medical History 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 (ALS type AUTOIMMUNE NEUROPATHY) Cardio/Vascular: Yes: AFIB, Aortic Stenosis (s/p bovine AVR 05/06 [facility] [place] HTN, Hyperlipdemia Gastrointestinal: Yes: Constipation, Diverticulosis, Other (hyperplastic colon polyps) Hepatobiliary: Yes: Cholelithiasis (s/p lap choly) ...: No Psych: Yes: Anxiety - Past Surgical History Past Surgical History: Yes: Cholecystectomy, Colonoscopy (colon polyps removed 2013), Valve Replacement (bovine AVR 05/06) - Alcohol/Substance Use Hx Alcohol Use: No History of Substance Use: reports: None - Smoking History Smoking history: Never smoked Have you smoked in the past 12 months: No Aproximately how many cigarettes per day: 0 If you are a former smoker, when did you quit?: 45 YRS AGO - Social History Usual Living Arrangement: With Child ADL: Family Assistance History of Recent Travel: No Home Medications - Allergies Allergies/Adverse Reactions: Allergies Allergy/AdvReac Type Severity Reaction Status Date / Time No Known Drug Allergies Allergy Verified 03/16/18 11:35 - Home Medications Home Medications: Ambulatory Orders Acetaminophen [Tylenol .Extra-Strength -] 1,000 mg PO Q8H PRN 12/28/17 Apixaban [Eliquis] 5 mg PO BID 12/28/17 Losartan Potassium 50 mg PO DAILY 12/28/17 Metoprolol Tartrate 50 mg PO BID 12/28/17 Amoxicillin - [Amoxicillin 500mg Capsule -] 1,000 mg PO ONCE #2 capsule Apixaban [Eliquis -] 5 mg PO BID tablet 01/05/18 Docusate Sodium [Colace -] 300 mg PO DAILY #30 tab 01/05/18 Docusate Sodium [Colace -] 300 mg PO DAILY #90 capsule 01/05/18 Polyethylene Glycol 3350 [Miralax 119 gm Btl -] 17 gm PO TID #1 bottle 01/05/18 Family Disease History - Family Disease History Family Disease History: Diabetes: Sister (COPD), CA: Mother ( 90 cholangiocarcinoma), Other: Father ( 67 COPD) Review of Systems - Review of Systems Constitutional: reports: No Symptoms, Loss of Appetite, Unintentional Wgt. Loss. denies: Chills, Diaphoresis Eyes: reports: No Symptoms HENT: reports: Difficult Swallowing. denies: Nasal Congestion Physical Exam Vital Signs: Vital Signs Temperature 97.5 F L 03/17/18 14:00 Pulse Rate 144 H 03/17/18 15:47 Respiratory Rate 24 H 03/17/18 14:00 Blood Pressure 125/84 03/17/18 15:47 O2 Sat by Pulse Oximetry (%) 92 L 03/17/18 09:00 Constitutional: Yes: Well Nourished, No Distress Eyes: Yes: Conjunctiva Clear HENT: Yes: Atraumatic, Normocephalic Neck: Yes: Supple Cardiovascular: Yes: Tachycardia, Pulse Irregular Respiratory: Yes: CTA Bilaterally, Diminished Gastrointestinal: Yes: Normal Bowel Sounds, Soft ...Rectal Exam: Yes: Deferred Renal/: No: Bladder Distention Extremities: Yes: WNL Edema: No Neurological: Yes: Alert, Oriented Labs: CBC, BMP 03/16/18 13:00 03/16/18 13:00 Microbiology 03/16/18 13:52 Urine - Urine - Catheterized Urine Culture - Final NO GROWTH OBTAINED Imaging - Results Cat Scan: Report Reviewed, Image Reviewed Problem List - Problems (1) Weakness Code(s): R53.1 - WEAKNESS (2) ALS (amyotrophic lateral sclerosis) Code(s): G12.21 - AMYOTROPHIC LATERAL SCLEROSIS (3) History of prosthetic aortic valve Code(s): Z95.2 - PRESENCE OF PROSTHETIC HEART VALVE (4) Atrial fibrillation Code(s): I48.91 - UNSPECIFIED ATRIAL FIBRILLATION Assessment/Plan 77 yo female with MND admitted with weight loss and progressive weakness-not eating at home, IVIG has not been helpin of late no signs of infection at this time for neurology evaluation cardiology to evaluate afib d/w daughters at bedside
--- NOTE | 2018-03-17 17:19 | CON.CARD ---
Consult Consult Specialty:: Cardiology Referred by:: Pardeep An Reason for Consultation:: afib with RVR - History of Present Illness Chief Complaint: admitted with progression of ALS History of Present Illness: 77 year old woman with pmh HTN, HLD, ALS (wheelchair and bed bound), h/o bio AVR , known chronic A-fib on metoprolol and eliquis admitted with progression of ALS. Pt today noted to be tachycardic with ekg showing afib with RVR. Pt seen and examined today with daughters at bedside in [facility]. Pt denies palpitations or chest pain. denies sob but has had difficulty breathing due to ALS. Daughters state she has been on Lopressor 50mg bid at home. Daughters feel that it is her anxiety currently that is making her HR faster as it does at home. 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 (ALS type AUTOIMMUNE NEUROPATHY) Cardio/Vascular: Yes: AFIB, A[place] Stenosis [place]s/p bovine [place] [facility] [place]N, Hyperlipdemia Gastrointestinal: Yes: Constipation, Diverticulosis, Other (hyperplastic colon polyps) Hepatobiliary: Yes: Cholelithiasis (s/p lap choly) ...: No Psych: Yes: Anxiety - Past Surgical History Past Surgical History: Yes: Cholecystectomy, Colonoscopy (colon polyps removed 2013), Valve Replacement (bovine AVR 05/06) - Alcohol/Substance Use Hx Alcohol Use: No History of Substance Use: reports: None - Smoking History Smoking history: Never smoked Have you smoked in the past 12 months: No Aproximately how many cigarettes per day: 0 If you are a former smoker, when did you quit?: 45 YRS AGO - Social History Usual Living Arrangement: With Child ADL: Family Assistance History of Recent Travel: No Home Medications - Allergies Allergies/Adverse Reactions: Allergies Allergy/AdvReac Type Severity Reaction Status Date / Time No Known Drug Allergies Allergy Verified 03/16/18 11:35 - Home Medications Home Medications: Ambulatory Orders Acetaminophen [Tylenol .Extra-Strength -] 1,000 mg PO Q8H PRN 12/28/17 Apixaban [Eliquis] 5 mg PO BID 12/28/17 Losartan Potassium 50 mg PO DAILY 12/28/17 Metoprolol Tartrate 50 mg PO BID 09/09/18 Amoxicillin - [Amoxicillin 500mg Capsule -] 1,000 mg PO ONCE #2 capsule Apixaban [Eliquis -] 5 mg PO BID tablet 01/05/18 Docusate Sodium [Colace -] 300 mg PO DAILY #30 tab 01/05/18 Docusate Sodium [Colace -] 300 mg PO DAILY #90 capsule 01/05/18 Polyethylene Glycol 3350 [Miralax 119 gm Btl -] 17 gm PO TID #1 bottle 01/05/18 Family Disease History - Family Disease History Family Disease History: Diabetes: Sister (COPD), CA: Mother ( 90 cholangiocarcinoma), Other: Father ( 67 COPD) Review of Systems - Review of Systems Constitutional: reports: Lethargy, Malaise, Weakness. denies: No Symptoms, Chills, Diaphoresis, Fever, Loss of Appetite, Night Sweats, Unintentional Wgt. Loss, Other Eyes: denies: No Symptoms, Blind Spots, Blurred Vision, Double Vision, Eye Pain , Floaters, Photophobia, Recent Change in Vision, Other HENT: denies: No Symptoms, Difficult Swallowing, Ear Discharge, Ear Pain, Epistaxis, Gingival Bleeding, Hearing Loss, Mouth Swelling, Nasal Congestion, Ocular Prosthesis, Throat Pain, Toothache, Ringing in Ears, Other Neck: denies: No Symptoms, Decreased ROM, Lumps, Pain on Movement, Stiffness, Swollen Glands, Tenderness, Other Cardiovascular: reports: Shortness of Breath. denies: No Symptoms, Chest Pain, Edema, Palpitations, Other Respiratory: reports: SOB. denies: No Symptoms, Cough, Exercise Intolerance, Hemoptysis, Orthopnea, PND, Snoring, SOB on Exertion, Wheezing, Other Gastrointestinal: denies: No Symptoms, Abdominal Pain, Bloating, Constipation, Diarrhea, Dysphagia, Indigestion, Melena, Nausea, Rectal Bleeding, Vomiting, Vomiting Blood, Other Genitourinary: denies: No Symptoms, Burning, Discharge, Dysuria, Flank Pain, Frequency, Hematuria, Incontinence, Lesions, Menses, Pain, Testicular Mass, Testicular Pain, Testicular Swelling, Urgency, Vaginal Bleeding, Other Breasts: denies: No Symptoms Reported, See HPI, Breast Implants, Discharge from Nipple, Lumps, Pain, Skin Changes, Other Musculoskeletal: reports: Muscle Weakness. denies: No Symptoms, Back Pain, Crepitus, Decreased ROM, Extremity Pain, Joint Pain, Joint Swelling, Muscle Pain , Muscle Cramps, Other Integumentary: denies: No Symptoms, Blister, Bruising, Change in Color, Eczema, Erythema, Incision, Lesions, Lump, Pallor, Pruritis, Rash, Wound, Other Neurological: reports: Pre-Existing Deficit, Weakness. denies: No Symptoms, Change in LOC, Change in Speech, Confusion, Dizziness, Headache, Incoordination , Numbness, Parasthesia, Seizure, Syncope, Tremors, Unsteady Gait, Other Endocrine: denies: No Symptoms, Excessive Sweating, Flushing, Increased Hunger, Increased Thirst, Intolerance to Cold, Intolerance to Heat, Unexplained Weight Gain, Unexplained Weight Loss, Other Hematology/Lymphatic: denies: No Symptoms, Easily Bruised, Excessive Bleeding, Swollen Glands, Other Psychiatric: denies: No Symptoms, Altered Sleep Pattern, Anxiety, Depression, Hallucinations, Panic, Paranoia, Suicidal, Other Vital Signs: Vital Signs Temperature 98.3 F 03/17/18 16:50 Pulse Rate 116 H 03/17/18 16:50 Respiratory Rate 21 H 03/17/18 16:50 Blood Pressure 129/86 03/17/18 16:50 O2 Sat by Pulse Oximetry (%) 92 L 03/17/18 09:00 Constitutional: Yes: No Distress, Calm Eyes: Yes: Conjunctiva Clear, EOM Intact HENT: Yes: Atraumatic, Normocephalic Neck: Yes: Supple Respiratory: Yes: Regular. No: Rales, Rhonchi, SOB, Wheezes Gastrointestinal: Yes: Normal Bowel Sounds, Soft. No: Hyperactive Bowel Sounds , Tenderness Cardiovascular: Yes: Tachycardia, Pulse Irregular. No: Regular Rate and Rhythm , Bradycardia, Gallop, Rub, Varicosities JVD: No Carotid Bruit: No PMI: Non-Displaced Heart Sounds: Yes: S1, S2. No: Split S2, S3, S4, Clicks, Gallop, Rub, Bruit Murmur: No: Systolic Murmur, Diastolic Murmur Musculoskeletal: Yes: Muscle Weakness Extremities: Yes: WNL Edema: LLE: Trace, RLE: Trace Peripheral Pulses WNL: Yes Peripheral Pulses: 2+ Left Doralis Pedis, 2+ Right Dorsalis Pedis Neurological: Yes: Alert, Oriented, Pre-Existing Deficit, Weakness Psychiatric: Yes: Alert, Oriented - Other Data Labs, Other Data: CBC, BMP 03/16/18 13:00 03/16/18 13:00 INR, PTT INR 1.23 (0.83-1.09) H 03/16/18 13:00 afib rvr Imaging - Results Chest X-ray: Report Reviewed, Image Reviewed EKG: Report Reviewed, Image Reviewed Other: Report Reviewed, Image Reviewed Assessment/Plan 77 year old woman with pmh HTN, HLD, ALS (wheelchair and bed bound), h/o bio AVR , known chronic A-fib on metoprolol and eliquis admitted with progression of ALS. Pt today noted to be tachycardic with ekg showing afib with RVR. Pt seen and examined today with daughters at bedside in [facility]. Pt denies palpitations or chest pain. denies sob but has had difficulty breathing due to ALS. Daughters state she has been on Lopressor 50mg bid at home. Daughters feel that it is her anxiety currently that is making her HR faster as it does at home. Chronic AFib-with RVR currently -asymptomatic -on home does of lopressor 50mg bid -pts daughters feel that it is her anxiety driving her tachycardia as happens at home and when she calms down her HR improves -pt being transferred to tele soon -can cont Lopressor 50mg bid for now -if HR still above goal after given adequate time to relax would uptitrate Lopressor to 75mg bid then 100mg bid if needed and if BP tolerates -if BP does not tolerate increase Lopressor dose would then stop Losartan to allow adequate BP room to increase Lopressor. -if HR still above goal at that point would add Digoxin -can use IV Lopressor prn for HR control -cont IVF hydration as needed as pt has had poor po intake -cont eliquis
[2018-03-17] MEDS: METOPROLOL TARTRATE 5 MG/5 ML VIAL IVPB PRN ×2 (18:47→23:30)
--- NOTE | 2018-03-17 19:31 | CON.GI ---
Consult Consult Specialty:: Pt was seen by another GI - Please see Dr. 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 (ALS type AUTOIMMUNE NEUROPATHY) Cardio/Vascular: Yes: AFIB, Aortic Stenosis (s/p bovine AVR 05/06 [facility]), HTN, Hyperlipdemia Gastrointestinal: Yes: Constipation, Diverticulosis, Other (hyperplastic colon polyps) Hepatobiliary: Yes: Cholelithiasis (s/p lap choly) ...: No Psych: Yes: Anxiety - Past Surgical History Past Surgical History: Yes: Cholecystectomy, Colonoscopy (colon polyps removed 2013), Valve Replacement (bovine AVR 05/06) - Alcohol/Substance Use Hx Alcohol Use: No History of Substance Use: reports: None - Smoking History Smoking history: Never smoked Have you smoked in the past 12 months: No Aproximately how many cigarettes per day: 0 If you are a former smoker, when did you quit?: 45 YRS AGO - Social History Usual Living Arrangement: With Child ADL: Family Assistance History of Recent Travel: No Home Medications - Allergies Allergies/Adverse Reactions: Allergies Allergy/AdvReac Type Severity Reaction Status Date / Time No Known Drug Allergies Allergy Verified 03/16/18 11:35 - Home Medications Home Medications: Ambulatory Orders Acetaminophen [Tylenol .Extra-Strength -] 1,000 mg PO Q8H PRN 12/28/17 Apixaban [Eliquis] 5 mg PO BID 12/28/17 Losartan Potassium 50 mg PO DAILY 12/28/17 Metoprolol Tartrate 50 mg PO BID 12/28/17 Amoxicillin - [Amoxicillin 500mg Capsule -] 1,000 mg PO ONCE #2 capsule Apixaban [Eliquis -] 5 mg PO BID tablet 01/05/18 Docusate Sodium [Colace -] 300 mg PO DAILY #30 tab 01/05/18 Docusate Sodium [Colace -] 300 mg PO DAILY #90 capsule 01/05/18 Polyethylene Glycol 3350 [Miralax 119 gm Btl -] 17 gm PO TID #1 bottle 01/05/18 Family Disease History - Family Disease History Family Disease History: Diabetes: Sister (COPD), CA: Mother ( 90 cholangiocarcinoma), Other: Father ( 67 COPD) Physical Exam-GI Vital Signs: Vital Signs Temperature 98.3 F 03/17/18 16:50 Pulse Rate 146 H 03/17/18 18:47 Respiratory Rate 21 H 03/17/18 16:50 Blood Pressure 112/70 03/17/18 18:47 O2 Sat by Pulse Oximetry (%) 97 03/17/18 18:00 Labs: CBC, BMP 03/16/18 13:00 03/16/18 13:00 INR, PTT INR 1.23 (0.83-1.09) H 03/16/18 13:00
--- NOTE | 2018-03-17 20:28 | CON.GI ---
Consult Consult Specialty:: Gastroenterology Referred by:: Dr. Bozena Valderrama Reason for Consultation:: Poor oral intake. I am completing this consultation as Dr. Morrow was apparently unable to do so - History of Present Illness Chief Complaint: Progressive weakness History of Present Illness: 77F is readmitted with progressive decline in function due to an ALS type illness. She has had increasing difficulties swallowing liquids and solids causing progressive weight loss She also has declining respiratory function. Her daughter informs me that Teena's advanced directives do not include ventilator assistance. She declined a PEG insertion when I last saw her in . She had a colonoscopy with Dr Greenwood in 2013 when hyperplastic polyps were removed and when diverticulosis and a lipomatous ileocecal valve were found. 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: Other (ALS type AUTOIMMUNE NEUROPATHY) Cardio/Vascular: Yes: AFIB, Aortic Stenosis (s/p bovine AVR 05/06 [facility]), HTN, Hyperlipdemia Gastrointestinal: Yes: Constipation, Diverticulosis, Other (hyperplastic colon polyps) Hepatobiliary: Yes: Cholelithiasis (s/p lap choly) ...: No Psych: Yes: Anxiety Musculoskeletal: Yes: Other Additional Medical History: Progressive ALS type illness - Past Surgical History Past Surgical History: Yes: Cholecystectomy (laparoscopic), Colonoscopy (colon polyps removed 2013), Valve Replacement (bovine AVR 05/06) - Alcohol/Substance Use Hx Alcohol Use: No History of Substance Use: reports: None - Smoking History Smoking history: Never smoked Have you smoked in the past 12 months: No Aproximately how many cigarettes per day: 0 If you are a former smoker, when did you quit?: 45 YRS AGO - Social History Usual Living Arrangement: With Child ADL: Family Assistance Place of : [facility] History of Recent Travel: No Home Medications - Allergies Allergies/Adverse Reactions: Allergies Allergy/AdvReac Type Severity Reaction Status Date / Time No Known Drug Allergies Allergy Verified 03/16/18 11:35 - Home Medications Home Medications: Ambulatory Orders Acetaminophen [Tylenol .Extra-Strength -] 1,000 mg PO Q8H PRN 12/28/17 Apixaban [Eliquis] 5 mg PO BID 12/28/17 Losartan Potassium 50 mg PO DAILY 12/28/17 Metoprolol Tartrate 50 mg PO BID 12/28/17 Amoxicillin - [Amoxicillin 500mg Capsule -] 1,000 mg PO ONCE #2 capsule Apixaban [Eliquis -] 5 mg PO BID tablet 01/05/18 Docusate Sodium [Colace -] 300 mg PO DAILY #30 tab 01/05/18 Docusate Sodium [Colace -] 300 mg PO DAILY #90 capsule 01/05/18 Polyethylene Glycol 3350 [Miralax 119 gm Btl -] 17 gm PO TID #1 bottle 01/05/18 Family Disease History - Family Disease History Family Disease History: Diabetes: Sister (COPD), CA: Mother ( 90 cholangiocarcinoma), Other: Father ( 67 COPD) Review of Systems Unable to obtain ROS, reason: weak speech Physical Exam-GI Vital Signs: Vital Signs Temperature 98.3 F 03/17/18 16:50 Pulse Rate 146 H 03/17/18 18:47 Respiratory Rate 21 H 03/17/18 16:50 Blood Pressure 112/70 03/17/18 18:47 O2 Sat by Pulse Oximetry (%) 97 03/17/18 18:00 CBC,CMP WBC 6.6 K/mm3 (4.0-10.0) 03/16/18 13:00 RBC 5.21 M/mm3 (3.60-5.2) H 03/16/18 13:00 Hgb 15.8 GM/dL (10.7-15.3) H 03/16/18 13:00 Hct 45.2 % (32.4-45.2) 03/16/18 13:00 MCV 86.9 fl (80-96) 03/16/18 13:00 MCH 30.3 pg (25.7-33.7) 03/16/18 13:00 MCHC 34.8 g/dl (32.0-36.0) 03/16/18 13:00 RDW 15.0 % (11.6-15.6) 03/16/18 13:00 Plt Count 182 K/MM3 (134-434) D 03/16/18 13:00 MPV 9.5 fl (7.5-11.1) 03/16/18 13:00 Absolute Neuts (auto) 4.5 K/mm3 (1.5-8.0) 03/16/18 13:00 Neutrophils % 68.1 % (42.8-82.8) D 03/16/18 13:00 Lymphocytes % 22.1 % (8-40) D 03/16/18 13:00 Monocytes % 8.6 % (3.8-10.2) 03/16/18 13:00 Eosinophils % 0.2 % (0-4.5) 03/16/18 13:00 Basophils % 1.0 % (0-2.0) 03/16/18 13:00 Nucleated RBC % 0 % (0-0) 03/16/18 13:00 Sodium 134 mmol/L (136-145) L 03/16/18 13:00 Potassium 4.4 mmol/L (3.5-5.1) 03/16/18 13:00 Chloride 98 mmol/L (98-107) 03/16/18 13:00 Carbon Dioxide 27 mmol/L (21-32) 03/16/18 13:00 Anion Gap 9 MMOL/L (8-16) 03/16/18 13:00 BUN 10 mg/dL (7-18) 03/16/18 13:00 Creatinine 0.2 mg/dL (0.55-1.3) L 03/16/18 13:00 Creat Clearance w eGFR > 60 (>60) 03/16/18 13:00 Random Glucose 94 mg/dL (74-106) 03/16/18 13:00 Calcium 8.6 mg/dL (8.5-10.1) 03/16/18 13:00 Phosphorus 4.2 mg/dL (2.5-4.9) 03/16/18 13:00 Magnesium 2.0 mg/dL (1.8-2.4) 03/16/18 13:00 Total Bilirubin 1.4 mg/dL (0.2-1) H 03/16/18 13:00 AST 31 U/L (15-37) 03/16/18 13:00 ALT 25 U/L (13-61) 03/16/18 13:00 Alkaline Phosphatase 74 U/L (45-117) 03/16/18 13:00 Creatine Kinase 51 IU/L (26-192) 03/16/18 13:00 Troponin I 0.02 ng/ml (0.00-0.05) 03/16/18 13:00 Total Protein 6.6 g/dl (6.4-8.2) 03/16/18 13:00 Albumin 3.1 g/dl (3.4-5.0) L 03/16/18 13:00 Current Medications Generic Name Dose Route Start Last Admin Trade Name Freq PRN Reason Stop Dose Admin Acetaminophen 650 mg 03/16/18 16:08 Tylenol - PO Q6H PRN FEVER Albuterol/Ipratropium 1 amp 03/17/18 13:15 03/17/18 16:30 Duoneb - NEB 1 amp Q4H CHLOÉ Administration Apixaban 5 mg 03/16/18 22:00 03/17/18 10:06 Eliquis - PO 5 mg BID CHLOÉ Administration Sodium Chloride 1,000 mls @ 83 mls/hr 03/16/18 16:15 03/17/18 17:58 Normal Saline - IV Not Given ASDIR CHLOÉ Losartan Potassium 50 mg 03/17/18 10:00 03/17/18 10:07 Cozaar - PO 50 mg DAILY CHLOÉ Administration Melatonin 10 mg 03/16/18 22:00 03/16/18 22:53 Melatonin PO 10 mg HS CHLOÉ Administration Metoprolol Tartrate 5 mg 03/17/18 17:23 03/17/18 18:47 Lopressor Injection - IVPB 5 mg Q4H PRN Administration TACHYCARDIA Metoprolol Tartrate 100 mg 03/17/18 22:00 Lopressor - PO BID CHLOÉ Constitutional: Yes: Anxious Eyes: Yes: Conjunctiva Clear HENT: Yes: Atraumatic Neck: Yes: Supple Cardiovascular: Yes: Pulse Irregular, Other (healed median sternotomy incision) Respiratory: Yes: Diminished (at bases) Gastrointestinal Inspection: Yes: Scars (healed laparoscopic) ...Auscultate: Yes: Normoactive Bowel Sounds ...Palpate: Yes: Soft, Other (nontender) ...Rectal Exam: Yes: Deferred (done 01/06) Labs: CBC, BMP 03/16/18 13:00 03/16/18 13:00 INR, PTT INR 1.23 (0.83-1.09) H 03/16/18 13:00 Problem List - Problems (1) Dysphagia Assessment/Plan: Progressive dysphagia due to her ALS type illness. I agree that a feeding gastrostomy tube can provide adequate calories and access to oral medications. Given the the endoscopic approach requires anesthesia which could push Teena into respiratory failure I have advised that it be done by the IR approach. Code(s): R13.10 - DYSPHAGIA, UNSPECIFIED Qualifiers: Dysphagia type: oral phase Qualified Code(s): R13.11 - Dysphagia, oral phase (2) Colon polyp, hyperplastic Code(s): K63.5 - POLYP OF COLON Qualifiers: Colon location: descending Qualified Code(s): K63.5 - Polyp of colon (3) ALS (amyotrophic lateral sclerosis) Code(s): G12.21 - AMYOTROPHIC LATERAL SCLEROSIS (4) History of prosthetic aortic valve Code(s): Z95.2 - PRESENCE OF PROSTHETIC HEART VALVE (5) Atrial fibrillation Code(s): I48.91 - UNSPECIFIED ATRIAL FIBRILLATION Assessment/Plan G tube would best be placed by IR approach
--- NOTE | 2018-03-17 21:12 | CONSULT ---
Consult - text type - Consultation Consultation Note: NEUROLOGY CONSULTATION is greatly appreciated: This 77 yo RH woman lives with her daughters. PNH sig for ASHD, AFib, MVR (bovine valve) Maintained on: Acetaminophen; Apixaban; Losartan; Metoprolol; Amoxicillin; and Colace. 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 Has been receiving IVIg monthly via portal but family now acknowledges it has not stopped progression. Now admitted with increasing difficulty swallowing including pills and solids. Essentially on a liquid diet which her daughter estimates at 600 KCal/day with associated 22 lb weight loss in 3 mos. Last seen by me11/10/17. Also, progressive dyspnea with deterioration in incentive spirometry measurements. Worst when sitting upright and eating. Chest X-Ray shows elevations of both hemidiaphragms and bibasilar atelectasis. NEURO: Awake, alert. MS/speech: Normal CN: Early lateral tongue atrophy (scalloping) and weakness of lateral tongue mov'ts and gag. Cannot elevate head off pillow. Motor: No visual arm or hand mov'ts. Legs are trace contraction in the proximal groups and ankle dorsiflexors with plantarflexion preserved. Plantars silent. Areflexic. Contractures at both ankles Sensory: reduced vib to the ankles IMP: Motor Neuron Disease. Now with dyspnea and dysphagia. SUGGEST: Agree with PEG placement and BIPAP. Nutrition consult after PEG PT for passive ROM vs. Contractures. D/C IVIg at this juncture. Anxiolytics PRN Thank you very much, Erick Emmanuel MD
[2018-03-17] MEDS: MELATONIN 5 MG TABLETS PO SCH (21:42)
[2018-03-18] MEDS: ALBUTEROL SO4 2.5/IPRATROPIUM 0.5 INH SOL 3 ML VIAL.NEB. NEB SCH ×6 (01:21→20:50)
[2018-03-18] MEDS: METOPROLOL TARTRATE 5 MG/5 ML VIAL IVPB PRN ×3 (06:38→15:35)
[2018-03-18 07:47] LABS: BASO % 0.6 % (0-2.0); EOS % 0.2 % (0-4.5); HEMATOCRIT 42.9 % (32.4-45.2); HEMOGLOBIN 14.1 GM/dL (10.7-15.3); LYMPH % 26.2 % (8-40); MCH 28.9 pg (25.7-33.7); MCHC 32.9 g/dl (32.0-36.0); MEAN CELL VOLUME 87.8 fl (80-96); MEAN PLT VOLUME 9.2 fl (7.5-11.1); MONO % 10.2 % (3.8-10.2); NEUT % 62.8 % (42.8-82.8); PLATELET COUNT 139 K/MM3 (134-434); RBC 4.89 M/mm3 (3.60-5.2); WHITE BLOOD COUNT 5.1 K/mm3 (4.0-10.0)
[2018-03-18] MEDS: METOPROLOL TARTRATE 50 MG TABLET (FP) PO SCH ×3 (08:09→21:41)
[2018-03-18] MEDS: APIXABAN 5 MG TABLET PO SCH ×2 (08:09→09:08)
[2018-03-18] MEDS: LOSARTAN POTASSIUM 50 MG TABLET (FP) PO SCH ×2 (08:10→09:07)
[2018-03-18 08:23] LABS: ALBUMIN 2.7 g/dl (3.4-5.0); ALK PHOS 66 U/L (45-117); ANION GAP 10 MMOL/L (8-16); BILIRUBIN,TOTAL 1.3 mg/dL (0.2-1); BLOOD UREA NITROGEN 7 mg/dL (7-18); CHLORIDE 104 mmol/L (98-107); CO2 24 mmol/L (21-32); CREATININE 0.2 mg/dL (0.55-1.3); GLUCOSE,RANDOM 91 mg/dL (74-106); POTASSIUM 3.7 mmol/L (3.5-5.1); SGOT/AST 20 U/L (15-37); SGPT/ALT 21 U/L (13-61); SODIUM 138 mmol/L (136-145); TOT PROT 5.9 g/dl (6.4-8.2)
[2018-03-18] MEDS: ALPRAZolam 0.25 MG TABLET PO PRN ×2 (12:06→21:41)
[2018-03-18] MEDS: DIGOXIN 0.5 MG/2 ML AMPUL IVPUSH SCH ×2 (12:07→16:51)
--- NOTE | 2018-03-18 12:46 | PN ---
Progress Note, Physician History of Present Illness: PULMONARY AWAKE ON BIPAP COMFORTABLE,-RESP DISTRESS - Current Medication List Current Medications: Active Medications Acetaminophen (Tylenol -) 650 mg PO Q6H PRN PRN Reason: FEVER Albuterol/Ipratropium (Duoneb -) 1 amp NEB Q4H [facility] Last Admin: 03/18/18 09:30 Dose: 1 amp Alprazolam (Xanax -) 0.5 mg PO TID PRN PRN Reason: ANXIETY Last Admin: 03/18/18 12:06 Dose: 0.5 mg Apixaban (Eliquis -) 5 mg PO BID [facility] Last Admin: 03/18/18 09:08 Dose: Not Given Digoxin (Lanoxin Injection -) 0.25 mg IVPUSH Q4H [facility] Stop: 03/18/18 16:01 Last Admin: 03/18/18 12:07 Dose: 0.25 mg Sodium Chloride (Normal Saline -) 1,000 mls @ 83 mls/hr IV ASDIR [facility] Last Admin: 03/17/18 17:58 Dose: Not Given Losartan Potassium (Cozaar -) 50 mg PO DAILY [facility] Last Admin: 03/18/18 09:07 Dose: Not Given Melatonin (Melatonin) 10 mg PO HS [facility] Last Admin: 03/17/18 21:42 Dose: 10 mg Metoprolol Tartrate (Lopressor Injection -) 5 mg IVPB Q4H PRN PRN Reason: TACHYCARDIA Last Admin: 03/18/18 11:26 Dose: 5 mg Metoprolol Tartrate (Lopressor -) 100 mg PO BID [facility] Last Admin: 03/18/18 09:08 Dose: Not Given - Objective Vital Signs: Vital Signs Temperature 98 F 03/18/18 10:00 Pulse Rate 142 H 03/18/18 12:07 Respiratory Rate 22 H 03/18/18 10:00 Blood Pressure 105/70 03/18/18 11:26 O2 Sat by Pulse Oximetry (%) 96 03/18/18 10:00 Constitutional: Yes: Well Nourished, Calm Eyes: Yes: WNL HENT: Yes: WNL Neck: Yes: WNL Cardiovascular: Yes: Pulse Irregular, S1, S2 Respiratory: Yes: Diminished Gastrointestinal: Yes: Normal Bowel Sounds, Soft Extremities: Yes: WNL Edema: No Labs: CBC, BMP 03/18/18 05:30 03/18/18 05:30 INR, PTT INR 1.23 (0.83-1.09) H 03/16/18 13:00 Laboratory Tests 03/17/18 14:20 ABG pH 7.41 ABG pCO2 at Pt Temp 37.1 ABG pO2 at Pt Temp 78.3 ABG HCO3 23.0 ABG O2 Sat (Measured) 96.0 ABG O2 Content 20.4 Assessment/Plan Problem List - Problems (1) Atelectasis Code(s): J98.11 - ATELECTASIS (2) Nodule of apex of right lung Code(s): R91.1 - SOLITARY PULMONARY NODULE (3) Failure to thrive Code(s): [id number] - (4) Shortness of breath Code(s): R06.02 - SHORTNESS OF BREATH (5) Aortic stenosis Code(s): Q25.3 - SUPRAVALVULAR AORTIC STENOSIS (6) Dysphagia Code(s): R13.10 - DYSPHAGIA, UNSPECIFIED Qualifiers: Dysphagia type: oral phase Qualified Code(s): R13.11 - Dysphagia, oral phase (7) Functional quadriplegia Code(s): R53.2 - FUNCTIONAL QUADRIPLEGIA (8) HTN (hypertension) Code(s): I10 - ESSENTIAL (PRIMARY) HYPERTENSION Qualifiers: Hypertension type: essential hypertension Qualified Code(s): I10 - Essential (primary) hypertension (9) Hypercholesteremia Code(s): E78.0 - PURE HYPERCHOLESTEROLEMIA * DO NOT USE * (10) ALS (amyotrophic lateral sclerosis) Code(s): G12.21 - AMYOTROPHIC LATERAL SCLEROSIS (11) History of prosthetic aortic valve Code(s): Z95.2 - PRESENCE OF PROSTHETIC HEART VALVE (12) Atrial fibrillation Code(s): I48.91 - UNSPECIFIED ATRIAL FIBRILLATION Assessment/Plan ABG Check NIF O2 as needed NIPPV Incentive Spirometry Described RUL 0.7 x 0.5 anterior segment nodule may be atelectasis. Given her overall condition, follow up appears less necessary Trilogy device at home DR FAGAN
--- NOTE | 2018-03-18 16:44 | PN ---
Progress Note, Physician Chief Complaint: AWAKE ALERT ANXIOUS DAUGHTER BEDSIDE CPAP ADJUSTED - Current Medication List Current Medications: Active Medications Acetaminophen (Tylenol -) 650 mg PO Q6H PRN PRN Reason: FEVER Albuterol/Ipratropium (Duoneb -) 1 amp NEB RQ4H [facility] Last Admin: 03/18/18 16:12 Dose: 1 amp Alprazolam (Xanax -) 0.5 mg PO TID PRN PRN Reason: ANXIETY Last Admin: 03/18/18 12:06 Dose: 0.5 mg Apixaban (Eliquis -) 5 mg PO BID [facility] Last Admin: 03/18/18 09:08 Dose: Not Given Digoxin (Lanoxin -) 0.25 mg PO DAILY [facility] Sodium Chloride (Normal Saline -) 1,000 mls @ 83 mls/hr IV ASDIR [facility] Last Admin: 03/17/18 17:58 Dose: Not Given Melatonin (Melatonin) 10 mg PO HS [facility] Last Admin: 03/17/18 21:42 Dose: 10 mg Metoprolol Tartrate (Lopressor Injection -) 5 mg IVPB Q4H PRN PRN Reason: TACHYCARDIA Last Admin: 03/18/18 15:35 Dose: 5 mg Metoprolol Tartrate (Lopressor -) 150 mg PO BID [facility] - Objective Vital Signs: Vital Signs Temperature 97.6 F 03/18/18 14:00 Pulse Rate 147 H 03/18/18 15:35 Respiratory Rate 22 H 03/18/18 10:00 Blood Pressure 112/64 03/18/18 15:35 O2 Sat by Pulse Oximetry (%) 98 03/18/18 10:20 Constitutional: Yes: Mild Distress Eyes: Yes: WNL HENT: Yes: WNL Neck: Yes: WNL Cardiovascular: Yes: Pulse Irregular Respiratory: Yes: On BiPap Gastrointestinal: Yes: WNL Genitourinary: Yes: Incontinence Musculoskeletal: Yes: Muscle Weakness Edema: No Peripheral Pulses WNL: Yes Integumentary: Yes: Other Wound/Incision: Yes: Dressing Dry and Intact Neurological: Yes: Pre-Existing Deficit, Weakness ...Motor Strength: LLE, RLE Psychiatric: Yes: Other Labs: CBC, BMP 03/18/18 05:30 03/18/18 05:30 INR, PTT INR 1.23 (0.83-1.09) H 03/16/18 13:00 Problem List - Problems (1) Atelectasis Code(s): J98.11 - ATELECTASIS (2) Failure to thrive Code(s): [id number] - (3) Shortness of breath Code(s): R06.02 - SHORTNESS OF BREATH (4) Accelerated hypertension Code(s): I10 - ESSENTIAL (PRIMARY) HYPERTENSION (5) Motor neuron disease Code(s): G12.20 - MOTOR NEURON DISEASE, UNSPECIFIED (6) Weakness Code(s): R53.1 - WEAKNESS (7) ALS (amyotrophic lateral sclerosis) Code(s): G12.21 - AMYOTROPHIC LATERAL SCLEROSIS (8) History of prosthetic aortic valve Code(s): Z95.2 - PRESENCE OF PROSTHETIC HEART VALVE Assessment/Plan GTUBE WITH INTERVENTIONAL RADIOLOGY STOP ELIQUIS START LOVENOX TOMORROW CPAP WITH PULMONARY F/U XANAX PRN NEUROLOGY EVAL
--- NOTE | 2018-03-18 16:46 | PN ---
Progress Note, Physician History of Present Illness: seen and examined today in [facility]. no new complaints. - Current Medication List Current Medications: Active Medications Acetaminophen (Tylenol -) 650 mg PO Q6H PRN PRN Reason: FEVER Albuterol/Ipratropium (Duoneb -) 1 amp NEB RQ4H [facility] Last Admin: 03/18/18 16:12 Dose: 1 amp Alprazolam (Xanax -) 0.5 mg PO TID PRN PRN Reason: ANXIETY Last Admin: 03/18/18 12:06 Dose: 0.5 mg Apixaban (Eliquis -) 5 mg PO BID [facility] Last Admin: 03/18/18 09:08 Dose: Not Given Digoxin (Lanoxin -) 0.25 mg PO DAILY [facility] Sodium Chloride (Normal Saline -) 1,000 mls @ 83 mls/hr IV ASDIR [facility] Last Admin: 03/17/18 17:58 Dose: Not Given Melatonin (Melatonin) 10 mg PO HS [facility] Last Admin: 03/17/18 21:42 Dose: 10 mg Metoprolol Tartrate (Lopressor Injection -) 5 mg IVPB Q4H PRN PRN Reason: TACHYCARDIA Last Admin: 03/18/18 15:35 Dose: 5 mg Metoprolol Tartrate (Lopressor -) 150 mg PO BID [facility] - Objective Vital Signs: Vital Signs Temperature 97.6 F 03/18/18 14:00 Pulse Rate 147 H 03/18/18 15:35 Respiratory Rate 22 H 03/18/18 10:00 Blood Pressure 112/64 03/18/18 15:35 O2 Sat by Pulse Oximetry (%) 98 03/18/18 10:20 Constitutional: Yes: No Distress, Calm Eyes: Yes: Conjunctiva Clear HENT: Yes: Atraumatic, Normocephalic Cardiovascular: Yes: Tachycardia, Pulse Irregular, S1, S2. No: Regular Rate and Rhythm, Bradycardia, Bruit, JVD, Gallop, Murmur, Rub, S3, S4, Varicosities Respiratory: Yes: Regular, Diminished. No: Rales, Rhonchi, Wheezes Gastrointestinal: Yes: Normal Bowel Sounds, Soft. No: Distention, Tenderness Extremities: Yes: WNL Edema: No Peripheral Pulses WNL: Yes Neurological: Yes: Alert, Oriented Psychiatric: Yes: Alert, Oriented Labs: CBC, BMP 03/18/18 05:30 03/18/18 05:30 INR, PTT INR 1.23 (0.83-1.09) H 03/16/18 13:00 - ....Imaging Chest X-ray: Report Reviewed, Image Reviewed EKG: Report Reviewed, Image Reviewed Other: Report Reviewed, Image Reviewed (tele-afib with RVR) Assessment/Plan 77 year old woman with pmh HTN, HLD, ALS (wheelchair and bed bound), h/o bio AVR , known chronic A-fib on metoprolol and eliquis admitted with progression of ALS. Pt today noted to be tachycardic with ekg showing afib with RVR. Pt seen and examined today with daughters at bedside in nad. Pt denies palpitations or chest pain. denies sob but has had difficulty breathing due to ALS. Daughters state she has been on Lopressor 50mg bid at home. Daughters feel that it is her anxiety currently that is making her HR faster as it does at home. Chronic AFib-with RVR currently -HR still above goal -asymptomatic -inc lopressor to 150mg bid -start Digoxin IV 0.25mg x 2 doses then 0.25mg po daily starting tomorrow -cont IV lopressor prn -stop Losartan to allow uptitration of rate control meds as needed -if HR still uncontrolled despite above adjustments plan to start Diltiazem po -cont IVF hydration as needed as pt has had poor po intake -cont eliquis
[2018-03-18] MEDS: SODIUM CHLORIDE 1,000 ML IV SCH (16:51)
[2018-03-18] MEDS: MELATONIN 5 MG TABLETS PO SCH (21:41)
[2018-03-19] MEDS: ALBUTEROL SO4 2.5/IPRATROPIUM 0.5 INH SOL 3 ML VIAL.NEB. NEB SCH ×6 (00:30→20:06)
[2018-03-19 05:15] VITALS: BMI 28.1
[2018-03-19] MEDS: METOPROLOL TARTRATE 50 MG TABLET (FP) PO SCH ×2 (11:09→22:10)
[2018-03-19] MEDS: DIGOXIN 0.25 MG TABLET (FP) PO SCH (11:09)
--- NOTE | 2018-03-19 11:35 | PN ---
Progress Note, Physician Chief Complaint: AWAKE ALERT FAMILY BEDSIDE FEELING BETTER - Current Medication List Current Medications: Active Medications Acetaminophen (Tylenol -) 650 mg PO Q6H PRN PRN Reason: FEVER Albuterol/Ipratropium (Duoneb -) 1 amp NEB RQ4H [facility] Last Admin: 03/19/18 08:03 Dose: 1 amp Alprazolam (Xanax -) 0.5 mg PO TID PRN PRN Reason: ANXIETY Last Admin: 03/18/18 21:41 Dose: 0.5 mg Apixaban (Eliquis -) 5 mg PO BID [facility] Last Admin: 03/18/18 09:08 Dose: Not Given Digoxin (Lanoxin -) 0.25 mg PO DAILY [facility] Last Admin: 03/19/18 11:09 Dose: 0.25 mg Sodium Chloride (Normal Saline -) 1,000 mls @ 83 mls/hr IV ASDIR [facility] Last Admin: 03/18/18 16:51 Dose: 83 mls/hr Melatonin (Melatonin) 10 mg PO HS [facility] Last Admin: 03/18/18 21:41 Dose: 10 mg Metoprolol Tartrate (Lopressor Injection -) 5 mg IVPB Q4H PRN PRN Reason: TACHYCARDIA Last Admin: 03/18/18 15:35 Dose: 5 mg Metoprolol Tartrate (Lopressor -) 150 mg PO BID [facility] Last Admin: 03/19/18 11:09 Dose: 150 mg - Objective Vital Signs: Vital Signs Temperature 97.4 F L 03/19/18 06:00 Pulse Rate 92 H 03/19/18 11:09 Respiratory Rate 20 03/19/18 06:00 Blood Pressure 100/48 L 03/19/18 06:00 O2 Sat by Pulse Oximetry (%) 98 03/18/18 21:00 Constitutional: Yes: Mild Distress Eyes: Yes: WNL HENT: Yes: WNL Neck: Yes: WNL Cardiovascular: Yes: WNL Respiratory: Yes: On Nasal O2, Poor Air Entry Gastrointestinal: Yes: Soft Genitourinary: Yes: Incontinence Musculoskeletal: Yes: Muscle Weakness Edema: No Neurological: Yes: Pre-Existing Deficit, Weakness ...Motor Strength: LLE, RLE Psychiatric: Yes: Other Labs: CBC, BMP 03/18/18 05:30 03/18/18 05:30 INR, PTT INR 1.23 (0.83-1.09) H 03/16/18 13:00 Problem List - Problems (1) Atelectasis Code(s): J98.11 - ATELECTASIS (2) Failure to thrive Code(s): [id number] - (3) Shortness of breath Code(s): R06.02 - SHORTNESS OF BREATH (4) Accelerated hypertension Code(s): I10 - ESSENTIAL (PRIMARY) HYPERTENSION (5) Motor neuron disease Code(s): G12.20 - MOTOR NEURON DISEASE, UNSPECIFIED (6) Weakness Code(s): R53.1 - WEAKNESS (7) ALS (amyotrophic lateral sclerosis) Code(s): G12.21 - AMYOTROPHIC LATERAL SCLEROSIS (8) History of prosthetic aortic valve Code(s): Z95.2 - PRESENCE OF PROSTHETIC HEART VALVE Assessment/Plan GTUBE WITH INTERVENTIONAL RADIOLOGY SCHEDULED FOR FRIDAY NEXT WEEK STOP ELIQUIS START LOVENOX TODAY CPAP WITH PULMONARY F/U XANAX PRN NEUROLOGY EVAL
[2018-03-19] MEDS: ENOXAPARIN NA (PORCINE) 80 MG/0.8 ML DISP.SYRIN SQ SCH ×2 (12:40→22:10)
--- NOTE | 2018-03-19 15:27 | PN ---
Progress Note (short form) - Note Progress Note: Transferred to Telemetry due to Tachycardia. Breathing feels about the same. Intake & Output 03/16/18 03/17/18 03/18/18 03/19/18 23:59 23:59 23:59 23:59 Intake Total 2559 1036 1316 Output Total 200 1375 1500 600 Balance -200 1184 -464 716 Weight 159 lb 4.8 oz 159 lb Last Vital Signs Temp Pulse Resp BP Pulse Ox 97.6 F 115 H 20 116/86 97 03/19/18 14:00 03/19/18 14:00 03/19/18 06:00 03/19/18 14:00 03/19/18 09:00 Active Medications Acetaminophen (Tylenol -) 650 mg PO Q6H PRN PRN Reason: FEVER Albuterol/Ipratropium (Duoneb -) 1 amp NEB RQ4H [facility] Last Admin: 03/19/18 11:15 Dose: 1 amp Alprazolam (Xanax -) 0.5 mg PO TID PRN PRN Reason: ANXIETY Last Admin: 03/18/18 21:41 Dose: 0.5 mg Digoxin (Lanoxin -) 0.25 mg PO DAILY [facility] Last Admin: 03/19/18 11:09 Dose: 0.25 mg Enoxaparin Sodium (Lovenox -) 80 mg SQ BID [facility] Last Admin: 03/19/18 12:40 Dose: 80 mg Sodium Chloride (Normal Saline -) 1,000 mls @ 83 mls/hr IV ASDIR [facility] Last Admin: 03/18/18 16:51 Dose: 83 mls/hr Melatonin (Melatonin) 10 mg PO HS [facility] Last Admin: 03/18/18 21:41 Dose: 10 mg Metoprolol Tartrate (Lopressor Injection -) 5 mg IVPB Q4H PRN PRN Reason: TACHYCARDIA Last Admin: 03/18/18 15:35 Dose: 5 mg Metoprolol Tartrate (Lopressor -) 150 mg PO BID [facility] Last Admin: 03/19/18 11:09 Dose: 150 mg Constitutional: Yes: NAD Eyes: Yes: Conjunctiva Clear, EOM Intact HENT: Yes: Atraumatic, Normocephalic Neck: Yes: Supple, Trachea Midline Cardiovascular: Yes: Pulse Irregular Respiratory: Yes: Diminished, On Nasal O2, Rhonchi. No: Accessory Muscle Use, Rales, Stridor, Tachypnea, Wheezes ...Clubbing: No Gastrointestinal: Yes: Normal Bowel Sounds, Soft Musculoskeletal: Yes: WNL Extremities: Yes: Other (muscle wasting ) Edema: No Peripheral Pulses WNL: Yes Integumentary: Yes: WNL Neurological: Yes: WNL, Alert, Oriented, Pre-Existing Deficit Psychiatric: Yes: WNL, Alert, Oriented Labs: Problem List - Problems (1) Atelectasis Code(s): J98.11 - ATELECTASIS (2) Nodule of apex of right lung Code(s): R91.1 - SOLITARY PULMONARY NODULE (3) Failure to thrive Code(s): [id number] - (4) Shortness of breath Code(s): R06.02 - SHORTNESS OF BREATH (5) Aortic stenosis Code(s): Q25.3 - SUPRAVALVULAR AORTIC STENOSIS (6) Dysphagia Code(s): R13.10 - DYSPHAGIA, UNSPECIFIED Qualifiers: Dysphagia type: oral phase Qualified Code(s): R13.11 - Dysphagia, oral phase (7) Functional quadriplegia Code(s): R53.2 - FUNCTIONAL QUADRIPLEGIA (8) HTN (hypertension) Code(s): I10 - ESSENTIAL (PRIMARY) HYPERTENSION Qualifiers: Hypertension type: essential hypertension Qualified Code(s): I10 - Essential (primary) hypertension (9) Hypercholesteremia Code(s): E78.0 - PURE HYPERCHOLESTEROLEMIA * DO NOT USE * (10) ALS (amyotrophic lateral sclerosis) Code(s): G12.21 - AMYOTROPHIC LATERAL SCLEROSIS (11) History of prosthetic aortic valve Code(s): Z95.2 - PRESENCE OF PROSTHETIC HEART VALVE (12) Atrial fibrillation Code(s): I48.91 - UNSPECIFIED ATRIAL FIBRILLATION Assessment/Plan O2 as needed Incentive Spirometry Described RUL 0.7 x 0.5 anterior segment nodule may be atelectasis. Given her overall condition, follow up appears less necessary DNR / DNI Previously discussed with patient and her daughters at the bedside the apparent progressive nature of her condition. The patient and daughters would Not want intubation and mechanical ventilation but are willing to accept Non-invasive modalities. The patient would benefit from a Trilogy device. The patient requires ventilation via a non-invasive ventilator as BiLevel is no longer effective in treatment of effectively decrease her work of breathing and improve her pulmonary status and prevent interruption or failure of respiratory support due worsening of her ALS. Dr Arguello Problem List - Problems (1) Atelectasis Code(s): J98.11 - ATELECTASIS (2) Nodule of apex of right lung Code(s): R91.1 - SOLITARY PULMONARY NODULE (3) Failure to thrive Code(s): [id number] - (4) Shortness of breath Code(s): R06.02 - SHORTNESS OF BREATH (5) Aortic stenosis Code(s): Q25.3 - SUPRAVALVULAR AORTIC STENOSIS (6) Dysphagia Code(s): R13.10 - DYSPHAGIA, UNSPECIFIED Qualifiers: Dysphagia type: oral phase Qualified Code(s): R13.11 - Dysphagia, oral phase (7) Functional quadriplegia Code(s): R53.2 - FUNCTIONAL QUADRIPLEGIA (8) HTN (hypertension) Code(s): I10 - ESSENTIAL (PRIMARY) HYPERTENSION Qualifiers: Hypertension type: essential hypertension Qualified Code(s): I10 - Essential (primary) hypertension (9) Hypercholesteremia Code(s): E78.0 - PURE HYPERCHOLESTEROLEMIA * DO NOT USE * (10) ALS (amyotrophic lateral sclerosis) Code(s): G12.21 - AMYOTROPHIC LATERAL SCLEROSIS (11) History of prosthetic aortic valve Code(s): Z95.2 - PRESENCE OF PROSTHETIC HEART VALVE (12) Atrial fibrillation Code(s): I48.91 - UNSPECIFIED ATRIAL FIBRILLATION
[2018-03-19] MEDS: SODIUM CHLORIDE 1,000 ML IV SCH (17:37)
--- NOTE | 2018-03-19 18:25 | PN ---
Progress Note, Physician Chief Complaint: Presently comfortable History of Present Illness: This is a 77 year old woman with pmh HTN, HLD, ALS (wheelchair and bed bound), h /o bio AVR, known chronic A-fib on metoprolol and eliquis admitted with progression of ALS. Pt today noted to be tachycardic with ekg showing afib with RVR. Rate control improved on higher doses of lopressor. PEG planned - Current Medication List Current Medications: Active Medications Acetaminophen (Tylenol -) 650 mg PO Q6H PRN PRN Reason: FEVER Albuterol/Ipratropium (Duoneb -) 1 amp NEB RQ4H [facility] Last Admin: 03/19/18 16:25 Dose: 1 amp Alprazolam (Xanax -) 0.5 mg PO TID PRN PRN Reason: ANXIETY Last Admin: 03/18/18 21:41 Dose: 0.5 mg Digoxin (Lanoxin -) 0.25 mg PO DAILY [facility] Last Admin: 03/19/18 11:09 Dose: 0.25 mg Enoxaparin Sodium (Lovenox -) 80 mg SQ BID [facility] Last Admin: 03/19/18 12:40 Dose: 80 mg Sodium Chloride (Normal Saline -) 1,000 mls @ 83 mls/hr IV ASDIR [facility] Last Admin: 03/19/18 17:37 Dose: 83 mls/hr Melatonin (Melatonin) 10 mg PO HS [facility] Last Admin: 03/18/18 21:41 Dose: 10 mg Metoprolol Tartrate (Lopressor Injection -) 5 mg IVPB Q4H PRN PRN Reason: TACHYCARDIA Last Admin: 03/18/18 15:35 Dose: 5 mg Metoprolol Tartrate (Lopressor -) 150 mg PO BID [facility] Last Admin: 03/19/18 11:09 Dose: 150 mg - Objective Vital Signs: Vital Signs Temperature 97.6 F 03/19/18 14:00 Pulse Rate 115 H 03/19/18 14:00 Respiratory Rate 20 03/19/18 06:00 Blood Pressure 116/86 03/19/18 14:00 O2 Sat by Pulse Oximetry (%) 99 03/19/18 12:05 Constitutional: Yes: No Distress Eyes: Yes: WNL HENT: Yes: WNL Neck: Yes: WNL Cardiovascular: Yes: Pulse Irregular, S1, S2 Respiratory: Yes: CTA Bilaterally Gastrointestinal: Yes: Normal Bowel Sounds Edema: LLE: Trace, RLE: Trace Neurological: Yes: Weakness Labs: CBC, BMP 03/18/18 05:30 03/18/18 05:30 INR, PTT INR 1.23 (0.83-1.09) H 03/16/18 13:00 Assessment/Plan 77 year old woman with pmh HTN, HLD, ALS (wheelchair and bed bound), h/o bio AVR , known chronic A-fib on metoprolol and eliquis admitted with progression of ALS. Pt today noted to be tachycardic with ekg showing afib with RVR. Rate control improved on higher doses of lopressor. PEG planned Continue Metoprolol Tartrate (Lopressor -) 150 mg PO BID and Digoxin (Lanoxin - ) 0.25 mg PO DAILY for rate control. Enoxaparin Sodium (Lovenox -) 80 mg SQ BID for AC and eventually will be placed back on Eliquis. Eliquis can be given via a feeding tube (the daughter was concerned): Both 2.5 mg and 5 mg tablets may be crushed and suspended in 60 mL D5W and immediately delivered through an NGT.
[2018-03-19] MEDS: MELATONIN 5 MG TABLETS PO SCH (22:10)
[2018-03-19] MEDS: ALPRAZolam 0.25 MG TABLET PO PRN (22:10)
[2018-03-20] MEDS: ALBUTEROL SO4 2.5/IPRATROPIUM 0.5 INH SOL 3 ML VIAL.NEB. NEB SCH ×4 (07:15→20:10)
[2018-03-20] MEDS: DIGOXIN 0.25 MG TABLET (FP) PO SCH ×2 (08:37→10:04)
[2018-03-20] MEDS: ENOXAPARIN NA (PORCINE) 80 MG/0.8 ML DISP.SYRIN SQ SCH ×3 (08:38→22:02)
[2018-03-20] MEDS: METOPROLOL TARTRATE 50 MG TABLET (FP) PO SCH ×3 (08:38→22:01)
--- NOTE | 2018-03-20 09:40 | PN ---
Progress Note, Physician - Current Medication List Current Medications: Active Medications Acetaminophen (Tylenol -) 650 mg PO Q6H PRN PRN Reason: FEVER Albuterol/Ipratropium (Duoneb -) 1 amp NEB RQ4H [facility] Last Admin: 03/20/18 07:15 Dose: 1 amp Alprazolam (Xanax -) 0.5 mg PO TID PRN PRN Reason: ANXIETY Last Admin: 03/19/18 22:10 Dose: 0.5 mg Digoxin (Lanoxin -) 0.25 mg PO DAILY [facility] Last Admin: 03/20/18 08:37 Dose: 0.25 mg Enoxaparin Sodium (Lovenox -) 80 mg SQ BID [facility] Last Admin: 03/20/18 08:38 Dose: 80 mg Sodium Chloride (Normal Saline -) 1,000 mls @ 83 mls/hr IV ASDIR [facility] Last Admin: 03/19/18 17:37 Dose: 83 mls/hr Melatonin (Melatonin) 10 mg PO HS [facility] Last Admin: 03/19/18 22:10 Dose: 10 mg Metoprolol Tartrate (Lopressor Injection -) 5 mg IVPB Q4H PRN PRN Reason: TACHYCARDIA Last Admin: 03/18/18 15:35 Dose: 5 mg Metoprolol Tartrate (Lopressor -) 150 mg PO BID [facility] Last Admin: 03/20/18 08:38 Dose: 150 mg - Objective Vital Signs: Vital Signs Temperature 97.7 F 03/20/18 08:54 Pulse Rate 100 H 03/20/18 08:54 Respiratory Rate 18 03/20/18 08:54 Blood Pressure 172/68 H 03/20/18 08:54 O2 Sat by Pulse Oximetry (%) 95 03/20/18 08:54 Labs: CBC, BMP 03/18/18 05:30 03/18/18 05:30 INR, PTT INR 1.23 (0.83-1.09) H 03/16/18 13:00 Assessment/Plan - Problems (1) Failure to thrive Assessment/Plan: -GI consult for PEG on Friday -Seen by Speech Therapy Code(s): [id number] - (2) Shortness of breath Assessment/Plan: -Pulmonary consult -Trial of BIPAP--improved -Bronchodilators -Nasal O2 PRN to keep Spo2>90% -CT chest reviewed- RLL atelectasis Code(s): R06.02 - SHORTNESS OF BREATH (3) Functional quadriplegia Code(s): R53.2 - FUNCTIONAL QUADRIPLEGIA (4) ALS (amyotrophic lateral sclerosis) Assessment/Plan: -Neurology consult -Palliative care consult Code(s): G12.21 - AMYOTROPHIC LATERAL SCLEROSIS (5) Atrial fibrillation Assessment/Plan: -chronic, controlled -On Eliquis BID -Cardiology consult Code(s): I48.91 - UNSPECIFIED ATRIAL FIBRILLATION (6) Constipation Assessment/Plan: -enema and miralax
[2018-03-20] MEDS: POLYETHYLENE GLYCOL 3350 119 GM BTL PO SCH (10:05)
--- NOTE | 2018-03-20 15:20 | PN ---
Progress Note, Physician Chief Complaint: Presently comfortable History of Present Illness: This is a 77 year old woman with pmh HTN, HLD, ALS (wheelchair and bed bound), h /o bio AVR, known chronic A-fib on metoprolol and eliquis admitted with progression of ALS. Pt today noted to be tachycardic with ekg showing afib with RVR. Rate control improved on higher doses of lopressor. PEG planned - Current Medication List Current Medications: Active Medications Acetaminophen (Tylenol -) 650 mg PO Q6H PRN PRN Reason: FEVER Albuterol/Ipratropium (Duoneb -) 1 amp NEB RQ4H [facility] Last Admin: 03/20/18 11:17 Dose: 1 amp Alprazolam (Xanax -) 0.5 mg PO TID PRN PRN Reason: ANXIETY Last Admin: 03/19/18 22:10 Dose: 0.5 mg Digoxin (Lanoxin -) 0.25 mg PO DAILY [facility] Last Admin: 03/20/18 10:04 Dose: Not Given Enoxaparin Sodium (Lovenox -) 80 mg SQ BID [facility] Last Admin: 03/20/18 10:05 Dose: Not Given Sodium Chloride (Normal Saline -) 1,000 mls @ 83 mls/hr IV ASDIR [facility] Last Admin: 03/19/18 17:37 Dose: 83 mls/hr Melatonin (Melatonin) 10 mg PO HS [facility] Last Admin: 03/19/18 22:10 Dose: 10 mg Metoprolol Tartrate (Lopressor Injection -) 5 mg IVPB Q4H PRN PRN Reason: TACHYCARDIA Last Admin: 03/18/18 15:35 Dose: 5 mg Metoprolol Tartrate (Lopressor -) 150 mg PO BID [facility] Last Admin: 03/20/18 10:05 Dose: Not Given Polyethylene Glycol (Miralax (For Daily Use) -) 17 gm PO DAILY [facility] Last Admin: 03/20/18 10:05 Dose: 17 gm - Objective Vital Signs: Vital Signs Temperature 97.7 F 03/20/18 08:54 Pulse Rate 100 H 03/20/18 08:54 Respiratory Rate 18 03/20/18 08:54 Blood Pressure 172/68 H 03/20/18 08:54 O2 Sat by Pulse Oximetry (%) 95 03/20/18 08:54 Constitutional: Yes: No Distress Eyes: Yes: WNL HENT: Yes: WNL Neck: Yes: WNL Cardiovascular: Yes: WNL, Pulse Irregular (NL S1S2, no MRHG) Gastrointestinal: Yes: Normal Bowel Sounds Edema: No Edema: LLE: Trace, RLE: Trace Neurological: Yes: Weakness Labs: CBC, BMP 03/18/18 05:30 03/18/18 05:30 INR, PTT INR 1.23 (0.83-1.09) H 03/16/18 13:00 Assessment/Plan 77 year old woman with pmh HTN, HLD, ALS (wheelchair and bed bound), h/o bio AVR , known chronic A-fib on metoprolol and eliquis admitted with progression of ALS. Pt today noted to be tachycardic with ekg showing afib with RVR. Rate control improved on higher doses of lopressor. PEG planned Continue Metoprolol Tartrate (Lopressor -) 150 mg PO BID and Digoxin (Lanoxin - ) 0.25 mg PO DAILY for rate control. Enoxaparin Sodium (Lovenox -) 80 mg SQ BID for AC and eventually will be placed back on Eliquis. Eliquis can be given via a feeding tube (the daughter was concerned): Both 2.5 mg and 5 mg tablets may be crushed and suspended in 60 mL D5W and immediately delivered through an NGT. Call prn
[2018-03-20] MEDS: MELATONIN 5 MG TABLETS PO SCH (22:02)
[2018-03-21] MEDS: ALBUTEROL SO4 2.5/IPRATROPIUM 0.5 INH SOL 3 ML VIAL.NEB. NEB SCH ×6 (00:05→20:05)
[2018-03-21] MEDS: ALPRAZolam 0.25 MG TABLET PO PRN (00:10)
[2018-03-21] MEDS: METOPROLOL TARTRATE 50 MG TABLET (FP) PO SCH ×2 (09:27→22:15)
[2018-03-21] MEDS: DIGOXIN 0.25 MG TABLET (FP) PO SCH (09:27)
[2018-03-21] MEDS: ENOXAPARIN NA (PORCINE) 80 MG/0.8 ML DISP.SYRIN SQ SCH ×2 (09:27→22:16)
[2018-03-21] MEDS: POLYETHYLENE GLYCOL 3350 119 GM BTL PO SCH (09:28)
--- NOTE | 2018-03-21 12:55 | PN ---
Progress Note, Physician Chief Complaint: AWAKE ALERT ON CPAP COMFORTABLE - Current Medication List Current Medications: Active Medications Acetaminophen (Tylenol -) 650 mg PO Q6H PRN PRN Reason: FEVER Albuterol/Ipratropium (Duoneb -) 1 amp NEB RQ4H [facility] Last Admin: 03/21/18 08:26 Dose: 1 amp Alprazolam (Xanax -) 0.5 mg PO TID PRN PRN Reason: ANXIETY Last Admin: 03/21/18 00:10 Dose: 0.5 mg Digoxin (Lanoxin -) 0.25 mg PO DAILY [facility] Last Admin: 03/21/18 09:27 Dose: 0.25 mg Enoxaparin Sodium (Lovenox -) 80 mg SQ BID [facility] Last Admin: 03/21/18 09:27 Dose: 80 mg Sodium Chloride (Normal Saline -) 1,000 mls @ 83 mls/hr IV ASDIR [facility] Last Admin: 03/19/18 17:37 Dose: 83 mls/hr Melatonin (Melatonin) 10 mg PO HS [facility] Last Admin: 03/20/18 22:02 Dose: 10 mg Metoprolol Tartrate (Lopressor Injection -) 5 mg IVPB Q4H PRN PRN Reason: TACHYCARDIA Last Admin: 03/18/18 15:35 Dose: 5 mg Metoprolol Tartrate (Lopressor -) 150 mg PO BID [facility] Last Admin: 03/21/18 09:27 Dose: 150 mg Polyethylene Glycol (Miralax (For Daily Use) -) 17 gm PO DAILY [facility] Last Admin: 03/21/18 09:28 Dose: 17 gm - Objective Vital Signs: Vital Signs Temperature 98 F 03/21/18 10:00 Pulse Rate 112 H 03/21/18 10:00 Respiratory Rate 20 03/21/18 10:00 Blood Pressure 118/77 03/21/18 10:00 O2 Sat by Pulse Oximetry (%) 96 03/21/18 11:47 Constitutional: Yes: No Distress Eyes: Yes: WNL HENT: Yes: WNL Neck: Yes: WNL Cardiovascular: Yes: WNL Respiratory: Yes: On BiPap Gastrointestinal: Yes: WNL Musculoskeletal: Yes: Muscle Weakness Extremities: Yes: Deformity Edema: No Peripheral Pulses WNL: Yes Integumentary: Yes: WNL Wound/Incision: Yes: Clean/Dry Neurological: Yes: Pre-Existing Deficit ...Motor Strength: LLE, RLE Psychiatric: Yes: WNL Labs: CBC, BMP 03/18/18 05:30 03/18/18 05:30 INR, PTT INR 1.23 (0.83-1.09) H 03/16/18 13:00 Problem List - Problems (1) Atelectasis Code(s): J98.11 - ATELECTASIS (2) Failure to thrive Code(s): [id number] - (3) Shortness of breath Code(s): R06.02 - SHORTNESS OF BREATH (4) Accelerated hypertension Code(s): I10 - ESSENTIAL (PRIMARY) HYPERTENSION (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
[2018-03-21] MEDS: MELATONIN 5 MG TABLETS PO SCH (22:15)
[2018-03-22] MEDS: ALPRAZolam 0.25 MG TABLET PO PRN ×2 (00:05→17:21)
[2018-03-22] MEDS: ALBUTEROL SO4 2.5/IPRATROPIUM 0.5 INH SOL 3 ML VIAL.NEB. NEB SCH ×6 (00:06→20:20)
[2018-03-22] MEDS: DIGOXIN 0.25 MG TABLET (FP) PO SCH (09:30)
[2018-03-22] MEDS: METOPROLOL TARTRATE 50 MG TABLET (FP) PO SCH ×2 (09:30→21:08)
[2018-03-22] MEDS: SODIUM CHLORIDE 1,000 ML IV SCH ×2 (09:30→21:08)
[2018-03-22] MEDS: POLYETHYLENE GLYCOL 3350 119 GM BTL PO SCH (09:30)
[2018-03-22] MEDS ORDERED: ONDANSETRON *ODT* 4 MG TABLET SL PRN (11:51)
--- NOTE | 2018-03-22 11:54 | PN ---
Progress Note, Physician Chief Complaint: PRODUCTIVE CLEAR COUGH ON IVF NO FEVER C/O ACID REFLUX - Current Medication List Current Medications: Active Medications Acetaminophen (Tylenol -) 650 mg PO Q6H PRN PRN Reason: FEVER Albuterol/Ipratropium (Duoneb -) 1 amp NEB RQ4H [facility] Last Admin: 03/22/18 08:53 Dose: 1 amp Alprazolam (Xanax -) 0.5 mg PO TID PRN PRN Reason: ANXIETY Last Admin: 03/22/18 00:05 Dose: 0.5 mg Digoxin (Lanoxin -) 0.25 mg PO DAILY [facility] Last Admin: 03/22/18 09:30 Dose: 0.25 mg Enoxaparin Sodium (Lovenox -) 80 mg SQ BID [facility] Last Admin: 03/21/18 22:16 Dose: 80 mg Sodium Chloride (Normal Saline -) 1,000 mls @ 83 mls/hr IV ASDIR [facility] Last Admin: 03/22/18 09:30 Dose: 83 mls/hr Melatonin (Melatonin) 10 mg PO HS [facility] Last Admin: 03/21/18 22:15 Dose: 10 mg Metoprolol Tartrate (Lopressor Injection -) 5 mg IVPB Q4H PRN PRN Reason: TACHYCARDIA Last Admin: 03/18/18 15:35 Dose: 5 mg Metoprolol Tartrate (Lopressor -) 150 mg PO BID [facility] Last Admin: 03/22/18 09:30 Dose: 150 mg Ondansetron HCl (Zofran Odt -) 4 mg SL Q6H PRN PRN Reason: NAUSEA AND/OR VOMITING Polyethylene Glycol (Miralax (For Daily Use) -) 17 gm PO DAILY [facility] Last Admin: 03/22/18 09:30 Dose: 17 gm Ranitidine HCl (Zantac Oral Solution -) 150 mg PO BID [facility] - Objective Vital Signs: Vital Signs Temperature 98.0 F 03/22/18 06:00 Pulse Rate 98 H 03/22/18 09:30 Respiratory Rate 20 03/22/18 06:00 Blood Pressure 139/82 03/22/18 06:00 O2 Sat by Pulse Oximetry (%) 95 03/21/18 21:00 Constitutional: Yes: Mild Distress Eyes: Yes: WNL HENT: Yes: WNL Neck: Yes: WNL Cardiovascular: Yes: Regular Rate and Rhythm Respiratory: Yes: Diminished, On BiPap Gastrointestinal: Yes: Soft, Abdomen, Obese Genitourinary: Yes: Incontinence Musculoskeletal: Yes: Muscle Weakness Edema: Yes Edema: LLE: Trace, RLE: Trace Peripheral Pulses WNL: Yes Integumentary: Yes: WNL Wound/Incision: Yes: Clean/Dry Neurological: Yes: Pre-Existing Deficit ...Motor Strength: LLE, RLE Psychiatric: Yes: Other Labs: CBC, BMP 03/18/18 05:30 03/18/18 05:30 INR, PTT INR 1.23 (0.83-1.09) H 03/16/18 13:00 Problem List - Problems (1) Atelectasis Code(s): J98.11 - ATELECTASIS (2) Failure to thrive Code(s): [id number] - (3) Shortness of breath Code(s): R06.02 - SHORTNESS OF BREATH (4) Accelerated hypertension Code(s): I10 - ESSENTIAL (PRIMARY) HYPERTENSION (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
[2018-03-22] MEDS: RANITIDINE HCL 150 MG/10 ML UNIT-DOSE PO SCH ×2 (12:00→21:08)
--- NOTE | 2018-03-22 12:34 | PN ---
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
[2018-03-22] MEDS ORDERED: CEFTRIAXONE 1 GM in DEXTROSE 5%-WATER - 100 ML IVPB SCH (12:45)
[2018-03-22] MEDS: AZITHROMYCIN IVPB 500 MG in DEXTROSE 5%-WATER - 250 ML IVPB ONE ×2 (13:02→14:20)
[2018-03-22] MEDS ORDERED: cefTRIAXone SODIUM 1 GM VIAL ONE (13:57)
[2018-03-22] MEDS ORDERED: ACETAMINOPHEN 325 MG TABLET (FP) PO PRN (19:08)
[2018-03-22] MEDS: MELATONIN 5 MG TABLETS PO SCH (21:08)
[2018-03-23] MEDS: ALBUTEROL SO4 2.5/IPRATROPIUM 0.5 INH SOL 3 ML VIAL.NEB. NEB SCH ×7 (00:45→23:26)
[2018-03-23 06:59] LABS: HEMATOCRIT 41.1 % (32.4-45.2); HEMOGLOBIN 13.3 GM/dL (10.7-15.3); MCH 28.4 pg (25.7-33.7); MCHC 32.2 g/dl (32.0-36.0); MEAN CELL VOLUME 87.9 fl (80-96); PLATELET COUNT 142 K/MM3 (134-434); RBC 4.68 M/mm3 (3.60-5.2); RDW 14.6 % (11.6-15.6); WHITE BLOOD COUNT 5.8 K/mm3 (4.0-10.0)
[2018-03-23 07:17] LABS: INR 1.09 (0.83-1.09); PROTHROMBIN TIME (PATIENT) 12.9 SEC (9.7-13.0)
[2018-03-23 07:42] LABS: ANION GAP 8 MMOL/L (8-16); CALCIUM 7.8 mg/dL (8.5-10.1); CHLORIDE 105 mmol/L (98-107); CO2 28 mmol/L (21-32); CREATININE < 0.2 mg/dL (0.55-1.3); GLUCOSE,RANDOM 91 mg/dL (74-106); MAGNESIUM 1.6 mg/dL (1.8-2.4); POTASSIUM 3.1 mmol/L (3.5-5.1); SODIUM 140 mmol/L (136-145)
[2018-03-23 07:56] LABS: BLOOD UREA NITROGEN 2 mg/dL (7-18)
[2018-03-23] MEDS ORDERED: DEXTROSE 5%-WATER - 50 ML IVPB ONE (08:49)
[2018-03-23] MEDS ORDERED: cefTRIAXone SODIUM 1 GM VIAL ONE (08:49)
[2018-03-23] MEDS: CEFTRIAXONE 1 GM in DEXTROSE 5%-WATER - 50 ML IVPB SCH (09:06)
--- NOTE | 2018-03-23 09:37 | CONS ---
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 intake. Patient felt tightness in her diaphragm on admission and underwent infectious disease consultation on March 17, 2018, as well as gastroenterology consultation. Patient overall states she is feeling improvement. She does have family that ranges her upper and lower extremities once a day but has contractures of the right more than the left distal lower extremity. She is in no pain but has essentially no movement in the upper or lower limbs which is volitional. Patient's last chest x-ray done on March 22 demonstrated density at the left base, weak inspiration, but NG tube inserted in the tip below the GE junction in the stomach. Last blood work done yesterday showed normal WBCs 5.8, hemoglobin stable 13.3, platelet count 142 and stable. INR 1.03. Chemistry on March 23 showed a low potassium of 3.1, low magnesium 1.6. She also has previous blood work which showed low albumin on March 18. Her albumin was 2.7. TSH normal at 2.75. She had a negative troponin 0.02 on admission. Her BUN is pending but has been normal. Creatinine is low at less than 0.2. PAST MEDICAL HISTORY/PAST SURGICAL HISTORY: As above. Atrial fibrillation, aortic stenosis, status post bovine aortic valve replacement, hypertension, hyperlipidemia, history of diverticulosis, colonic polyps, cholelithiasis, status post laparoscopic cholecystectomy. SOCIAL HISTORY: No tobacco. Lives with family, is dependent Yolanda lift, and does eat but has been eating very limited amounts recent. REVIEW OF SYSTEMS: No headache. No lightheadedness or dizziness. No blurry vision, double vision, or change of vision. She does have difficulty swallowing with cough with swallow, is followed by Speech Pathology. She also has a little difficulty breathing at times but currently improved over previous. She has no movement in the upper or lower extremities with no pain, no numbness or tingling. No Skin breakdown. No fever or chills. She has lost some amount of weight. Her last modified barium swallow was in December and normal swallowing function. No joint arthralgias. No neck or back pain. PHYSICAL EXAMINATION: General: Patient keeps her head slightly tilted to the left side. She is seen lying in bed in no acute distress. She is awake, alert, and cooperative. HEENT: She is normocephalic and atraumatic. Her extraocular muscles appear intact. She has difficulty turning her neck and cannot move her upper or lower extremities. Neck: Supple. Extremities: without any pitting edema or calf tenderness. Neuromuscular: Examination awake, alert, oriented x3. Has good insight into her medical conditions. Cranial nerves II through XII are grossly intact. She has diminished range, mainly in the right more than left ankles with plantar flexion contractures, also slight limitation in shoulder range but otherwise passive range in the upper and lower limbs is within functional limits with only slightly increased tone. Normal sensation. No gross arthritic change. OVERALL IMPRESSION: 1. Severe deficits in mobility activities of daily living, irreversible at this point. 2. Motor neuron disease, presumably amyotrophic lateral sclerosis with quadriplegia. 3. Difficulty swallowing and chewing. 4. Weight loss. 5. Dysphagia. 6. Aortic valve replacement. 7. Atrial fibrillation maintained on Eliquis in the past currently on Lovenox. PLAN/SUGGESTION: 1. Daily passive range of motion. 2. Supportive care. 3. Will have physical therapy review home exercise program with the family. 4. Skin precautions, avoid heel sacral pressure, turn patient and monitor for erythema/ecchymosis. 5. Lovenox for DVT prophylaxis. 6. Speech pathology followup as needed. ANAMARIA ALSTON M.D. [id number]
[2018-03-23] MEDS ORDERED: LORazepam 2 MG/ML SDV VIAL IVPUSH ONE (09:45)
[2018-03-23] MEDS: SODIUM CHLORIDE 1,000 ML IV SCH ×2 (09:54→14:29)
[2018-03-23] MEDS: AZITHROMYCIN IVPB 250 MG in DEXTROSE 5%-WATER - 250 ML IVPB SCH (09:54)
--- NOTE | 2018-03-23 13:46 | PN ---
Progress Note, Physician Chief Complaint: TRANSFERRED TO O.R. FOR GTUBE PLACEMENT NAD - Current Medication List Current Medications: Active Medications Acetaminophen (Tylenol -) 650 mg PO Q6H PRN PRN Reason: FEVER Albuterol/Ipratropium (Duoneb -) 1 amp NEB RQ4H [facility] Last Admin: 03/23/18 11:13 Dose: 1 amp Alprazolam (Xanax -) 0.5 mg PO TID PRN PRN Reason: ANXIETY Last Admin: 03/22/18 17:21 Dose: 0.5 mg Digoxin (Lanoxin -) 0.25 mg PO DAILY [facility] Last Admin: 03/22/18 09:30 Dose: 0.25 mg Enoxaparin Sodium (Lovenox -) 80 mg SQ BID [facility] Last Admin: 03/21/18 22:16 Dose: 80 mg Azithromycin 250 mg/ Dextrose 250 mls @ 250 mls/hr IVPB DAILY [facility] Last Admin: 03/23/18 09:54 Dose: 250 mls/hr Ceftriaxone Sodium 1 gm/ (Dextrose) 50 mls @ 100 mls/hr IVPB DAILY [facility]; Protocol Last Admin: 03/23/18 09:06 Dose: 100 mls/hr Potassium Chloride (Potassium Chloride 10 Meq Premix Ivpb -) 10 meq in 100 mls @ 100 mls/hr IVPB Q60M [facility] Stop: 03/23/18 15:14 Potassium Chloride 10 meq/ (Dextrose/Sodium Chloride) 1,005 mls @ 75 mls/hr IVPB ASDIR [facility] Melatonin (Melatonin) 10 mg PO HS [facility] Last Admin: 03/22/18 21:08 Dose: 10 mg Metoprolol Tartrate (Lopressor Injection -) 5 mg IVPB Q4H PRN PRN Reason: TACHYCARDIA Last Admin: 03/18/18 15:35 Dose: 5 mg Metoprolol Tartrate (Lopressor -) 150 mg PO BID [facility] Last Admin: 03/22/18 21:08 Dose: 150 mg Ondansetron HCl (Zofran Odt -) 4 mg SL Q6H PRN PRN Reason: NAUSEA AND/OR VOMITING Polyethylene Glycol (Miralax (For Daily Use) -) 17 gm PO DAILY [facility] Last Admin: 03/22/18 09:30 Dose: 17 gm Ranitidine HCl (Zantac Oral Solution -) 150 mg PO BID [facility] Last Admin: 03/22/18 21:08 Dose: 150 mg - Objective Vital Signs: Vital Signs Temperature 98 F 03/23/18 09:00 Pulse Rate 113 H 03/23/18 13:26 Respiratory Rate 16 03/23/18 13:26 Blood Pressure 154/99 03/23/18 13:26 O2 Sat by Pulse Oximetry (%) 97 03/23/18 13:26 Constitutional: Yes: Mild Distress Eyes: Yes: WNL HENT: Yes: WNL Neck: Yes: WNL Cardiovascular: Yes: Pulse Irregular Respiratory: Yes: Cough, Diminished, On Nasal O2, Other Gastrointestinal: Yes: Soft Genitourinary: Yes: Incontinence Musculoskeletal: Yes: Muscle Weakness Extremities: Yes: Other Edema: No Integumentary: Yes: Other Wound/Incision: Yes: Dressing Dry and Intact Neurological: Yes: Pre-Existing Deficit, Unsteady Gait, Weakness ...Motor Strength: LLE, RLE Psychiatric: Yes: WNL Labs: CBC, BMP 03/23/18 05:50 03/23/18 05:50 INR, PTT INR 1.09 (0.83-1.09) 03/23/18 05:50 Problem List - Problems (1) Atelectasis Code(s): J98.11 - ATELECTASIS (2) Failure to thrive Code(s): [id number] - (3) Shortness of breath Code(s): R06.02 - SHORTNESS OF BREATH (4) Accelerated hypertension Code(s): I10 - ESSENTIAL (PRIMARY) HYPERTENSION (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
[2018-03-23] MEDS ORDERED: PT OWN MED DRAWER 7, Y5N ONE ×2 (14:48→21:21)
[2018-03-23] MEDS: RANITIDINE HCL 150 MG/10 ML UNIT-DOSE PO SCH ×2 (14:54→21:31)
[2018-03-23] MEDS: DIGOXIN 0.25 MG TABLET (FP) PO SCH (14:54)
[2018-03-23] MEDS: METOPROLOL TARTRATE 50 MG TABLET (FP) PO SCH ×2 (14:54→21:23)
[2018-03-23] MEDS: POLYETHYLENE GLYCOL 3350 119 GM BTL PO SCH (14:56)
--- NOTE | 2018-03-23 15:44 | PN ---
Progress Note, Physician History of Present Illness: pulmonary alert,no distrss,s/p gt insertion tolerated well - Current Medication List Current Medications: Active Medications Acetaminophen (Tylenol -) 650 mg PO Q6H PRN PRN Reason: FEVER Albuterol/Ipratropium (Duoneb -) 1 amp NEB RQ4H [facility] Last Admin: 03/23/18 11:13 Dose: 1 amp Alprazolam (Xanax -) 0.5 mg PO TID PRN PRN Reason: ANXIETY Last Admin: 03/22/18 17:21 Dose: 0.5 mg Digoxin (Lanoxin -) 0.25 mg PO DAILY [facility] Last Admin: 03/23/18 14:54 Dose: 0.25 mg Enoxaparin Sodium (Lovenox -) 80 mg SQ BID [facility] Last Admin: 03/21/18 22:16 Dose: 80 mg Azithromycin 250 mg/ Dextrose 250 mls @ 250 mls/hr IVPB DAILY [facility] Last Admin: 03/23/18 09:54 Dose: 250 mls/hr Ceftriaxone Sodium 1 gm/ (Dextrose) 50 mls @ 100 mls/hr IVPB DAILY [facility]; Protocol Last Admin: 03/23/18 09:06 Dose: 100 mls/hr Potassium Chloride 10 meq/ (Dextrose/Sodium Chloride) 1,005 mls @ 75 mls/hr IVPB Q13H [facility] Melatonin (Melatonin) 10 mg PO HS [facility] Last Admin: 03/22/18 21:08 Dose: 10 mg Metoprolol Tartrate (Lopressor Injection -) 5 mg IVPB Q4H PRN PRN Reason: TACHYCARDIA Last Admin: 03/18/18 15:35 Dose: 5 mg Metoprolol Tartrate (Lopressor -) 150 mg PO BID [facility] Last Admin: 03/23/18 14:54 Dose: 150 mg Ondansetron HCl (Zofran Odt -) 4 mg SL Q6H PRN PRN Reason: NAUSEA AND/OR VOMITING Polyethylene Glycol (Miralax (For Daily Use) -) 17 gm PO DAILY [facility] Last Admin: 03/23/18 14:56 Dose: Not Given Ranitidine HCl (Zantac Oral Solution -) 150 mg PO BID [facility] Last Admin: 03/23/18 14:54 Dose: 150 mg - Objective Vital Signs: Vital Signs Temperature 97.8 F 03/23/18 15:00 Pulse Rate 88 03/23/18 15:00 Respiratory Rate 20 03/23/18 15:00 Blood Pressure 134/72 03/23/18 15:00 O2 Sat by Pulse Oximetry (%) 97 03/23/18 13:26 Constitutional: Yes: Well Nourished, Calm Eyes: Yes: WNL HENT: Yes: WNL Neck: Yes: WNL Cardiovascular: Yes: Regular Rate and Rhythm, S1, S2 Respiratory: Yes: Diminished Gastrointestinal: Yes: Normal Bowel Sounds, Soft Extremities: Yes: WNL Edema: Yes Labs: CBC, BMP 03/23/18 05:50 03/23/18 05:50 INR, PTT INR 1.09 (0.83-1.09) 03/23/18 05:50 Assessment/Plan Problem List - Problems (1) Atelectasis Code(s): J98.11 - ATELECTASIS (2) Nodule of apex of right lung Code(s): R91.1 - SOLITARY PULMONARY NODULE (3) Failure to thrive Code(s): [id number] - (4) Shortness of breath Code(s): R06.02 - SHORTNESS OF BREATH (5) Aortic stenosis Code(s): Q25.3 - SUPRAVALVULAR AORTIC STENOSIS (6) Dysphagia Code(s): R13.10 - DYSPHAGIA, UNSPECIFIED Qualifiers: Dysphagia type: oral phase Qualified Code(s): R13.11 - Dysphagia, oral phase (7) Functional quadriplegia Code(s): R53.2 - FUNCTIONAL QUADRIPLEGIA (8) HTN (hypertension) Code(s): I10 - ESSENTIAL (PRIMARY) HYPERTENSION Qualifiers: Hypertension type: essential hypertension Qualified Code(s): I10 - Essential (primary) hypertension (9) Hypercholesteremia Code(s): E78.0 - PURE HYPERCHOLESTEROLEMIA * DO NOT USE * (10) ALS (amyotrophic lateral sclerosis) Code(s): G12.21 - AMYOTROPHIC LATERAL SCLEROSIS (11) History of prosthetic aortic valve Code(s): Z95.2 - PRESENCE OF PROSTHETIC HEART VALVE (12) Atrial fibrillation Code(s): I48.91 - UNSPECIFIED ATRIAL FIBRILLATION Assessment/Plan Check NIF O2 as needed NIPPV Incentive Spirometry Described RUL 0.7 x 0.5 anterior segment nodule may be atelectasis. Given her overall condition, follow up appears less necessary Trilogy device at home Cough assist device at home pt cannot mobilize secretions on her own DR FAGAN
[2018-03-23] MEDS: POTASSIUM CHLORIDE 10 MEQ in DEXTROSE 5%-NORMAL SALINE 1,000 ML IVPB SCH (15:49)
[2018-03-23] MEDS: KCL 10 MEQ IVPB 10 MEQ/100 ML INFUS.BAG IVPB SCH ×2 (15:49→17:49)
[2018-03-23] MEDS: ALPRAZolam 0.25 MG TABLET PO PRN ×2 (15:53→23:40)
[2018-03-23] MEDS: MELATONIN 5 MG TABLETS PO SCH (21:31)
[2018-03-24] MEDS: ALBUTEROL SO4 2.5/IPRATROPIUM 0.5 INH SOL 3 ML VIAL.NEB. NEB SCH ×6 (03:44→23:50)
[2018-03-24] MEDS: POTASSIUM CHLORIDE 10 MEQ in DEXTROSE 5%-NORMAL SALINE 1,000 ML IVPB SCH ×2 (04:00→15:23)
[2018-03-24] MEDS ORDERED: DEXTROSE 5%-WATER - 50 ML IVPB ONE (09:03)
[2018-03-24] MEDS ORDERED: PT OWN MED DRAWER 7, Y5N ONE ×3 (09:03→21:23)
[2018-03-24] MEDS ORDERED: cefTRIAXone SODIUM 1 GM VIAL ONE (09:03)
[2018-03-24] MEDS: CEFTRIAXONE 1 GM in DEXTROSE 5%-WATER - 50 ML IVPB SCH (09:46)
[2018-03-24] MEDS: ENOXAPARIN NA (PORCINE) 80 MG/0.8 ML DISP.SYRIN SQ SCH (09:46)
[2018-03-24] MEDS: METOPROLOL TARTRATE 50 MG TABLET (FP) PO SCH (09:47)
[2018-03-24] MEDS: DIGOXIN 0.25 MG TABLET (FP) PO SCH (09:48)
[2018-03-24] MEDS: POLYETHYLENE GLYCOL 3350 119 GM BTL PO SCH (09:49)
[2018-03-24] MEDS: AZITHROMYCIN IVPB 250 MG in DEXTROSE 5%-WATER - 250 ML IVPB SCH (11:13)
[2018-03-24] MEDS: RANITIDINE HCL 150 MG/10 ML UNIT-DOSE PO SCH (11:13)
--- NOTE | 2018-03-24 11:40 | PN ---
Progress Note, Physician History of Present Illness: pulmonary alert,on o2 mildy dyspneic - Current Medication List Current Medications: Active Medications Acetaminophen (Tylenol -) 650 mg PO Q6H PRN PRN Reason: FEVER Last Admin: 03/23/18 20:38 Dose: 650 mg Albuterol/Ipratropium (Duoneb -) 1 amp NEB RQ4H [facility] Last Admin: 03/24/18 11:18 Dose: 1 amp Alprazolam (Xanax -) 0.5 mg PO TID PRN PRN Reason: ANXIETY Last Admin: 03/23/18 23:40 Dose: 0.5 mg Digoxin (Lanoxin -) 0.25 mg PO DAILY [facility] Last Admin: 03/24/18 09:48 Dose: 0.25 mg Enoxaparin Sodium (Lovenox -) 80 mg SQ BID [facility] Last Admin: 03/24/18 09:46 Dose: 80 mg Azithromycin 250 mg/ Dextrose 250 mls @ 250 mls/hr IVPB DAILY [facility] Last Admin: 03/24/18 11:13 Dose: 250 mls/hr Ceftriaxone Sodium 1 gm/ (Dextrose) 50 mls @ 100 mls/hr IVPB DAILY [facility]; Protocol Last Admin: 03/24/18 09:46 Dose: 100 mls/hr Potassium Chloride 10 meq/ (Dextrose/Sodium Chloride) 1,005 mls @ 75 mls/hr IVPB Q13H [facility] Last Admin: 03/24/18 04:00 Dose: Not Given Melatonin (Melatonin) 10 mg PO HS [facility] Last Admin: 03/23/18 21:31 Dose: 10 mg Metoprolol Tartrate (Lopressor Injection -) 5 mg IVPB Q4H PRN PRN Reason: TACHYCARDIA Last Admin: 03/18/18 15:35 Dose: 5 mg Metoprolol Tartrate (Lopressor -) 150 mg PO BID [facility] Last Admin: 03/24/18 09:47 Dose: 150 mg Ondansetron HCl (Zofran Odt -) 4 mg SL Q6H PRN PRN Reason: NAUSEA AND/OR VOMITING Polyethylene Glycol (Miralax (For Daily Use) -) 17 gm PO DAILY [facility] Last Admin: 03/24/18 09:49 Dose: Not Given Ranitidine HCl (Zantac Oral Solution -) 150 mg PO BID [facility] Last Admin: 03/24/18 11:13 Dose: 150 mg - Objective Vital Signs: Vital Signs Temperature 97.1 F L 03/24/18 08:00 Pulse Rate 79 03/24/18 09:48 Respiratory Rate 20 03/24/18 08:00 Blood Pressure 149/88 03/24/18 08:00 O2 Sat by Pulse Oximetry (%) 98 03/24/18 07:21 Constitutional: Yes: Well Nourished, Calm Eyes: Yes: WNL HENT: Yes: WNL Neck: Yes: WNL Cardiovascular: Yes: Regular Rate and Rhythm, S1, S2 Respiratory: Yes: Diminished Gastrointestinal: Yes: Normal Bowel Sounds, Soft Extremities: Yes: WNL Edema: No Labs: CBC, BMP 03/23/18 05:50 Assessment/Plan Problem List - Problems (1) Atelectasis Code(s): J98.11 - ATELECTASIS (2) Nodule of apex of right lung Code(s): R91.1 - SOLITARY PULMONARY NODULE (3) Failure to thrive Code(s): [id number] - (4) Shortness of breath Code(s): R06.02 - SHORTNESS OF BREATH (5) Aortic stenosis Code(s): Q25.3 - SUPRAVALVULAR AORTIC STENOSIS (6) Dysphagia Code(s): R13.10 - DYSPHAGIA, UNSPECIFIED Qualifiers: Dysphagia type: oral phase Qualified Code(s): R13.11 - Dysphagia, oral phase (7) Functional quadriplegia Code(s): R53.2 - FUNCTIONAL QUADRIPLEGIA (8) HTN (hypertension) Code(s): I10 - ESSENTIAL (PRIMARY) HYPERTENSION Qualifiers: Hypertension type: essential hypertension Qualified Code(s): I10 - Essential (primary) hypertension (9) Hypercholesteremia Code(s): E78.0 - PURE HYPERCHOLESTEROLEMIA * DO NOT USE * (10) ALS (amyotrophic lateral sclerosis) Code(s): G12.21 - AMYOTROPHIC LATERAL SCLEROSIS (11) History of prosthetic aortic valve Code(s): Z95.2 - PRESENCE OF PROSTHETIC HEART VALVE (12) Atrial fibrillation Code(s): I48.91 - UNSPECIFIED ATRIAL FIBRILLATION Assessment/Plan O2 as needed NIPPV Incentive Spirometry Described RUL 0.7 x 0.5 anterior segment nodule may be atelectasis. Given her overall condition, follow up appears less necessary Trilogy device at home Cough assist device at home pt cannot mobilize secretions on her own GT feedings DR FAGAN
--- NOTE | 2018-03-24 15:12 | PN ---
Progress Note, Physician Chief Complaint: AWAKE ALERT ON BIPAP FAMILY BEDSIDE - Current Medication List Current Medications: Active Medications Acetaminophen (Tylenol -) 650 mg PO Q6H PRN PRN Reason: FEVER Last Admin: 03/23/18 20:38 Dose: 650 mg Albuterol/Ipratropium (Duoneb -) 1 amp NEB RQ4H [facility] Last Admin: 03/24/18 11:18 Dose: 1 amp Alprazolam (Xanax -) 0.5 mg PO TID PRN PRN Reason: ANXIETY Last Admin: 03/23/18 23:40 Dose: 0.5 mg Digoxin (Lanoxin -) 0.25 mg PO DAILY [facility] Last Admin: 03/24/18 09:48 Dose: 0.25 mg Enoxaparin Sodium (Lovenox -) 80 mg SQ BID [facility] Last Admin: 03/24/18 09:46 Dose: 80 mg Azithromycin 250 mg/ Dextrose 250 mls @ 250 mls/hr IVPB DAILY [facility] Last Admin: 03/24/18 11:13 Dose: 250 mls/hr Ceftriaxone Sodium 1 gm/ (Dextrose) 50 mls @ 100 mls/hr IVPB DAILY [facility]; Protocol Last Admin: 03/24/18 09:46 Dose: 100 mls/hr Potassium Chloride 10 meq/ (Dextrose/Sodium Chloride) 1,005 mls @ 75 mls/hr IVPB Q13H [facility] Last Admin: 03/24/18 04:00 Dose: Not Given Melatonin (Melatonin) 10 mg PO HS [facility] Last Admin: 03/23/18 21:31 Dose: 10 mg Metoprolol Tartrate (Lopressor Injection -) 5 mg IVPB Q4H PRN PRN Reason: TACHYCARDIA Last Admin: 03/18/18 15:35 Dose: 5 mg Metoprolol Tartrate (Lopressor -) 150 mg PO BID [facility] Last Admin: 03/24/18 09:47 Dose: 150 mg Ondansetron HCl (Zofran Odt -) 4 mg SL Q6H PRN PRN Reason: NAUSEA AND/OR VOMITING Polyethylene Glycol (Miralax (For Daily Use) -) 17 gm PO DAILY [facility] Last Admin: 03/24/18 09:49 Dose: Not Given Ranitidine HCl (Zantac Oral Solution -) 150 mg PO BID [facility] Last Admin: 03/24/18 11:13 Dose: 150 mg - Objective Vital Signs: Vital Signs Temperature 97.1 F L 03/24/18 08:00 Pulse Rate 79 03/24/18 09:48 Respiratory Rate 20 03/24/18 08:00 Blood Pressure 149/88 03/24/18 08:00 O2 Sat by Pulse Oximetry (%) 98 03/24/18 07:21 Constitutional: Yes: Mild Distress Eyes: Yes: WNL Neck: Yes: WNL Cardiovascular: Yes: Regular Rate and Rhythm Respiratory: Yes: On BiPap Gastrointestinal: Yes: Other (GTUBE IN PLACE) Genitourinary: Yes: Incontinence Musculoskeletal: Yes: Muscle Weakness Extremities: Yes: Deformity Edema: Yes Edema: LLE: Trace, RLE: Trace Peripheral Pulses WNL: Yes Integumentary: Yes: Venous Stasis Changes, Other Wound/Incision: Yes: Dressing Dry and Intact Neurological: Yes: Pre-Existing Deficit, Weakness Psychiatric: Yes: Other Labs: CBC, BMP 03/23/18 05:50 03/23/18 05:50 INR, PTT INR 1.09 (0.83-1.09) 03/23/18 05:50 Problem List - Problems (1) Atelectasis Code(s): J98.11 - ATELECTASIS (2) Failure to thrive Code(s): [id number] - (3) Shortness of breath Code(s): R06.02 - SHORTNESS OF BREATH (4) Accelerated hypertension Code(s): I10 - ESSENTIAL (PRIMARY) HYPERTENSION (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 02 PRE AND POST FOR HOME 02 AND BIPAP MACHINE GTUBE START FEEDS AND SWITCH MEDS TO GTUBE CAN START ORAL FEEDS ALSO CHECK LABS
--- NOTE | 2018-03-24 15:12 | PN ---
Progress Note (short form) - Note Progress Note: PATIENT PER FAMILY IS DNR/DNI AND DO NOT HOSPITALIZE. 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
--- NOTE | 2018-03-24 20:15 | PN ---
Progress Note (short form) - Note Progress Note: NEUROLOGY FOLLOW-UP Events reviewed and discussed with patient's daughter at the bedside. S/P PEG by radiology without complication. Tolerating Jevity by drip. More comfortable with BIPAP. Initially required alprazolam (0.5 mg) but now using BIPAP during the day for short periods without anxiety. EXAM unchanged Tongue and gag are weak. Mentalis fasciculations (L>R) are appreciated today. 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 SUGGEST: Stable for discharge with PEG feedings and BIPAP. Will follow as out patient. Thank you very much, Erick Emmanuel MD
[2018-03-24] MEDS: MELATONIN 5 MG TABLETS PO SCH (21:36)
[2018-03-24] MEDS: APIXABAN 5 MG TABLET PO SCH (21:36)
[2018-03-24] MEDS: RANITIDINE HCL 150 MG/10 ML UNIT-DOSE GT SCH (21:36)
[2018-03-24] MEDS: METOPROLOL TARTRATE 50 MG TABLET (FP) GT SCH (21:36)
[2018-03-24] MEDS: ALPRAZolam 0.25 MG TABLET GT PRN (23:11)
[2018-03-25] MEDS ORDERED: PT OWN MED DRAWER 7, Y5N ONE ×3 (03:33→21:38)
[2018-03-25] MEDS: ALBUTEROL SO4 2.5/IPRATROPIUM 0.5 INH SOL 3 ML VIAL.NEB. NEB SCH ×5 (05:30→21:06)
[2018-03-25] MEDS: POTASSIUM CHLORIDE 10 MEQ in DEXTROSE 5%-NORMAL SALINE 1,000 ML IVPB SCH ×2 (05:51→17:08)
[2018-03-25 07:25] LABS: HEMATOCRIT 43.1 % (32.4-45.2); HEMOGLOBIN 14.2 GM/dL (10.7-15.3); MCH 28.7 pg (25.7-33.7); MCHC 32.9 g/dl (32.0-36.0); MEAN CELL VOLUME 87.2 fl (80-96); MEAN PLT VOLUME 9.5 fl (7.5-11.1); PLATELET COUNT 182 K/MM3 (134-434); RBC 4.95 M/mm3 (3.60-5.2); RDW 14.8 % (11.6-15.6)
[2018-03-25 08:04] LABS: ANION GAP 7 MMOL/L (8-16); BLOOD UREA NITROGEN 5 mg/dL (7-18); CALCIUM 7.7 mg/dL (8.5-10.1); CHLORIDE 102 mmol/L (98-107); CO2 29 mmol/L (21-32); CREATININE 0.2 mg/dL (0.55-1.3); GLUCOSE,RANDOM 227 mg/dL (74-106); POTASSIUM 3.4 mmol/L (3.5-5.1); SODIUM 139 mmol/L (136-145)
[2018-03-25] MEDS ORDERED: POTASSIUM CHLORIDE ORAL LIQUID 20 MEQ/15 ML GT ONE (09:30)
--- NOTE | 2018-03-25 09:39 | PN ---
Progress Note, Physician Chief Complaint: TOLERATING FEEDS AT50CC/HR - Current Medication List Current Medications: Active Medications Acetaminophen (Tylenol -) 650 mg PO Q6H PRN PRN Reason: FEVER Last Admin: 03/23/18 20:38 Dose: 650 mg Albuterol/Ipratropium (Duoneb -) 1 amp NEB RQ4H [facility] Last Admin: 03/25/18 07:24 Dose: 1 amp Alprazolam (Xanax -) 0.5 mg GT TID PRN PRN Reason: ANXIETY Last Admin: 03/24/18 23:11 Dose: 0.5 mg Apixaban (Eliquis -) 5 mg PO BID [facility] Last Admin: 03/24/18 21:36 Dose: 5 mg Digoxin (Lanoxin -) 0.25 mg GT DAILY [facility] Potassium Chloride 10 meq/ (Dextrose/Sodium Chloride) 1,005 mls @ 75 mls/hr IVPB Q13H [facility] Last Admin: 03/25/18 05:51 Dose: 75 mls/hr Melatonin (Melatonin) 10 mg PO HS [facility] Last Admin: 03/24/18 21:36 Dose: 10 mg Metoprolol Tartrate (Lopressor -) 150 mg GT BID [facility] Last Admin: 03/24/18 21:36 Dose: 150 mg Ondansetron HCl (Zofran Odt -) 4 mg SL Q6H PRN PRN Reason: NAUSEA AND/OR VOMITING Polyethylene Glycol (Miralax (For Daily Use) -) 17 gm PO DAILY [facility] Last Admin: 03/24/18 09:49 Dose: Not Given Ranitidine HCl (Zantac Oral Solution -) 150 mg GT BID [facility] Last Admin: 03/24/18 21:36 Dose: 150 mg - Objective Vital Signs: Vital Signs Temperature 98.4 F 03/25/18 06:00 Pulse Rate 87 03/25/18 06:00 Respiratory Rate 18 03/25/18 06:00 Blood Pressure 140/75 03/25/18 06:00 O2 Sat by Pulse Oximetry (%) 98 03/25/18 00:03 Constitutional: Yes: Mild Distress Eyes: Yes: WNL HENT: Yes: WNL Neck: Yes: WNL Cardiovascular: Yes: WNL Respiratory: Yes: Diminished, On Nasal O2 Gastrointestinal: Yes: Other Genitourinary: Yes: Incontinence Musculoskeletal: Yes: Muscle Weakness Extremities: Yes: Other Edema: Yes Neurological: Yes: Pre-Existing Deficit, Unsteady Gait, Weakness ...Motor Strength: LLE, RLE Labs: CBC, BMP 03/25/18 05:50 03/25/18 05:50 INR, PTT INR 1.09 (0.83-1.09) 03/23/18 05:50 Problem List - Problems (1) Atelectasis Code(s): J98.11 - ATELECTASIS (2) Failure to thrive Code(s): [id number] - (3) Shortness of breath Code(s): R06.02 - SHORTNESS OF BREATH (4) Accelerated hypertension Code(s): I10 - ESSENTIAL (PRIMARY) HYPERTENSION (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 02 PRE AND POST FOR HOME 02 AND BIPAP MACHINE GTUBE START FEEDS AND SWITCH MEDS TO GTUBE CAN START ORAL FEEDS ALSO CHECK LABS
[2018-03-25] MEDS: DIGOXIN 0.25 MG TABLET (FP) GT SCH (10:43)
[2018-03-25] MEDS: METOPROLOL TARTRATE 50 MG TABLET (FP) GT SCH ×2 (10:43→21:41)
[2018-03-25] MEDS: RANITIDINE HCL 150 MG/10 ML UNIT-DOSE GT SCH ×2 (10:43→21:42)
[2018-03-25] MEDS: APIXABAN 5 MG TABLET PO SCH ×2 (10:43→21:42)
[2018-03-25] MEDS: POLYETHYLENE GLYCOL 3350 119 GM BTL PO SCH (11:45)
--- NOTE | 2018-03-25 11:46 | PN ---
Progress Note, Physician History of Present Illness: PULMONARY NO DISTRESS ON BIPAP,COMFORTABLE - Current Medication List Current Medications: Active Medications Acetaminophen (Tylenol -) 650 mg PO Q6H PRN PRN Reason: FEVER Last Admin: 03/23/18 20:38 Dose: 650 mg Albuterol/Ipratropium (Duoneb -) 1 amp NEB RQ4H [facility] Last Admin: 03/25/18 07:24 Dose: 1 amp Alprazolam (Xanax -) 0.5 mg GT TID PRN PRN Reason: ANXIETY Last Admin: 03/24/18 23:11 Dose: 0.5 mg Apixaban (Eliquis -) 5 mg PO BID [facility] Last Admin: 03/25/18 10:43 Dose: 5 mg Digoxin (Lanoxin -) 0.25 mg GT DAILY [facility] Last Admin: 03/25/18 10:43 Dose: 0.25 mg Potassium Chloride 10 meq/ (Dextrose/Sodium Chloride) 1,005 mls @ 75 mls/hr IVPB Q13H [facility] Last Admin: 03/25/18 05:51 Dose: 75 mls/hr Melatonin (Melatonin) 10 mg PO HS [facility] Last Admin: 03/24/18 21:36 Dose: 10 mg Metoprolol Tartrate (Lopressor -) 150 mg GT BID [facility] Last Admin: 03/25/18 10:43 Dose: 150 mg Ondansetron HCl (Zofran Odt -) 4 mg SL Q6H PRN PRN Reason: NAUSEA AND/OR VOMITING Polyethylene Glycol (Miralax (For Daily Use) -) 17 gm PO DAILY [facility] Last Admin: 03/24/18 09:49 Dose: Not Given Ranitidine HCl (Zantac Oral Solution -) 150 mg GT BID [facility] Last Admin: 03/25/18 10:43 Dose: 150 mg - Objective Vital Signs: Vital Signs Temperature 98.4 F 03/25/18 06:00 Pulse Rate 74 03/25/18 10:43 Respiratory Rate 18 03/25/18 10:23 Blood Pressure 137/75 03/25/18 10:23 O2 Sat by Pulse Oximetry (%) 98 03/25/18 00:03 Constitutional: Yes: Well Nourished, Calm Eyes: Yes: WNL HENT: Yes: WNL Neck: Yes: WNL Cardiovascular: Yes: Pulse Irregular, S1, S2 Respiratory: Yes: Diminished, On BiPap Gastrointestinal: Yes: Normal Bowel Sounds, Soft Extremities: Yes: WNL Edema: No Labs: CBC, BMP 03/25/18 05:50 03/25/18 05:50 INR, PTT INR 1.09 (0.83-1.09) 03/23/18 05:50 Assessment/Plan Problem List - Problems (1) Atelectasis Code(s): J98.11 - ATELECTASIS (2) Nodule of apex of right lung Code(s): R91.1 - SOLITARY PULMONARY NODULE (3) Failure to thrive Code(s): [id number] - (4) Shortness of breath Code(s): R06.02 - SHORTNESS OF BREATH (5) Aortic stenosis Code(s): Q25.3 - SUPRAVALVULAR AORTIC STENOSIS (6) Dysphagia Code(s): R13.10 - DYSPHAGIA, UNSPECIFIED Qualifiers: Dysphagia type: oral phase Qualified Code(s): R13.11 - Dysphagia, oral phase (7) Functional quadriplegia Code(s): R53.2 - FUNCTIONAL QUADRIPLEGIA (8) HTN (hypertension) Code(s): I10 - ESSENTIAL (PRIMARY) HYPERTENSION Qualifiers: Hypertension type: essential hypertension Qualified Code(s): I10 - Essential (primary) hypertension (9) Hypercholesteremia Code(s): E78.0 - PURE HYPERCHOLESTEROLEMIA * DO NOT USE * (10) ALS (amyotrophic lateral sclerosis) Code(s): G12.21 - AMYOTROPHIC LATERAL SCLEROSIS (11) History of prosthetic aortic valve Code(s): Z95.2 - PRESENCE OF PROSTHETIC HEART VALVE (12) Atrial fibrillation Code(s): I48.91 - UNSPECIFIED ATRIAL FIBRILLATION Assessment/Plan O2 as needed NIPPV Incentive Spirometry Described RUL 0.7 x 0.5 anterior segment nodule may be atelectasis. Given her overall condition, follow up appears less necessary Trilogy device at home Cough assist device at home pt cannot mobilize secretions on her own GT feedings DR FAGAN
[2018-03-25] MEDS: ALPRAZolam 0.25 MG TABLET GT PRN (14:01)
[2018-03-25] MEDS: MELATONIN 5 MG TABLETS PO SCH (21:42)
--- NOTE | 2018-03-25 22:00 | PN ---
Progress Note (short form) - Note Progress Note: NEUROLOGY PROGRESS: Events reviewed and discussed with day and evening RN's and Patient's health aide. Apparently patient had a significant panic attack this afternoon involving air hunger although her sat was 96%. Improved with BIPAP. Given PRN alprazolam (0.5 mg). About 2 hrs later, patient felt as if she were sitting at the edge of her bed, afraid to fall out. She felt the bed was "standing up" and that the TV was "on the ground." The entire episode lasted about 20 mins and then she fell asleep. When she woke up the episode had passed. Patient and her aide report a very similar episode on Friday. EXAM: Awake, alert, appropriate and well-oriented. No Nystagmus. Motor exam unchanged. IMP: Transient disorientation due to Alprazolam intoxication. Toxic-metabolic encephalopathy. SUGGEST: Events explained to the patient who is much relieved. At this juncture, I would continue the current regimen, including Alprazolam 0.5 mg TID PRN since she is going home tomorrow. She will likely develop tolerance to the intoxication of alprazolam but not the anxiolytic effects. If symptoms continue on an out patient basis, I will lower the dose or change to lorazepam or quetiapine. OK to proceed with discharge. Thank you very much, Erick Emmanuel MD
[2018-03-26] MEDS: ALBUTEROL SO4 2.5/IPRATROPIUM 0.5 INH SOL 3 ML VIAL.NEB. NEB SCH ×6 (00:10→20:30)
[2018-03-26] MEDS ORDERED: PT OWN MED DRAWER 7, Y5N ONE ×3 (05:29→20:42)
[2018-03-26] MEDS: POTASSIUM CHLORIDE 10 MEQ in DEXTROSE 5%-NORMAL SALINE 1,000 ML IVPB SCH ×2 (05:53→21:49)
[2018-03-26] MEDS: APIXABAN 5 MG TABLET PO SCH ×2 (10:55→21:50)
[2018-03-26] MEDS: DIGOXIN 0.25 MG TABLET (FP) GT SCH (10:55)
[2018-03-26] MEDS: METOPROLOL TARTRATE 50 MG TABLET (FP) GT SCH ×2 (10:55→21:50)
[2018-03-26] MEDS: POLYETHYLENE GLYCOL 3350 119 GM BTL PO SCH (10:55)
[2018-03-26] MEDS: RANITIDINE HCL 150 MG/10 ML UNIT-DOSE GT SCH ×2 (10:55→21:50)
--- NOTE | 2018-03-26 12:23 | DS ---
Physical Examination Vital Signs: Vital Signs Temperature 98.4 F 03/26/18 05:59 Pulse Rate 82 03/26/18 10:55 Respiratory Rate 20 03/26/18 05:59 Blood Pressure 150/78 03/26/18 05:59 O2 Sat by Pulse Oximetry (%) 93 L 03/25/18 15:52 Constitutional: Yes: Calm Cardiovascular: Yes: Regular Rate and Rhythm, S1, S2 Respiratory: Yes: CTA Bilaterally Gastrointestinal: Yes: Normal Bowel Sounds, Soft, Other (g tbe) Edema: Yes Labs: CBC, BMP 03/25/18 05:50 03/25/18 05:50 Discharge Summary Reason For Visit: AMYOTROPHIC LATERAL SCLEROSIS,SOB,FAILUTRE TO THRI Current Active Problems Atelectasis (Acute) Failure to thrive (Acute) Nodule of apex of right lung (Acute) Shortness of breath (Acute) Hospital Course: - Primary Care Physician PCP: Bozena Valderrama - Admission Chief Complaint: SOB. 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 Ms De Santiago lives with her daughter along with a 24 hr/day aide. Per her daughter, Ms De Santiago has been slowly declining over the past several months. She has lost about 30lb at home due to poor PO intake over the past 2-3 months, but the daughters noticed a more rapid decline over the past 1-2 weeks. She has had difficulty taking in even 500-600 calories recently, and yesterday she was not even able to swallow her medications in applesauce. Ms De Santiago also reports increased difficulty breathing. She has told her daughters that her "diaphragm feels tight" recently as well. Her daughter reports that they use an incentive spirometer at home. Previously, she was able to get volumes of 800-1000cc but this has decreased to around 250cc over the past week. They have noticed that she gets short of breath while talking, which has never happened before. Ms De Santiago and her daughters all deny any recent fevers, chills, nausea, vomiting, change in bowel or urinary habits, rash, skin breakdown, or ulcers. History Source: Patient, Family Member, Medical Record Limitations to Obtaining History: No Limitations in the hospital " g tube placed tube feeds started- afb digoxin and BB restarted eliquis Condition: Improved - Instructions Diet, Activity, Other Instructions: tube feeds jevity 1.5 goal rate 50cc / hr 30ml / hr of free water Referrals: Jeremy Hammond MD [Primary Care Provider] - Disposition: VNS/HOME HEALTH CARE - Home Medications Comprehensive Discharge Medication List: Ambulatory Orders Acetaminophen [Tylenol .Extra-Strength -] 1,000 mg PO Q8H PRN 12/28/17 Apixaban [Eliquis] 5 mg PO BID 12/28/17 Losartan Potassium 50 mg PO DAILY 12/28/17 Metoprolol Tartrate 50 mg PO BID 12/28/17 Amoxicillin - [Amoxicillin 500mg Capsule -] 1,000 mg PO ONCE #2 capsule Apixaban [Eliquis -] 5 mg PO BID tablet 01/05/18 Docusate Sodium [Colace -] 300 mg PO DAILY #30 tab 01/05/18 Docusate Sodium [Colace -] 300 mg PO DAILY #90 capsule 01/05/18 Polyethylene Glycol 3350 [Miralax 119 gm Btl -] 17 gm PO TID #1 bottle 01/05/18
[2018-03-26] MEDS: MELATONIN 5 MG TABLETS PO SCH (21:49)
[2018-03-27] MEDS: ALBUTEROL SO4 2.5/IPRATROPIUM 0.5 INH SOL 3 ML VIAL.NEB. NEB SCH ×5 (00:15→20:41)
[2018-03-27] MEDS ORDERED: PT OWN MED DRAWER 7, Y5N ONE ×4 (09:44→21:37)
[2018-03-27] MEDS: POTASSIUM CHLORIDE 10 MEQ in DEXTROSE 5%-NORMAL SALINE 1,000 ML IVPB SCH ×2 (09:56→21:45)
[2018-03-27] MEDS: DIGOXIN 0.25 MG TABLET (FP) GT SCH (09:57)
[2018-03-27] MEDS: POLYETHYLENE GLYCOL 3350 119 GM BTL PO SCH (09:57)
[2018-03-27] MEDS: METOPROLOL TARTRATE 50 MG TABLET (FP) GT SCH ×2 (09:57→21:44)
[2018-03-27] MEDS: APIXABAN 5 MG TABLET PO SCH ×2 (09:57→21:45)
[2018-03-27] MEDS: RANITIDINE HCL 150 MG/10 ML UNIT-DOSE GT SCH ×2 (09:58→21:45)
--- NOTE | 2018-03-27 12:01 | DS ---
Physical Examination Vital Signs: Vital Signs Temperature 98.5 F 03/27/18 06:00 Pulse Rate 92 H 03/27/18 09:57 Respiratory Rate 18 03/27/18 09:00 Blood Pressure 146/81 03/27/18 06:00 O2 Sat by Pulse Oximetry (%) 97 03/27/18 11:11 Cardiovascular: Yes: S1, S2 Respiratory: Yes: On Venti-Mask Gastrointestinal: Yes: Normal Bowel Sounds, Soft Neurological: Yes: Pre-Existing Deficit Labs: CBC, BMP 03/25/18 05:50 03/25/18 05:50 Discharge Summary Reason For Visit: AMYOTROPHIC LATERAL SCLEROSIS,SOB,FAILUTRE TO THRI Current Active Problems Atelectasis (Acute) Failure to thrive (Acute) Nodule of apex of right lung (Acute) Shortness of breath (Acute) Hospital Course: Teena De Santiago is a 77yo woman with a PMH of ALS, near complete quadriplegia, a- fib, h/o aortic valve replacement (on apixapan), HTN, HLD who presents from home with her daughters due to worsening shortness of breath, difficulty swallowing and clearing her airway, poor PO intake, and weight loss at home. Ms De Santiago lives with her daughter along with a 24 hr/day aide. Per her daughter, Ms De Santiago has been slowly declining over the past several months. She has lost about 30lb at home due to poor PO intake over the past 2-3 months, but the daughters noticed a more rapid decline over the past 1-2 weeks. She has had difficulty taking in even 500-600 calories recently, and yesterday she was not even able to swallow her medications in applesauce. Ms De Santiago also reports increased difficulty breathing. She has told her daughters that her "diaphragm feels tight" recently as well. Her daughter reports that they use an incentive spirometer at home. Previously, she was able to get volumes of 800-1000cc but this has decreased to around 250cc over the past week. They have noticed that she gets short of breath while talking, which has never happened before. Ms De Santiago and her daughters all deny any recent fevers, chills, nausea, vomiting, change in bowel or urinary habits, rash, skin breakdown, or ulcers. Patient o2 sat 88 % and needs oxygen at 2l nc when off trilogy Condition: Improved - Instructions Diet, Activity, Other Instructions: tube feeds jevity 1.5 goal rate 50cc / hr 30ml / hr of free water Referrals: Jeremy Hammond MD [Primary Care Provider] - Disposition: VNS/HOME HEALTH CARE - Home Medications Comprehensive Discharge Medication List: Ambulatory Orders Apixaban [Eliquis] 5 mg PO BID 12/28/17 Amoxicillin - [Amoxicillin 500mg Capsule -] 1,000 mg PO ONCE #2 capsule Docusate Sodium [Colace -] 300 mg PO DAILY #30 tab 01/05/18 Docusate Sodium [Colace -] 300 mg PO DAILY #90 capsule 01/05/18 Alprazolam [Xanax] 0.5 mg GT TID PRN #10 tablet MDD 3 03/26/18 Melatonin 10 mg PO HS #30 tab 03/26/18 Metoprolol Tartrate [Lopressor -] 150 mg GT BID #90 tablet 03/26/18 Polyethylene Glycol 3350 [Miralax 119 gm Btl -] 17 gm PO DAILY #1 bottle Albuterol 2.5/Ipratropium 0.5 [Duoneb -] 1 amp NEB RQ4H amp 03/27/18 Digoxin [Lanoxin -] 0.25 mg GT DAILY #30 tablet 03/27/18 Ranitidine Oral Solution [Zantac Oral Solution -] 150 mg GT BID #60 cup
--- NOTE | 2018-03-27 13:15 | PN ---
Progress Note, Physician History of Present Illness: pulmonary alert,on bipap,-resp distress - Current Medication List Current Medications: Active Medications Acetaminophen (Tylenol -) 650 mg PO Q6H PRN PRN Reason: FEVER Last Admin: 03/23/18 20:38 Dose: 650 mg Albuterol/Ipratropium (Duoneb -) 1 amp NEB RQ4H [facility] Last Admin: 03/27/18 11:12 Dose: 1 amp Alprazolam (Xanax -) 0.5 mg GT TID PRN PRN Reason: ANXIETY Last Admin: 03/25/18 14:01 Dose: 0.5 mg Apixaban (Eliquis -) 5 mg PO BID [facility] Last Admin: 03/27/18 09:57 Dose: 5 mg Digoxin (Lanoxin -) 0.25 mg GT DAILY [facility] Last Admin: 03/27/18 09:57 Dose: 0.25 mg Potassium Chloride 10 meq/ (Dextrose/Sodium Chloride) 1,005 mls @ 75 mls/hr IVPB Q13H [facility] Last Admin: 03/27/18 09:56 Dose: 75 mls/hr Melatonin (Melatonin) 10 mg PO HS [facility] Last Admin: 03/26/18 21:49 Dose: 10 mg Metoprolol Tartrate (Lopressor -) 150 mg GT BID [facility] Last Admin: 03/27/18 09:57 Dose: 150 mg Ondansetron HCl (Zofran Odt -) 4 mg SL Q6H PRN PRN Reason: NAUSEA AND/OR VOMITING Polyethylene Glycol (Miralax (For Daily Use) -) 17 gm PO DAILY [facility] Last Admin: 03/27/18 09:57 Dose: 17 gm Ranitidine HCl (Zantac Oral Solution -) 150 mg GT BID [facility] Last Admin: 03/27/18 09:58 Dose: 150 mg - Objective Vital Signs: Vital Signs Temperature 98.5 F 03/27/18 06:00 Pulse Rate 92 H 03/27/18 09:57 Respiratory Rate 18 03/27/18 09:00 Blood Pressure 146/81 03/27/18 06:00 O2 Sat by Pulse Oximetry (%) 97 03/27/18 11:11 Constitutional: Yes: Well Nourished, Calm Eyes: Yes: WNL HENT: Yes: WNL Neck: Yes: WNL Cardiovascular: Yes: Pulse Irregular, S1, S2 Respiratory: Yes: Diminished Gastrointestinal: Yes: Normal Bowel Sounds, Soft Extremities: Yes: WNL Edema: No Labs: CBC, BMP 03/25/18 05:50 03/25/18 05:50 INR, PTT INR 1.09 (0.83-1.09) 03/23/18 05:50 Assessment/Plan Problem List - Problems (1) Atelectasis Code(s): J98.11 - ATELECTASIS (2) Nodule of apex of right lung Code(s): R91.1 - SOLITARY PULMONARY NODULE (3) Failure to thrive Code(s): [id number] - (4) Shortness of breath Code(s): R06.02 - SHORTNESS OF BREATH (5) Aortic stenosis Code(s): Q25.3 - SUPRAVALVULAR AORTIC STENOSIS (6) Dysphagia Code(s): R13.10 - DYSPHAGIA, UNSPECIFIED Qualifiers: Dysphagia type: oral phase Qualified Code(s): R13.11 - Dysphagia, oral phase (7) Functional quadriplegia Code(s): R53.2 - FUNCTIONAL QUADRIPLEGIA (8) HTN (hypertension) Code(s): I10 - ESSENTIAL (PRIMARY) HYPERTENSION Qualifiers: Hypertension type: essential hypertension Qualified Code(s): I10 - Essential (primary) hypertension (9) Hypercholesteremia Code(s): E78.0 - PURE HYPERCHOLESTEROLEMIA * DO NOT USE * (10) ALS (amyotrophic lateral sclerosis) Code(s): G12.21 - AMYOTROPHIC LATERAL SCLEROSIS (11) History of prosthetic aortic valve Code(s): Z95.2 - PRESENCE OF PROSTHETIC HEART VALVE (12) Atrial fibrillation Code(s): I48.91 - UNSPECIFIED ATRIAL FIBRILLATION Assessment/Plan O2 as needed NIPPV Incentive Spirometry Described RUL 0.7 x 0.5 anterior segment nodule may be atelectasis. Given her overall condition, follow up appears less necessary Trilogy device at home Cough assist device at home pt cannot mobilize secretions on her own GT feedings chest x-ray DR FAGAN
[2018-03-27] MEDS ORDERED: FUROSEMIDE 40 MG/4 ML INJECTABLE VIAL IVPUSH ONE (15:02)
[2018-03-27] MEDS: MELATONIN 5 MG TABLETS PO SCH (21:44)
[2018-03-28] MEDS: ALBUTEROL SO4 2.5/IPRATROPIUM 0.5 INH SOL 3 ML VIAL.NEB. NEB SCH ×6 (00:15→20:45)
--- NOTE | 2018-03-28 10:06 | PN ---
Progress Note, Physician - Current Medication List Current Medications: Active Medications Acetaminophen (Tylenol -) 650 mg PO Q6H PRN PRN Reason: FEVER Last Admin: 03/23/18 20:38 Dose: 650 mg Albuterol/Ipratropium (Duoneb -) 1 amp NEB RQ4H [facility] Last Admin: 03/28/18 08:00 Dose: 1 amp Alprazolam (Xanax -) 0.5 mg GT TID PRN PRN Reason: ANXIETY Last Admin: 03/25/18 14:01 Dose: 0.5 mg Apixaban (Eliquis -) 5 mg PO BID [facility] Last Admin: 03/27/18 21:45 Dose: 5 mg Digoxin (Lanoxin -) 0.25 mg GT DAILY [facility] Last Admin: 03/27/18 09:57 Dose: 0.25 mg Potassium Chloride 10 meq/ (Dextrose/Sodium Chloride) 1,005 mls @ 75 mls/hr IVPB Q13H [facility] Last Admin: 03/27/18 21:45 Dose: 75 mls/hr Melatonin (Melatonin) 10 mg PO HS [facility] Last Admin: 03/27/18 21:44 Dose: 10 mg Metoprolol Tartrate (Lopressor -) 150 mg GT BID [facility] Last Admin: 03/27/18 21:44 Dose: 150 mg Ondansetron HCl (Zofran Odt -) 4 mg SL Q6H PRN PRN Reason: NAUSEA AND/OR VOMITING Polyethylene Glycol (Miralax (For Daily Use) -) 17 gm PO DAILY [facility] Last Admin: 03/27/18 09:57 Dose: 17 gm Ranitidine HCl (Zantac Oral Solution -) 150 mg GT BID [facility] Last Admin: 03/27/18 21:45 Dose: 150 mg - Objective Vital Signs: Vital Signs Temperature 97.5 F L 03/28/18 06:00 Pulse Rate 82 03/28/18 06:00 Respiratory Rate 18 03/28/18 06:00 Blood Pressure 143/66 03/28/18 06:00 O2 Sat by Pulse Oximetry (%) 97 03/27/18 21:00 Cardiovascular: Yes: S1, S2 Respiratory: Yes: Regular, CTA Bilaterally Gastrointestinal: Yes: Normal Bowel Sounds, Soft Labs: CBC, BMP 03/25/18 05:50 03/25/18 05:50 INR, PTT INR 1.09 (0.83-1.09) 03/23/18 05:50 Assessment/Plan - Problems (1) Failure to thrive Assessment/Plan: -GI consult for PEG on Friday -Seen by Speech Therapy Code(s): [id number] - (2) Shortness of breath Assessment/Plan: -Pulmonary consult -Trial of BIPAP--improved -Bronchodilators -Nasal O2 PRN to keep Spo2>90% -CT chest reviewed- RLL atelectasis -cxr congestion--given lasix--rpt -dc ivf Code(s): R06.02 - SHORTNESS OF BREATH (3) Functional quadriplegia Code(s): R53.2 - FUNCTIONAL QUADRIPLEGIA (4) ALS (amyotrophic lateral sclerosis) Assessment/Plan: -Neurology consult -Palliative care consult Code(s): G12.21 - AMYOTROPHIC LATERAL SCLEROSIS (5) Atrial fibrillation Assessment/Plan: -chronic, controlled -On Eliquis BID -Cardiology consult Code(s): I48.91 - UNSPECIFIED ATRIAL FIBRILLATION (6) Constipation Assessment/Plan: -enema and miralax
[2018-03-28] MEDS ORDERED: PT OWN MED DRAWER 7, Y5N ONE ×2 (10:46→21:41)
[2018-03-28] MEDS: APIXABAN 5 MG TABLET PO SCH ×2 (10:59→21:59)
[2018-03-28] MEDS: METOPROLOL TARTRATE 50 MG TABLET (FP) GT SCH ×2 (10:59→21:59)
[2018-03-28] MEDS: DIGOXIN 0.25 MG TABLET (FP) GT SCH (11:00)
[2018-03-28] MEDS: POLYETHYLENE GLYCOL 3350 119 GM BTL PO SCH (11:00)
[2018-03-28] MEDS: RANITIDINE HCL 150 MG/10 ML UNIT-DOSE GT SCH ×2 (11:00→21:47)
[2018-03-28 11:27] LABS: ALBUMIN 2.4 g/dl (3.4-5.0); ALK PHOS 112 U/L (45-117); ANION GAP 7 MMOL/L (8-16); BILIRUBIN,TOTAL 0.8 mg/dL (0.2-1); BLOOD UREA NITROGEN 11 mg/dL (7-18); CALCIUM 7.9 mg/dL (8.5-10.1); CHLORIDE 94 mmol/L (98-107); CO2 36 mmol/L (21-32); CREATININE 0.3 mg/dL (0.55-1.3); GLUCOSE,RANDOM 170 mg/dL (74-106); POTASSIUM 4.1 mmol/L (3.5-5.1); SGOT/AST 38 U/L (15-37); SGPT/ALT 48 U/L (13-61); SODIUM 138 mmol/L (136-145); TOT PROT 5.7 g/dl (6.4-8.2)
[2018-03-28] MEDS ORDERED: FUROSEMIDE 40 MG/4 ML INJECTABLE VIAL IVPUSH ONE (12:53)
[2018-03-28] MEDS ORDERED: POTASSIUM CHLORIDE ORAL LIQUID 20 MEQ/15 ML PO ONE (12:53)
[2018-03-28] MEDS: MELATONIN 5 MG TABLETS PO SCH (21:59)
[2018-03-29] MEDS: ALBUTEROL SO4 2.5/IPRATROPIUM 0.5 INH SOL 3 ML VIAL.NEB. NEB SCH ×5 (00:13→20:30)
[2018-03-29] MEDS ORDERED: PT OWN MED DRAWER 7, Y5N ONE ×2 (10:40→21:53)
[2018-03-29] MEDS: POLYETHYLENE GLYCOL 3350 119 GM BTL PO SCH (11:23)
[2018-03-29] MEDS: DIGOXIN 0.25 MG TABLET (FP) GT SCH (11:23)
[2018-03-29] MEDS: RANITIDINE HCL 150 MG/10 ML UNIT-DOSE GT SCH ×2 (11:23→21:54)
[2018-03-29] MEDS: METOPROLOL TARTRATE 50 MG TABLET (FP) GT SCH ×2 (11:23→21:54)
[2018-03-29] MEDS: APIXABAN 5 MG TABLET PO SCH ×2 (11:23→21:54)
--- NOTE | 2018-03-29 13:52 | PN ---
Progress Note, Physician - Current Medication List Current Medications: Active Medications Acetaminophen (Tylenol -) 650 mg PO Q6H PRN PRN Reason: FEVER Last Admin: 03/23/18 20:38 Dose: 650 mg Albuterol/Ipratropium (Duoneb -) 1 amp NEB RQ4H [facility] Last Admin: 03/29/18 11:50 Dose: 1 amp Alprazolam (Xanax -) 0.5 mg GT TID PRN PRN Reason: ANXIETY Last Admin: 03/25/18 14:01 Dose: 0.5 mg Apixaban (Eliquis -) 5 mg PO BID [facility] Last Admin: 03/29/18 11:23 Dose: 5 mg Digoxin (Lanoxin -) 0.25 mg GT DAILY [facility] Last Admin: 03/29/18 11:23 Dose: 0.25 mg Melatonin (Melatonin) 10 mg PO HS [facility] Last Admin: 03/28/18 21:59 Dose: 10 mg Metoprolol Tartrate (Lopressor -) 150 mg GT BID [facility] Last Admin: 03/29/18 11:23 Dose: 150 mg Ondansetron HCl (Zofran Odt -) 4 mg SL Q6H PRN PRN Reason: NAUSEA AND/OR VOMITING Polyethylene Glycol (Miralax (For Daily Use) -) 17 gm PO DAILY [facility] Last Admin: 03/29/18 11:23 Dose: 17 gm Ranitidine HCl (Zantac Oral Solution -) 150 mg GT BID [facility] Last Admin: 03/29/18 11:23 Dose: 150 mg - Objective Vital Signs: Vital Signs Temperature 97.6 F 03/29/18 06:00 Pulse Rate 90 03/29/18 11:23 Respiratory Rate 18 03/29/18 06:00 Blood Pressure 145/80 03/29/18 06:00 O2 Sat by Pulse Oximetry (%) 97 03/29/18 11:55 Cardiovascular: Yes: S1, S2 Respiratory: Yes: Regular, CTA Bilaterally Gastrointestinal: Yes: Normal Bowel Sounds, Soft Labs: CBC, BMP 03/25/18 05:50 03/28/18 10:25 INR, PTT INR 1.09 (0.83-1.09) 03/23/18 05:50 Assessment/Plan - Problems (1) Failure to thrive Assessment/Plan: -GI consult for PEG on Friday -Seen by Speech Therapy Code(s): [id number] - (2) Shortness of breath Assessment/Plan: -Pulmonary consult -Trial of BIPAP--improved -Bronchodilators -Nasal O2 PRN to keep Spo2>90% -CT chest reviewed- RLL atelectasis -cxr congestion--given lasix--rpt better -dc ivf Code(s): R06.02 - SHORTNESS OF BREATH (3) Functional quadriplegia Code(s): R53.2 - FUNCTIONAL QUADRIPLEGIA (4) ALS (amyotrophic lateral sclerosis) Assessment/Plan: -Neurology consult -Palliative care consult Code(s): G12.21 - AMYOTROPHIC LATERAL SCLEROSIS (5) Atrial fibrillation Assessment/Plan: -chronic, controlled -On Eliquis BID -Cardiology consult Code(s): I48.91 - UNSPECIFIED ATRIAL FIBRILLATION (6) Constipation Assessment/Plan: -enema and miralax dc planning
--- NOTE | 2018-03-29 16:52 | PN ---
Progress Note (short form) - Note Progress Note: Tolerating NIPPV. No acute events overnight. Intake & Output 03/26/18 03/27/18 03/28/18 03/29/18 23:59 23:59 23:59 23:59 Intake Total 2325 4910 1587 610 Balance 2325 4910 1587 610 Last Vital Signs Temp Pulse Resp BP Pulse Ox 98.6 F 83 18 147/83 97 03/29/18 14:54 03/29/18 14:54 03/29/18 14:54 03/29/18 14:54 03/29/18 11:55 Active Medications Acetaminophen (Tylenol -) 650 mg PO Q6H PRN PRN Reason: FEVER Last Admin: 03/23/18 20:38 Dose: 650 mg Albuterol/Ipratropium (Duoneb -) 1 amp NEB RQ4H [facility] Last Admin: 03/29/18 11:50 Dose: 1 amp Alprazolam (Xanax -) 0.5 mg GT TID PRN PRN Reason: ANXIETY Last Admin: 03/25/18 14:01 Dose: 0.5 mg Apixaban (Eliquis -) 5 mg PO BID [facility] Last Admin: 03/29/18 11:23 Dose: 5 mg Digoxin (Lanoxin -) 0.25 mg GT DAILY [facility] Last Admin: 03/29/18 11:23 Dose: 0.25 mg Melatonin (Melatonin) 10 mg PO HS [facility] Last Admin: 03/28/18 21:59 Dose: 10 mg Metoprolol Tartrate (Lopressor -) 150 mg GT BID [facility] Last Admin: 03/29/18 11:23 Dose: 150 mg Ondansetron HCl (Zofran Odt -) 4 mg SL Q6H PRN PRN Reason: NAUSEA AND/OR VOMITING Polyethylene Glycol (Miralax (For Daily Use) -) 17 gm PO DAILY [facility] Last Admin: 03/29/18 11:23 Dose: 17 gm Ranitidine HCl (Zantac Oral Solution -) 150 mg GT BID [facility] Last Admin: 03/29/18 11:23 Dose: 150 mg Constitutional: Yes: NAD on NIPPV Eyes: Yes: Conjunctiva Clear, EOM Intact HENT: Yes: Atraumatic, Normocephalic Neck: Yes: Supple, Trachea Midline Cardiovascular: Yes: Pulse Irregular Respiratory: Yes: Diminished, On NIPPV, Rhonchi. No: Accessory Muscle Use, Rales, Stridor, Tachypnea, Wheezes ...Clubbing: No Gastrointestinal: Yes: Normal Bowel Sounds, Soft Musculoskeletal: Yes: WNL Extremities: Yes: Other (muscle wasting ) Edema: No Peripheral Pulses WNL: Yes Integumentary: Yes: WNL Neurological: Yes: WNL, Alert, Oriented, Pre-Existing Deficit Psychiatric: Yes: WNL, Alert, Oriented Labs: Problem List - Problems (1) Atelectasis Code(s): J98.11 - ATELECTASIS (2) Nodule of apex of right lung Code(s): R91.1 - SOLITARY PULMONARY NODULE (3) Failure to thrive Code(s): [id number] - (4) Shortness of breath Code(s): R06.02 - SHORTNESS OF BREATH (5) Aortic stenosis Code(s): Q25.3 - SUPRAVALVULAR AORTIC STENOSIS (6) Dysphagia Code(s): R13.10 - DYSPHAGIA, UNSPECIFIED Qualifiers: Dysphagia type: oral phase Qualified Code(s): R13.11 - Dysphagia, oral phase (7) Functional quadriplegia Code(s): R53.2 - FUNCTIONAL QUADRIPLEGIA (8) HTN (hypertension) Code(s): I10 - ESSENTIAL (PRIMARY) HYPERTENSION Qualifiers: Hypertension type: essential hypertension Qualified Code(s): I10 - Essential (primary) hypertension (9) Hypercholesteremia Code(s): E78.0 - PURE HYPERCHOLESTEROLEMIA * DO NOT USE * (10) ALS (amyotrophic lateral sclerosis) Code(s): G12.21 - AMYOTROPHIC LATERAL SCLEROSIS (11) History of prosthetic aortic valve Code(s): Z95.2 - PRESENCE OF PROSTHETIC HEART VALVE (12) Atrial fibrillation Code(s): I48.91 - UNSPECIFIED ATRIAL FIBRILLATION Assessment/Plan O2 as needed Incentive Spirometry Described RUL 0.7 x 0.5 anterior segment nodule may be atelectasis. Given her overall condition, follow up appears less necessary DNR / DNI The patient would benefit from a Trilogy device. The patient requires ventilation via a non-invasive ventilator as BiLevel is no longer effective in treatment of effectively decrease her work of breathing and improve her pulmonary status and prevent interruption or failure of respiratory support due worsening of her ALS. The patient would benefit from a Cough Assist Device given her worsening ALS. Dr Arguello Problem List - Problems (1) Atelectasis Code(s): J98.11 - ATELECTASIS (2) Nodule of apex of right lung Code(s): R91.1 - SOLITARY PULMONARY NODULE (3) Failure to thrive Code(s): [id number] - (4) Shortness of breath Code(s): R06.02 - SHORTNESS OF BREATH (5) Aortic stenosis Code(s): Q25.3 - SUPRAVALVULAR AORTIC STENOSIS (6) Dysphagia Code(s): R13.10 - DYSPHAGIA, UNSPECIFIED Qualifiers: Dysphagia type: oral phase Qualified Code(s): R13.11 - Dysphagia, oral phase (7) Functional quadriplegia Code(s): R53.2 - FUNCTIONAL QUADRIPLEGIA (8) HTN (hypertension) Code(s): I10 - ESSENTIAL (PRIMARY) HYPERTENSION Qualifiers: Hypertension type: essential hypertension Qualified Code(s): I10 - Essential (primary) hypertension (9) Hypercholesteremia Code(s): E78.0 - PURE HYPERCHOLESTEROLEMIA * DO NOT USE * (10) ALS (amyotrophic lateral sclerosis) Code(s): G12.21 - AMYOTROPHIC LATERAL SCLEROSIS (11) History of prosthetic aortic valve Code(s): Z95.2 - PRESENCE OF PROSTHETIC HEART VALVE (12) Atrial fibrillation Code(s): I48.91 - UNSPECIFIED ATRIAL FIBRILLATION
[2018-03-29] MEDS: MELATONIN 5 MG TABLETS PO SCH (21:54)
[2018-03-30] MEDS: ALBUTEROL SO4 2.5/IPRATROPIUM 0.5 INH SOL 3 ML VIAL.NEB. NEB SCH ×4 (00:46→11:00)
--- NOTE | 2018-03-30 10:13 | PN ---
Progress Note (short form) - Note Progress Note: PATIENT IS READY FOR DISCHARGE AWAITING DEVICES AND MEDICATIONS ON HOME HOSPICE WILL NEED OXYCODONE, XANAX AND DURAGESIC PATCHES O2 as needed Incentive Spirometry Described RUL 0.7 x 0.5 anterior segment nodule may be atelectasis. Given her overall condition, follow up appears less necessary DNR / DNI The patient would benefit from a Trilogy device. The patient requires ventilation via a non-invasive ventilator as BiLevel is no longer effective in treatment of effectively decrease her work of breathing and improve her pulmonary status and prevent interruption or failure of respiratory support due worsening of her ALS. The patient would benefit from a Cough Assist Device given her worsening ALS. 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
[2018-03-30] MEDS: APIXABAN 5 MG TABLET PO SCH (11:00)
[2018-03-30] MEDS: METOPROLOL TARTRATE 50 MG TABLET (FP) GT SCH (11:00)
[2018-03-30] MEDS: POLYETHYLENE GLYCOL 3350 119 GM BTL PO SCH (11:00)
[2018-03-30] MEDS: RANITIDINE HCL 150 MG/10 ML UNIT-DOSE GT SCH (11:00)
[2018-03-30] MEDS: DIGOXIN 0.25 MG TABLET (FP) GT SCH (11:01)
[2018-03-30] MEDS ORDERED: PT OWN MED DRAWER 7, Y5N ONE (11:07)
--- NOTE | 2018-03-30 11:39 | PN ---
Progress Note, Physician History of Present Illness: pulmonary alert,on bipap,comfortable - Current Medication List Current Medications: Active Medications Acetaminophen (Tylenol -) 650 mg PO Q6H PRN PRN Reason: FEVER Last Admin: 03/23/18 20:38 Dose: 650 mg Albuterol/Ipratropium (Duoneb -) 1 amp NEB RQ4H [facility] Last Admin: 03/30/18 07:25 Dose: 1 amp Alprazolam (Xanax -) 0.5 mg GT TID PRN PRN Reason: ANXIETY Last Admin: 03/25/18 14:01 Dose: 0.5 mg Apixaban (Eliquis -) 5 mg PO BID [facility] Last Admin: 03/30/18 11:00 Dose: 5 mg Digoxin (Lanoxin -) 0.25 mg GT DAILY [facility] Last Admin: 03/30/18 11:01 Dose: 0.25 mg Melatonin (Melatonin) 10 mg PO HS [facility] Last Admin: 03/29/18 21:54 Dose: 10 mg Metoprolol Tartrate (Lopressor -) 150 mg GT BID [facility] Last Admin: 03/30/18 11:00 Dose: 150 mg Ondansetron HCl (Zofran Odt -) 4 mg SL Q6H PRN PRN Reason: NAUSEA AND/OR VOMITING Polyethylene Glycol (Miralax (For Daily Use) -) 17 gm PO DAILY [facility] Last Admin: 03/30/18 11:00 Dose: 17 gm Ranitidine HCl (Zantac Oral Solution -) 150 mg GT BID [facility] Last Admin: 03/30/18 11:00 Dose: 150 mg - Objective Vital Signs: Vital Signs Temperature 97.9 F 03/30/18 08:38 Pulse Rate 94 H 03/30/18 11:01 Respiratory Rate 14 03/30/18 08:38 Blood Pressure 141/95 03/30/18 08:38 O2 Sat by Pulse Oximetry (%) 95 03/29/18 21:00 Constitutional: Yes: Well Nourished, Calm Eyes: Yes: WNL HENT: Yes: WNL Neck: Yes: WNL Cardiovascular: Yes: Regular Rate and Rhythm, S1, S2 Respiratory: Yes: Diminished, On BiPap Gastrointestinal: Yes: Normal Bowel Sounds, Soft Extremities: Yes: WNL Edema: Yes Labs: CBC, BMP Assessment/Plan Problem List - Problems (1) Atelectasis Code(s): J98.11 - ATELECTASIS (2) Nodule of apex of right lung Code(s): R91.1 - SOLITARY PULMONARY NODULE (3) Failure to thrive Code(s): TTD8606 - (4) Shortness of breath Code(s): R06.02 - SHORTNESS OF BREATH (5) Aortic stenosis Code(s): Q25.3 - SUPRAVALVULAR AORTIC STENOSIS (6) Dysphagia Code(s): R13.10 - DYSPHAGIA, UNSPECIFIED Qualifiers: Dysphagia type: oral phase Qualified Code(s): R13.11 - Dysphagia, oral phase (7) Functional quadriplegia Code(s): R53.2 - FUNCTIONAL QUADRIPLEGIA (8) HTN (hypertension) Code(s): I10 - ESSENTIAL (PRIMARY) HYPERTENSION Qualifiers: Hypertension type: essential hypertension Qualified Code(s): I10 - Essential (primary) hypertension (9) Hypercholesteremia Code(s): E78.0 - PURE HYPERCHOLESTEROLEMIA * DO NOT USE * (10) ALS (amyotrophic lateral sclerosis) Code(s): G12.21 - AMYOTROPHIC LATERAL SCLEROSIS (11) History of prosthetic aortic valve Code(s): Z95.2 - PRESENCE OF PROSTHETIC HEART VALVE (12) Atrial fibrillation Code(s): I48.91 - UNSPECIFIED ATRIAL FIBRILLATION Assessment/Plan O2 as needed NIPPV Incentive Spirometry Described RUL 0.7 x 0.5 anterior segment nodule may be atelectasis. Given her overall condition, follow up appears less necessary Trilogy device at home Cough assist device at home pt cannot mobilize secretions on her own GT feedings DR FAGAN
--- NOTE | 2018-03-30 11:55 | PN ---
Progress Note (short form) - Note Progress Note: ADDENDUM: PATIENT WILL NEED A SUCTION MACHINE AT HOME TO ASSIST WITH RESPIRATORY FUNCTION. Problem List - Problems (1) Atelectasis Code(s): J98.11 - ATELECTASIS (2) Failure to thrive Code(s): ABW5061 - (3) Shortness of breath Code(s): R06.02 - SHORTNESS OF BREATH (4) Accelerated hypertension Code(s): I10 - ESSENTIAL (PRIMARY) HYPERTENSION (5) Motor neuron disease Code(s): G12.20 - MOTOR NEURON DISEASE, UNSPECIFIED (6) Weakness Code(s): R53.1 - WEAKNESS (7) ALS (amyotrophic lateral sclerosis) Code(s): G12.21 - AMYOTROPHIC LATERAL SCLEROSIS (8) History of prosthetic aortic valve Code(s): Z95.2 - PRESENCE OF PROSTHETIC HEART VALVE (9) Functional quadriplegia Code(s): R53.2 - FUNCTIONAL QUADRIPLEGIA
[2018-03-30 13:27] VITALS: BP 143/63; PULSE 70; TEMP 97.4
== END 2018-03-30 14:38 | disposition home health service (06) | DRG 56 ==
LOC: JER 10:27 → JERBED 15:02 → J6S 20:58 → J4W 03-17 17:46 → J4S 03-22 13:58
PROVIDERS: ADMIT Family Medicine; ATTEND Family Medicine
PROC: 0DH63UZ Insertion of Feeding Device into Stomach, Percutaneous Approach (ICD-10-PCS; principal; 2018-03-23)
DX: G12.21 Amyotrophic lateral sclerosis (principal); R53.2 Functional quadriplegia; G92 Toxic encephalopathy; J98.11 Atelectasis; I10 Essential (primary) hypertension; E78.5 Hyperlipidemia, unspecified; K64.9 Unspecified hemorrhoids; K57.90 Diverticulosis of intestine, part unspecified, without perforation or abscess without bleeding; R62.7 Adult failure to thrive; I48.91 Unspecified atrial fibrillation; K63.5 Polyp of colon; F41.9 Anxiety disorder, unspecified; G90.9 Disorder of the autonomic nervous system, unspecified; K59.00 Constipation, unspecified; R13.11 Dysphagia, oral phase; R91.1 Solitary pulmonary nodule; R63.4 Abnormal weight loss; Z68.28 Body mass index [BMI] 28.0-28.9, adult; R00.0 Tachycardia, unspecified; T42.4X5A Adverse effect of benzodiazepines, initial encounter; Z99.3 Dependence on wheelchair; Z95.2 Presence of prosthetic heart valve; Z66 Do not resuscitate; Z74.01 Bed confinement status
CPT/HCPCS: 36415; 36600; 49440; 71045-TC-FY; 71250-TC; 74018-TC-FY; 74176-TC; 80048; 80053; 80162; 81003; 82550; 82803; 83735; 84100; 84439; 84443; 84484; 85025; 85027; 85610; 85730; 87086; 93005; 93010; 94010; 94640; 94660; 94761; 97161-GP; 99285-25; J7030

== ENCOUNTER 2018-04-21 18:10 | Inpatient (IN) | payer OTHER, MEDICARE ==
[2018-04-21] MEDS ORDERED: MORPHINE SULFATE 2 MG/ML VIAL ONE (18:22)
[2018-04-21] MEDS ORDERED: morphine CARPU-JECT 2 MG/1 ML DISP.SYRIN IVPUSH ONE (18:33)
[2018-04-21 18:36] VITALS: BP 162/95; PULSE 81; BMI 25.0
--- NOTE | 2018-04-21 18:44 | PDOC ---
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 Patient's daughter at bedside is medical proxy was attempting to manage the patient's comfort as she at home. The patient started bleeding from the nose this afternoon, started having respiratory distress. Patient is unable to contribute to medical history. Patient's daughter is requesting no invasive procedures, comfort care only. Past History - Past Medical History Allergies/Adverse Reactions: Allergies Allergy/AdvReac Type Severity Reaction Status Date / Time No Known Drug Allergies Allergy Verified 04/21/18 18:32 Home Medications: Ambulatory Orders Apixaban [Eliquis] 5 mg PO BID 12/28/17 Docusate Sodium [Colace -] 300 mg PO DAILY #30 tab 01/05/18 Alprazolam [Xanax] 0.5 mg GT TID PRN #10 tablet MDD 3 03/26/18 Melatonin 10 mg PO HS #30 tab 03/26/18 Metoprolol Tartrate [Lopressor -] 150 mg GT BID #90 tablet 03/26/18 Polyethylene Glycol 3350 [Miralax 119 gm Btl -] 17 gm PO DAILY #1 bottle Albuterol 2.5/Ipratropium 0.5 [Duoneb -] 1 amp NEB RQ4H amp 03/27/18 Digoxin [Lanoxin -] 0.25 mg GT DAILY #30 tablet 03/27/18 Ranitidine Oral Solution [Zantac Oral Solution -] 150 mg GT BID #60 cup Ondansetron [Zofran Odt -] 4 mg SL Q6H PRN #30 tab.rapdis 03/30/18 Anemia: No Asthma: No Cancer: No Cardiac Disorders: Yes (aortic stenosis, VALVE REPLACEMENT, AFIB) CVA: No COPD: No CHF: No DVT: No Dementia: No Diabetes: No GI Disorders: Yes (HEMORRHOIDS,DIVERTICULOSIS,) Disorders: No HTN: Yes Hypercholesterolemia: Yes Liver Disease: No Seizures: No Thyroid Disease: No Other medical history: ALS - Surgical History Abdominal Surgery: No Appendectomy: No Cardiac Surgery: Yes (Aortic valve replacement) Cholecystectomy: Yes Lung Surgery: No Neurologic Surgery: No Orthopedic Surgery: No - Immunization History Immunization Up to Date: No - Suicide/Smoking/Psychosocial Hx Smoking History: Unknown if ever smoked Have you smoked in the past 12 months: No Number of Cigarettes Smoked Daily: 0 If you are a former smoker, when did you quit?: 45 YRS AGO Cigars Per Day: 0 Hx Alcohol Use: No Drug/Substance Use Hx: No Substance Use Type: None Hx Substance Use Treatment: No Review of Systems - Review of Systems Able to Perform ROS?: No (2/2 clinical condition) *Physical Exam - Vital Signs Last Vital Signs Temp Pulse Resp BP Pulse Ox 81 19 162/95 89 L 04/21/18 18:32 04/21/18 18:32 04/21/18 18:32 04/21/18 18:32 - Physical Exam Comments: 04/21/18 18:48 GENERAL: Awake, alert, and fully oriented, in no acute distress EYES: PERRLA, EOMI, sclera anicteric, conjunctiva clear ENT: Auricles normal inspection, hearing grossly normal, nares patent, blood coming from left nare NECK: Normal ROM, supple, no lymphadenopathy, JVD, or masses LUNGS: Accesory muscle use, near agonal breathing HEART: Regular rate and rhythm, normal S1 and S2, no murmurs, rubs or gallops, peripheral pulses normal and equal bilaterally. ABDOMEN: Soft, nontender, normoactive bowel sounds. No guarding, no rebound. No masses EXTREMITIES: Normal inspection, Normal range of motion, no edema. No clubbing or cyanosis. SKIN: Warm, Dry, normal turgor, no rashes or lesions noted. Moderate Sedation - Procedure Monitoring Vital Signs: Procedure Monitoring Vital Signs Temperature Pulse Rate 81 04/21/18 18:32 Respiratory Rate 19 04/21/18 18:32 Blood Pressure 162/95 04/21/18 18:32 O2 Sat by Pulse Oximetry (%) 89 L 04/21/18 18:32 ED Treatment Course - Medications Given in the ED: ED Medications Discontinued Medications Generic Name Dose Route Start Last Admin Trade Name Freq PRN Reason Stop Dose Admin Morphine Sulfate 2 mg 04/21/18 18:33 04/21/18 18:41 Morphine Injection - IVPUSH 04/21/18 18:34 2 mg ONCE ONE Administration Medical Decision Making - Medical Decision Making 04/21/18 18:49 Patient is 77F with history of ALS here today requesting assistance with comfort care. Morphine 2mg given, morphine drip started. Patient's wishes are to remain comfortable. Unable to care at home. Requesting no invasive exams or blood draws. Patient cleaned. External bandage applied. Plan is to eventually go to [place]. Unable to arrange given holiday. *DC/Admit/Observation/Transfer Diagnosis at time of Disposition: Epistaxis, End of life care - Discharge Dispostion Condition at time of disposition: Stable Decision to Admit order: Yes - Referrals - Patient Instructions - Post Discharge Activity
--- NOTE | 2018-04-21 18:44 | PDOC ---
Attending Attestation - Resident Resident Name: EulogiotonyaClint - ED Attending Attestation I have performed the following: I have examined & evaluated the patient, The case was reviewed & discussed with the resident, I agree w/resident's findings & plan, Exceptions are as noted - HPI HPI: 04/21/18 18:38 77y F hx of ALS, near complete qualdraplegia, afib, h/ ao valve replacement (on eliquis), htn, hl, presents with epistaxis. Pt had end stage ALS and is home hospice/comfort care and started having hemetemsis, epistaxis just prior to presentation. [facility] family desires no agressive measures. +epistaxis, will do a soft packing to comfort patient will put pt on a morphine gtt for comfort care will dfer further intervention at wishes of patient/family - Physicial Exam PE: 04/21/18 18:44 GENERAL: The patient is lethargic, will open eyes to verbal stimulus HEAD: Normocephalic, atraumatic. ENT: blood from L nare - Medical Decision Making 04/21/18 18:38 see above
[2018-04-21] MEDS ORDERED: MORPHINE 100 MG in SODIUM CHLORIDE 98 ML IVPB SCH (18:45)
--- NOTE | 2018-04-21 19:31 | PDOC ---
*Physical Exam - Vital Signs Last Vital Signs Temp Pulse Resp BP Pulse Ox 81 19 162/95 89 L 04/21/18 18:32 04/21/18 18:32 04/21/18 18:32 04/21/18 18:32 ED Treatment Course - Medications Given in the ED: ED Medications Discontinued Medications Generic Name Dose Route Start Last Admin Trade Name Fernando PRN Reason Stop Dose Admin Morphine Sulfate 2 mg 04/21/18 18:33 04/21/18 18:41 Morphine Injection - IVPUSH 04/21/18 18:34 2 mg ONCE ONE Administration Medical Decision Making - Medical Decision Making 04/21/18 19:30 pronouncement: Patient had no spontaneous respirations, heart sounds, response to any stimulus including noxious stimuli. Patient's pupil were fixed and dilated at 8mm and with no response to light, no corneal reflexes, no gag reflex, and no oculocephalic reflex. Patient was pronounced at 729pm. Patient's family was at bedside and did not desire autopsy, cytometry technologist services were offered, and arrangements were discussed. pronouncement: Patient is DNR/DNI/comfort care.. I evaluated the patient. Patient is noted to be apneic and pulseless. No spontaneous breathing was noted. Asystole was noted on 2 EKG leads. Patient pronounced at 729pm *DC/Admit/Observation/Transfer Diagnosis at time of Disposition: Epistaxis, End of life care, - Discharge Dispostion Disposition: Condition at time of disposition: - Referrals - Patient Instructions - Post Discharge Activity
--- NOTE | 2018-04-21 20:10 | PDOC ---
*Physical Exam - Vital Signs Last Vital Signs Temp Pulse Resp BP Pulse Ox 81 19 162/95 89 L 04/21/18 18:32 04/21/18 18:32 04/21/18 18:32 04/21/18 18:32 - Physical Exam Comments: 04/21/18 20:05 GENERAL: Obtunded, not alert HEAD: No signs of trauma, normocephalic, atraumatic EYES: Pupils non reactive to light, fixed and dilated 6-8 mm, sclera anicteric, conjunctiva clear ENT: Auricles normal inspection, nares patent, oropharynx clear without exudates. Moist mucosa NECK: supple, no lymphadenopathy, JVD, or masses LUNGS: absent respirations HEART: absent heart sounds, and absent pulses throughout EXTREMITIES : Absent pulses. ext's cyanotic appearing. NEUROLOGICAL: Cranial nerves II through XII Not intact. SKIN: Warm, Dry, normal turgor, no rashes or lesions noted ED Treatment Course - Medications Given in the ED: ED Medications Discontinued Medications Generic Name Dose Route Start Last Admin Trade Name Gregoryq PRN Reason Stop Dose Admin Morphine Sulfate 2 mg 04/21/18 18:33 04/21/18 18:41 Morphine Injection - IVPUSH 04/21/18 18:34 2 mg ONCE ONE Administration Medical Decision Making - Medical Decision Making 04/21/18 20:10 77 yo F with h/o HTN, CVA, Afib, ALS, on palliative at home end of life comfort care, who p/w epistaxis with family at bedside. 89 % o2 RA, HR 81, RR 18, BP 162 /95. Patient obtunded, family at bedside to assist in report. Patient daughter ( Marlee Garcia [phone]) health care proxy at bedside decline all invasive measures. Patient DNR/DNAR/DNI. Patient proxy/family continue to decline resuscitative measures. Decline nasal tamponade for epistaxis, or blood draws. Patient endorsed by Dr. Venegas. Patient started on Morphine gtt 100 mls 2ml/hr, and received morphine bolus x 2. PMD- Bozena Tinoco. ED Course: 04/21/18 20:13 At approximately 721 PM patient Pupils non reactive to light and fixed, 0 respirations, HR 0, neg heart sounds, absent peripheral or carotid/femoral pulses, neg reaction to tactile or painful stimuli/ nail-bed pressure/sternal rub. 04/21/18 20:17 [employer] Case # [id number]. Case not accepted. Patient family does not desire autopsy 04/21/18 20:[address] Bozena Valderrama answering service vice president of contracts [phone]. Awaiting call back *DC/Admit/Observation/Transfer Diagnosis at time of Disposition: Epistaxis, End of life care, - Discharge Dispostion Disposition: Condition at time of disposition: Stable - Referrals - Patient Instructions - Post Discharge Activity
== END 2018-04-21 23:06 | disposition expired | DRG 56 ==
LOC: JER 18:10 → JERBED 18:54
PROVIDERS: ADMIT Internal Medicine; ATTEND Internal Medicine
DX: G12.21 Amyotrophic lateral sclerosis (principal); G82.50 Quadriplegia, unspecified; Z51.5 Encounter for palliative care; R04.0 Epistaxis; I48.91 Unspecified atrial fibrillation; Z95.4 Presence of other heart-valve replacement; Z79.01 Long term (current) use of anticoagulants; E78.5 Hyperlipidemia, unspecified; K57.30 Diverticulosis of large intestine without perforation or abscess without bleeding; I35.0 Nonrheumatic aortic (valve) stenosis; Z87.891 Personal history of nicotine dependence; Z66 Do not resuscitate
CPT/HCPCS: 99282-25